=== PATIENT | male | born 1940 | race Two or more races ===

== ENCOUNTER 2021-05-10 03:53 | Inpatient (IN) | payer MEDICARE, MEDICAID ==
[~2021-05-10] VITALS: Ht 165.1 cm; Wt 62.2 kg
[2021-05-10 05:05] LABS: Basophils # (auto) 0 10 ^3/uL (0-0.2); Basophils % (auto) 0.3 % (0.0-2.0); Eosinophils # (auto) 0.1 10 ^3/uL (0-0.8); Eosinophils % (auto) 1.1 % (0.0-7.0); Hemoglobin 12.8 g/dL (13.5-17.5); Lymphocytes # (auto) 0.2 10 ^3/uL (0.4-5.4); Lymphocytes % (auto) 1.7 % (10.0-50.0); Mean Corpuscular Hemoglobin 30.6 pg (28.0-32.0); Mean Corpuscular Hgb Conc. 33.6 g/dL (32.0-36.0); Mean Corpuscular Volume 90.8 fL (80.0-100.0); Monocytes # (auto) 0.7 10 ^3/uL (0-1.3); Monocytes % (auto) 5.2 % (0.0-12.0); Neutrophils # (auto) 12.6 10 ^3/uL (1.6-8.6); Neutrophils % (auto) 91.7 % (37.0-80.0); Red Blood Cells 4.18 10^6/uL (4.5-5.90); Red Cell Distribution Width 12.8 % (11.8-14.3); White Blood Cell 13.7 10^3/uL (4.4-10.8)
[2021-05-10 05:38] LABS: Potassium 3.8 mmol/L (3.5-5.1)
[2021-05-10 05:52] LABS: BUN/Creatinine Ratio 24.2; Bilirubin, Total 0.7 mg/dL (0.2-1.0); Calcium 8.3 mg/dL (8.5-10.1); Total Protein 6.7 g/dL (6.4-8.2)
[2021-05-10 07:15] LABS: Urine Bacteria NONE SEEN /hpf (None Seen); Urine Blood Negative /uL (Negative); Urine Specific Gravity 1.013 (1.001-1.035); Urine WBC <1 /hpf (0 - 3)
[2021-05-10] MEDS ORDERED: cefTRIAXone 1GM/50ML D5W 50 ML IV ONE (08:15)
[2021-05-10] MEDS ORDERED: SODIUM CHLORIDE 0.9% 1,000 ML IV ONE (08:15)
[2021-05-10] MEDS ORDERED: AZITHROMYCIN 500MG/ 250ML 250 ML IV ONE (08:15)
[2021-05-10] MEDS ORDERED: ACETAMINOPHEN 325 MG TAB PO PRN (08:30)
[2021-05-10] MEDS ORDERED: MORPHINE SULFATE INJECTION 2 MG/ML SYRG IV PRN (08:30)
[2021-05-10] MEDS ORDERED: DEXTROSE (50%) 50ML SYRG IV PRN (08:30)
[2021-05-10] MEDS ORDERED: ONDANSETRON HCL 4 MG/2 ML VIAL IV PRN (08:30)
[2021-05-10] MEDS ORDERED: NITROGLYCERIN 0.4 MG SL TAB SL PRN (08:30)
[2021-05-10] MEDS: ATENOLOL 50 MG TAB PO SCH (09:32)
[2021-05-10] MEDS: PANTOPRAZOLE 40 MG TAB PO SCH (09:32)
[2021-05-10] MEDS: ENOXAPARIN SOD 40 MG/0.4 ML SYRINGE SC SCH (09:32)
[2021-05-10] MEDS: LOSARTAN POTASSIUM 50 MG TAB PO SCH (09:32)
[2021-05-10 09:59] LABS: Calcium 8.7 mg/dL (8.5-10.1); Potassium 4.1 mmol/L (3.5-5.1)
[2021-05-10 10:02] LABS: BUN/Creatinine Ratio 24.4
[2021-05-10] MEDS ORDERED: ACCU-CHEK COMFORT CURVE STRIP VI SCH (11:30)
[2021-05-10] MEDS ORDERED: InsuLIN REG 1unit/0.01ml Soln (100units/ml) SC SCH (11:30)
[2021-05-10] MEDS ORDERED: ALBUTEROL SULF 2.5 MG/0.5ML(0.5%) NEB SOLN NEB PRN (13:00)
[2021-05-10 14:40] VITALS: BP 133/63
[2021-05-10 17:00] VITALS: BP 119/69
[2021-05-10] MEDS: ATORVASTATIN 20 MG TAB PO SCH (21:58)
[2021-05-10 22:00] VITALS: BP 127/61
[2021-05-11 05:31] LABS: Basophils # (auto) 0 10 ^3/uL (0-0.2); Basophils % (auto) 0.5 % (0.0-2.0); Eosinophils # (auto) 0.3 10 ^3/uL (0-0.8); Eosinophils % (auto) 3.1 % (0.0-7.0); Hematocrit 38.6 % (41.0-53.0); Hemoglobin 13.1 g/dL (13.5-17.5); Lymphocytes # (auto) 0.8 10 ^3/uL (0.4-5.4); Lymphocytes % (auto) 8.2 % (10.0-50.0); Mean Corpuscular Hemoglobin 31.1 pg (28.0-32.0); Mean Corpuscular Volume 91.3 fL (80.0-100.0); Monocytes # (auto) 0.9 10 ^3/uL (0-1.3); Monocytes % (auto) 9.1 % (0.0-12.0); Neutrophils # (auto) 7.9 10 ^3/uL (1.6-8.6); Neutrophils % (auto) 79.1 % (37.0-80.0); Red Blood Cells 4.23 10^6/uL (4.5-5.90)
[2021-05-11 06:12] VITALS: BP 124/63
[2021-05-11 08:40] VITALS: BP 116/58
[2021-05-11] MEDS: cefTRIAXone 1GM/50ML D5W 50 ML IV SCH (09:39)
[2021-05-11] MEDS: ENOXAPARIN SOD 40 MG/0.4 ML SYRINGE SC SCH (09:40)
[2021-05-11] MEDS: ATENOLOL 50 MG TAB PO SCH (09:40)
[2021-05-11] MEDS: PANTOPRAZOLE 40 MG TAB PO SCH (09:40)
[2021-05-11] MEDS: LOSARTAN POTASSIUM 50 MG TAB PO SCH (10:00)
[2021-05-11] MEDS ORDERED: levoFLOXacin 500MG 100 ML IV SCH (10:00)
[2021-05-11] MEDS: AZITHROMYCIN 500MG/ 250ML 250 ML IV SCH (10:46)
[2021-05-11 13:00] VITALS: BP 137/77
[2021-05-11 16:58] VITALS: BP 146/71
[2021-05-11 21:51] VITALS: BP 140/94
[2021-05-11] MEDS: ATORVASTATIN 20 MG TAB PO SCH (21:57)
[2021-05-12 05:07] VITALS: BP 122/89
[2021-05-12 06:58] LABS: Basophils # (auto) 0.1 10 ^3/uL (0-0.2); Basophils % (auto) 0.5 % (0.0-2.0); Eosinophils # (auto) 0.2 10 ^3/uL (0-0.8); Eosinophils % (auto) 2.2 % (0.0-7.0); Hemoglobin 13.2 g/dL (13.5-17.5); Lymphocytes # (auto) 0.8 10 ^3/uL (0.4-5.4); Lymphocytes % (auto) 8.1 % (10.0-50.0); Mean Corpuscular Hemoglobin 31.4 pg (28.0-32.0); Mean Corpuscular Hgb Conc. 34.7 g/dL (32.0-36.0); Mean Corpuscular Volume 90.5 fL (80.0-100.0); Monocytes # (auto) 0.9 10 ^3/uL (0-1.3); Monocytes % (auto) 8.7 % (0.0-12.0); Neutrophils # (auto) 8.3 10 ^3/uL (1.6-8.6); Neutrophils % (auto) 80.5 % (37.0-80.0); Nucleated Red Blood Cells % 0.1 %; Red Cell Distribution Width 12.6 % (11.8-14.3); White Blood Cell 10.3 10^3/uL (4.4-10.8)
[2021-05-12 08:00] VITALS: BP 127/55
[2021-05-12] MEDS: ENOXAPARIN SOD 40 MG/0.4 ML SYRINGE SC SCH (10:15)
[2021-05-12] MEDS: LOSARTAN POTASSIUM 50 MG TAB PO SCH (10:15)
[2021-05-12] MEDS: cefTRIAXone 1GM/50ML D5W 50 ML IV SCH (10:15)
[2021-05-12] MEDS: ATENOLOL 50 MG TAB PO SCH (10:15)
[2021-05-12] MEDS: PANTOPRAZOLE 40 MG TAB PO SCH (10:15)
[2021-05-12] MEDS: AZITHROMYCIN 500MG/ 250ML 250 ML IV SCH (11:00)
[2021-05-12 12:00] VITALS: BP 131/60
[2021-05-12 16:00] VITALS: BP 125/53
[2021-05-12] MEDS: ATORVASTATIN 20 MG TAB PO SCH (21:32)
[2021-05-12 22:00] VITALS: BP 115/50
[2021-05-13 05:00] VITALS: BP 131/75
[2021-05-13 09:00] VITALS: BP 138/53
[2021-05-13] MEDS: cefTRIAXone 1GM/50ML D5W 50 ML IV SCH (10:45)
[2021-05-13] MEDS: AZITHROMYCIN 500MG/ 250ML 250 ML IV SCH (10:45)
[2021-05-13] MEDS: ENOXAPARIN SOD 40 MG/0.4 ML SYRINGE SC SCH (10:46)
[2021-05-13] MEDS: LOSARTAN POTASSIUM 50 MG TAB PO SCH (10:46)
[2021-05-13] MEDS: ATENOLOL 50 MG TAB PO SCH (10:47)
[2021-05-13] MEDS: PANTOPRAZOLE 40 MG TAB PO SCH (10:47)
[2021-05-13] MEDS ORDERED: VANCOMYCIN PER PHARMACY 0 MG IV SCH (11:45)
[2021-05-13] MEDS ORDERED: methylPREDNISolone SOD SUCC 125 MG/2 ML VL IV ONE (12:30)
[2021-05-13] MEDS ORDERED: VANCOMYCIN 1GM/250ML 250 ML IV ONE (12:45)
[2021-05-13 13:00] VITALS: BP 125/55
[2021-05-13 15:33] LABS: BUN/Creatinine Ratio 24.8; Basophils # (auto) 0 10 ^3/uL (0-0.2); Basophils % (auto) 0.3 % (0.0-2.0); Calcium 8.4 mg/dL (8.5-10.1); Eosinophils # (auto) 0.2 10 ^3/uL (0-0.8); Eosinophils % (auto) 1.8 % (0.0-7.0); Hematocrit 38.8 % (41.0-53.0); Hemoglobin 13.4 g/dL (13.5-17.5); Lymphocytes # (auto) 0.4 10 ^3/uL (0.4-5.4); Lymphocytes % (auto) 4.2 % (10.0-50.0); Mean Corpuscular Hemoglobin 31.3 pg (28.0-32.0); Mean Corpuscular Hgb Conc. 34.6 g/dL (32.0-36.0); Mean Corpuscular Volume 90.5 fL (80.0-100.0); Monocytes # (auto) 0.4 10 ^3/uL (0-1.3); Monocytes % (auto) 4.2 % (0.0-12.0); Neutrophils # (auto) 9.3 10 ^3/uL (1.6-8.6); Neutrophils % (auto) 89.5 % (37.0-80.0); Potassium 4.3 mmol/L (3.5-5.1); Red Blood Cells 4.29 10^6/uL (4.5-5.90); Red Cell Distribution Width 12.5 % (11.8-14.3); White Blood Cell 10.3 10^3/uL (4.4-10.8)
[2021-05-13 17:00] VITALS: BP 131/61
[2021-05-13 22:00] VITALS: BP 110/56
[2021-05-13] MEDS: VANCOMYCIN 750mg/250ml 250 ML IV SCH (22:29)
[2021-05-13] MEDS: ATORVASTATIN 20 MG TAB PO SCH (22:30)
[2021-05-13] MEDS: methylPREDNISolone SOD SUCC 40 MG/ML VL IV SCH (22:30)
[2021-05-14 05:00] VITALS: BP 122/62
[2021-05-14 06:05] LABS: Basophils # (auto) 0 10 ^3/uL (0-0.2); Basophils % (auto) 0.1 % (0.0-2.0); Eosinophils # (auto) 0 10 ^3/uL (0-0.8); Eosinophils % (auto) 0.1 % (0.0-7.0); Hematocrit 38.3 % (41.0-53.0); Hemoglobin 13.6 g/dL (13.5-17.5); Lymphocytes # (auto) 0.4 10 ^3/uL (0.4-5.4); Lymphocytes % (auto) 3.9 % (10.0-50.0); Mean Corpuscular Hemoglobin 31.7 pg (28.0-32.0); Mean Corpuscular Hgb Conc. 35.4 g/dL (32.0-36.0); Mean Corpuscular Volume 89.3 fL (80.0-100.0); Monocytes # (auto) 0.2 10 ^3/uL (0-1.3); Monocytes % (auto) 2.4 % (0.0-12.0); Neutrophils % (auto) 93.5 % (37.0-80.0); Red Blood Cells 4.29 10^6/uL (4.5-5.90); Red Cell Distribution Width 12.6 % (11.8-14.3); White Blood Cell 9.6 10^3/uL (4.4-10.8)
[2021-05-14 06:40] LABS: Albumin 2.4 g/dL (3.4-5.0); BUN/Creatinine Ratio 30.2; Calcium 8.9 mg/dL (8.5-10.1)
[2021-05-14 06:42] LABS: Bilirubin, Total 0.5 mg/dL (0.2-1.0); Total Protein 6.5 g/dL (6.4-8.2)
[2021-05-14] MEDS: cefTRIAXone 1GM/50ML D5W 50 ML IV SCH (08:46)
[2021-05-14 09:00] VITALS: BP 116/89
[2021-05-14] MEDS: methylPREDNISolone SOD SUCC 40 MG/ML VL IV SCH ×2 (10:19→21:19)
[2021-05-14] MEDS: VANCOMYCIN 750mg/250ml 250 ML IV SCH ×2 (10:19→21:19)
[2021-05-14] MEDS: LOSARTAN POTASSIUM 50 MG TAB PO SCH (10:20)
[2021-05-14] MEDS: ENOXAPARIN SOD 40 MG/0.4 ML SYRINGE SC SCH (10:20)
[2021-05-14] MEDS: PANTOPRAZOLE 40 MG TAB PO SCH (10:20)
[2021-05-14] MEDS ORDERED: DEXTROSE (50%) 50ML SYRG IV PRN (11:00)
[2021-05-14] MEDS: ACCU-CHEK COMFORT CURVE STRIP VI SCH ×3 (11:30→21:40)
[2021-05-14] MEDS: AZITHROMYCIN 500MG/ 250ML 250 ML IV SCH (12:00)
[2021-05-14] MEDS: InsuLIN REG 1unit/0.01ml Soln (100units/ml) SC SCH ×3 (12:00→21:40)
[2021-05-14 13:00] VITALS: BP 130/55
[2021-05-14 17:00] VITALS: BP 120/51
[2021-05-14] MEDS: INSULIN LANTUS (GLARGINE) 1 /0.01ml (100units/ml) SC SCH (21:40)
[2021-05-14] MEDS: ATORVASTATIN 20 MG TAB PO SCH (21:41)
[2021-05-14 22:00] VITALS: BP 124/56
[2021-05-15 05:00] VITALS: BP 132/50
[2021-05-15] MEDS: InsuLIN REG 1unit/0.01ml Soln (100units/ml) SC SCH ×4 (06:32→21:52)
[2021-05-15] MEDS: INSULIN LANTUS (GLARGINE) 1 /0.01ml (100units/ml) SC SCH ×2 (06:33→21:53)
[2021-05-15] MEDS: ACCU-CHEK COMFORT CURVE STRIP VI SCH ×4 (06:33→21:51)
[2021-05-15] MEDS: cefTRIAXone 1GM/50ML D5W 50 ML IV SCH (08:45)
[2021-05-15 09:00] VITALS: BP 130/60
[2021-05-15] MEDS: methylPREDNISolone SOD SUCC 40 MG/ML VL IV SCH ×2 (10:19→21:51)
[2021-05-15] MEDS: VANCOMYCIN 750mg/250ml 250 ML IV SCH ×2 (10:19→20:55)
[2021-05-15] MEDS: LOSARTAN POTASSIUM 50 MG TAB PO SCH (10:20)
[2021-05-15] MEDS: ENOXAPARIN SOD 40 MG/0.4 ML SYRINGE SC SCH (10:20)
[2021-05-15] MEDS: PANTOPRAZOLE 40 MG TAB PO SCH (10:21)
[2021-05-15] MEDS ORDERED: OMEP20TA PO (11:38)
[2021-05-15] MEDS ORDERED: METF-372 PO (11:38)
[2021-05-15] MEDS ORDERED: GLIM-5 PO (11:43)
[2021-05-15] MEDS ORDERED: AMLO-496 PO (11:43)
[2021-05-15] MEDS ORDERED: MULT-1018 PO (11:43)
[2021-05-15] MEDS ORDERED: ATOR40TA52 PO (11:43)
[2021-05-15] MEDS ORDERED: MIRT1TAB38 PO (11:43)
[2021-05-15] MEDS ORDERED: ALBU108A5 INH (11:43)
[2021-05-15 13:00] VITALS: BP 138/65
[2021-05-15 17:00] VITALS: BP 133/68
[2021-05-15] MEDS: ATORVASTATIN 20 MG TAB PO SCH (21:51)
[2021-05-15 22:00] VITALS: BP 133/71
[2021-05-16 05:00] VITALS: BP 148/55
[2021-05-16] MEDS: ACCU-CHEK COMFORT CURVE STRIP VI SCH ×4 (06:38→21:33)
[2021-05-16] MEDS: INSULIN LANTUS (GLARGINE) 1 /0.01ml (100units/ml) SC SCH ×2 (06:40→21:27)
[2021-05-16] MEDS: InsuLIN REG 1unit/0.01ml Soln (100units/ml) SC SCH ×4 (06:40→21:26)
[2021-05-16 09:00] VITALS: BP 140/71
[2021-05-16] MEDS: cefTRIAXone 1GM/50ML D5W 50 ML IV SCH (09:00)
[2021-05-16 09:28] LABS: Basophils # (auto) 0 10 ^3/uL (0-0.2); Basophils % (auto) 0.1 % (0.0-2.0); Eosinophils # (auto) 0 10 ^3/uL (0-0.8); Hematocrit 43.6 % (41.0-53.0); Hemoglobin 15.2 g/dL (13.5-17.5); Lymphocytes # (auto) 0.4 10 ^3/uL (0.4-5.4); Lymphocytes % (auto) 1.9 % (10.0-50.0); Mean Corpuscular Hemoglobin 31.2 pg (28.0-32.0); Mean Corpuscular Hgb Conc. 34.8 g/dL (32.0-36.0); Mean Corpuscular Volume 89.5 fL (80.0-100.0); Monocytes # (auto) 0.9 10 ^3/uL (0-1.3); Monocytes % (auto) 4.3 % (0.0-12.0); Neutrophils # (auto) 20.8 10 ^3/uL (1.6-8.6); Neutrophils % (auto) 93.7 % (37.0-80.0); Red Blood Cells 4.88 10^6/uL (4.5-5.90); Red Cell Distribution Width 12.7 % (11.8-14.3); White Blood Cell 22.2 10^3/uL (4.4-10.8)
[2021-05-16 09:36] LABS: INR 1.12 (0.9-1.15); Partial Thromboplastin Time 26.2 sec (23.6-33.0)
[2021-05-16 09:39] LABS: BUN/Creatinine Ratio 30.9; Calcium 9.6 mg/dL (8.5-10.1); Potassium 3.8 mmol/L (3.5-5.1)
[2021-05-16] MEDS: methylPREDNISolone SOD SUCC 40 MG/ML VL IV SCH ×2 (09:47→21:33)
[2021-05-16] MEDS: AZITHROMYCIN 250 MG TAB PO SCH (09:48)
[2021-05-16] MEDS: ENOXAPARIN SOD 40 MG/0.4 ML SYRINGE SC SCH (09:48)
[2021-05-16] MEDS: LOSARTAN POTASSIUM 50 MG TAB PO SCH (09:48)
[2021-05-16] MEDS: PANTOPRAZOLE 40 MG TAB PO SCH (09:48)
[2021-05-16] MEDS: VANCOMYCIN 750mg/250ml 250 ML IV SCH ×2 (10:00→21:25)
[2021-05-16 13:00] VITALS: BP 153/61
[2021-05-16 17:00] VITALS: BP 145/78
[2021-05-16] MEDS: ATORVASTATIN 20 MG TAB PO SCH (21:33)
[2021-05-16 22:00] VITALS: BP 106/64
[2021-05-17 05:00] VITALS: BP 140/77
[2021-05-17 06:59] LABS: Basophils # (auto) 0 10 ^3/uL (0-0.2); Basophils % (auto) 0.1 % (0.0-2.0); Eosinophils # (auto) 0 10 ^3/uL (0-0.8); Hematocrit 40.3 % (41.0-53.0); Lymphocytes # (auto) 0.4 10 ^3/uL (0.4-5.4); Lymphocytes % (auto) 2.5 % (10.0-50.0); Mean Corpuscular Hemoglobin 30.9 pg (28.0-32.0); Mean Corpuscular Hgb Conc. 34.7 g/dL (32.0-36.0); Mean Corpuscular Volume 89.1 fL (80.0-100.0); Monocytes # (auto) 0.6 10 ^3/uL (0-1.3); Neutrophils % (auto) 93.4 % (37.0-80.0); Red Blood Cells 4.53 10^6/uL (4.5-5.90); Red Cell Distribution Width 12.5 % (11.8-14.3)
[2021-05-17] MEDS: INSULIN LANTUS (GLARGINE) 1 /0.01ml (100units/ml) SC SCH ×2 (07:00→22:27)
[2021-05-17] MEDS: ACCU-CHEK COMFORT CURVE STRIP VI SCH ×4 (07:00→22:20)
[2021-05-17] MEDS: InsuLIN REG 1unit/0.01ml Soln (100units/ml) SC SCH ×4 (07:30→22:29)
[2021-05-17 09:00] VITALS: BP 149/90
[2021-05-17] MEDS: cefTRIAXone 1GM/50ML D5W 50 ML IV SCH (09:00)
[2021-05-17] MEDS: methylPREDNISolone SOD SUCC 40 MG/ML VL IV SCH ×2 (09:57→22:20)
[2021-05-17] MEDS: ENOXAPARIN SOD 40 MG/0.4 ML SYRINGE SC SCH (09:58)
[2021-05-17] MEDS: AZITHROMYCIN 250 MG TAB PO SCH (09:58)
[2021-05-17] MEDS: LOSARTAN POTASSIUM 50 MG TAB PO SCH (09:58)
[2021-05-17] MEDS: PANTOPRAZOLE 40 MG TAB PO SCH (09:58)
[2021-05-17] MEDS: VANCOMYCIN 750mg/250ml 250 ML IV SCH ×2 (10:00→21:13)
[2021-05-17 13:00] VITALS: BP 139/65
[2021-05-17 17:00] VITALS: BP 137/67
[2021-05-17] MEDS: ATORVASTATIN 20 MG TAB PO SCH (22:20)
[2021-05-18 06:07] VITALS: BP 149/81
[2021-05-18] MEDS: InsuLIN REG 1unit/0.01ml Soln (100units/ml) SC SCH ×4 (06:49→21:24)
[2021-05-18] MEDS: ACCU-CHEK COMFORT CURVE STRIP VI SCH ×4 (06:49→21:23)
[2021-05-18] MEDS: INSULIN LANTUS (GLARGINE) 1 /0.01ml (100units/ml) SC SCH ×2 (06:56→21:24)
[2021-05-18 09:00] VITALS: BP 146/96
[2021-05-18 09:18] LABS: Albumin 3.4 g/dL (3.4-5.0); BUN/Creatinine Ratio 30.8; Calcium 9.6 mg/dL (8.5-10.1); Potassium 4.6 mmol/L (3.5-5.1)
[2021-05-18 09:21] LABS: Bilirubin, Total 0.6 mg/dL (0.2-1.0); Total Protein 7.2 g/dL (6.4-8.2)
[2021-05-18 09:37] LABS: Basophils # (auto) 0 10 ^3/uL (0-0.2); Eosinophils # (auto) 0 10 ^3/uL (0-0.8); Mean Corpuscular Hgb Conc. 33.9 g/dL (32.0-36.0)
[2021-05-18 09:39] LABS: Basophils % (auto) 0.1 % (0.0-2.0); Hematocrit 46.9 % (41.0-53.0); Hemoglobin 15.9 g/dL (13.5-17.5); Lymphocytes # (auto) 0.5 10 ^3/uL (0.4-5.4); Lymphocytes % (auto) 2.6 % (10.0-50.0); Mean Corpuscular Hemoglobin 30.3 pg (28.0-32.0); Mean Corpuscular Volume 89.4 fL (80.0-100.0); Monocytes % (auto) 4.9 % (0.0-12.0); Neutrophils # (auto) 17.8 10 ^3/uL (1.6-8.6); Neutrophils % (auto) 92.4 % (37.0-80.0); Red Blood Cells 5.25 10^6/uL (4.5-5.90); Red Cell Distribution Width 12.6 % (11.8-14.3); White Blood Cell 19.3 10^3/uL (4.4-10.8)
[2021-05-18] MEDS: VANCOMYCIN 750mg/250ml 250 ML IV SCH ×2 (10:00→10:54)
[2021-05-18] MEDS: methylPREDNISolone SOD SUCC 40 MG/ML VL IV SCH (10:43)
[2021-05-18] MEDS: PANTOPRAZOLE 40 MG TAB PO SCH (10:45)
[2021-05-18] MEDS: LOSARTAN POTASSIUM 50 MG TAB PO SCH (10:45)
[2021-05-18] MEDS: ENOXAPARIN SOD 40 MG/0.4 ML SYRINGE SC SCH (10:46)
[2021-05-18] MEDS: AZITHROMYCIN 250 MG TAB PO SCH (10:46)
[2021-05-18] MEDS: cefTRIAXone 1GM/50ML D5W 50 ML IV SCH (11:10)
[2021-05-18 12:53] VITALS: BP 139/66
[2021-05-18 17:00] VITALS: BP 151/71
[2021-05-18] MEDS: ATORVASTATIN 20 MG TAB PO SCH (21:22)
[2021-05-18 22:00] VITALS: BP 141/78
[2021-05-19] MEDS: VANCOMYCIN 750mg/250ml 250 ML IV SCH (00:47)
[2021-05-19 05:00] VITALS: BP 117/73
[2021-05-19] MEDS: INSULIN LANTUS (GLARGINE) 1 /0.01ml (100units/ml) SC SCH (06:29)
[2021-05-19] MEDS: ACCU-CHEK COMFORT CURVE STRIP VI SCH ×2 (06:29→11:30)
[2021-05-19] MEDS: InsuLIN REG 1unit/0.01ml Soln (100units/ml) SC SCH ×2 (06:29→11:30)
[2021-05-19 06:32] LABS: Potassium 4.2 mmol/L (3.5-5.1)
[2021-05-19 06:38] LABS: BUN/Creatinine Ratio 33.9; Calcium 8.9 mg/dL (8.5-10.1)
[2021-05-19 09:00] VITALS: BP 150/61
[2021-05-19] MEDS: cefTRIAXone 1GM/50ML D5W 50 ML IV SCH (10:00)
[2021-05-19] MEDS ORDERED: predniSONE 20 MG TAB PO SCH (10:00)
[2021-05-19] MEDS ORDERED: PRED10TA PO (10:26)
[2021-05-19] MEDS ORDERED: DOXY-332 PO (10:26)
[2021-05-19] MEDS: PANTOPRAZOLE 40 MG TAB PO SCH (10:30)
[2021-05-19] MEDS: LOSARTAN POTASSIUM 50 MG TAB PO SCH (10:30)
[2021-05-19] MEDS: AZITHROMYCIN 250 MG TAB PO SCH (10:30)
== END 2021-05-19 15:48 | disposition home or self-care (01) | DRG 871 ==
LOC: EDBD 03:53 → ER 04:10 → TELE 08:23 → TELE-WESTW 13:44
PROVIDERS: ADMIT Nurse Practitioner; ATTEND Internal Medicine
DX: A41.9 Sepsis, unspecified organism (principal); J96.01 Acute respiratory failure with hypoxia; I50.41 Acute combined systolic (congestive) and diastolic (congestive) heart failure; J18.9 Pneumonia, unspecified organism; E44.0 Moderate protein-calorie malnutrition; J44.0 Chronic obstructive pulmonary disease with (acute) lower respiratory infection; E11.9 Type 2 diabetes mellitus without complications; I27.20 Pulmonary hypertension, unspecified; E78.5 Hyperlipidemia, unspecified; I11.0 Hypertensive heart disease with heart failure; Z20.822 Contact with and (suspected) exposure to COVID-19; Z79.84 Long term (current) use of oral hypoglycemic drugs; Z68.23 Body mass index [BMI] 23.0-23.9, adult; Z87.891 Personal history of nicotine dependence; Z88.0 Allergy status to penicillin
CPT/HCPCS: 36415; 36600; 71045; 71250; 80048; 80053; 80202; 81001; 82728; 82805; 82962; 83036; 83605; 83735; 83880; 84443; 84484; 85025; 85379; 85610; 85730; 87040; 87426; 93005; 93306; 96365; 96368; 97163; G0378; J0696; J1815

== ENCOUNTER 2022-06-26 11:38 | Inpatient (IN) | payer MEDICARE, MEDICAID ==
[~2022-06-26] VITALS: Ht 165.1 cm; Wt 98.5 kg
[~2022-06-26 11:38] MED LIST: ALBU108A5 INH; AMLO-496 PO; ATOR40TA52 PO; DOXY-332 PO; GLIM-5 PO; METF-372 PO; MIRT1TAB38 PO; MULT-1018 PO; OMEP20TA PO; PRED10TA PO
[2022-06-26 12:52] LABS: Urine Bacteria NONE SEEN /hpf (None Seen); Urine Blood Negative /uL (Negative); Urine Hyaline Cast FEW /lpf (0 - 2); Urine Mucus FEW (None Seen); Urine Specific Gravity 1.022 (1.001-1.035); Urine WBC 1 /hpf (0 - 3)
[2022-06-26 12:54] LABS: Basophils # (auto) 0.1 10 ^3/uL (0-0.2); Basophils % (auto) 0.8 % (0.0-2.0); Eosinophils # (auto) 0.4 10 ^3/uL (0-0.8); Eosinophils % (auto) 3.1 % (0.0-7.0); Hematocrit 43.8 % (41.0-53.0); Hemoglobin 14.8 g/dL (13.5-17.5); Lymphocytes # (auto) 0.8 10 ^3/uL (0.4-5.4); Lymphocytes % (auto) 7.4 % (10.0-50.0); Mean Corpuscular Hemoglobin 29.4 pg (28.0-32.0); Mean Corpuscular Hgb Conc. 33.7 g/dL (32.0-36.0); Mean Corpuscular Volume 87.2 fL (80.0-100.0); Monocytes # (auto) 0.6 10 ^3/uL (0-1.3); Monocytes % (auto) 5.3 % (0.0-12.0); Neutrophils # (auto) 9.6 10 ^3/uL (1.6-8.6); Neutrophils % (auto) 83.4 % (37.0-80.0); Red Blood Cells 5.02 10^6/uL (4.5-5.90); Red Cell Distribution Width 14.5 % (11.8-14.3); White Blood Cell 11.5 10^3/uL (4.4-10.8)
[2022-06-26 13:03] LABS: Albumin 3.6 g/dL (3.4-5.0); Calcium 9.3 mg/dL (8.5-10.1); Magnesium 2.4 mg/dL (1.6-2.6); Potassium 3.9 mmol/L (3.5-5.1)
[2022-06-26 13:07] LABS: BUN/Creatinine Ratio 18.3 (10.0-20.0); Bilirubin, Total 0.8 mg/dL (0.2-1.0); Total Protein 8.2 g/dL (6.4-8.2)
[2022-06-26 13:12] LABS: INR 1.02 (0.9-1.15); Partial Thromboplastin Time 28.4 sec (24.6-33.4)
[2022-06-26] MEDS ORDERED: IPRATROPIUM BROM 0.5 MG/2.5ML INH SOL NEB ONE (13:30)
[2022-06-26] MEDS ORDERED: DexAMETHasone SOD PHOS 10MG/1ML VIAL INJ IV ONE (13:30)
[2022-06-26] MEDS ORDERED: ALBUTEROL SULF 2.5 MG/0.5ML(0.5%) NEB SOLN NEB ONE (13:30)
[2022-06-26] MEDS ORDERED: levoFLOXacin 500MG 100 ML IV ONE (16:00)
[2022-06-26] MEDS ORDERED: ALBUTEROL SULF 2.5 MG/0.5ML(0.5%) NEB SOLN NEB PRN (18:45)
[2022-06-26] MEDS ORDERED: DEXTROSE (50%) 50ML SYRG IV PRN (18:45)
[2022-06-26] MEDS ORDERED: ONDANSETRON HCL 4 MG/2 ML VIAL IV PRN (18:45)
[2022-06-26] MEDS ORDERED: DOCUSATE SOD 100 MG CAP PO PRN (18:45)
[2022-06-26] MEDS ORDERED: IPRATROPIUM BROM 0.5 MG/2.5ML INH SOL NEB PRN (18:45)
[2022-06-26] MEDS ORDERED: MORPHINE SULFATE INJ 2 MG/ml SYRG IV PRN (18:45)
[2022-06-26] MEDS: ACCU-CHEK COMFORT CURVE STRIP VI SCH (22:00)
[2022-06-26] MEDS: methylPREDNISolone SOD SUCC 125 MG/2 ML VL IV SCH (23:38)
[2022-06-26] MEDS: ATORVASTATIN 20 MG TAB PO SCH (23:39)
[2022-06-26] MEDS: InsuLIN REG 1unit/0.01ml Soln (100units/ml) SC SCH (23:39)
[2022-06-27] VITALS (7 sets, daily range): BP systolic 111–147; BP diastolic 51–69
[2022-06-27 05:56] LABS: Basophils # (auto) 0 10 ^3/uL (0-0.2); Basophils % (auto) 0.1 % (0.0-2.0); Eosinophils # (auto) 0 10 ^3/uL (0-0.8); Hematocrit 39.7 % (41.0-53.0); Hemoglobin 13.6 g/dL (13.5-17.5); Lymphocytes # (auto) 0.4 10 ^3/uL (0.4-5.4); Lymphocytes % (auto) 4.1 % (10.0-50.0); Mean Corpuscular Hemoglobin 30.1 pg (28.0-32.0); Mean Corpuscular Hgb Conc. 34.3 g/dL (32.0-36.0); Mean Corpuscular Volume 87.7 fL (80.0-100.0); Monocytes # (auto) 0.1 10 ^3/uL (0-1.3); Monocytes % (auto) 1.4 % (0.0-12.0); Neutrophils # (auto) 8.3 10 ^3/uL (1.6-8.6); Neutrophils % (auto) 94.4 % (37.0-80.0); Red Blood Cells 4.52 10^6/uL (4.5-5.90); Red Cell Distribution Width 13.8 % (11.8-14.3); White Blood Cell 8.8 10^3/uL (4.4-10.8)
[2022-06-27 06:11] LABS: Albumin 3.1 g/dL (3.4-5.0); Calcium 9.2 mg/dL (8.5-10.1)
[2022-06-27 06:16] LABS: Bilirubin, Total 0.7 mg/dL (0.2-1.0); Total Protein 7.1 g/dL (6.4-8.2)
[2022-06-27] MEDS: methylPREDNISolone SOD SUCC 125 MG/2 ML VL IV SCH ×3 (06:17→21:34)
[2022-06-27] MEDS: InsuLIN REG 1unit/0.01ml Soln (100units/ml) SC SCH ×4 (06:19→21:41)
[2022-06-27] MEDS: ACCU-CHEK COMFORT CURVE STRIP VI SCH ×4 (06:19→21:34)
[2022-06-27] MEDS: MULTIPLE VITAMIN TAB PO SCH (09:36)
[2022-06-27] MEDS: amLODIPine BESYLATE 5 MG TAB PO SCH (09:36)
[2022-06-27] MEDS: PANTOPRAZOLE 40 MG TAB PO SCH (09:37)
[2022-06-27] MEDS: ENOXAPARIN SOD 40 MG/0.4 ML SYRINGE SC SCH (09:37)
[2022-06-27] MEDS ORDERED: levoFLOXacin 500MG 100 ML IV ONE (18:15)
[2022-06-27] MEDS: MIRTAZAPINE 30 MG TAB PO SCH (21:34)
[2022-06-27] MEDS: ATORVASTATIN 20 MG TAB PO SCH (21:34)
[2022-06-28 05:00] VITALS: BP 131/63
[2022-06-28 06:13] LABS: Hematocrit 40.4 % (41.0-53.0); Hemoglobin 13.9 g/dL (13.5-17.5); Mean Corpuscular Hemoglobin 29.7 pg (28.0-32.0); Mean Corpuscular Hgb Conc. 34.5 g/dL (32.0-36.0); Mean Corpuscular Volume 86.1 fL (80.0-100.0); White Blood Cell 21.5 10^3/uL (4.4-10.8)
[2022-06-28] MEDS: methylPREDNISolone SOD SUCC 125 MG/2 ML VL IV SCH ×2 (06:17→21:17)
[2022-06-28 06:23] LABS: Basophils % (manual) 0 (0.0-2.0); Blast Cells 0; Eosinophils % (manual) 0 (0-7); Metamyelocytes % 0; Myelocytes % 0; Promyelocytes % 0; Reactive Lymphocytes 0
[2022-06-28 06:33] LABS: Calcium 9.3 mg/dL (8.5-10.1)
[2022-06-28 06:36] LABS: BUN/Creatinine Ratio 34.3 (10.0-20.0)
[2022-06-28] MEDS: ACCU-CHEK COMFORT CURVE STRIP VI SCH ×6 (06:53→21:56)
[2022-06-28] MEDS: InsuLIN REG 1unit/0.01ml Soln (100units/ml) SC SCH ×5 (06:54→22:00)
[2022-06-28 09:00] VITALS: BP 120/65
[2022-06-28 09:07] LABS: Band Neutrophils % (manual) 12; Lymphocytes % (manual) 1 (10.0-50.0); Monocytes % (manual) 3 (0-12)
[2022-06-28] MEDS: PANTOPRAZOLE 40 MG TAB PO SCH (09:08)
[2022-06-28] MEDS: amLODIPine BESYLATE 5 MG TAB PO SCH (09:09)
[2022-06-28] MEDS: MULTIPLE VITAMIN TAB PO SCH (09:09)
[2022-06-28] MEDS: ENOXAPARIN SOD 40 MG/0.4 ML SYRINGE SC SCH (09:10)
[2022-06-28] MEDS ORDERED: levoFLOXacin 500MG 100 ML IV SCH (10:00)
[2022-06-28] MEDS ORDERED: levoFLOXacin 250MG 50 ML IV SCH (10:00)
[2022-06-28] MEDS ORDERED: DEXTROSE (50%) 50ML SYRG IV PRN (12:45)
[2022-06-28 13:00] VITALS: BP 123/52
[2022-06-28] MEDS: DOXYCYCLINE 100MG/250ML 250 ML IV SCH (14:00)
[2022-06-28 16:54] VITALS: BP 124/57
[2022-06-28] MEDS: ALBUTEROL SULF 2.5 MG/0.5ML(0.5%) NEB SOLN NEB SCH (18:30)
[2022-06-28] MEDS: IPRATROPIUM BROM 0.5 MG/2.5ML INH SOL NEB SCH (18:30)
[2022-06-28] MEDS: ATORVASTATIN 20 MG TAB PO SCH (21:18)
[2022-06-28] MEDS: MIRTAZAPINE 30 MG TAB PO SCH (21:25)
[2022-06-28 22:00] VITALS: BP 137/61
[2022-06-29] MEDS: DOXYCYCLINE 100MG/250ML 250 ML IV SCH ×2 (00:29→11:19)
[2022-06-29 05:00] VITALS: BP 125/61
[2022-06-29] MEDS: ACCU-CHEK COMFORT CURVE STRIP VI SCH ×8 (06:12→21:43)
[2022-06-29] MEDS: InsuLIN REG 1unit/0.01ml Soln (100units/ml) SC SCH ×5 (06:14→21:43)
[2022-06-29] MEDS: ALBUTEROL SULF 2.5 MG/0.5ML(0.5%) NEB SOLN NEB SCH ×3 (06:38→19:13)
[2022-06-29] MEDS: IPRATROPIUM BROM 0.5 MG/2.5ML INH SOL NEB SCH ×3 (06:38→19:13)
[2022-06-29 06:49] LABS: BUN/Creatinine Ratio 35.6 (10.0-20.0); Potassium 4.3 mmol/L (3.5-5.1)
[2022-06-29 09:00] VITALS: BP 126/57
[2022-06-29] MEDS: amLODIPine BESYLATE 5 MG TAB PO SCH (09:01)
[2022-06-29] MEDS: MULTIPLE VITAMIN TAB PO SCH (09:01)
[2022-06-29] MEDS: PANTOPRAZOLE 40 MG TAB PO SCH (09:01)
[2022-06-29] MEDS: ENOXAPARIN SOD 40 MG/0.4 ML SYRINGE SC SCH (09:02)
[2022-06-29] MEDS: methylPREDNISolone SOD SUCC 125 MG/2 ML VL IV SCH (09:02)
[2022-06-29 12:40] VITALS: BP 125/56
[2022-06-29 17:00] VITALS: BP 120/55
[2022-06-29] MEDS: ATORVASTATIN 20 MG TAB PO SCH (21:33)
[2022-06-29] MEDS: MIRTAZAPINE 30 MG TAB PO SCH (21:33)
[2022-06-29 22:00] VITALS: BP 133/58
[2022-06-30] MEDS: DOXYCYCLINE 100MG/250ML 250 ML IV SCH ×2 (00:45→11:10)
[2022-06-30] MEDS: IPRATROPIUM BROM 0.5 MG/2.5ML INH SOL NEB SCH ×3 (00:51→19:25)
[2022-06-30] MEDS: ALBUTEROL SULF 2.5 MG/0.5ML(0.5%) NEB SOLN NEB SCH ×3 (00:51→19:25)
[2022-06-30 00:56] VITALS: BP 133/58
[2022-06-30 05:04] VITALS: BP 108/73
[2022-06-30] MEDS: ACCU-CHEK COMFORT CURVE STRIP VI SCH ×8 (05:42→22:41)
[2022-06-30] MEDS: InsuLIN REG 1unit/0.01ml Soln (100units/ml) SC SCH ×5 (05:57→22:43)
[2022-06-30] MEDS: MULTIPLE VITAMIN TAB PO SCH (08:39)
[2022-06-30] MEDS: amLODIPine BESYLATE 5 MG TAB PO SCH (08:40)
[2022-06-30] MEDS: PANTOPRAZOLE 40 MG TAB PO SCH (08:40)
[2022-06-30] MEDS: ENOXAPARIN SOD 40 MG/0.4 ML SYRINGE SC SCH (08:40)
[2022-06-30 09:00] VITALS: BP 134/57
[2022-06-30] MEDS ORDERED: predniSONE 20 MG TAB PO SCH (10:00)
[2022-06-30 12:39] VITALS: BP 137/62
[2022-06-30 16:22] VITALS: BP 134/42
[2022-06-30] MEDS: metFORMIN HYDROCHLORIDE 500 MG TAB PO SCH (17:33)
[2022-06-30 22:00] VITALS: BP 130/65
[2022-06-30] MEDS ORDERED: INSULIN LANTUS (GLARGINE) 1 /0.01ml (100units/ml) SC SCH (22:00)
[2022-06-30] MEDS: MIRTAZAPINE 30 MG TAB PO SCH (22:40)
[2022-06-30] MEDS: ATORVASTATIN 20 MG TAB PO SCH (22:40)
[2022-06-30] MEDS: DOXYCYCLINE 100 MG TAB/CAP PO SCH (22:41)
[2022-07-01 05:00] VITALS: BP 119/68
[2022-07-01] MEDS: ACCU-CHEK COMFORT CURVE STRIP VI SCH ×4 (05:59→12:52)
[2022-07-01] MEDS: InsuLIN REG 1unit/0.01ml Soln (100units/ml) SC SCH ×2 (06:06→12:54)
[2022-07-01] MEDS: IPRATROPIUM BROM 0.5 MG/2.5ML INH SOL NEB SCH ×2 (06:40→11:25)
[2022-07-01] MEDS: ALBUTEROL SULF 2.5 MG/0.5ML(0.5%) NEB SOLN NEB SCH ×2 (06:40→11:25)
[2022-07-01 09:00] VITALS: BP 125/57
[2022-07-01] MEDS: metFORMIN HYDROCHLORIDE 500 MG TAB PO SCH (09:22)
[2022-07-01] MEDS: MULTIPLE VITAMIN TAB PO SCH (09:26)
[2022-07-01] MEDS: amLODIPine BESYLATE 5 MG TAB PO SCH (09:26)
[2022-07-01] MEDS: DOXYCYCLINE 100 MG TAB/CAP PO SCH (09:26)
[2022-07-01] MEDS: PANTOPRAZOLE 40 MG TAB PO SCH (09:26)
[2022-07-01] MEDS: ENOXAPARIN SOD 40 MG/0.4 ML SYRINGE SC SCH (09:27)
[2022-07-01] MEDS ORDERED: predniSONE 20 MG TAB PO SCH (10:00)
[2022-07-01] MEDS ORDERED: PRED20TA2 PO (11:20)
[2022-07-01] MEDS ORDERED: DOXY-346 PO (11:20)
[2022-07-01 12:14] VITALS: BP 125/57
== END 2022-07-01 14:30 | disposition home or self-care (01) | DRG 177 ==
LOC: ER 11:38 → TELE 18:40 → TELE-WESTW 22:42
PROVIDERS: ADMIT Nurse Practitioner Family; ATTEND Internal Medicine
DX: J15.6 Pneumonia due to other Gram-negative bacteria (principal); J96.21 Acute and chronic respiratory failure with hypoxia; E87.1 Hypo-osmolality and hyponatremia; J98.11 Atelectasis; J44.1 Chronic obstructive pulmonary disease with (acute) exacerbation; R17 Unspecified jaundice; J44.0 Chronic obstructive pulmonary disease with (acute) lower respiratory infection; D72.829 Elevated white blood cell count, unspecified; E78.5 Hyperlipidemia, unspecified; I10 Essential (primary) hypertension; Z20.822 Contact with and (suspected) exposure to COVID-19; Z79.899 Other long term (current) drug therapy; Z83.3 Family history of diabetes mellitus; Z87.891 Personal history of nicotine dependence; Z88.0 Allergy status to penicillin
CPT/HCPCS: 36415; 36600; 71046; 71250; 80048; 80053; 81001; 82805; 82962; 83036; 83735; 84484; 85007; 85025; 85027; 85379; 85610; 85730; 87426; 93005; 93970; 94640; 96365; 96375; G0378; J1100; J1815; J1956; J3490

== ENCOUNTER 2022-08-13 08:30 | Inpatient (IN) | payer MEDICARE, MEDICAID ==
[~2022-08-13] VITALS: Ht 172.7 cm; Wt 60.5 kg
[~2022-08-13 08:30] MED LIST changes: +DOXY-346 PO; +PRED20TA2 PO
[2022-08-13 09:33] LABS: Basophils # (auto) 0.1 10 ^3/uL (0-0.2); Basophils % (auto) 0.7 % (0.0-2.0); Eosinophils # (auto) 0.2 10 ^3/uL (0-0.8); Eosinophils % (auto) 2.3 % (0.0-7.0); Hematocrit 41.5 % (41.0-53.0); Hemoglobin 13.8 g/dL (13.5-17.5); Lymphocytes # (auto) 0.6 10 ^3/uL (0.4-5.4); Lymphocytes % (auto) 5.3 % (10.0-50.0); Mean Corpuscular Hemoglobin 28.8 pg (28.0-32.0); Mean Corpuscular Hgb Conc. 33.4 g/dL (32.0-36.0); Mean Corpuscular Volume 86.4 fL (80.0-100.0); Monocytes # (auto) 0.7 10 ^3/uL (0-1.3); Monocytes % (auto) 6.1 % (0.0-12.0); Neutrophils # (auto) 9.2 10 ^3/uL (1.6-8.6); Neutrophils % (auto) 85.6 % (37.0-80.0); Red Cell Distribution Width 14.9 % (11.8-14.3); White Blood Cell 10.7 10^3/uL (4.4-10.8)
[2022-08-13 09:50] LABS: Albumin 3.5 g/dL (3.4-5.0); Calcium 8.5 mg/dL (8.5-10.1); Magnesium 1.9 mg/dL (1.6-2.6); Potassium 3.9 mmol/L (3.5-5.1)
[2022-08-13 09:52] LABS: INR 1.03 (0.9-1.15); Partial Thromboplastin Time 25.7 sec (24.6-33.4)
[2022-08-13 09:54] LABS: BUN/Creatinine Ratio 22.4 (10.0-20.0); Bilirubin, Total 0.9 mg/dL (0.2-1.0); Total Protein 6.4 g/dL (6.4-8.2)
[2022-08-13] MEDS ORDERED: IOHEXOL 350 MG/ML 100ML IJ ONE (12:40)
[2022-08-13] MEDS ORDERED: MORPHINE SULFATE INJ 2 MG/ml SYRG IV PRN ×2 (13:45→14:30)
[2022-08-13] MEDS ORDERED: ACETAMINOPHEN 325 MG TAB PO PRN (13:45)
[2022-08-13] MEDS ORDERED: NITROGLYCERIN 0.4 MG SL TAB SL PRN ×2 (13:45→14:30)
[2022-08-13] MEDS ORDERED: ALBUTEROL SULF 2.5 MG/0.5ML(0.5%) NEB SOLN NEB PRN (13:45)
[2022-08-13] MEDS ORDERED: DEXTROSE (50%) 50ML SYRG IV PRN (14:00)
[2022-08-13] MEDS ORDERED: FUROSEMIDE 20 MG/2 ML VIAL IV ONE (14:30)
[2022-08-13 14:48] VITALS: BP 110/68
[2022-08-13] MEDS: IPRATROPIUM BROM 0.5 MG/2.5ML INH SOL NEB SCH ×3 (14:54→21:52)
[2022-08-13] MEDS: ALBUTEROL SULF 2.5 MG/0.5ML(0.5%) NEB SOLN NEB SCH ×3 (14:54→21:52)
[2022-08-13] MEDS: ACCU-CHEK COMFORT CURVE STRIP VI SCH ×2 (18:56→21:58)
[2022-08-13] MEDS: InsuLIN REG 1unit/0.01ml Soln (100units/ml) SC SCH ×2 (18:57→22:22)
[2022-08-13] MEDS: ATORVASTATIN 20 MG TAB PO SCH (22:21)
[2022-08-13] MEDS: MIRTAZAPINE 30 MG TAB PO SCH (22:21)
[2022-08-14] MEDS: ALBUTEROL SULF 2.5 MG/0.5ML(0.5%) NEB SOLN NEB SCH ×6 (02:11→22:32)
[2022-08-14] MEDS: IPRATROPIUM BROM 0.5 MG/2.5ML INH SOL NEB SCH ×6 (02:11→22:31)
[2022-08-14 03:05] LABS: Basophils # (auto) 0.1 10 ^3/uL (0-0.2); Basophils % (auto) 1.2 % (0.0-2.0); Eosinophils # (auto) 0.3 10 ^3/uL (0-0.8); Eosinophils % (auto) 3.6 % (0.0-7.0); Hematocrit 35.8 % (41.0-53.0); Hemoglobin 12.3 g/dL (13.5-17.5); Lymphocytes # (auto) 0.8 10 ^3/uL (0.4-5.4); Lymphocytes % (auto) 10.6 % (10.0-50.0); Mean Corpuscular Hemoglobin 29.3 pg (28.0-32.0); Mean Corpuscular Hgb Conc. 34.5 g/dL (32.0-36.0); Mean Corpuscular Volume 84.9 fL (80.0-100.0); Monocytes # (auto) 0.6 10 ^3/uL (0-1.3); Monocytes % (auto) 8.4 % (0.0-12.0); Neutrophils # (auto) 5.8 10 ^3/uL (1.6-8.6); Neutrophils % (auto) 76.2 % (37.0-80.0); Nucleated Red Blood Cells % 0.1 %; Red Blood Cells 4.21 10^6/uL (4.5-5.90); Red Cell Distribution Width 14.6 % (11.8-14.3); White Blood Cell 7.6 10^3/uL (4.4-10.8)
[2022-08-14 03:19] LABS: Albumin 2.9 g/dL (3.4-5.0); Calcium 8.7 mg/dL (8.5-10.1); Potassium 3.4 mmol/L (3.5-5.1)
[2022-08-14 03:22] LABS: Bilirubin, Total 0.7 mg/dL (0.2-1.0); Total Protein 6.2 g/dL (6.4-8.2)
[2022-08-14] MEDS: InsuLIN REG 1unit/0.01ml Soln (100units/ml) SC SCH ×4 (06:31→22:00)
[2022-08-14] MEDS: ACCU-CHEK COMFORT CURVE STRIP VI SCH ×4 (06:31→22:00)
[2022-08-14 09:25] LABS: Urine Bacteria NONE SEEN /hpf (None Seen); Urine Blood Negative /uL (Negative); Urine Specific Gravity 1.014 (1.001-1.035); Urine WBC <1 /hpf (0 - 3)
[2022-08-14] MEDS: MULTIPLE VITAMIN TAB PO SCH (09:37)
[2022-08-14] MEDS: PANTOPRAZOLE 40 MG TAB PO SCH (09:38)
[2022-08-14] MEDS: amLODIPine BESYLATE 5 MG TAB PO SCH (09:38)
[2022-08-14] MEDS: MIRTAZAPINE 30 MG TAB PO SCH ×2 (09:46→23:35)
[2022-08-14] MEDS ORDERED: ENOXAPARIN SOD 40 MG/0.4 ML SYRINGE SC SCH (10:00)
[2022-08-14] MEDS ORDERED: methylPREDNISolone SOD SUCC 125 MG/2 ML VL IV SCH (14:00)
[2022-08-14] MEDS ORDERED: OMEP-434 PO (23:06)
[2022-08-14] MEDS: DexAMETHasone SOD PHOS 4 MG/1ML SDV INJ IV SCH (23:35)
[2022-08-14] MEDS: ATORVASTATIN 20 MG TAB PO SCH (23:35)
[2022-08-14 23:44] VITALS: BP 125/64
[2022-08-15] MEDS: IPRATROPIUM BROM 0.5 MG/2.5ML INH SOL NEB SCH ×6 (01:45→23:36)
[2022-08-15] MEDS: ALBUTEROL SULF 2.5 MG/0.5ML(0.5%) NEB SOLN NEB SCH ×6 (01:45→23:36)
[2022-08-15] MEDS: InsuLIN REG 1unit/0.01ml Soln (100units/ml) SC SCH ×3 (06:03→21:04)
[2022-08-15] MEDS: DexAMETHasone SOD PHOS 4 MG/1ML SDV INJ IV SCH ×3 (06:11→21:17)
[2022-08-15] MEDS: ACCU-CHEK COMFORT CURVE STRIP VI SCH ×3 (06:27→22:00)
[2022-08-15 09:00] VITALS: BP 118/90
[2022-08-15] MEDS: PANTOPRAZOLE 40 MG TAB PO SCH (09:39)
[2022-08-15] MEDS: MULTIPLE VITAMIN TAB PO SCH (09:40)
[2022-08-15] MEDS: amLODIPine BESYLATE 5 MG TAB PO SCH (09:41)
[2022-08-15] MEDS: MIRTAZAPINE 30 MG TAB PO SCH ×2 (09:42→21:17)
[2022-08-15] MEDS ORDERED: ACCU-CHEK COMFORT CURVE STRIP VI ONE (11:45)
[2022-08-15] MEDS ORDERED: DEXTROSE (50%) 50ML SYRG IV PRN (11:45)
[2022-08-15] MEDS ORDERED: InsuLIN REG 1unit/0.01ml Soln (100units/ml) SC ONE (11:45)
[2022-08-15 13:00] VITALS: BP 136/79
[2022-08-15 17:00] VITALS: BP 126/57
[2022-08-15] MEDS: ATORVASTATIN 20 MG TAB PO SCH (21:17)
[2022-08-15 22:00] VITALS: BP 123/53
[2022-08-16] VITALS (7 sets, daily range): BP systolic 110–130; BP diastolic 48–71
[2022-08-16] MEDS: ALBUTEROL SULF 2.5 MG/0.5ML(0.5%) NEB SOLN NEB SCH ×6 (02:10→22:13)
[2022-08-16] MEDS: IPRATROPIUM BROM 0.5 MG/2.5ML INH SOL NEB SCH ×6 (02:10→22:13)
[2022-08-16] MEDS: InsuLIN REG 1unit/0.01ml Soln (100units/ml) SC SCH ×4 (06:21→21:55)
[2022-08-16] MEDS: DexAMETHasone SOD PHOS 4 MG/1ML SDV INJ IV SCH ×3 (06:39→21:35)
[2022-08-16] MEDS: ACCU-CHEK COMFORT CURVE STRIP VI SCH ×4 (06:42→21:54)
[2022-08-16] MEDS: levoFLOXacin 500MG 100 ML IV SCH (10:47)
[2022-08-16] MEDS: MULTIPLE VITAMIN TAB PO SCH (10:51)
[2022-08-16] MEDS: amLODIPine BESYLATE 5 MG TAB PO SCH (10:51)
[2022-08-16] MEDS: PANTOPRAZOLE 40 MG TAB PO SCH (10:51)
[2022-08-16] MEDS: MIRTAZAPINE 30 MG TAB PO SCH ×2 (10:51→21:35)
[2022-08-16] MEDS: FUROSEMIDE 20 MG/2 ML VIAL IV SCH (10:51)
[2022-08-16 11:48] LABS: INR 1.03 (0.9-1.15)
[2022-08-16] MEDS ORDERED: IPRA0.00 IN (14:20)
[2022-08-16] MEDS: ATORVASTATIN 20 MG TAB PO SCH (21:33)
[2022-08-17] MEDS: ALBUTEROL SULF 2.5 MG/0.5ML(0.5%) NEB SOLN NEB SCH ×3 (02:24→09:57)
[2022-08-17] MEDS: IPRATROPIUM BROM 0.5 MG/2.5ML INH SOL NEB SCH ×3 (02:24→09:57)
[2022-08-17 05:07] VITALS: BP 115/62
[2022-08-17] MEDS: DexAMETHasone SOD PHOS 4 MG/1ML SDV INJ IV SCH (05:54)
[2022-08-17 06:17] LABS: BUN/Creatinine Ratio 27.8 (10.0-20.0); Calcium 8.7 mg/dL (8.5-10.1); Potassium 4.4 mmol/L (3.5-5.1)
[2022-08-17] MEDS: ACCU-CHEK COMFORT CURVE STRIP VI SCH ×2 (06:19→11:16)
[2022-08-17] MEDS: InsuLIN REG 1unit/0.01ml Soln (100units/ml) SC SCH ×2 (06:20→11:20)
[2022-08-17 08:00] VITALS: BP 127/61
[2022-08-17] MEDS ORDERED: PRED20TA2 PO (08:58)
[2022-08-17] MEDS ORDERED: LEVO500T31 PO (08:58)
[2022-08-17 09:00] VITALS: BP 127/61
[2022-08-17] MEDS: PANTOPRAZOLE 40 MG TAB PO SCH (10:19)
[2022-08-17] MEDS: MULTIPLE VITAMIN TAB PO SCH (10:19)
[2022-08-17] MEDS: amLODIPine BESYLATE 5 MG TAB PO SCH (10:19)
[2022-08-17] MEDS: levoFLOXacin 500MG 100 ML IV SCH (10:19)
[2022-08-17] MEDS: FUROSEMIDE 20 MG/2 ML VIAL IV SCH (10:20)
[2022-08-17] MEDS: MIRTAZAPINE 30 MG TAB PO SCH (10:20)
[2022-08-17 10:41] VITALS: BP 127/61
== END 2022-08-17 12:00 | disposition home or self-care (01) | DRG 291 ==
LOC: ER 08:30 → EDBD 08:30 → TELE 13:39 → TELE-EAST 08-14 22:05
PROVIDERS: ADMIT Nurse Practitioner Family; ATTEND Family Medicine
DX: I11.0 Hypertensive heart disease with heart failure (principal); I50.31 Acute diastolic (congestive) heart failure; J96.21 Acute and chronic respiratory failure with hypoxia; J44.1 Chronic obstructive pulmonary disease with (acute) exacerbation; Z20.822 Contact with and (suspected) exposure to COVID-19; J84.10 Pulmonary fibrosis, unspecified; R91.1 Solitary pulmonary nodule; E11.9 Type 2 diabetes mellitus without complications; E78.00 Pure hypercholesterolemia, unspecified; Z79.84 Long term (current) use of oral hypoglycemic drugs; Z88.0 Allergy status to penicillin; Z99.81 Dependence on supplemental oxygen; Z82.49 Family history of ischemic heart disease and other diseases of the circulatory system; Z83.3 Family history of diabetes mellitus; Z87.891 Personal history of nicotine dependence; Z95.1 Presence of aortocoronary bypass graft; Z83.438 Family history of other disorder of lipoprotein metabolism and other lipidemia
CPT/HCPCS: 36415; 36600; 71045; 71275; 76604; 80048; 80053; 81001; 82805; 82962; 83605; 83735; 83880; 84484; 85025; 85379; 85610; 85730; 87040; 87426; 87804; 93005; 93306; 93970; 94640; 96372; 96374; 97110; 97116; 97163; 97530; G0378; J1100; J1815; J1956

== ENCOUNTER 2024-01-12 10:26 | Inpatient (IN) | payer MEDICARE, MEDICAID ==
[~2024-01-12] VITALS: Ht 167.6 cm; Wt 78.3 kg
[~2024-01-12 10:26] MED LIST changes: -ALBU108A5 INH; -AMLO-496 PO; +AMLO1TAB23 PO; -DOXY-332 PO; -DOXY-346 PO; +GLIM-38 PO; -GLIM-5 PO; +IPRA0.00 IN; +LEVO500T31 PO; +OMEP-434 PO; -OMEP20TA PO; -PRED10TA PO
--- NOTE | 2024-01-12 10:35 | ED.PDOC ---
SOB-HPI HPI Comments 83-year-old male presents with a chief complaint of SOB x 10 minutes. Patient was sating at 74% on 2L at home and family called 911. EMS reports that patient had an increased work of breathing and was placed on 10L via Non-Rebreather and is now sating at 98%. Patient did not receive any steroids or breathing treatment en route. No other symptoms or modifying factors present at this time. Time Seen by MD: 10:28 Primary Care Provider: UNKNOWN Reviewed notes: Medications, Allergies Information Source: Emergency Med Personnel Mode of Arrival: EMS Severity: Moderate Timing: Minutes Duration: Since onset PE Risk Factors: None History of: None Prehospital treatment: Oxygen If cough with SOB: Non-Productive Past Medical History PAST MEDICAL HISTORY: COPD, DM, HTN Surgical History: Denies all surgeries Family History Family History: Reviewed,noncontributory to illness Social History Smoker: Non-Smoker Alcohol: Denies ETOH Use Drugs: Denies Drug Use Lives In: Home Constitutional: denies: chills, diaphoresis, fatigue, fever, malaise, sweats, weakness, others EENTM: denies: blurred vision, double vision, ear bleeding, ear discharge, ear drainage, ear pain, ear ringing, eye pain, eye redness, hearing loss, mouth pain, mouth swelling, nasal discharge, nose bleeding, nose congestion, nose pain, photophobia, tearing, throat pain, throat swelling, voice changes, others Respiratory: reports: shortness of breath; denies: cough, hemoptysis, ortho pnea, SOB at rest, SOB with excertion, stridor, wheezing, others Cardiovascular: denies: chest pain, dizzy spells, diaphoresis, Dyspnea on exertion, edema, irregular heart beat, left arm pain, lightheadedness, palpitations, PND, syncope, others Gastrointestinal: denies: abdomen distended, abdominal pain, blood streaked bowels, constipated, diarrhea, dysphagia, difficulty swallowing, hematemesis, melena, nausea, poor appetite, poor fluid intake, rectal bleeding, rectal pain, vomiting, others Genitourinary: denies: burning, dysuria, flank pain, frequency, hematuria, inc ontinence, penile discharge, penile sore, pain, testicle pain, testicle swelling, urgency, others Neurological: denies: dizziness, fainting, headache, left sided numbness, left sided weakness, numbness, paresthesia, pre-existing deficit, right sided numbness, right sided weakness, seizure, speech problems, tingling, tremors, weakness, others Musculoskeletal: denies: back pain, gout, joint pain, joint swelling, muscle pain, muscle stiffness, neck pain, others Integumetry: denies: bruises, change in color, change in hair/nails, dryness, laceration, lesions, lumps, rash, wounds, others Allergic/Immunocompromised: denies: Difficulty Healing, Frequent Infections, Hives, Itching, others Hematologic/Lymphatic: denies: anemia, blood clots, easy bleeding, easy bruising, swollen glands, others Endocrine: denies: excessive hunger, excessive sweating, excessive thirst, excessive urination, flushing, intolerance to cold, intolerance to heat, unexplained weight gain, unexplained weight loss, others Psychiatric: denies: anxiety, bipolar disorder, depression, hopeless, panic disorder, schizophrenia, sleepless, suicidal, others All Other Systems: Reviewed and Negative Physical Exam General Appearance: Moderate Distress, Normal HEENT: Normal ENT Inspection, Pharynx Normal, TMs Normal Neck: Full Range of Motion, Non-Tender, Normal, Normal Inspection Respiratory: Chest Non-Tender, No Accessory Muscle Use, Respiratory Distress, Other (Coarse breath sounds) Cardiovascular: No Edema, No JVD, No Murmur, No Gallop, Normal Peripheral Pulses, Regular Rate/Rhythm Breast Exam: Deferred Gastrointestinal: No Organomegaly, Non Tender, No Pulsatile Mass, Normal Bowel Sounds, Soft Genitalia: Deferred Pelvic: Deferred Rectal: Deferred Extremities: No calf tenderness, Normal capillary refill, Normal inspection, Normal range of motion, Non-tender, No pedal edema Musculoskeletal : Apperance: Normal Neurologic: Alert, oven attendant II-XII nml as Tested, No Motor Deficits, Normal Affect, Normal Mood, No Sensory Deficits Cerebellar Function: NOT DONE Reflexes: NOT DONE Skin: Dry, Normal Color, Warm Peripheral Pulses: 3+ Radial (R), 3+ Radial (L) Lymphatic: No Adenopathy Was a procedure done? Was a procedure done?: No Differential Dx Differential Diagnosis: Asthma, Bronchitis, CHF X-Ray, Labs, Meds, VS Vital Signs Date Time Temp Pulse Resp B/P (MAP) Pulse Ox O2 Delivery O2 Flow Rate FiO2 10/17/24 16:00 86 01/12/24 13:55 90 18 111/55 (73) 95 01/12/24 13:21 80 18 111/55 01/12/24 12:59 92 20 110/76 01/12/24 12:00 84 01/12/24 11:39 80 22 118/51 (73) 98 01/12/24 11:39 88 20 95 Nasal Cannula* 6 44 01/12/24 11:09 30 100 Non-Rebreather 15 N/A 01/12/24 10:39 98.8 82 40 127/63 (84) Lab Test 01/12/24 13:57 01/12/24 11:45 01/12/24 10:57 Range/Units Troponin I High Sensitivity 7 6 6 </=54 ng/L White Blood Count 12.1 H 4.4-10.8 10^3/uL Red Blood Count 5.55 4.5-5.90 10^6/uL Hemoglobin 14.8 13.5-17.5 g/dL Hematocrit 45.2 41.0-53.0 % Mean Corpuscular Volume 81.4 80.0-100.0 fL Mean Corpuscular Hemoglobin 26.7 L 28.0-32.0 pg Mean Corpuscular Hemoglobin Concent 32.8 32.0-36.0 g/dL Red Cell Distribution Width 16.8 H 11.8-14.3 % Platelet Count 285 140-450 10^3/uL Mean Platelet Volume 8.5 6.9-10.8 fL Neutrophils (%) (Auto) 91.7 H 37.0-80.0 % Lymphocytes (%) (Auto) 2.5 L 10.0-50.0 % Monocytes (%) (Auto) 4.9 0.0-12.0 % Eosinophils (%) (Auto) 0.3 0.0-7.0 % Basophils (%) (Auto) 0.6 0.0-2.0 % Neutrophils # (Auto) 11.1 H 1.6-8.6 10 ^3/uL Lymphocytes # (Auto) 0.3 L 0.4-5.4 10 ^3/uL Monocytes # (Auto) 0.6 0-1.3 10 ^3/uL Eosinophils # (Auto) 0 0-0.8 10 ^3/uL Basophils # (Auto) 0.1 0-0.2 10 ^3/uL Nucleated Red Blood Cells 0.0 % Sodium Level 141 136-145 mmol/L Potassium Level 4.4 3.5-5.1 mmol/L Chloride Level 110 H 98-107 mmol/L Carbon Dioxide Level 20 20-31 mmol/L Anion Gap 11 5-15 Blood Urea Nitrogen 22 9-23 mg/dL Creatinine 1.09 0.700-1.30 mg/dL Glomerular Filtration Rate Calc 68 >90 mL/min BUN/Creatinine Ratio 20.2 H 10.0-20.0 Serum Glucose 116 H 74-106 mg/dL Calcium Level 9.6 8.7-10.4 mg/dL B-Type Natriuretic Peptide 399.62 0-100 pg/mL Current Medications Medications (Trade) Dose Ordered Sig/Nasim Route Start Time Stop Time Status Last Admin Methylprednisolone Sodium Succinate (Solu Medrol) 125 mg ONCE ONCE IV 01/12/24 10:45 01/12/24 10:46 DC 01/12/24 11:30 Albuterol (Ventolin Medneb) 5 mg ONCE ONCE NEB 01/12/24 10:45 01/12/24 10:46 DC 01/12/24 11:09 Ipratropium [place] (Atrovent Medneb) 0.5 mg ONCE ONCE NEB 01/12/24 10:45 01/12/24 10:46 DC 01/12/24 11:09 Morphine Sulfate 2 mg ONCE ONCE IV 01/12/24 12:45 01/12/24 12:46 DC 01/12/24 12:59 Ondansetron HCl (Zofran) 4 mg ONCE ONCE IV 01/12/24 12:45 01/12/24 12:46 DC 01/12/24 12:59 Patient alert. Complaining of shortness a breath. His oxygen saturation was in the 60s. He is on home oxygen. Had to increase the oxygen content prior to coming to the ER. Was given steroid. Was given breathing treatment. Reviewed his history. EKG reviewed does not show any acute changes. Explained to the patient. Time of 1ST Reevaluation: 10:58 Reevaluation 1ST: Unchanged Patient Education/Counseling: Diagnosis, Treatment, Prognosis Family Education/Counseling: No Family Present Departure 1 Departure Time of Disposition: 10:50 Impression: Primary Impression: Acute respiratory failure Qualified Codes: J96.01 - Acute respiratory failure with hypoxia Additional Impressions: COPD exacerbation Pneumonia Qualified Codes: J18.9 - Pneumonia, unspecified organism Disposition: ADMITTED INPATIENT Admit to: Med Surg Condition: Guarded Critical Care Note Critical Care Time?: Yes (45 min-critical care time only) Stability Stability form required: No Heart Score Heart Score: Heart Score Response (Comments) Value History Slightly Suspicious 0 EKG Normal 0 Age >65 2 Risk Factors >3 or Hx ASHD 2 Troponin Normal limit 0 Total 4 I personally scribed for OSCAR RUIZ MD ([email or web address]) on 01/12/24 at 10:35. Electronically submitted by Maximus Burris ([email or web address]). OSCAR RUIZ MD Jan 12, 2024 10:35
[2024-01-12] MEDS: IPRATROPIUM BROM 0.5 MG/2.5ML INH SOL NEB ONE ×2 (11:09→18:08)
[2024-01-12] MEDS: ALBUTEROL SULF 2.5 MG/0.5ML(0.5%) NEB SOLN NEB ONE ×2 (11:09→18:08)
--- NOTE | 2024-01-12 11:18 | DVH ---
Procedure: XY CHEST PORTABLE 01/12/2024 10:48 AM Indication: sob. Comparison: XY CHEST PORTABLE on DOS: 08/13/22, XY CHEST PORTABLE on DOS: 06/26/22, CHEST PORTABLE on DO S: 05/19/21 TECHNIQUE: XY CHEST PORTABLE FINDINGS: Medical devices: None. Cardiomediastinal: The heart is normal in size. Pulmonary vasculature is within normal limits. Athero sclerotic calcification of the aortic arch noted. Lungs: Chronic interstitial lung disease with stable superimposed ground-glass opacities which are li tono related to the underlying interstitial lung disease. Blunting of the bilateral costophrenic ang les, stable. No pneumothorax. Bones/soft tissues: No acute abnormality is noted. IMPRESSION: 1. Chronic interstitial lung disease likely pulmonary interstitial fibrosis / usual interstitial pneu monia. Superimposed bacterial / viral pneumonia is unlikely but not entirely excluded. Recommend cli nical and biochemical correlation. 2. Chronic blunting of the bilateral costophrenic angles that may represent chronic pleural thickenin g or small pleural effusions.
[2024-01-12] MEDS: methylPREDNISolone SOD SUCC 125 MG/2 ML VL IV ONE (11:30)
[2024-01-12 11:39] VITALS: PULSE 88; RESP 20; O2SAT 95
[2024-01-12 11:40] LABS: Anion Gap 11 (5-15); Carbon Dioxide 20 mmol/L (20-31); Chloride 110 mmol/L (98-107); Potassium 4.4 mmol/L (3.5-5.1); Sodium 141 mmol/L (136-145)
[2024-01-12 11:41] LABS: Calcium 9.6 mg/dL (8.7-10.4)
[2024-01-12 11:42] LABS: Basophils # (auto) 0.1 10 ^3/uL (0-0.2); Basophils % (auto) 0.6 % (0.0-2.0); Eosinophils # (auto) 0 10 ^3/uL (0-0.8); Eosinophils % (auto) 0.3 % (0.0-7.0); Hematocrit 45.2 % (41.0-53.0); Hemoglobin 14.8 g/dL (13.5-17.5); Lymphocytes # (auto) 0.3 10 ^3/uL (0.4-5.4); Lymphocytes % (auto) 2.5 % (10.0-50.0); Mean Corpuscular Hemoglobin 26.7 pg (28.0-32.0); Mean Corpuscular Hgb Conc. 32.8 g/dL (32.0-36.0); Mean Corpuscular Volume 81.4 fL (80.0-100.0); Monocytes # (auto) 0.6 10 ^3/uL (0-1.3); Monocytes % (auto) 4.9 % (0.0-12.0); Neutrophils # (auto) 11.1 10 ^3/uL (1.6-8.6); Neutrophils % (auto) 91.7 % (37.0-80.0); Platelet Count (auto) 285 10^3/uL (140-450); Red Blood Cells 5.55 10^6/uL (4.5-5.90); Red Cell Distribution Width 16.8 % (11.8-14.3); White Blood Cell 12.1 10^3/uL (4.4-10.8)
[2024-01-12 11:46] LABS: BUN/Creatinine Ratio 20.2 (10.0-20.0); Blood Urea Nitrogen 22 mg/dL (9-23); Glucose 116 mg/dL (74-106)
[2024-01-12] MEDS: ONDANSETRON HCL 4 MG/2 ML VIAL IV ONE ×2 (12:59→22:02)
[2024-01-12] MEDS: MORPHINE SULFATE INJ 2 MG/ml SYRG IV ONE (12:59)
[2024-01-12] MEDS: levoFLOXacin 500MG 100 ML IV ONE (18:26)
[2024-01-12 19:24] VITALS: PULSE 90; RESP 22; O2SAT 97
[2024-01-12 21:44] LABS: Urine Bacteria None Seen /hpf (None Seen)
[2024-01-12 21:58] LABS: Urine Blood Negative /uL (Negative); Urine Clarity Clear (Clear); Urine Color Yellow (Yellow); Urine Protein, UAD 1+ (Negative); Urine Specific Gravity 1.027 (1.001-1.035); Urine Urobilinogen Normal (Negative); Urine WBC 1 /hpf (0 - 3); Urine pH 5.5 (5.0-9.0)
[2024-01-12] MEDS: MORPHINE SULFATE 4 MG/ML SYR/VIAL IV ONE (22:02)
[2024-01-12] MEDS ORDERED: IPRATROPIUM BROM 0.5 MG/2.5ML INH SOL NEB PRN (22:15)
[2024-01-12] MEDS ORDERED: ALBUTEROL SULF 2.5 MG/0.5ML(0.5%) NEB SOLN NEB PRN (22:15)
[2024-01-12] MEDS ORDERED: ONDANSETRON HCL 4 MG/2 ML VIAL IV PRN (22:15)
[2024-01-12] MEDS ORDERED: DEXTROSE (50%) 50ML SYRG IV PRN (22:15)
[2024-01-12] MEDS ORDERED: ACETAMINOPHEN 325 MG TAB PO PRN (22:15)
[2024-01-12] MEDS ORDERED: DOCUSATE SOD 100 MG CAP PO PRN (22:15)
[2024-01-12] MEDS: FUROSEMIDE 20 MG/2 ML VIAL IV ONE (22:57)
--- NOTE | 2024-01-12 23:21 | DVHHP2 ---
History of Present Illness Reason for Visit: COPD with acute exacerbation History of Present Illness Patient is a 83-year-old male with past medical history of DM, COPD, hypertension, and hyperlipidemia who presented to [facility] ED with complaint of shortness of breaths. Patient reports symptoms progressively get worse with difficulty breathing, hypoxic getting worse that EMS were called. When EMS arrived on the scene, patient had increased work breathing and was placed on 10 L via non-rebreather en route to our facility ED. patient was seen and evaluated in the ED, laboratory data shows WBC 12.1, platelets 285, sodium 141, potassium 4.4, BUN 22, creatinine 1.09, GFR 68, glucose 116, troponin 6, BNP 399.62. Chest x-ray revealing chronic interstitial lung disease likely pulmonary interstitial fibrosis/usual interstitial pneumonia; superimposed bacterial/viral pneumonia is unlikely but not entirely excluded; chronic blunting of the bilateral costophrenic angle that may represent chronic pleural thickening small pleural effusions. Patient was started on IV antibiotic regimen levofloxacin, given breathing treatment, please see medication orders section in the computer. On my assessment, patient denied chest pain, no headache, no dizziness, no diaphoresis, currently on oxygen, no nausea, no vomiting, no fever, no chills. Patient was admitted for further evaluation medical management. Past Medical History COPD, DM, HTN, HLD. Past Surgical History Denies all surgeries Family History Reviewed, noncontributory to the management of this case. Past Social History The patient lives at home, denies smoking, alcohol or illicit drugs abuse. Review of Systems Constitutional: No: Fever, Chills, Sweats, Weakness, Malaise, Other Eyes: No: Pain, Vision change, Conjunctivae inflammation, Eyelid inflammation, Other, Redness ENT: No: Ear pain, Ear discharge, Nose pain, Nose discharge, Nose congestion, Mouth pain, Mouth swelling, Throat pain, Throat swelling, Other Respiratory: Shortness of breath, SOB with excertion; No: Cough, Dry, Wheezing, Hemoptysis, Pleuritic Pain, Sputum, Wheezing, Other Cardiovascular: No: Chest Pain, Palpitations, Orthopnea, Paroxysmal Noc. Dyspnea, Edema, Lt Headedness, Other Gastrointestinal: No: Nausea, Vomiting, Abdominal Pain, Diarrhea, Constipation, Melena, Hematochezia, Other Genitourinary: No Dysuria, No Frequency, No Incontinence, No Hematuria, No Retention, No Other Musculoskeletal: No: other, neck pain, shoulder pain, arm pain, back pain, hand pain, leg pain, foot pain Skin: No: Rash, Lesions, Jaundice, Bruising, Other Neurological: No: Weakness, Numbness, Incoordination, Change in speech, Confusion, Seizures, Other Allergies: Coded Allergies: Penicillins (Verified Allergy, Unknown, 05/10/21) Medications Current Medications Medications Dose Ordered Sig/Nasim Route Start Time Stop Time Status Last Admin Dose Admin Atorvastatin Calcium 20 mg HS PO 01/13/24 22:00 Levofloxacin/ Dextrose 100 ml @ 100 mls/hr DAILY IV 01/13/24 10:00 UNV Methylprednisolone Sodium Succinate 40 mg Q8HR IV 01/13/24 06:00 Furosemide 20 mg DAILY IV 01/13/24 10:00 Albuterol 2.5 mg Q4HPRN PRN NEB 01/12/24 22:15 Ipratropium [place] 0.5 mg Q4HPRN PRN NEB 01/12/24 22:15 Famotidine 20 mg Q12HR IV 01/13/24 10:00 Diagnostic Test (Pha) 1 strip ACHS 01/13/24 07:00 Insulin Human Regular ACHS SC 01/13/24 07:00 Dextrose 50 ml UD PRN IV 01/12/24 22:15 Sodium Chloride 10 ml Q8HR IV 01/13/24 06:00 Acetaminophen/ Hydrocodone Bitart 1 tab Q4HP PRN PO 01/12/24 22:15 Ondansetron HCl 4 mg Q4HP PRN IV 01/12/24 22:15 UNV Docusate Sodium 100 mg BIDPRN PRN PO 01/12/24 22:15 Acetaminophen 500 mg Q6HP PRN PO 01/12/24 22:15 Multivitamins 1 tab DAILY PO 01/13/24 10:00 Exam Vital Signs Vital Signs Date Time Temp Pulse Resp B/P (MAP) Pulse Ox O2 Delivery O2 Flow Rate FiO2 01/12/24 23:00 80 21 123/49 (73) 98 01/12/24 19:24 97.9 97.9 01/12/24 19:24 Simple Mask* 10 99 General Appearance: Alert, Oriented X3, Cooperative, No acute distress HEENT: Atraumatic, PERRLA, EOMI, Mucous membr. moist/pink Respiratory: Normal air movement, Other (Diminished breath sounds) Cardiovascular: Regular rate, Normal S1, Normal S2, No murmurs Abdominal: Normal bowel sounds, Soft, No tenderness, No hepatospenomegaly, No masses Extremities: No clubbing, No cyanosis, No edema, Normal pulses, No tenderness/swelling Skin: No rashes, No breakdown, No significant lesion Neuro: Normal speech, Normal tone, Sensation intact, Cranial nerves 3-12 NL, Reflexes 2+, Other (Generalized weakness) Psych/Mental Status: Mental status NL, Mood NL Labs/Xrays Labs Test 01/12/24 20:00 01/12/24 13:57 01/12/24 10:57 Range/Units Urine Color Yellow Yellow Urine Clarity Clear Clear Urine pH 5.5 5.0-9.0 Urine Specific [place] 1.027 1.001-1.035 Urine Protein 1+ H Negative Urine Ketones Trace Negative Urine Blood Negative Negative /uL Urine Nitrite Negative Negative Urine Bilirubin Negative Negative Urine Urobilinogen Normal Negative mg/dL Urine Leukocyte Esterase Negative Negative /uL Urine RBC 1 0 - 3 /hpf Urine WBC 1 0 - 3 /hpf Urine Squamous Epithelial Cells Few <5 /hpf Urine Bacteria None seen None Seen /hpf Urine Glucose 4+ H Normal mg/dL Troponin I High Sensitivity 7 </=54 ng/L White Blood Count 12.1 H 4.4-10.8 10^3/uL Red Blood Count 5.55 4.5-5.90 10^6/uL Hemoglobin 14.8 13.5-17.5 g/dL Hematocrit 45.2 41.0-53.0 % Mean Corpuscular Volume 81.4 80.0-100.0 fL Mean Corpuscular Hemoglobin 26.7 L 28.0-32.0 pg Mean Corpuscular Hemoglobin Concent 32.8 32.0-36.0 g/dL Red Cell Distribution Width 16.8 H 11.8-14.3 % Platelet Count 285 140-450 10^3/uL Mean Platelet Volume 8.5 6.9-10.8 fL Neutrophils (%) (Auto) 91.7 H 37.0-80.0 % Lymphocytes (%) (Auto) 2.5 L 10.0-50.0 % Monocytes (%) (Auto) 4.9 0.0-12.0 % Eosinophils (%) (Auto) 0.3 0.0-7.0 % Basophils (%) (Auto) 0.6 0.0-2.0 % Neutrophils # (Auto) 11.1 H 1.6-8.6 10 ^3/uL Lymphocytes # (Auto) 0.3 L 0.4-5.4 10 ^3/uL Monocytes # (Auto) 0.6 0-1.3 10 ^3/uL Eosinophils # (Auto) 0 0-0.8 10 ^3/uL Basophils # (Auto) 0.1 0-0.2 10 ^3/uL Nucleated Red Blood Cells 0.0 % Sodium Level 141 136-145 mmol/L Potassium Level 4.4 3.5-5.1 mmol/L Chloride Level 110 H 98-107 mmol/L Carbon Dioxide Level 20 20-31 mmol/L Anion Gap 11 5-15 Blood Urea Nitrogen 22 9-23 mg/dL Creatinine 1.09 0.700-1.30 mg/dL Glomerular Filtration Rate Calc 68 >90 mL/min BUN/Creatinine Ratio 20.2 H 10.0-20.0 Serum Glucose 116 H 74-106 mg/dL Calcium Level 9.6 8.7-10.4 mg/dL B-Type Natriuretic Peptide 399.62 0-100 pg/mL PATIENT: CHENCHO ALEXANDEROCACCT: [id number] UNIT: [id number] : 1940 LOC: ER ROOM / BED: / AGE / SEX: 83 / M ADM STATUS: REG ER SERVICE [id number] ORDERING PHYSICIAN: OSCAR RUIZ MD PROCEDURE(s): CXRP - CHEST PORTABLE REASON: sob ORDER NUMBER(s): [id number], ACCESSION NUMBER(s): [id number] Procedure: XY CHEST PORTABLE 01/12/2024 10:48 AM Indication: sob. Comparison: XY CHEST PORTABLE on DOS: 08/13/22, XY CHEST PORTABLE on DOS: 06/26/22, CHEST PORTABLE on DOS: 05/19/21 TECHNIQUE: XY CHEST PORTABLE FINDINGS: Medical devices: None. Cardiomediastinal: The heart is normal in size. Pulmonary vasculature is within normal limits. Atherosclerotic calcification of the aortic arch noted. Lungs: Chronic interstitial lung disease with stable superimposed ground-glass opacities which are likely related to the underlying interstitial lung disease. Blunting of the bilateral costophrenic angles, stable. No pneumothorax. Bones/soft tissues: No acute abnormality is noted. IMPRESSION: 1. Chronic interstitial lung disease likely pulmonary interstitial fibrosis/usual interstitial pneumonia. Superimposed bacterial/viral pneumonia is unlikely but not entirely excluded. Recommend clinical and biochemical correlat ion. 2. Chronic blunting of the bilateral costophrenic angles that may represent chronic pleural thickening or small pleural effusions. Assessment/Plan Assessment/Plan COPD with acute exacerbation Leukocytosis, unspecified Elevated BNP Pneumonia, unspecified organism Generalized weakness Acute respiratory failure with hypoxia Plan 1. Admit to telemetry unit 2. Breathing treatment 3. Pain control management 4. IV antibiotic management 5. Management of fluids and electrolytes 6. Consultation for pulmonology 7. Diagnostic test chest x-ray 8. DVT prophylaxis--on SCDs 9. Repeat labs CBC, CMP in a.m. 10. Home medication reviewed and reconciled 11. Continue with current medical management 12. Treatment plan discussed with patient and RN. Patient verbalized understanding. Plan discussed with: Patient, Other (RN) My Orders Orders - SIMBA RAI DNP Procedure Category Date Status Time Consistent DIET 01/13/24 Transmitted Carb(Ccho)Diabetes Breakfast Atorvastatin (Lipitor) PHA 01/13/24 In Process 22:00 Levofloxacin 500mg PHA 01/13/24 Pending (Levaquin 500mg/ 100m 10:00 Methylprednisolone PHA 01/13/24 In Process Sod Succ (Solu Medrol 06:00 Furosemide Injection PHA 01/13/24 In Process (Lasix Injection) 10:00 Albuterol Medneb PHA 01/12/24 In Process (Ventolin Medneb) 22:15 Ipratropium Medneb PHA 01/12/24 In Process (Atrovent Medneb) 22:15 Famotidine Injection PHA 01/13/24 In Process (Pepcid Injection) 10:00 Glucose Blood PHA 01/13/24 In Process (Accu-Chek Comfort 07:00 Insulin R (Human) PHA 01/13/24 In Process (Insulin R) 07:00 Dextrose 50% Syringe PHA 01/12/24 In Process 22:15 Allergies BRUCE 01/12/24 In Process 22:10 Code Status CODE 01/12/24 Transmitted 22:10 Sodium Chloride Lock PHA 01/13/24 In Process (Saline Lock Ns) 06:00 Oxygen Per Hour RT 01/12/24 Transmitted 22:10 Hydrocodone-Acet PHA 01/12/24 In Process 5/325mg Tab ([place] 22:15 Ondansetron Hcl PHA 01/12/24 Pending (Zofran) 22:15 Docusate Sodium PHA 01/12/24 In Process Capsule ([place] 22:15 Fall Risk Precautions BRUCE 01/12/[address] 22:10 Complete Blood Count LAB 01/13/24 Verified 04:00 Comprehensive LAB 01/13/24 Verified Metabolic Panel 04:00 Echo 2d Mode Cardiac US 01/12/24 Logged DOP 22:10 Condition: Serious BRUCE 01/12/24 In Process 22:10 Acetaminophen Tablet PHA 01/12/24 In Process (Tylenol Tablet) 22:15 Sequential BRUCE 01/12/24 In Process Compression Device Multiple Vitamin PHA 01/13/24 In Process Tablet (Mvi Tab) 10:00 Problem List: (1) COPD with acute exacerbation (2) Generalized weakness (3) Pneumonia, unspecified organism (4) Leukocytosis, unspecified (5) Elevated brain natriuretic peptide (BNP) level (6) Acute respiratory failure with hypoxia Date of Service: Jan 12, 2024 Billing Provider: SIMBA RAI DNP Common Visit Codes: [id number]-[id number] INP/OBS CARE (HIGH) SIMBA RAI DNP Jan 12, 2024 23:21
[2024-01-12] MEDS ORDERED: MORPHINE SULFATE INJ 2 MG/ml SYRG IV PRN (23:30)
[2024-01-12] MEDS ORDERED: NITROGLYCERIN 0.4 MG SL TAB SL PRN (23:30)
[2024-01-12 23:51] VITALS: O2SAT 97
[2024-01-12 23:54] VITALS: BP 123/49; PULSE 79; RESP 25; O2SAT 97
[2024-01-13] VITALS (18 sets, daily range): BP systolic 100–121; BP diastolic 52–81; PULSE 63–93; RESP 16–22; TEMP 96.5–98.1; O2SAT 91–99
[2024-01-13] MEDS ORDERED: DAPA1TAB4 PO (02:46)
[2024-01-13 06:24] LABS: Basophils # (auto) 0 10 ^3/uL (0-0.2); Basophils % (auto) 0.1 % (0.0-2.0); Eosinophils # (auto) 0 10 ^3/uL (0-0.8); Eosinophils % (auto) 0.1 % (0.0-7.0); Hematocrit 40.1 % (41.0-53.0); Hemoglobin 13.2 g/dL (13.5-17.5); Lymphocytes # (auto) 0.2 10 ^3/uL (0.4-5.4); Lymphocytes % (auto) 1.9 % (10.0-50.0); Mean Corpuscular Hemoglobin 27.4 pg (28.0-32.0); Mean Corpuscular Volume 82.8 fL (80.0-100.0); Monocytes # (auto) 0.4 10 ^3/uL (0-1.3); Monocytes % (auto) 3.8 % (0.0-12.0); Neutrophils % (auto) 94.1 % (37.0-80.0); Nucleated Red Blood Cells % 0.1 %; Platelet Count (auto) 219 10^3/uL (140-450); Red Blood Cells 4.84 10^6/uL (4.5-5.90); Red Cell Distribution Width 16.7 % (11.8-14.3); White Blood Cell 9.6 10^3/uL (4.4-10.8)
[2024-01-13] MEDS: methylPREDNISolone SOD SUCC 40 MG/ML VL IV SCH ×2 (06:34→22:11)
[2024-01-13] MEDS: InsuLIN REG 1unit/0.01ml Soln (100units/ml) SC SCH ×2 (06:34→11:44)
[2024-01-13] MEDS: SODIUM CHLOR 0.9% PF (SALINE LOCK) 10ML VIAL/SYR IV SCH (06:35)
[2024-01-13] MEDS: ACCU-CHEK COMFORT CURVE STRIP VI SCH ×2 (06:35→11:40)
[2024-01-13 06:38] LABS: Alanine Aminotransferase 14 U/L (7-40); Alkaline Phosphatase 187 U/L (46-116); Anion Gap 10 (5-15); Aspartate Aminotransferase 17 U/L (13-40); BUN/Creatinine Ratio 20.9 (10.0-20.0); Blood Urea Nitrogen 28 mg/dL (9-23); Calcium 9.1 mg/dL (8.7-10.4); Carbon Dioxide 20 mmol/L (20-31); Chloride 106 mmol/L (98-107); Potassium 4.5 mmol/L (3.5-5.1)
[2024-01-13 06:39] LABS: Bilirubin, Total 0.6 mg/dL (0.2-1.0); Total Protein 6.4 g/dL (5.7-8.2)
[2024-01-13 06:43] LABS: Glucose 313 mg/dL (74-106); Sodium 136 mmol/L (136-145)
[2024-01-13] MEDS: ALBUTEROL SULF 2.5 MG/0.5ML(0.5%) NEB SOLN NEB SCH (08:30)
[2024-01-13] MEDS: IPRATROPIUM BROM 0.5 MG/2.5ML INH SOL NEB SCH (08:30)
[2024-01-13] MEDS: MULTIPLE VITAMIN TAB PO SCH (09:17)
[2024-01-13] MEDS: levoFLOXacin 500MG 100 ML IV SCH (09:17)
[2024-01-13] MEDS: FUROSEMIDE 20 MG/2 ML VIAL IV SCH (09:18)
[2024-01-13] MEDS: FAMOTIDINE (10MG/ML) 2ML VL IV SCH (09:18)
[2024-01-13] MEDS: HYDROcodone-ACET 5/325MG TAB PO PRN (09:41)
[2024-01-13] MEDS ORDERED: DEXTROSE (50%) 50ML SYRG IV PRN (10:00)
[2024-01-13] MEDS ORDERED: methylPREDNISolone SOD SUCC 40 MG/ML VL IV SCH (10:15)
--- NOTE | 2024-01-13 10:55 | DVHPNRES ---
Progress Note Date Seen: Jan 13, 2024 Resident Creating Document: BRITTANY ROBBINS RESIDENT Medical Necessity Reason Pt with a Central, PICC or Fol: No Subjective Review of Systems This is a 83-year-old male with past medical history of DM, COPD, hypertension, and hyperlipidemia who presented to [facility] ED with complaint of shortness of breaths. Patient reports symptoms progressively get worse with difficulty breathing, hypoxic getting worse that EMS were called. When EMS arrived on the scene, patient had increased work breathing and was placed on 10 L via non-rebreather en route to the ED. patient denied chest pain, headache, dizziness, diaphoresis, nausea, vomiting ,fever, chills. Patient was admitted for further evaluation medical management. Patient was seen and examined on the bedside. He is alert, oriented x3 and on 6 L oxygen through Ox[employer]. No active complaints. Constitutional: No: Fever, Chills, Sweats, Weakness, Malaise, Other Eyes: No: Pain, Vision change, Conjunctivae inflammation, Eyelid inflammation, Other, Redness ENT: No: Ear pain, Ear discharge, Nose pain, Nose discharge, Nose congestion, Mouth pain, Mouth swelling, Throat pain, Throat swelling, Other Respiratory: Shortness of breath, No: Cough, Dry,Wheezing, Hemoptysis, Pleuritic Pain, Sputum, Wheezing, Other Cardiovascular: No: Chest Pain, Palpitations, Orthopnea, Paroxysmal Noc. Dyspnea, Edema, Lt Headedness, Other Gastrointestinal: No: Nausea, Vomiting, Abdominal Pain, Diarrhea, Constipation, Melena, Hematochezia, Other Musculoskeletal: No: other, neck pain, shoulder pain, arm pain, back pain, hand pain, leg pain, foot pain Neurological:; No: Weakness, Numbness, Incoordination, Change in speech, Confusion, Seizures Objective vital signs Vital Sign Date Time Temp Pulse Resp B/P (MAP) Pulse Ox O2 Delivery O2 Flow Rate FiO2 01/13/24 10:10 70 18 98 01/13/24 10:04 Oxymizer 8.0 01/13/24 10:04 N/A 01/13/24 09:18 102/57 01/13/24 09:00 97.2 97.2 Total Intake and Output 01/12/24 01/12/24 01/13/24 15:00 23:00 07:00 Intake Total 100 ml 240 ml Output Total 300 ml Balance 100 ml -60 ml medications Current Medications Medications Dose Ordered Sig/Nasim Route Start Time Stop Time Status Last Admin Dose Admin Atorvastatin Calcium 20 mg HS PO 01/13/24 22:00 Levofloxacin/ Dextrose 100 ml @ 100 mls/hr DAILY IV 01/13/24 10:00 01/13/24 10:59 01/13/24 09:17 100 MLS/HR Furosemide 20 mg DAILY IV 01/13/24 10:00 01/13/24 09:18 20 MG Famotidine 20 mg Q12HR IV 01/13/24 10:00 01/13/24 09:18 20 MG Sodium Chloride 10 ml Q8HR IV 01/13/24 06:00 01/13/24 06:35 10 ML Acetaminophen/ Hydrocodone Bitart 1 tab Q4HP PRN PO 01/12/24 22:15 01/13/24 09:41 1 TAB Ondansetron HCl 4 mg Q4HP PRN IV 01/12/24 22:15 Docusate Sodium 100 mg BIDPRN PRN PO 01/12/24 22:15 Acetaminophen 500 mg Q6HP PRN PO 01/12/24 22:15 Multivitamins 1 tab DAILY PO 01/13/24 10:00 01/13/24 09:17 1 TAB Nitroglycerin 0.4 mg Q5MINP PRN SL 01/12/24 23:30 Morphine Sulfate 2 mg Q30M PRN IV 01/12/24 23:30 Levofloxacin 50 ml @ 50 mls/hr DAILY IV 01/14/24 10:00 Albuterol 2.5 mg Q4HR NEB 01/13/24 08:30 01/13/24 10:04 2.5 MG Ipratropium [place] 0.5 mg Q4HR NEB 01/13/24 08:30 01/13/24 10:04 0.5 MG Diagnostic Test (Pha) 1 strip Q6HR 01/13/24 12:00 Insulin Human Regular Q6HR SC 01/13/24 12:00 Dextrose 50 ml UD PRN IV 01/13/24 10:00 Enoxaparin Sodium 40 mg DAILY SC 01/14/24 10:00 Methylprednisolone Sodium Succinate 40 mg Q12HR IV 01/13/24 22:00 Examination Physical examination: General Appearance: Alert, Oriented X3, Cooperative, No acute distress HEENT: Atraumatic, PERRLA, EOMI, Mucous membrane moist/pink Respiratory: Crackles in bilateral lower lung quiñonez. Cardiovascular: Regular rate, Normal S1, Normal S2, No murmurs, no chest wall tenderness Abdominal: Normal bowel sounds, Soft, No tenderness, No hepatospenomegaly, No masses Extremities: No clubbing, No cyanosis, No edema, Normal pulses, No tenderness/swelling Skin: No rashes, No breakdown, No significant lesion Neuro: Normal gait, Normal speech, Strength at 5/5 X4 ext, Normal tone, Sensation intact. Psych/Mental Status: Mental status NL, Mood NL laboratory and microbiology Laboratory Tests 01/13/24 04:48 Test 01/13/24 04:48 Range/Units Serum Glucose 313 #H 74-106 mg/dL Labs and/or images reviewed: Labs reviewed by me, Image(s) reviewed by me Problem List/Assessment/Plan Problem List/Assessment/Plan Assessment and plan: # Acute on chronic respiratory failure likely due to acute exacerbation of chronic COPD - Patient is on 6 L oxygen through [employer]izer with saturation 96% # Acute exacerbation of chronic COPD - Chest xray revealed chronic interstitial lung disease likely pulmonary interstitial fibrosis - CT chest on 03/02/23 demonstrated pulmonary fibrosis. - Med neb treatment with albuterol and ipratropium q.4 hours - IV methylprednisolone 40 mg b.i.d. - IV levofloxacin daily # BEATRICE due to VMN - Monitor BMP # Questionable exacerbation of chronic diastolic heart failure - BNP is 399.62 - Echo in 2022 revealed ejection fraction 60% and cannot rule out significant aortic stenosis. - Frusemide 20 mg IV daily. - New echo pending. # Hyperlipidemia - Atorvastatin 20 mg at HS. # PUD prophylaxis - Protonix 40 mg daily. # DVT prophylaxis - Lovenox 40 mg sc daily. Plan of care discussed with the patient for 20 minutes full code. Plan of treatment discussed with Plan discussed with: Patient, Other My Orders My Orders Orders - BRITTANY ROBBINS RESIDENT Procedure Category Date Status Time Vitamin B12 LAB 01/13/24 Logged 08:21 Vitamin D, 25-Hydroxy LAB 01/13/24 Logged 08:21 Albuterol Medneb PHA 01/13/24 In Process (Ventolin Medneb) 08:30 Ipratropium Medneb PHA 01/13/24 In Process (Atrovent Medneb) 08:30 Glucose Blood PHA 01/13/24 In Process (Accu-Chek Comfort 12:00 Insulin R (Human) PHA 01/13/24 In Process (Insulin R) 12:00 Dextrose 50% Syringe PHA 01/13/24 In Process 10:00 Enoxaparin Sodium PHA 01/14/24 In Process (Lovenox) 10:00 Methylprednisolone PHA 01/13/24 In Process Sod Succ (Solu Medrol 22:00 Date of Service: Jan 13, 2024 Billing Provider: MADI CLARKE MD Common Visit Codes: [id number] INP/OBS CARE(HIGH) BRITTANY ROBBINS RESIDENT Jan 13, 2024 10:55 MADI CLARKE MD Jan 14, 2024 01:57
[2024-01-13] MEDS: ENOXAPARIN SOD 40 MG/0.4 ML SYRINGE SC ONE (11:40)
[2024-01-13] MEDS: PANTOPRAZOLE 40 MG TAB PO ONE (13:45)
--- NOTE | 2024-01-13 17:25 | DVHINCON2 ---
Date of service: Jan 12, 2024 Referring Physician TERESA Null Reason for Consultation ILD exacerbation History of Present Illness 83-year-old man history of diabetes mellitus type 2, COPD, hypertension, hyperlipidemia who presented with a chief complaint of shortness of breath. Shortness of breath progressively got worse. He was not getting any relief at home from home inhalers. He was also very hypoxic. EMS was called by family. When EMS arrived on the scene patient was using accessory muscles and having difficulty breathing he was initiated on 10 L via non-rebreather on route to the emergency department. In the emergency department he was found to be in leukocytosis, elevated BNP and a chest x-ray that demonstrated bilateral interstitial opacities. He had a prior CT chest performed on March 16, 2023 that demonstrated interstitial pulmonary fibrosis and usual interstitial pneumonia. Could not rule out superimposed pneumonia. There is also diaphragmatic scarring. Patient was initiated on IV antibiotics, bronchodilators and IV steroids. Patient currently denies any nausea, vomiting, diarrhea constipation. No fever or chills. No recent sick contacts. No recent travel history. Pulmonary consultation is called due to acute hypoxic respiratory failure, acute exacerbation of COPD and acute exacerbation of interstitial lung disease. Review of systems: 14 point review of systems is negative unless otherwise noted above. Past medical history: COPD, diabetes mellitus type 2, hypertension, hyperlipidemia Past surgical history: None mentioned in prior surgeries. Medications: Reviewed Allergies: Penicillins Family history: No family history of premature CAD. No family history of lung disease Social history: Nonsmoker. No alcohol or illicit drug use. Lives at home with family. Family History: Diabetes mellitus G8 MOTHER G8 FATHER 19 CHILD Allergies: Coded Allergies: Penicillins (Verified Allergy, Unknown, 05/10/21) Home Meds Active Scripts Prednisone (Prednisone) 20 Mg Tab, 20 MG PO DAILY, #7 MG Prov:AGNES OMALLEY MD 08/17/22 Levofloxacin (Levaquin) 500 Mg Tab, 500 MG PO DAILY, #7 TAB Prov:AGNES OMALLEY MD 08/17/22 Ipratropium-Albuterol (Ipratropium [place]/Albut) 1 Con Con, 1 CON IN Q4HPRN PRN for 90 Days, #180 ML Prov:DIAMOND DAIS MD 08/16/22 Reported Medications Dapagliflozin Propanediol (Farxiga) 10 Mg Tab, 10 MG PO, TAB 01/13/24 Omeprazole Magnesium (Omeprazole) 20 Mg Tab, 40 MG PO DAILY, TAB 08/14/22 Multiple Vitamin (Multivitamins) Tab, 1 TAB PO DAILY, #90 TAB 3 Refills 05/15/21 Glimepiride (Glimepiride) 1 Mg Tab, 1 MG PO BID for 30 Days, MG 05/15/21 Atorvastatin Calcium (ATORVASTATIN CALCIUM) 40 Mg Tab, 1 TAB PO HS, #30 TAB 5 Refills 05/15/21 Amlodipine Besylate (Amlodipine Besylate) 10 Mg Tab, 1 TAB PO DAILY 05/15/21 Mirtazapine (Mirtazapine Oral Disintegrating Tablet) 15 Mg Tab, 1 TAB PO BID 05/15/21 Metformin Hydrochloride (Metformin Hcl) 1,000 Mg Tab, 1 TAB PO BID 05/15/21 Current Medications Current Medications Medications (Trade) Dose Ordered Sig/Nasim Route PRN Reason Start Time Stop Time Status Last Admin Atorvastatin Calcium (Lipitor) 20 mg HS PO 01/13/24 22:00 Levofloxacin/ Dextrose 100 ml @ 100 mls/hr DAILY IV 01/13/24 10:00 01/13/24 10:59 DC 01/13/24 09:17 Methylprednisolone Sodium Succinate (Solu Medrol) 40 mg Q8HR IV 01/13/24 06:00 01/13/24 10:02 DC 01/13/24 06:34 Furosemide (Lasix Injection) 20 mg DAILY IV 01/13/24 10:00 01/13/24 09:18 Albuterol (Ventolin Medneb) 2.5 mg Q4HPRN PRN NEB SHORTNESS OF BREATH 01/12/24 22:15 01/13/24 08:24 DC Ipratropium [place] (Atrovent Medneb) 0.5 mg Q4HPRN PRN NEB SHORTNESS OF BREATH 01/12/24 22:15 01/13/24 08:24 DC Famotidine (Pepcid Injection) 20 mg Q12HR IV 01/13/24 10:00 01/13/24 13:43 DC 01/13/24 09:18 Diagnostic Test (Pha) (Accu-Chek Comfort Curve T) 1 strip ACHS 01/13/24 07:00 01/13/24 10:09 DC 01/13/24 06:35 Insulin Human Regular (InsuLIN R) ACHS SC 01/13/24 07:00 01/13/24 09:58 DC 01/13/24 06:34 Dextrose 50 ml UD PRN IV Blood Sugar LESS THAN 60 01/12/24 22:15 01/13/24 10:09 DC Sodium Chloride (Saline Lock Ns) 10 ml Q8HR IV 01/13/24 06:00 01/13/24 14:00 Acetaminophen/ Hydrocodone Bitart ([employer] 5/325MG Tab) 1 tab Q4HP PRN PO MODERATE PAIN (4-6 PAIN SCALE) 01/12/24 22:15 01/13/24 09:41 Ondansetron HCl (Zofran) 4 mg Q4HP PRN IV NAUSEA / VOMITING 01/12/24 22:15 Docusate Sodium (Colace Capsule) 100 mg BIDPRN PRN PO FOR CONSTIPATION 01/12/24 22:15 Acetaminophen (Tylenol Tablet) 500 mg Q6HP PRN PO PAIN SCALE 1-3 OR TEMP>100.4 01/12/24 22:15 Multivitamins (Mvi Tab) 1 tab DAILY PO 01/13/24 10:00 01/13/24 09:17 Nitroglycerin (Ntrostat Sublingual) 0.4 mg Q5MINP PRN SL FOR CHEST PAIN 01/12/24 23:30 Morphine Sulfate 2 mg Q30M PRN IV FOR CHEST PAIN 01/12/24 23:30 Levofloxacin 50 ml @ 50 mls/hr DAILY IV 01/14/24 10:00 Albuterol (Ventolin Medneb) 2.5 mg Q4HR NEB 01/13/24 08:30 01/13/24 14:52 Ipratropium [place] (Atrovent Medneb) 0.5 mg Q4HR NEB 01/13/24 08:30 01/13/24 14:52 Diagnostic Test (Pha) (Accu-Chek Comfort Curve T) 1 strip Q6HR 01/13/24 12:00 01/13/24 11:40 Insulin Human Regular (InsuLIN R) Q6HR SC 01/13/24 12:00 01/13/24 11:44 Dextrose 50 ml UD PRN IV Blood Sugar LESS THAN 60 01/13/24 10:00 Methylprednisolone Sodium Succinate (Solu Medrol) 40 mg Q12HR IV 01/13/24 10:15 01/13/24 10:08 DC Enoxaparin Sodium (Lovenox) 40 mg DAILY SC 01/14/24 10:00 Methylprednisolone Sodium Succinate (Solu Medrol) 40 mg Q12HR IV 01/13/24 22:00 Pantoprazole Sodium (Protonix Tablet) 40 mg DAILY@0600 PO 01/14/24 06:00 Vital Signs Vital Signs Date Time Temp Pulse Resp B/P (MAP) Pulse Ox O2 Delivery O2 Flow Rate FiO2 01/13/24 17:00 98.1 71 18 109/52 (71) 93 98.1 01/13/24 14:52 Oxymizer 3.0 01/13/24 14:52 N/A Physical Exam Gen.: Patient lying in bed in moderate apparent distress. On supplemental oxygen. Head: Normocephalic, atraumatic Eyes: EOMI/PERRLA. Ears: Normal hearing. Normal anatomy. Neck/trachea: Trachea midline, supple. Nose: Normal external anatomy. Mouth: Moist mucous membranes. Chest: Decreased air entry bilaterally. No wheezing or rhonchi. Bibasilar crackles Cardio vascular: Positive S1, positive S2. Regular rate and rhythm. Abdomen: Positive bowel sounds in all 4 quadrants. Soft, non-tender, non- distended. : Deferred. Rectal: Deferred Skin: Warm, dry. Extremities: 2+ radial pulses bilaterally. No lower extremity edema. Neuro: Awake, alert, oriented x3. No gross motor or sensory deficits. Cranial nerves II through XII intact. Gait not assessed. Labs/Diagnostic Data Labs Test 01/13/24 15:06 01/13/24 11:25 01/13/24 04:48 01/12/24 20:00 Range/Units Vitamin B12 Level 576 211-911 pg/mL Vitamin D 25-Hydroxy 41.8 30.0-100 ng/mL POC Glucose 295 H 70-106 mg/dl White Blood Count 9.6 4.4-10.8 10^3/uL Red Blood Count 4.84 4.5-5.90 10^6/uL Hemoglobin 13.2 L 13.5-17.5 g/dL Hematocrit 40.1 #L 41.0-53.0 % Mean Corpuscular Volume 82.8 80.0-100.0 fL Mean Corpuscular Hemoglobin 27.4 L 28.0-32.0 pg Mean Corpuscular Hemoglobin Concent 33.0 32.0-36.0 g/dL Red Cell Distribution Width 16.7 H 11.8-14.3 % Platelet Count 219 140-450 10^3/uL Mean Platelet Volume 8.5 6.9-10.8 fL Neutrophils (%) (Auto) 94.1 H 37.0-80.0 % Lymphocytes (%) (Auto) 1.9 L 10.0-50.0 % Monocytes (%) (Auto) 3.8 0.0-12.0 % Eosinophils (%) (Auto) 0.1 0.0-7.0 % Basophils (%) (Auto) 0.1 0.0-2.0 % Neutrophils # (Auto) 9.0 H 1.6-8.6 10 ^3/uL Lymphocytes # (Auto) 0.2 L 0.4-5.4 10 ^3/uL Monocytes # (Auto) 0.4 0-1.3 10 ^3/uL Eosinophils # (Auto) 0 0-0.8 10 ^3/uL Basophils # (Auto) 0 0-0.2 10 ^3/uL Nucleated Red Blood Cells 0.1 % Sodium Level 136 # 136-145 mmol/L Potassium Level 4.5 3.5-5.1 mmol/L Chloride Level 106 98-107 mmol/L Carbon Dioxide Level 20 20-31 mmol/L Anion Gap 10 5-15 Blood Urea Nitrogen 28 H 9-23 mg/dL Creatinine 1.34 H 0.700-1.30 mg/dL Glomerular Filtration Rate Calc 53 >90 mL/min BUN/Creatinine Ratio 20.9 H 10.0-20.0 Serum Glucose 313 #H 74-106 mg/dL Hemoglobin A1c 8.6 H <5.7 % A1C Calcium Level 9.1 8.7-10.4 mg/dL Total Bilirubin 0.6 0.2-1.0 mg/dL Aspartate Amino Transferase (AST) 17 13-40 U/L Alanine Aminotransferase (ALT) 14 7-40 U/L Alkaline Phosphatase 187 H 46-116 U/L Total Protein 6.4 5.7-8.2 g/dL Albumin 4.0 3.2-4.8 g/dL Thyroid Stimulating Hormone (TSH) 0.88 0.55-4.78 uIU/mL Urine Color Yellow Yellow Urine Clarity Clear Clear Urine pH 5.5 5.0-9.0 Urine Specific [place] 1.027 1.001-1.035 Urine Protein 1+ H Negative Urine Ketones Trace Negative Urine Blood Negative Negative /uL Urine Nitrite Negative Negative Urine Bilirubin Negative Negative Urine Urobilinogen Normal Negative mg/dL Urine Leukocyte Esterase Negative Negative /uL Urine RBC 1 0 - 3 /hpf Urine WBC 1 0 - 3 /hpf Urine Squamous Epithelial Cells Few <5 /hpf Urine Bacteria None seen None Seen /hpf Urine Glucose 4+ H Normal mg/dL Test 01/12/24 13:57 01/12/24 10:57 Range/Units Troponin I High Sensitivity 7 </=54 ng/L B-Type Natriuretic Peptide 399.62 0-100 pg/mL Assessment Impression: Acute hypoxic respiratory failure secondary to interstitial lung disease exacerbation Acute exacerbation of COPD Acute exacerbation of interstitial lung disease Leukocytosis Elevated BNP Can not rule out underlying pneumonia Generalized weakness 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 Traction bronchiectasis. Diffuse peripheral cystic changes most prominent at the lung bases. Coronary artery calcifications. No adenopathy. No pleural effusion or pneumothorax. Pulmonary fibrosis. Chest x-ray from this admission: Report and images reviewed. Chronic interstitial lung disease likely pulmonary interstitial fibrosis/usual interstitial pneumonia. Superimposed bacterial/viral pneumonia unlikely but can not be excluded. Chronic blunting of the bilateral costophrenic angles that may represent chronic pleural thickening versus small pleural effusions. On 10 liters/minute via Oxymizer Titrate to keep O2 saturation above 92%. IV steroids IV antibiotics Bronchodilators Nutritional support due to cachexia. Diurese Monitor ins and outs Monitor renal function Monitor electrolytes. Supplement as necessary. Accu-Cheks, insulin sliding scale DVT prophylaxis GI prophylaxis Condition: Critical, monitor respiratory status closely due to high O2 requirements Prognosis: Poor given multiple comorbidities. Rest of plan per hospitalist and other consultants. A total of 35 minutes of critical care time was spent reviewing the patient record, examining the patient, making a diagnostic and therapeutic plan, discussing this plan with the medical personnel, following up on diagnostic studies and following the patient for clinical stability excluding any and all procedures. At least 50% of this time was spent in direct, [id number] contact. Thank you TERESA Null for allowing me to participate in this patient's care. Further recommendations will depend on patient's clinical course. Please do not hesitate to contact me if you have any questions or concerns. This medical document was created using an electronic medical record system with [employer] dictation system. Although this document has been carefully reviewed, there may still be some phonetic and typographical errors. These areas are purely typographical due to imperfections of the software programs, and do not reflect any compromise in the patient's medical care. Plan discussed with: Patient, Other (PROFESSOR OF RELIGIOUS STUDIES) ALBETRO BENTON MD Jan 13, 2024 17:24
--- NOTE | 2024-01-13 17:29 | DVHPN2 ---
Progress Note - Dictate Date Seen: Jan 13, 2024 Medical Necessity Reason Pt with a Central, PICC or Fol: No Subjective Seen and examined at bedside. On supplemental oxygen line in mild respiratory distress Overnight events reviewed vital signs Vital Sign Date Time Temp Pulse Resp B/P (MAP) Pulse Ox O2 Delivery O2 Flow Rate FiO2 01/13/24 17:00 98.1 71 18 109/52 (71) 93 98.1 01/13/24 14:52 Oxymizer 3.0 01/13/24 14:52 N/A Total Intake and Output 01/12/24 01/12/24 01/13/24 15:00 23:00 07:00 Intake Total 100 ml 240 ml Output Total 300 ml Balance 100 ml -60 ml medications Current Medications Medications Dose Ordered Sig/Nasim Route Start Time Stop Time Status Last Admin Dose Admin Atorvastatin Calcium 20 mg HS PO 01/13/24 22:00 Furosemide 20 mg DAILY IV 01/13/24 10:00 01/13/24 09:18 Sodium Chloride 10 ml Q8HR IV 01/13/24 06:00 01/13/24 14:00 Acetaminophen/ Hydrocodone Bitart 1 tab Q4HP PRN PO 01/12/24 22:15 01/13/24 09:41 Ondansetron HCl 4 mg Q4HP PRN IV 01/12/24 22:15 Docusate Sodium 100 mg BIDPRN PRN PO 01/12/24 22:15 Acetaminophen 500 mg Q6HP PRN PO 01/12/24 22:15 Multivitamins 1 tab DAILY PO 01/13/24 10:00 01/13/24 09:17 Nitroglycerin 0.4 mg Q5MINP PRN SL 01/12/24 23:30 Morphine Sulfate 2 mg Q30M PRN IV 01/12/24 23:30 Levofloxacin 50 ml @ 50 mls/hr DAILY IV 01/14/24 10:00 Albuterol 2.5 mg Q4HR NEB 01/13/24 08:30 01/13/24 14:52 Ipratropium [place] 0.5 mg Q4HR NEB 01/13/24 08:30 01/13/24 14:52 Diagnostic Test (Pha) 1 strip Q6HR 01/13/24 12:00 01/13/24 11:40 Insulin Human Regular Q6HR SC 01/13/24 12:00 01/13/24 11:44 Dextrose 50 ml UD PRN IV 01/13/24 10:00 Enoxaparin Sodium 40 mg DAILY SC 01/14/24 10:00 Methylprednisolone Sodium Succinate 40 mg Q12HR IV 01/13/24 22:00 Pantoprazole Sodium 40 mg DAILY@0600 PO 01/14/24 06:00 objective Gen.: Patient lying in bed in moderate apparent distress. On supplemental oxygen. Head: Normocephalic, atraumatic Eyes: EOMI/PERRLA. Ears: Normal hearing. Normal anatomy. Neck/trachea: Trachea midline, supple. Nose: Normal external anatomy. Mouth: Moist mucous membranes. Chest: Decreased air entry bilaterally. No wheezing or rhonchi. Bibasilar crackles Cardio vascular: Positive S1, positive S2. Regular rate and rhythm. Abdomen: Positive bowel sounds in all 4 quadrants. Soft, non-tender, non- distended. : Deferred. Rectal: Deferred Skin: Warm, dry. Extremities: 2+ radial pulses bilaterally. No lower extremity edema. Neuro: Awake, alert, oriented x3. No gross motor or sensory deficits. Cranial nerves II through XII intact. Gait not assessed. 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 Taper down O2 as tolerated Continue IV steroids Continue IV antibiotics Continue bronchodilators Maintain euvolemia Monitor renal function Head of bed elevation Aspiration precautions We will require outpatient testing to evaluate source of interstitial lung disease We will obtain rheumatoid factor, SONIDO, anti CCP as outpatient We will need outpatient pulmonary function test to assess for obstructive or restrictive ventilatory defect, lung volumes and diffusion capacity We will need yearly high-resolution CT chest for ongoing management of interstitial lung disease/pulmonary fibrosis Recommend repeat echocardiogram to assess for any pulmonary hypertension in the setting of pulmonary fibrosis. Echocardiogram from August 17, 2022 demonstrated left ventricular ejection fraction of 60%. Moderate left ventricular hypertrophy. At that time the right ventricular systolic pressure was not assessed. Recommend to assess right ventricular systolic pressure to evaluate for pulmonary hypertension. Rest of plan as outlined below Plan: CT of the chest from March 02, 2023 reviewed. Traction bronchiectasis. Diffuse peripheral cystic changes most prominent at the lung bases. Coronary artery calcifications. No adenopathy. No pleural effusion or pneumothorax. Pulmonary fibrosis. Chest x-ray from this admission: Report and images reviewed. Chronic interstitial lung disease likely pulmonary interstitial fibrosis/usual interstitial pneumonia. Superimposed bacterial/viral pneumonia unlikely but can not be excluded. Chronic blunting of the bilateral costophrenic angles that may represent chronic pleural thickening versus small pleural effusions. On 10 liters/minute via Oxymizer Titrate to keep O2 saturation above 92%. IV steroids IV antibiotics Bronchodilators Nutritional support due to cachexia. Diurese Monitor ins and outs Monitor renal function Monitor electrolytes. Supplement as necessary. Accu-Cheks, insulin sliding scale DVT prophylaxis GI prophylaxis Condition: Critical, monitor respiratory status closely due to high O2 requirements Prognosis: Poor given multiple comorbidities. Rest of plan per hospitalist and other consultants. A total of 35 minutes of critical care time was spent reviewing the patient record, examining the patient, making a diagnostic and therapeutic plan, discussing this plan with the medical personnel, following up on diagnostic studies and following the patient for clinical stability excluding any and all procedures. At least 50% of this time was spent in direct, [id number] contact. Thank you TERESA Null for allowing me to participate in this patient's care. Further recommendations will depend on patient's clinical course. Please do not hesitate to contact me if you have any questions or concerns. This medical document was created using an electronic medical record system with [employer] system. Although this document has been carefully reviewed, there may still be some phonetic and typographical errors. These areas are purely typographical due to imperfections of the software programs, and do not reflect any compromise in the patient's medical care. Plan discussed with: Patient, Daughter, Other (EVITA Yang, RT, MD) Critical Care Time(min): 35 ALBERTO BENTON MD Jan 13, 2024 17:29
[2024-01-13] MEDS: ATORVASTATIN 20 MG TAB PO SCH (22:11)
[2024-01-14] VITALS (21 sets, daily range): BP systolic 99–126; BP diastolic 55–72; PULSE 70–86; RESP 14–20; TEMP 97.3–98.1; O2SAT 91–99
[2024-01-14] MEDS: PANTOPRAZOLE 40 MG TAB PO SCH (05:19)
[2024-01-14 07:17] LABS: Hematocrit 39.6 % (41.0-53.0); Mean Corpuscular Hemoglobin 26.5 pg (28.0-32.0); Mean Corpuscular Hgb Conc. 32.7 g/dL (32.0-36.0); Mean Corpuscular Volume 81.2 fL (80.0-100.0); Platelet Count (auto) 221 10^3/uL (140-450); Red Blood Cells 4.88 10^6/uL (4.5-5.90); Red Cell Distribution Width 16.4 % (11.8-14.3); White Blood Cell 20.7 10^3/uL (4.4-10.8)
[2024-01-14 07:23] LABS: Band Neutrophils % (manual) 0; Basophils % (manual) 0 (0.0-2.0); Blast Cells 0; Eosinophils % (manual) 0 (0-7); Metamyelocytes % 0; Myelocytes % 0; Promyelocytes % 0; Reactive Lymphocytes 0
[2024-01-14 07:24] LABS: Anion Gap 7 (5-15); Carbon Dioxide 25 mmol/L (20-31); Chloride 105 mmol/L (98-107); Potassium 4.4 mmol/L (3.5-5.1); Sodium 137 mmol/L (136-145)
[2024-01-14 07:25] LABS: Calcium 9.3 mg/dL (8.7-10.4)
[2024-01-14 07:30] LABS: BUN/Creatinine Ratio 33.9 (10.0-20.0)
[2024-01-14 07:33] LABS: Blood Urea Nitrogen 39 mg/dL (9-23); Glucose 185 mg/dL (74-106)
[2024-01-14 08:36] LABS: Lymphocytes % (manual) 1 (10.0-50.0); Monocytes % (manual) 3 (0-12)
[2024-01-14 08:37] LABS: Platelet Estimate Adequate
[2024-01-14] MEDS: ENOXAPARIN SOD 40 MG/0.4 ML SYRINGE SC SCH (10:21)
[2024-01-14] MEDS: levoFLOXacin 250MG 50 ML IV SCH (10:45)
--- NOTE | 2024-01-14 13:09 | DVHSR ---
APPROVED REPORT EXAM: Two-dimensional and M-mode echocardiogram with Doppler and color Doppler. Blood Pressure: 106/79 mmHg INDICATION Elevated BNP RISK FACTORS Height: 5'6", Weight: 121 DIMENSIONS LVDd4.4 (3.8-5.7cm)LA (2D)2.9 (1.9-4.0cm)Aortic Root2.6 (2.0-3.7cm) LVDs2.9 (2.5-4.0cm)LA (MM) (1.9-4.0cm)Aortic Cusp Exc0.6 (1.5-2.0cm) EF (%) 63.0 (55-70%)Rt. Atrium5.3 (1.9-4.0cm)Asc. Aorta cm IVSd0.8 (0.7-1.1cm)RV (D) (1.8-2.4cm) PWd0.7 (0.7-1.1cm) Mitral Valve MitralMitral Stenosis E/A ratio0.02D MVAcm2 Aortic Valve Aortic ValveAortic Stenosis V10.88m/Hector Mean GR.17mmHg V22.61m/Hector Peak GR.27mmHg LVOT Diameter2.0 (1.8-2.4cm)Doppler AVA1.06cm2 Tricuspid Valve TR Velocity3.26m/s [id number] Other Information Quality : Technically LimitedRhythm : Technically limited study due to body habitus. Conclusion lvef 55% biatrial enalrgement RV enlarged severe aortic sclerosis, moderate mean gradient of 16 mmgh ,cannot exlcude low flow low gradient A S IVC dilated c /w elevated RA filling pressures
--- NOTE | 2024-01-14 19:34 | DVHPNRES ---
Progress Note Date Seen: Jan 14, 2024 Resident Creating Document: BRITTANY ROBBINS RESIDENT Medical Necessity Reason Pt with a Central, PICC or Fol: No Subjective Review of Systems This is a 83-year-old male with past medical history of DM, COPD, hypertension, and hyperlipidemia who presented to [facility] ED with complaint of shortness of breaths. Patient reports symptoms progressively get worse with difficulty breathing, hypoxic getting worse that EMS were called. When EMS arrived on the scene, patient had increased work breathing and was placed on 10 L via non-rebreather en route to the ED. patient denied chest pain, headache, dizziness, diaphoresis, nausea, vomiting ,fever, chills. Patient was admitted for further evaluation medical management. Patient was seen and examined on the bedside. He is alert, oriented x3 and on 3L oxygen through Oxymizer. No active complaints. Objective vital signs Vital Sign Date Time Temp Pulse Resp B/P (MAP) Pulse Ox O2 Delivery O2 Flow Rate FiO2 01/14/24 19:31 96 Oxymizer 4 N/A 01/14/24 19:25 79 18 01/14/24 17:00 97.8 107/61 (76) 97.8 Total Intake and Output 01/13/24 01/13/24 01/14/24 15:00 23:00 07:00 Intake Total 1025 ml 350 ml Balance 1025 ml 350 ml medications Current Medications Medications Dose Ordered Sig/Nasim Route Start Time Stop Time Status Last Admin Dose Admin Atorvastatin Calcium 20 mg HS PO 01/13/24 22:00 01/13/24 22:11 20 MG Furosemide 20 mg DAILY IV 01/13/24 10:00 01/14/24 10:20 20 MG Sodium Chloride 10 ml Q8HR IV 01/13/24 06:00 01/14/24 17:39 10 ML Acetaminophen/ Hydrocodone Bitart 1 tab Q4HP PRN PO 01/12/24 22:15 01/14/24 10:21 1 TAB Ondansetron HCl 4 mg Q4HP PRN IV 01/12/24 22:15 Docusate Sodium 100 mg BIDPRN PRN PO 01/12/24 22:15 Acetaminophen 500 mg Q6HP PRN PO 01/12/24 22:15 Multivitamins 1 tab DAILY PO 01/13/24 10:00 01/14/24 10:20 1 TAB Nitroglycerin 0.4 mg Q5MINP PRN SL 01/12/24 23:30 Morphine Sulfate 2 mg Q30M PRN IV 01/12/24 23:30 Levofloxacin 50 ml @ 50 mls/hr DAILY IV 01/14/24 10:00 01/14/24 10:45 50 MLS/HR Albuterol 2.5 mg Q4HR NEB 01/13/24 08:30 01/14/24 19:15 2.5 MG Ipratropium [place] 0.5 mg Q4HR NEB 01/13/24 08:30 01/14/24 19:15 0.5 MG Diagnostic Test (Pha) 1 strip Q6HR 01/13/24 12:00 01/14/24 17:00 1 STRIP Insulin Human Regular Q6HR SC 01/13/24 12:00 01/14/24 17:12 9 UNITS Dextrose 50 ml UD PRN IV 01/13/24 10:00 Enoxaparin Sodium 40 mg DAILY SC 01/14/24 10:00 01/14/24 10:21 40 MG Methylprednisolone Sodium Succinate 40 mg Q12HR IV 01/13/24 22:00 01/14/24 10:20 40 MG Pantoprazole Sodium 40 mg DAILY@0600 PO 01/14/24 06:00 01/14/24 05:19 40 MG Examination Physical examination: General Appearance: Alert, Oriented X3, Cooperative, No acute distress HEENT: Atraumatic, PERRLA, EOMI, Mucous membrane moist/pink Respiratory: Crackles in bilateral lower lung quiñonez. Cardiovascular: Regular rate, Normal S1, Normal S2, No murmurs, no chest wall tenderness Abdominal: Normal bowel sounds, Soft, No tenderness, No hepatospenomegaly, No masses Extremities: No clubbing, No cyanosis, No edema, Normal pulses, No tenderness/swelling Skin: No rashes, No breakdown, No significant lesion Neuro: Normal gait, Normal speech, Strength at 5/5 X4 ext, Normal tone, Sensation intact. Psych/Mental Status: Mental status NL, Mood NL laboratory and microbiology Laboratory Tests 01/14/24 06:50 Test 01/14/24 06:50 Range/Units Serum Glucose 185 #H 74-106 mg/dL Labs and/or images reviewed: Labs reviewed by me, Image(s) reviewed by me Problem List/Assessment/Plan Problem List/Assessment/Plan Assessment and plan: # Acute on chronic respiratory failure likely due to acute exacerbation of chronic COPD - Patient is on 3 L oxygen through Oxymizer with saturation 96% # Acute exacerbation of chronic COPD - Chest xray revealed chronic interstitial lung disease likely pulmonary interstitial fibrosis - CT chest on 03/02/23 demonstrated pulmonary fibrosis. - Med neb treatment with albuterol and ipratropium q.4 hours - IV methylprednisolone 40 mg b.i.d. - IV levofloxacin daily # BEATRICE due to VMN resolved. # Questionable exacerbation of chronic diastolic heart failure - BNP is 399.62 - Echo in 2022 revealed ejection fraction 60% and cannot rule out significant aortic stenosis. - Frusemide 20 mg IV daily. - New echo revealed ejection fraction 55% with biatrial enlargement # Hyperlipidemia - Atorvastatin 20 mg at HS. # PUD prophylaxis - Protonix 40 mg daily. # DVT prophylaxis - Lovenox 40 mg sc daily. Plan of care discussed with the patient for 20 minutes full code. Plan of treatment discussed with Plan discussed with: Patient, Other Date of Service: Jan 14, 2024 Billing Provider: MADI CLARKE MD Common Visit Codes: [id number] INP/OBS CARE(HIGH) BRITTANY ROBBINS RESIDENT Jan 14, 2024 19:34 MADI CLARKE MD Jan 15, 2024 12:26
--- NOTE | 2024-01-14 21:56 | DVHPN2 ---
Progress Note - Dictate Date Seen: Jan 14, 2024 Medical Necessity Reason Pt with a Central, PICC or Fol: No Subjective Seen and examined at bedside. On supplemental oxygen Overnight events reviewed vital signs Vital Sign Date Time Temp Pulse Resp B/P (MAP) Pulse Ox O2 Delivery O2 Flow Rate FiO2 01/14/24 21:47 73 18 96 01/14/24 20:00 Oxymizer 4 N/A 01/14/24 17:00 97.8 107/61 (76) 97.8 Total Intake and Output 01/13/24 01/13/24 01/14/24 15:00 23:00 07:00 Intake Total 1025 ml 350 ml Balance 1025 ml 350 ml medications Current Medications Medications Dose Ordered Sig/Nasim Route Start Time Stop Time Status Last Admin Dose Admin Atorvastatin Calcium 20 mg HS PO 01/13/24 22:00 01/14/24 21:52 20 MG Furosemide 20 mg DAILY IV 01/13/24 10:00 01/14/24 10:20 20 MG Sodium Chloride 10 ml Q8HR IV 01/13/24 06:00 01/14/24 21:52 10 ML Acetaminophen/ Hydrocodone Bitart 1 tab Q4HP PRN PO 01/12/24 22:15 01/14/24 10:21 1 TAB Ondansetron HCl 4 mg Q4HP PRN IV 01/12/24 22:15 Docusate Sodium 100 mg BIDPRN PRN PO 01/12/24 22:15 Acetaminophen 500 mg Q6HP PRN PO 01/12/24 22:15 Multivitamins 1 tab DAILY PO 01/13/24 10:00 01/14/24 10:20 1 TAB Nitroglycerin 0.4 mg Q5MINP PRN SL 01/12/24 23:30 Morphine Sulfate 2 mg Q30M PRN IV 01/12/24 23:30 Levofloxacin 50 ml @ 50 mls/hr DAILY IV 01/14/24 10:00 01/14/24 10:45 50 MLS/HR Albuterol 2.5 mg Q4HR NEB 01/13/24 08:30 01/14/24 21:47 2.5 MG Ipratropium [place] 0.5 mg Q4HR NEB 01/13/24 08:30 01/14/24 21:47 0.5 MG Diagnostic Test (Pha) 1 strip Q6HR 01/13/24 12:00 01/14/24 17:00 1 STRIP Insulin Human Regular Q6HR SC 01/13/24 12:00 01/14/24 17:12 9 UNITS Dextrose 50 ml UD PRN IV 01/13/24 10:00 Enoxaparin Sodium 40 mg DAILY SC 01/14/24 10:00 01/14/24 10:21 40 MG Methylprednisolone Sodium Succinate 40 mg Q12HR IV 01/13/24 22:00 01/14/24 21:52 40 MG Pantoprazole Sodium 40 mg DAILY@0600 PO 01/14/24 06:00 01/14/24 05:19 40 MG objective Gen.: Patient lying in bed in no apparent distress. On supplemental oxygen. Head: Normocephalic, atraumatic Eyes: EOMI/PERRLA. Ears: Normal hearing. Normal anatomy. Neck/trachea: Trachea midline, supple. Nose: Normal external anatomy. Mouth: Moist mucous membranes. Chest: Decreased air entry bilaterally. No wheezing or rhonchi. Bibasilar crackles Cardio vascular: Positive S1, positive S2. Regular rate and rhythm. Abdomen: Positive bowel sounds in all 4 quadrants. Soft, non-tender, non- distended. : Deferred. Rectal: Deferred Skin: Warm, dry. Extremities: 2+ radial pulses bilaterally. No lower extremity edema. Neuro: Awake, alert, oriented x3. No gross motor or sensory deficits. Cranial nerves II through XII intact. Gait not assessed. 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 Taper down O2 as tolerated Goal is nasal cannula O2. Continue IV steroids - taper as tolerated Continue IV antibiotics Continue bronchodilators Diurese to euvolemia - on Lasix IV Monitor renal function Accu-Checks Head of bed elevation Aspiration precautions We will require outpatient testing to evaluate source of interstitial lung disease We will obtain rheumatoid factor, SONIDO, anti CCP as outpatient We will need outpatient pulmonary function test to assess for obstructive or restrictive ventilatory defect, lung volumes and diffusion capacity We will need yearly high-resolution CT chest for ongoing management of interstitial lung disease/pulmonary fibrosis Recommend repeat echocardiogram to assess for any pulmonary hypertension in the setting of pulmonary fibrosis. Echocardiogram from August 17, 2022 demonstrated left ventricular ejection fraction of 60%. Moderate left ventricular hypertrophy. At that time the right ventricular systolic pressure was not assessed. Recommend to assess right ventricular systolic pressure to evaluate for pulmonary hypertension. Rest of plan as outlined below Plan: CT of the chest from March 02, 2023 reviewed. Traction bronchiectasis. Diffuse peripheral cystic changes most prominent at the lung bases. Coronary artery calcifications. No adenopathy. No pleural effusion or pneumothorax. Pulmonary fibrosis. Chest x-ray from this admission: Report and images reviewed. Chronic interstitial lung disease likely pulmonary interstitial fibrosis/usual interstitial pneumonia. Superimposed bacterial/viral pneumonia unlikely but can not be excluded. Chronic blunting of the bilateral costophrenic angles that may represent chronic pleural thickening versus small pleural effusions. On 4 liters/minute via Oxymizer Titrate to keep O2 saturation above 92%. IV steroids IV antibiotics Bronchodilators Nutritional support due to cachexia. Diurese Monitor ins and outs Monitor renal function Monitor electrolytes. Supplement as necessary. Accu-Cheks, insulin sliding scale Monitor respiratory status closely due to high O2 requirements DVT prophylaxis GI prophylaxis Prognosis: Poor given multiple comorbidities. Rest of plan per hospitalist and other consultants. Thank you TERESA Null for allowing me to participate in this patient's care. Further recommendations will depend on patient's clinical course. Please do not hesitate to contact me if you have any questions or concerns. This medical document was created using an electronic medical record system with [employer] system. Although this document has been carefully reviewed, there may still be some phonetic and typographical errors. These areas are purely typographical due to imperfections of the software programs, and do not reflect any compromise in the patient's medical care. Plan discussed with: Patient, Other (RN) ALBERTO BENTON MD Jan 14, 2024 21:56
[2024-01-15] VITALS (15 sets, daily range): BP systolic 109–131; BP diastolic 63–70; PULSE 69–83; RESP 16–18; TEMP 97.5–98.1; O2SAT 92–100
[2024-01-15 06:08] LABS: Basophils # (auto) 0 10 ^3/uL (0-0.2); Eosinophils # (auto) 0 10 ^3/uL (0-0.8); Lymphocytes # (auto) 0.1 10 ^3/uL (0.4-5.4)
[2024-01-15 06:12] LABS: Basophils % (auto) 0.1 % (0.0-2.0); Hematocrit 39.4 % (41.0-53.0); Lymphocytes % (auto) 0.9 % (10.0-50.0); Mean Corpuscular Hemoglobin 26.4 pg (28.0-32.0); Mean Corpuscular Hgb Conc. 32.9 g/dL (32.0-36.0); Mean Corpuscular Volume 80.2 fL (80.0-100.0); Monocytes # (auto) 0.7 10 ^3/uL (0-1.3); Monocytes % (auto) 4.3 % (0.0-12.0); Neutrophils # (auto) 15.1 10 ^3/uL (1.6-8.6); Neutrophils % (auto) 94.7 % (37.0-80.0); Platelet Count (auto) 201 10^3/uL (140-450); Red Blood Cells 4.91 10^6/uL (4.5-5.90); Red Cell Distribution Width 16.7 % (11.8-14.3)
[2024-01-15 06:25] LABS: Chloride 104 mmol/L (98-107); Potassium 4.1 mmol/L (3.5-5.1); Sodium 138 mmol/L (136-145)
[2024-01-15 06:26] LABS: Anion Gap 7 (5-15); Calcium 9.4 mg/dL (8.7-10.4); Carbon Dioxide 27 mmol/L (20-31)
[2024-01-15 06:31] LABS: BUN/Creatinine Ratio 31.9 (10.0-20.0); Blood Urea Nitrogen 36 mg/dL (9-23); Glucose 199 mg/dL (74-106)
[2024-01-15] MEDS ORDERED: FURO1TAB33 PO (13:32)
[2024-01-15] MEDS ORDERED: LEVO750T40 PO (15:23)
--- NOTE | 2024-01-15 15:23 | DVHDSRES ---
Discharge Summary Date of Admission Resident Creating Document: MANI CHISHOLM RESIDENT Jan 12, 2024 at 23:20 Date of Discharge: Jan 15, 2024 Admitting Diagnosis Shortness of breath Labs/Diagnostic Data: Laboratory Results Test 01/15/24 11:36 01/15/24 04:59 01/14/24 06:50 01/13/24 15:06 POC Glucose 264 mg/dl (70-106) White Blood Count 16.0 10^3/uL (4.4-10.8) Red Blood Count 4.91 10^6/uL (4.5-5.90) Hemoglobin 13.0 g/dL (13.5-17.5) Hematocrit 39.4 % (41.0-53.0) Mean Corpuscular Volume 80.2 fL (80.0-100.0) Mean Corpuscular Hemoglobin 26.4 pg (28.0-32.0) Mean Corpuscular Hemoglobin Concent 32.9 g/dL (32.0-36.0) Red Cell Distribution Width 16.7 % (11.8-14.3) Platelet Count 201 10^3/uL (140-450) Mean Platelet Volume 8.0 fL (6.9-10.8) Neutrophils (%) (Auto) 94.7 % (37.0-80.0) Lymphocytes (%) (Auto) 0.9 % (10.0-50.0) Monocytes (%) (Auto) 4.3 % (0.0-12.0) Eosinophils (%) (Auto) 0.0 % (0.0-7.0) Basophils (%) (Auto) 0.1 % (0.0-2.0) Neutrophils # (Auto) 15.1 10 ^3/uL (1.6-8.6) Lymphocytes # (Auto) 0.1 10 ^3/uL (0.4-5.4) Monocytes # (Auto) 0.7 10 ^3/uL (0-1.3) Eosinophils # (Auto) 0 10 ^3/uL (0-0.8) Basophils # (Auto) 0 10 ^3/uL (0-0.2) Nucleated Red Blood Cells 0.0 % Sodium Level 138 mmol/L (136-145) Potassium Level 4.1 mmol/L (3.5-5.1) Chloride Level 104 mmol/L (98-107) Carbon Dioxide Level 27 mmol/L (20-31) Anion Gap 7 (5-15) Blood Urea Nitrogen 36 mg/dL (9-23) Creatinine 1.13 mg/dL (0.700-1.30) Glomerular Filtration Rate Calc 65 mL/min (>90) BUN/Creatinine Ratio 31.9 (10.0-20.0) Serum Glucose 199 mg/dL (74-106) Calcium Level 9.4 mg/dL (8.7-10.4) Differential Total Cells Counted 100.0 (100) Neutrophils % (Manual) 96 (37.0-80.0) Band Neutrophils % (Manual) 0 Lymphocytes % (Manual) 1 (10.0-50.0) Monocytes % (Manual) 3 (0-12) Eosinophils % (Manual) 0 (0-7) Basophils % (Manual) 0 (0.0-2.0) Metamyelocytes % (manual) 0 Myelocytes % (Manual) 0 Promyelocytes % (Manual) 0 Blast Cells % (Manual) 0 Reactive Lymphocytes 0 Platelet Estimate Adequate Vitamin B12 Level 576 pg/mL (211-911) Vitamin D 25-Hydroxy 41.8 ng/mL (30.0-100) Test 01/13/24 04:48 01/12/24 20:00 01/12/24 13:57 01/12/24 10:57 Hemoglobin A1c 8.6 % A1C (<5.7) Total Bilirubin 0.6 mg/dL (0.2-1.0) Aspartate Amino Transferase (AST) 17 U/L (13-40) Alanine Aminotransferase (ALT) 14 U/L (7-40) Alkaline Phosphatase 187 U/L (46-116) Total Protein 6.4 g/dL (5.7-8.2) Albumin 4.0 g/dL (3.2-4.8) Thyroid Stimulating Hormone (TSH) 0.88 uIU/mL (0.55-4.78) Urine Color Yellow (Yellow) Urine Clarity Clear (Clear) Urine pH 5.5 (5.0-9.0) Urine Specific Collins 1.027 (1.001-1.035) Urine Protein 1+ (Negative) Urine Ketones Trace (Negative) Urine Blood Negative /uL (Negative) Urine Nitrite Negative (Negative) Urine Bilirubin Negative (Negative) Urine Urobilinogen Normal mg/dL (Negative) Urine Leukocyte Esterase Negative /uL (Negative) Urine RBC 1 /hpf (0 - 3) Urine WBC 1 /hpf (0 - 3) Urine Squamous Epithelial Cells Few /hpf (<5) Urine Bacteria None seen /hpf (None Seen) Urine Glucose 4+ mg/dL (Normal) Troponin I High Sensitivity 7 ng/L (</=54) B-Type Natriuretic Peptide 399.62 pg/mL (0-100) Other Laboratory Tests 01/15/24 04:59 Brief Hx & Hospital Course: Patient is 83-year-old male with past medical history of diabetes mellitus, Chronic obstructive pulmonary disease, hypertension, hyperlipidemia who presented to hospital with a chief complaint of shortness of breath. As per patient shortness of breath progressively worsening difficulty breathing, during EMS evaluation patient found to be hypoxic started on oxygen 10 L via non- rebreather. During hospitalization course patient oxygen requirement gradually improved from 10 L to 2-3 L, treated with IV methylprednisolone 40 mg b.i.d., nebulization with albuterol and ipratropium bromide and IV antibiotic levofloxacin daily. chest x-ray revealed chronic interstitial lung disease likely pulmonary interstitial fibrosis. Pulmonology consultation was done. Patient will need outpatient follow-up to evaluate source of interstitial lung disease including rheumatoid factor, SONIDO, anti CCP, pulmonary function tests, high-resolution CT, repeat echocardiogram. Patient is hemodynamically stable, patient will be discharged with Medrol pack and Patient agreed with discharge plan. Patient advised to follow with primary care physician within one or two days and advised to come to emergency department if symptom recurs or worsens. 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 Patient was counseled about treatment plan, medications, possible side effects, patientverbalized understanding. All questions were answered to the best of my ability. This discharge took greater then 30 minutes in planning, reviewing documentation, counseling the patient, and discussing with other team members." ASSESSMENT ASSESSMENT Assessment COPD exacerbation interstitial lung disease Date of Service: Jan 15, 2024 Billing Provider: MADI CLARKE MD Common Visit Codes: 69833-CNK/OBS DISCH DAY >30min MANI CHISHOLM RESIDENT Jan 15, 2024 15:23 MADI CLARKE MD Jan 17, 2024 07:18
--- NOTE | 2024-01-15 23:19 | DVHPN2 ---
Progress Note - Dictate Date Seen: Jan 15, 2024 Medical Necessity Reason Pt with a Central, PICC or Fol: No Subjective Seen and examined at bedside. On supplemental oxygen Overnight events reviewed vital signs Vital Sign Date Time Temp Pulse Resp B/P (MAP) Pulse Ox O2 Delivery O2 Flow Rate FiO2 01/15/24 17:07 97.8 83 18 98 01/15/24 13:55 Nasal Cannula* 3 32 01/15/24 13:00 109/63 (78) Total Intake and Output 01/14/24 01/14/24 01/15/24 15:00 23:00 07:00 Intake Total 50 ml 1200 ml 500 ml Output Total 800 ml 700 ml Balance 50 ml 400 ml -200 ml objective Gen.: Patient lying in bed in no apparent distress. On supplemental oxygen. Head: Normocephalic, atraumatic Eyes: EOMI/PERRLA. Ears: Normal hearing. Normal anatomy. Neck/trachea: Trachea midline, supple. Nose: Normal external anatomy. Mouth: Moist mucous membranes. Chest: Decreased air entry bilaterally. No wheezing or rhonchi. Bibasilar crackles Cardio vascular: Positive S1, positive S2. Regular rate and rhythm. Abdomen: Positive bowel sounds in all 4 quadrants. Soft, non-tender, non- distended. : Deferred. Rectal: Deferred Skin: Warm, dry. Extremities: 2+ radial pulses bilaterally. No lower extremity edema. Neuro: Awake, alert, oriented x3. No gross motor or sensory deficits. Cranial nerves II through XII intact. Gait not assessed. laboratory and microbiology Laboratory Tests 01/15/24 04:59 Test 01/15/24 04:59 Range/Units Serum Glucose 199 H 74-106 mg/dL Assessment/Plan Impression: Acute hypoxic respiratory failure secondary to interstitial lung disease exacerbation Acute exacerbation of COPD Acute exacerbation of interstitial lung disease Leukocytosis Elevated BNP Can not rule out underlying pneumonia Generalized weakness Pulmonary cachexia with a BMI 19.6 Bronchiectasis Atelectasis Pleural thickening Events: Patient remains on 3 liters/minute via nasal cannula Improved O2 requirements Taper down O2 as tolerated Patient is stable for discharge from the pulmonary standpoint. Follow up in 2 weeks in Pulmonary Clinic. Continue PO steroids Continue antibiotics Continue bronchodilators Incentive spirometry Diurese to euvolemia - on Lasix IV Monitor renal function Accu-Cheks Head of bed elevation Aspiration precautions We will require outpatient testing to evaluate source of interstitial lung disease We will obtain rheumatoid factor, SONIDO, anti CCP as outpatient We will need outpatient pulmonary function test to assess for obstructive or restrictive ventilatory defect, lung volumes and diffusion capacity We will need yearly high-resolution CT chest for ongoing management of interstitial lung disease/pulmonary fibrosis Recommend repeat echocardiogram to assess for any pulmonary hypertension in the setting of pulmonary fibrosis. Echocardiogram from August 17, 2022 demonstrated left ventricular ejection fraction of 60%. Moderate left ventricular hypertrophy. At that time the right ventricular systolic pressure was not assessed. Recommend to assess right ventricular systolic pressure to evaluate for pulmonary hypertension. Rest of plan as outlined below Plan: CT of the chest from March 02, 2023 reviewed. Traction bronchiectasis. Diffuse peripheral cystic changes most prominent at the lung bases. Coronary artery calcifications. No adenopathy. No pleural effusion or pneumothorax. Pulmonary fibrosis. Chest x-ray from this admission: Report and images reviewed. Chronic interstitial lung disease likely pulmonary interstitial fibrosis/usual interstitial pneumonia. Superimposed bacterial/viral pneumonia unlikely but can not be excluded. Chronic blunting of the bilateral costophrenic angles that may represent chronic pleural thickening versus small pleural effusions. On 3 liters/minute via NC Titrate to keep O2 saturation above 92%. IV steroids IV antibiotics Bronchodilators Nutritional support due to cachexia. Diurese Monitor ins and outs Monitor renal function Monitor electrolytes. Supplement as necessary. Accu-Cheks, insulin sliding scale Monitor respiratory status closely due to high O2 requirements DVT prophylaxis GI prophylaxis Prognosis: Poor given multiple comorbidities. Rest of plan per hospitalist and other consultants. Thank you TERESA Null for allowing me to participate in this patient's care. Further recommendations will depend on patient's clinical course. Please do not hesitate to contact me if you have any questions or concerns. This medical document was created using an electronic medical record system with [employer] dictation system. Although this document has been carefully reviewed, there may still be some phonetic and typographical errors. These areas are purely typographical due to imperfections of the software programs, and do not reflect any compromise in the patient's medical care. Plan discussed with: Other (RN) ALBERTO BENTON MD Jan 15, 2024 23:19
[2024-01-16 08:51] LABS: Hepatitis B Surface Antigen Negative (Negative)
[2024-01-16 09:13] LABS: Hepatitis C Antibody Negative (Negative)
== END 2024-01-15 17:56 | disposition home or self-care (01) | DRG 196 ==
LOC: ER 10:26 → EDBD 10:26 → TELE 23:20 → TELE-WESTW 01-13 01:47
PROVIDERS: ADMIT Internal Medicine; ATTEND Internal Medicine
DX: J84.9 Interstitial pulmonary disease, unspecified (principal); I50.33 Acute on chronic diastolic (congestive) heart failure; J96.01 Acute respiratory failure with hypoxia; N17.0 Acute kidney failure with tubular necrosis; J47.0 Bronchiectasis with acute lower respiratory infection; J44.0 Chronic obstructive pulmonary disease with (acute) lower respiratory infection; J44.1 Chronic obstructive pulmonary disease with (acute) exacerbation; R64 Cachexia; Z68.1 Body mass index [BMI] 19.9 or less, adult; E78.5 Hyperlipidemia, unspecified; I11.0 Hypertensive heart disease with heart failure; R79.89 Other specified abnormal findings of blood chemistry; E11.9 Type 2 diabetes mellitus without complications; Z83.3 Family history of diabetes mellitus; Z88.0 Allergy status to penicillin
CPT/HCPCS: 36415; 71045; 80048; 80053; 81001; 82306; 82607; 82962; 83036; 83880; 84443; 84484; 85007; 85025; 85027; 86803; 87340; 93306; 94640; 97163; 99291; G0378; J1815; J1956; J2405; J3490

== ENCOUNTER 2025-02-05 11:17 | Inpatient (IN) | payer MEDICARE, MEDICAID ==
[~2025-02-05] VITALS: Ht 170.2 cm; Wt 68.5 kg
[~2025-02-05 11:17] MED LIST changes: +DAPA1TAB4 PO; +FURO1TAB33 PO; -LEVO500T31 PO; +LEVO750T40 PO; -PRED20TA2 PO
[2025-02-05 12:12] LABS: Hematocrit 34.3 % (41.0-53.0); Hemoglobin 10.5 g/dL (13.5-17.5); Mean Corpuscular Hemoglobin 23.2 pg (28.0-32.0); Mean Corpuscular Volume 75.9 fL (80.0-100.0); Nucleated Red Blood Cells % 0.1 %
[2025-02-05 12:24] LABS: Chloride 105 mmol/L (98-107); Potassium 4.4 mmol/L (3.5-5.1); Sodium 144 mmol/L (136-145)
[2025-02-05 12:25] LABS: Anion Gap 12 (5-15); Calcium 9.1 mg/dL (8.7-10.4); Carbon Dioxide 27 mmol/L (20-31)
--- NOTE | 2025-02-05 12:26 | ED.PDOC ---
SOB-HPI HPI Comments 84 y/o M, with PMHx of CHF, COPD (home O2 via NC), HTN, and DM presents to the ED for CC of worsening exertional shortness of breath, increased lower extremity edema over the past 8 days. Patient reports, to have had a thoracentesis to his left-lung x8days ago and was instructed by his advanced solutions architect to follow up with the ED if symptoms worsened. Patient endorses, being on continuous oxygen at 4- 5Lpm. However, over the past few days has had increased oxygen requirements now using a mask on top of his nasal cannula. Patient denies cough, fever, or palpitations. No other symptoms or modifying factors are present at this time. Chief Complaint: Shortness of Breath Time Seen by MD: 12:15 Primary Care Provider: UNKNOWN Reviewed notes: Nurses Notes, Log Handler Notes, Medications, Allergies Information Source: Patient, Emergency Med Personnel Mode of Arrival: EMS Severity: Moderate Timing: Days Duration: Since onset Context: At Rest PE Risk Factors: None History of: COPD Prehospital treatment: None Modifying Factors: Nothing Associated Signs and Symptoms: None Past Medical History PAST MEDICAL HISTORY: COPD, DM, HTN Surgical History: Denies all surgeries Family History Family History: Reviewed,noncontributory to illness Social History Smoker: Non-Smoker Alcohol: Denies ETOH Use Drugs: Denies Drug Use Lives In: Home Constitutional: denies: chills, diaphoresis, fatigue, fever, malaise, sweats, weakness, others EENTM: denies: blurred vision, double vision, ear bleeding, ear discharge, ear drainage, ear pain, ear ringing, eye pain, eye redness, hearing loss, mouth pain, mouth swelling, nasal discharge, nose bleeding, nose congestion, nose pain, photophobia, tearing, throat pain, throat swelling, voice changes, others Respiratory: reports: orthopnea, shortness of breath; denies: cough, SOB at rest, SOB with excertion, stridor, wheezing, others Cardiovascular: reports: Dyspnea on exertion, edema; denies: chest pain, dizzy spells, diaphoresis, irregular heart beat, left arm pain, lightheadedness, palpitations, PND, syncope, others Gastrointestinal: denies: abdomen distended, abdominal pain, blood streaked bowels, constipated, diarrhea, dysphagia, difficulty swallowing, hematemesis, melena, nausea, poor appetite, poor fluid intake, rectal bleeding, rectal pain, vomiting, others Genitourinary: denies: burning, dysuria, flank pain, frequency, hematuria, incontinence, penile discharge, penile sore, pain, testicle pain, testicle swelling, urgency, others Neurological: denies: dizziness, fainting, headache, left sided numbness, left sided weakness, numbness, paresthesia, pre-existing deficit, right sided numbness, right sided weakness, seizure, speech problems, tingling, tremors, weakness, others Musculoskeletal: denies: back pain, gout, joint pain, joint swelling, muscle pain, muscle stiffness, neck pain, others Integumetry: denies: bruises, change in color, change in hair/nails, dryness, laceration, lesions, lumps, rash, wounds, others Allergic/Immunocompromised: denies: Difficulty Healing, Frequent Infections, Hives, Itching, others Hematologic/Lymphatic: denies: anemia, blood clots, easy bleeding, easy bruising, swollen glands, others Endocrine: denies: excessive hunger, excessive sweating, excessive thirst, excessive urination, flushing, intolerance to cold, intolerance to heat, unexplained weight gain, unexplained weight loss, others Psychiatric: denies: anxiety, bipolar disorder, depression, hopeless, panic disorder, schizophrenia, sleepless, suicidal, others All Other Systems: Reviewed and Negative Physical Exam General Appearance: None, Normal HEENT: Normal ENT Inspection, Pharynx Normal Neck: Non-Tender, Normal, Normal Inspection Respiratory: Accessory Muscle Use, Crackles, Other (tachypnea) Cardiovascular: None, Normal Peripheral Pulses, Regular Rate/Rhythm Breast Exam: Deferred Gastrointestinal: Non Tender, Soft Genitalia: Deferred Pelvic: Deferred Rectal: Deferred Extremities: Leg edema, Normal capillary refill, Normal inspection, Other (+anasarca up to abdomen) Neurologic: Alert, No Motor Deficits, No Sensory Deficits Cerebellar Function: Normal Reflexes: Normal Skin: Normal Color Lymphatic: No Adenopathy Was a procedure done? Was a procedure done?: No Differential Dx Differential Diagnosis: CHF, COPD, Pneumonia, Sinusitis, Pharyngitis, URI, Other (pulmonary edema, pleural effusion) X-Ray, Labs, Meds, VS Vital Signs Date Time Temp Pulse Resp B/P (MAP) Pulse Ox O2 Delivery O2 Flow Rate FiO2 02/05/25 15:37 98.0 80 16 123/73 (90) 96 98.0 02/05/25 13:44 119/71 02/05/25 13:07 97.6 85 19 110/62 (78) 90 97.6 02/05/25 12:45 22 90 Nasal Cannula* 4 36 02/05/25 11:29 98.2 88 24 123/71 94 98.2 02/05/25 11:28 85 Lab Test 02/05/25 11:55 Range/Units White Blood Count 5.9 4.4-10.8 10^3/uL Red Blood Count 4.52 4.5-5.90 10^6/uL Hemoglobin 10.5 L 13.5-17.5 g/dL Hematocrit 34.3 L 41.0-53.0 % Mean Corpuscular Volume 75.9 L 80.0-100.0 fL Mean Corpuscular Hemoglobin 23.2 L 28.0-32.0 pg Mean Corpuscular Hemoglobin Concent 30.6 L 32.0-36.0 g/dL Red Cell Distribution Width 19.4 H 11.8-14.3 % Platelet Count 130 L 140-450 10^3/uL Mean Platelet Volume 8.7 6.9-10.8 fL Neutrophils (%) (Auto) 87.4 H 37.0-80.0 % Lymphocytes (%) (Auto) 3.8 L 10.0-50.0 % Monocytes (%) (Auto) 7.4 0.0-12.0 % Eosinophils (%) (Auto) 0.6 0.0-7.0 % Basophils (%) (Auto) 0.8 0.0-2.0 % Neutrophils # (Auto) 5.1 1.6-8.6 10 ^3/uL Lymphocytes # (Auto) 0.2 L 0.4-5.4 10 ^3/uL Monocytes # (Auto) 0.4 0-1.3 10 ^3/uL Eosinophils # (Auto) 0 0-0.8 10 ^3/uL Basophils # (Auto) 0 0-0.2 10 ^3/uL Nucleated Red Blood Cells 0.1 % Sodium Level 144 136-145 mmol/L Potassium Level 4.4 3.5-5.1 mmol/L Chloride Level 105 98-107 mmol/L Carbon Dioxide Level 27 20-31 mmol/L Anion Gap 12 5-15 Blood Urea Nitrogen 20 9-23 mg/dL Creatinine 1.09 0.700-1.30 mg/dL Glomerular Filtration Rate Calc 68 >90 mL/min BUN/Creatinine Ratio 18.3 10.0-20.0 Serum Glucose 194 H 74-106 mg/dL Calcium Level 9.1 8.7-10.4 mg/dL Troponin I High Sensitivity 17 </=54 ng/L B-Type Natriuretic Peptide 965.51 0-100 pg/mL Current Medications Medications (Trade) Dose Ordered Sig/Nasim Route Start Time Stop Time Status Last Admin Furosemide (Lasix Injection) 40 mg ONCE ONCE IV 02/05/25 12:15 02/05/25 12:16 DC 02/05/25 13:44 [place] [id number] Ph: [phone] DIAGNOSTIC IMAGING Diagnostic Imaging Report : [id number] Signed PATIENT: CHENCHO ALEXANDEROCACCT: [id number] UNIT: [id number] : 1940 LOC: ER ROOM / BED: / AGE / SEX: 84 / M ADM STATUS: REG ER SERVICE 1136 ORDERING PHYSICIAN: MORIAH WOLFE MD PROCEDURE(s): CXR1 - CHEST XRAY 1 VIEW REASON: Chest Pain ORDER NUMBER(s): [id number], ACCESSION NUMBER(s): [id number] EXAM: XY CHEST XRAY 1 VIEW Indication: Chest Pain Technique: Single frontal view of the chest was obtained Comparison: XY CHEST PORTABLE on DOS: 01/12/24, CT CHEST WITHOUT CONTRAST on DOS: 03/02/23, XY CHEST PORTABLE on DOS: 08/13/22, CT CHEST WITHOUT CONTRAST on DOS: 06/27/22, XY CHEST PORTABLE on DOS: 06/26/22 FINDINGS: Lines and Tubes: None Lungs: Diffuse reticular nodular opacities are visualized bilateral lungs. No pneumothorax. Cardiomediastinal contours: Unremarkable. Atherosclerotic vascular calcifications of the thoracic aorta are noted. Bones: No acute osseous abnormality. IMPRESSION: Findings suggestive of pulmonary fibrosis which appears overall stable compared to prior exam. ATED BY: DANIEL LEYVA MD DICTATED DATE/TIME: 02/05/251228 SIGNED BY: DANIEL LEYVA MD SIGNED DATE/TIME: 02/05/251228 CC: Time of 1ST Reevaluation: 12:45 Reevaluation 1ST: Unchanged Patient Education/Counseling: Diagnosis, Treatment Family Education/Counseling: No Family Present SEPSIS Sepsis Screen Date sepsis recognized/suspect: Feb 05, 2025 Time Sepsis recognized/suspect: 112 Recent Procedure: No On Antibiotic Therapy: No Respiratory Rate >20: No Heart Rate >90: No Temp<36 C (96.8 F) or >38.3 C: No SBP <90 or MAP <65 mmHG: No New Acute Mental Status Change: No Is the patient on CPAP, BIPAP,: No Physician Orders Electrocardigram (02/05/25 11:32) Chest Xray 1 View (02/05/25 11:36) Vital Signs Date Time Temp Pulse Resp B/P (MAP) Pulse Ox O2 Delivery O2 Flow Rate FiO2 02/05/25 15:37 98.0 80 16 123/73 (90) 96 98.0 02/05/25 13:44 119/71 02/05/25 13:07 97.6 85 19 110/62 (78) 90 97.6 02/05/25 12:45 22 90 Nasal Cannula* 4 36 02/05/25 11:29 98.2 88 24 123/71 94 98.2 02/05/25 11:28 85 Laboratory Tests Test 02/05/25 11:55 White Blood Count 5.9 10^3/uL (4.4-10.8) Medications Medications Dose Ordered Sig/Nasim Route Start Time Stop Time Status Last Admin Dose Admin Furosemide 40 mg ONCE ONCE IV 02/05/25 12:15 02/05/25 12:16 DC 02/05/25 13:44 Departure 1 Departure Time of Disposition: 14:18 (84 y/o M with PMHx of CHF, COPD (home O2 via NC), HTN, and DM presents to the ED for CC of worsening exertional shortness of breath, increased lower extremity edema over the past 8 days. Patient with recurrent left-sided pleural effusion and just had a thoracentesis performed 1 week ago. However, reporting increased lower extremity edema, anasarca and increased oxygen requirements at home. Patient's BNP today is almost a 1000, given the clinical history seems consistent with CHF exacerbation. Given 40 mg IV Lasix for diuresis. Patient with no recent fever, cough, afebrile here, no critical leukocytosis, does not seem consistent with pneumonia. Chest x-ray was performed which appears similar, improved from prior x-rays. Given significant anasarca on physical examination patient will be admitted for further IV Lasix diuresis. ) Impression: Primary Impression: Dyspnea on exertion Additional Impression: Acute exacerbation of CHF (congestive heart failure) Disposition: ADMITTED INPATIENT Admit to: Tele Condition: Stable Critical Care Note Critical Care Time?: No Stability Stability form required: No Heart Score Heart Score: Heart Score Response (Comments) Value History N/A 0 EKG N/A 0 Age N/A 0 Risk Factors N/A 0 Troponin N/A 0 Total 0 I personally scribed for MORIAH WOLFE MD ([email or web address]) on 02/05/25 at 12:26. Electronically submitted by Destiny Davila ([email or web address]). I personally scribed for MORIAH WOLFE MD ([email or web address]) on 02/05/25 at 12:58. Electronically submitted by Destiny Davila ([email or web address]). MORIAH WOLFE MD Feb 05, 2025 12:26
[2025-02-05 12:30] LABS: BUN/Creatinine Ratio 18.3 (10.0-20.0); Blood Urea Nitrogen 20 mg/dL (9-23)
[2025-02-05 12:31] LABS: Glucose 194 mg/dL (74-106)
--- NOTE | 2025-02-05 12:32 | DVH ---
EXAM: XY CHEST XRAY 1 VIEW Indication: Chest Pain Technique: Single frontal view of the chest was obtained Comparison: XY CHEST PORTABLE on DOS: 01/12/24, CT CHEST WITHOUT CONTRAST on DOS: 03/02/23, XY CHEST PORTABLE on DOS: 08/13/22, CT CHEST WITHOUT CONTRAST on DOS: 06/27/22, XY CHEST PORTABLE on DOS: 06/26/22 FINDINGS: Lines and Tubes: None Lungs: Diffuse reticular nodular opacities are visualized bilateral lungs. No pneumothorax. Cardiomediastinal contours: Unremarkable. Atherosclerotic vascular calcifications of the thoracic aorta are noted. Bones: No acute osseous abnormality. IMPRESSION: Findings suggestive of pulmonary fibrosis which appears overall stable compared to prior exam.
[2025-02-05] MEDS: FUROSEMIDE 40 MG/4 ML VIAL IV ONE (13:44)
[2025-02-05] MEDS ORDERED: ONDANSETRON HCL 4 MG/2 ML VIAL IV PRN (16:00)
[2025-02-05] MEDS ORDERED: NITROGLYCERIN 0.4 MG SL TAB SL PRN (16:00)
[2025-02-05] MEDS ORDERED: ACETAMINOPHEN 325 MG TAB PO PRN (16:00)
[2025-02-05] MEDS ORDERED: MORPHINE SULFATE INJ 2 MG/ml SYRG IV PRN (16:00)
[2025-02-05] MEDS ORDERED: FLUT1AER17 INH (16:09)
[2025-02-05] MEDS ORDERED: TAMS0.4C39 PO (16:09)
[2025-02-05] MEDS ORDERED: OMEP-411 PO (16:09)
[2025-02-05] MEDS ORDERED: FIN5T PO (16:09)
[2025-02-05 16:28] LABS: Urine Protein, UAD TRACE (Negative)
--- NOTE | 2025-02-05 16:59 | DVHHP2 ---
History of Present Illness Reason for Visit: Shortness of breath History of Present Illness Remington Myers Melvin is an 84-year-old male with past medical history of CHF, COPD, pulmonary fibrosis, home oxygen use at 6-8L, hypertension, diabetes, hyperlipidemia, and BPH, who came to the hospital for shortness of breath. Pablito nt follows with Dr. Williamson for pulmonology. He has had 3 thoracentesis in the last month in his office. He was told to come to the ER if his shortness of breath every worsens. Patient was seen here in December 2024 Cardiovascular: CHF, HTN, hyperipidemia Pulmonary: COPD, Other (pulmonary fibrosis) Renal/: Benign prostatic enlarg. Endocrine: Diabetes Past Surgical History: Hernia Repair, Tonsillectomy Smoke: No ALCOHOL: none Drugs: None Lives: with Family Domestic Violence: Neg Review of Systems Constitutional: No: Fever, Chills, Sweats, Weakness, Malaise, Other Eyes: No: Pain, Vision change, Conjunctivae inflammation, Eyelid inflammation, Other, Redness ENT: No: Ear pain, Ear discharge, Nose pain, Nose discharge, Nose congestion, Mouth pain, Mouth swelling, Throat pain, Throat swelling, Other Respiratory: Shortness of breath, SOB with excertion, Wheezing, Pleuritic Pain; No: Cough, Dry, Hemoptysis, Sputum, Wheezing, Other Cardiovascular: Edema (bilateral lower extremities); No: Chest Pain, Palpitations, Orthopnea, Paroxysmal Noc. Dyspnea, Lt Headedness, Other Gastrointestinal: No: Nausea, Vomiting, Abdominal Pain, Diarrhea, Constipation, Melena, Hematochezia, Other Genitourinary: No Dysuria, No Frequency, No Incontinence, No Hematuria, No Retention, No Other Musculoskeletal: No: other, neck pain, shoulder pain, arm pain, back pain, hand pain, leg pain, foot pain Skin: No: Rash, Lesions, Jaundice, Bruising, Other Neurological: No: Weakness, Numbness, Incoordination, Change in speech, Confusion, Seizures, Other Allergies: Coded Allergies: Penicillins (Verified Allergy, Unknown, 05/10/21) Medications Current Medications Medications Dose Ordered Sig/Nasim Route Start Time Stop Time Status Last Admin Dose Admin Acetaminophen/ Hydrocodone Bitart 1 tab Q4HP PRN PO 02/05/25 16:00 UNV Ondansetron HCl 4 mg Q4HP PRN IV 02/05/25 16:00 UNV Docusate Sodium 100 mg BIDPRN PRN PO 02/05/25 16:00 UNV Acetaminophen 650 mg Q6HP PRN PO 02/05/25 16:00 UNV Nitroglycerin 0.4 mg Q5MINP PRN SL 02/05/25 16:00 UNV Morphine Sulfate 2 mg Q30M PRN IV 02/05/25 16:00 UNV Patient Own Medication 1 tab DAILY PO 02/06/25 10:00 UNV Patient Own Medication 1 tab HS PO 02/05/25 22:00 UNV Patient Own Medication 1 mg BID PO 02/05/25 22:00 UNV Exam Vital Signs Vital Signs Date Time Temp Pulse Resp B/P (MAP) Pulse Ox O2 Delivery O2 Flow Rate FiO2 02/05/25 15:37 98.0 80 16 123/73 (90) 96 98.0 02/05/25 12:45 Nasal Cannula* 4 36 General Appearance: Alert, Oriented X3, Cooperative, moderate distress HEENT: Atraumatic, PERRLA, Mucous membr. moist/pink Respiratory: Other (Diminished breath sounds) Cardiovascular: Regular rate, Normal S1, Normal S2 Abdominal: Normal bowel sounds, Soft, No tenderness Extremities: No clubbing, No cyanosis, Other (bilateral lower extremity edema) Skin: No rashes, No breakdown, No significant lesion Neuro: Normal gait, Normal speech, Strength at 5/5 X4 ext Psych/Mental Status: Mental status NL, Mood NL Labs/Xrays Labs Test 02/05/25 11:55 Range/Units White Blood Count 5.9 4.4-10.8 10^3/uL Red Blood Count 4.52 4.5-5.90 10^6/uL Hemoglobin 10.5 L 13.5-17.5 g/dL Hematocrit 34.3 L 41.0-53.0 % Mean Corpuscular Volume 75.9 L 80.0-100.0 fL Mean Corpuscular Hemoglobin 23.2 L 28.0-32.0 pg Mean Corpuscular Hemoglobin Concent 30.6 L 32.0-36.0 g/dL Red Cell Distribution Width 19.4 H 11.8-14.3 % Platelet Count 130 L 140-450 10^3/uL Mean Platelet Volume 8.7 6.9-10.8 fL Neutrophils (%) (Auto) 87.4 H 37.0-80.0 % Lymphocytes (%) (Auto) 3.8 L 10.0-50.0 % Monocytes (%) (Auto) 7.4 0.0-12.0 % Eosinophils (%) (Auto) 0.6 0.0-7.0 % Basophils (%) (Auto) 0.8 0.0-2.0 % Neutrophils # (Auto) 5.1 1.6-8.6 10 ^3/uL Lymphocytes # (Auto) 0.2 L 0.4-5.4 10 ^3/uL Monocytes # (Auto) 0.4 0-1.3 10 ^3/uL Eosinophils # (Auto) 0 0-0.8 10 ^3/uL Basophils # (Auto) 0 0-0.2 10 ^3/uL Nucleated Red Blood Cells 0.1 % Sodium Level 144 136-145 mmol/L Potassium Level 4.4 3.5-5.1 mmol/L Chloride Level 105 98-107 mmol/L Carbon Dioxide Level 27 20-31 mmol/L Anion Gap 12 5-15 Blood Urea Nitrogen 20 9-23 mg/dL Creatinine 1.09 0.700-1.30 mg/dL Glomerular Filtration Rate Calc 68 >90 mL/min BUN/Creatinine Ratio 18.3 10.0-20.0 Serum Glucose 194 H 74-106 mg/dL Calcium Level 9.1 8.7-10.4 mg/dL Troponin I High Sensitivity 17 </=54 ng/L B-Type Natriuretic Peptide 965.51 0-100 pg/mL Procedure: XY CHEST PORTABLE 01/12/2024 10:48 AM FINDINGS: Medical devices: None. Cardiomediastinal: The heart is normal in size. Pulmonary vasculature is within normal limits. Atherosclerotic calcification of the aortic arch noted. Lungs: Chronic interstitial lung disease with stable superimposed ground-glass opacities which are likely related to the underlying interstitial lung disease. Blunting of the bilateral costophrenic angles, stable. No pneumothorax. Bones/soft tissues: No acute abnormality is noted. IMPRESSION: 1. Chronic interstitial lung disease likely pulmonary interstitial fibrosis / usual interstitial pneumonia. Superimposed bacterial / viral pneumonia is unlikely but not entirely excluded. Recommend clinical and biochemical corre lation. 2. Chronic blunting of the bilateral costophrenic angles that may represent chronic pleural thickening or small pleural effusions. SEPSIS Sepsis Screen Date sepsis recognized/suspect: Feb 05, 2025 Time Sepsis recognized/suspect: 1120 Recent Procedure: No On Antibiotic Therapy: No Respiratory Rate >20: No Heart Rate >90: No Temp<36 C (96.8 F) or >38.3 C: No SBP <90 or MAP <65 mmHG: No New Acute Mental Status Change: No Is the patient on CPAP, BIPAP,: No Physician Orders Electrocardigram (02/05/25 11:32) Chest Xray 1 View (02/05/25 11:36) Urinalysis (02/05/25 16:07) Admit (02/05/25 15:59) Code Status (02/05/25 15:59) Hydrocodone-Acet 5/325mg Tab ([place] (02/05/25 16:00) Ondansetron Hcl (Zofran) (02/05/25 16:00) Docusate Sodium Capsule (Colace Capsule) (02/05/25 16:00) Fall Risk Precautions In Place QSHIFT (02/05/25 15:59) Complete Blood Count (02/06/25 04:00) Comprehensive Metabolic Panel (02/06/25 04:00) Cardiac Diet-2gna,Lofat,Lochol (02/05/25 Dinner) Condition: Serious (02/05/25 15:59) Acetaminophen Tablet (Tylenol Tablet) (02/05/25 16:00) Nitroglycerin Sublingual (Ntrostat Subli (02/05/25 16:00) Morphine Sulfate Injection (02/05/25 16:00) Stat Ekg For Chest Pain (02/05/25 15:59) Notify Md Of Changes From Base (02/05/25 15:59) Pulmonologist For 24 Hours (02/05/25 15:59) Emergency Dysrhythmia Protocol (02/05/25 15:59) Rhythm Strips Once Every Shift (02/05/25 15:59) Oxygen By Nasal Cannula (02/05/25 15:59) (Nf) Amlodipine Besylate (02/06/25 10:00) (Nf) Atorvastatin Calcium (02/05/25 22:00) (Nf) Glimepiride (02/05/25 22:00) Finasteride Tablet (Proscar Tablet) (02/06/25 10:00) Tamsulosin Hydrochloride (Flomax) (02/05/25 22:00) (Nf) Vrpxmaxaeny-Rpuqiskijjre-Mjqhh ([place]ar[place] (02/06/25 10:00) (Nf) Omeprazole ([facility] Omeprazole Odt) (02/06/25 10:00) Vital Signs Date Time Temp Pulse Resp B/P (MAP) Pulse Ox O2 Delivery O2 Flow Rate FiO2 02/05/25 15:37 98.0 80 16 123/73 (90) 96 98.0 02/05/25 13:44 119/71 02/05/25 13:07 97.6 85 19 110/62 (78) 90 97.6 02/05/25 12:45 22 90 Nasal Cannula* 4 36 02/05/25 11:29 98.2 88 24 123/71 94 98.2 02/05/25 11:28 85 Laboratory Tests Test 02/05/25 11:55 White Blood Count 5.9 10^3/uL (4.4-10.8) Medications Medications Dose Ordered Sig/Nasim Route Start Time Stop Time Status Last Admin Dose Admin Furosemide 40 mg ONCE ONCE IV 02/05/25 12:15 02/05/25 12:16 DC 02/05/25 13:44 40 MG Assessment/Plan Assessment/Plan Assessment: Acute exacerbation of CHF (congestive heart failure), Pulmonary fibrosis, COPD, Hypertension, Diabetes, Hyperlipidemia, BPH, Plan: Admit to Tele, Consider pulmonology consult, Breathing treatments, Supplemental oxygen as needed, IV steroids, Supplemental oxygen as needed, Home medications reconciled, Plan discussed with: Patient My Orders Orders - TERRY AHUMADA Procedure Category Date Status Time Admit ADMIT 02/05/25 Transmitted 15:59 Code Status CODE 02/05/25 Transmitted 15:59 Hydrocodone-Acet PHA 02/05/25 Logged 5/325mg Tab ([place] 16:00 Ondansetron Hcl PHA 02/05/25 Logged (Zofran) 16:00 Docusate Sodium PHA 02/05/25 Logged Capsule (Colace 16:00 Fall Risk Precautions [place] 02/05/[address] 15:59 Complete Blood Count LAB 02/06/25 Verified 04:00 Comprehensive LAB 02/06/25 Verified Metabolic Panel 04:00 Cardiac DIET 02/05/25 Transmitted Diet-2gna,Lofat,Lochol Dinner Condition: Serious [facility] 02/05/25 In Process 15:59 Acetaminophen Tablet [facility] 02/05/25 Logged (Tylenol Tablet) 16:00 Nitroglycerin PHA 02/05/25 Logged Sublingual (Ntrostat 16:00 Morphine Sulfate [facility] 02/05/25 Logged Injection 16:00 Stat Ekg For Chest [facility] 02/05/25 In Process Pain 15:59 Notify Of Changes [facility] 02/05/25 In Process From Base 15:59 Pulmonologist For [facility] 02/05/25 In Process 24 Hours 15:59 Emergency Dysrhythmia [facility] 02/05/25 In Process Protocol 15:59 Rhythm Strips Once [facility] 02/05/25 In Process Every Shift 15:59 Oxygen By Nasal RT 02/05/25 Transmitted Cannula 15:59 (Nf) Amlodipine PHA 02/06/25 Logged Besylate 10:00 (Nf) Atorvastatin [facility] 02/05/25 Logged Calcium 22:00 (Nf) Glimepiride [facility] 02/05/25 Logged 22:00 Finasteride Tablet [facility] 02/06/25 Verified (Proscar Tablet) 10:00 Tamsulosin [facility] 02/05/25 Verified Hydrochloride (Flomax) 22:00 (NF) PHA 02/06/25 Verified Jxqlwbvboyg-Gtdafxklwvsv-Tqzea 10:00 (Nf) Omeprazole ([facility] PHA 02/06/25 Verified Omeprazole Odt) 10:00 Date of Service: Feb 05, 2025 Billing Provider: TERRY AHUMADA Common Visit Codes: [id number] INP/OBS CARE (HIGH) TERRY AHUMADA Feb 05, 2025 16:59
[2025-02-05] MEDS: GLIMEPIRIDE 2 MG TAB PO SCH (18:00)
[2025-02-05] MEDS: TAMSULOSIN HYDROCHLORIDE 0.4 MG CAP PO SCH (18:00)
[2025-02-05 20:21] VITALS: PULSE 95; RESP 20; O2SAT 96
[2025-02-05] MEDS: IPRATROPIUM BROM 0.5 MG/2.5ML INH SOL NEB SCH (20:21)
[2025-02-05] MEDS: ALBUTEROL SULF 2.5 MG/0.5ML(0.5%) NEB SOLN NEB SCH (20:21)
[2025-02-05 20:27] VITALS: PULSE 83; RESP 16; O2SAT 97
[2025-02-05 20:53] VITALS: BP 103/58; PULSE 83; RESP 16; TEMP 98.2; O2SAT 97
[2025-02-05 21:00] VITALS: BP 100/50; PULSE 91; RESP 17; TEMP 97.8; O2SAT 94
[2025-02-05] MEDS: ATORVASTATIN 20 MG TAB PO SCH (21:48)
[2025-02-05] MEDS: methylPREDNISolone SOD SUCC 40 MG/ML VL IV SCH (21:48)
[2025-02-05 22:51] VITALS: BP 100/50; PULSE 81; PULSE 91; RESP 17; RESP 20; TEMP 97.8; O2SAT 92
[2025-02-05 23:56] VITALS: BP 108/64; PULSE 89; RESP 16; TEMP 97.7; O2SAT 92
[2025-02-06] VITALS (16 sets, daily range): BP systolic 97–114; BP diastolic 64–75; PULSE 77–94; RESP 16–24; TEMP 97.6–97.8; O2SAT 93–100
[2025-02-06 06:33] LABS: Nucleated Red Blood Cells % 0.0 %
[2025-02-06 06:36] LABS: Hematocrit 35.4 % (41.0-53.0); Hemoglobin 11.1 g/dL (13.5-17.5); Mean Corpuscular Hemoglobin 23.0 pg (28.0-32.0); Mean Corpuscular Volume 73.3 fL (80.0-100.0)
[2025-02-06 06:54] LABS: Alanine Aminotransferase 20 U/L (7-40); Albumin 3.8 g/dL (3.2-4.8); Anion Gap 15 (5-15); BUN/Creatinine Ratio 19.8 (10.0-20.0); Blood Urea Nitrogen 18 mg/dL (9-23); Calcium 9.0 mg/dL (8.7-10.4); Carbon Dioxide 25 mmol/L (20-31); Chloride 105 mmol/L (98-107); Potassium 4.2 mmol/L (3.5-5.1); Sodium 145 mmol/L (136-145); Total Protein 6.0 g/dL (5.7-8.2)
[2025-02-06 06:55] LABS: Bilirubin, Total 0.7 mg/dL (0.2-1.0)
[2025-02-06 06:57] LABS: Alkaline Phosphatase 244 U/L (46-116); Glucose 169 mg/dL (74-106)
[2025-02-06] MEDS: FINASTERIDE 5 MG TAB PO SCH (08:45)
[2025-02-06] MEDS: PANTOPRAZOLE 40 MG TAB PO SCH (08:48)
[2025-02-06] MEDS: FUROSEMIDE 40 MG/4 ML VIAL IV SCH (08:49)
--- NOTE | 2025-02-06 16:41 | DVHPN2 ---
Subjective Patient continues to report having severe dyspnea on exertion Reviewed: Care Plan, H&P, Labs, Medications Changes from previous H/P or p: No Changes General: Per HPI Eyes: No Pain, No Vision change, No Conjunctivae inflammation, No Eyelid inflammation, No Other, No Redness ENT: No Ear pain, No Ear discharge, No Nose pain, No Nose discharge, No Nose congestion, No Mouth pain, No Mouth swelling, No Throat pain, No Throat swelling, No Other Cardiovascular: No Chest Pain, No Palpitations, No Orthopnea, No Paroxysmal Noc. Dyspnea; Edema (bilateral lower extremities); No Lt Headedness, No Other Respiratory: No Cough, No Dry; Shortness of breath, SOB with excertion, W heezing; No Hemoptysis; Pleuritic Pain; No Sputum, No Other Gastrointestinal: No Nausea, No Vomiting, No Abdominal Pain, No Diarrhea, No Constipation, No Melena, No Hematochezia, No Other Genitourinary: No Dysuria, No Frequency, No Incontinence, No Hematuria, No Retention, No Other Musculoskeletal: No other, No neck pain, No shoulder pain, No arm pain, No back pain, No hand pain, No leg pain, No foot pain Skin: No Rash, No Lesions, No Jaundice, No Bruising, No Other Objective Vitals Vital Signs Date Time Temp Pulse Resp B/P (MAP) Pulse Ox O2 Delivery O2 Flow Rate FiO2 02/06/25 13:00 97.7 83 19 106/67 (80) 98 97.7 02/06/25 11:42 Nasal Cannula* 5 40 Intake/Output Intake and Output 02/06/25 07:00 Intake Total 0 ml Output Total 450 ml Balance -450 ml Intake Oral 0 ml Output Urine Total 450 ml General Appearance: Alert, Oriented X3, Cooperative, mild distress HEENT: Atraumatic, PERRLA Lungs: Other (Sounds bilateral) Cardiovascular: Normal S1, Normal S2 Abdomen: Normal bowel sounds, Soft, No tenderness Musculoskeletal: Normal sensory function, Normal motor function Neuro: Normal speech Skin: Dry, Intact Psych/Mental Status: Mental status NL, Mood NL Medications Current Medications Medications Dose Ordered Sig/Nasim Route Start Time Stop Time Status Last Admin Dose Admin Acetaminophen/ Hydrocodone Bitart 1 tab Q4HP PRN PO 02/05/25 16:00 Ondansetron HCl 4 mg Q4HP PRN IV 02/05/25 16:00 Docusate Sodium 100 mg BIDPRN PRN PO 02/05/25 16:00 Acetaminophen 650 mg Q6HP PRN PO 02/05/25 16:00 Nitroglycerin 0.4 mg Q5MINP PRN SL 02/05/25 16:00 Morphine Sulfate 2 mg Q30M PRN IV 02/05/25 16:00 Amlodipine Besylate 10 mg DAILY PO 02/06/25 10:00 02/06/25 08:47 10 MG Atorvastatin Calcium 40 mg HS PO 02/05/25 22:00 02/05/25 21:48 40 MG Glimepiride 1 mg BIDWM PO 02/05/25 18:00 02/06/25 08:50 1 MG Finasteride 5 mg DAILY PO 02/06/25 10:00 02/06/25 08:45 5 MG Tamsulosin HCl 0.4 mg QPM PO 02/05/25 18:00 02/05/25 18:00 0.4 MG Patient Own Medication 1 puff DAILY PO 02/06/25 10:00 Pantoprazole Sodium 40 mg DAILY PO 02/06/25 10:00 02/06/25 08:48 40 MG Methylprednisolone Sodium Succinate 40 mg BID IV 02/05/25 22:00 02/06/25 08:49 40 MG Ipratropium [place] 0.5 mg Q6HWA NEB 02/05/25 18:00 02/06/25 11:39 0.5 MG Albuterol 2.5 mg Q6HWA NEB 02/05/25 18:00 02/06/25 11:39 2.5 MG Furosemide 40 mg DAILY IV 02/06/25 10:00 02/06/25 08:49 40 MG Laboratory Results Laboratory Tests 02/06/25 04:47 Chemistry Test 02/06/25 04:47 Albumin 3.8 g/dL (3.2-4.8) Calcium Level 9.0 mg/dL (8.7-10.4) Total Protein 6.0 g/dL (5.7-8.2) LFT Test 02/06/25 04:47 Alanine Aminotransferase (ALT) 20 U/L (7-40) Alkaline Phosphatase 244 U/L (46-116) H Aspartate Amino Transferase (AST) 23 U/L (13-40) Total Bilirubin 0.7 mg/dL (0.2-1.0) Urinalysis Test 02/05/25 16:10 Urine Color Colorless (Yellow) Urine Clarity Clear (Clear) Urine pH 7.5 (5.0-9.0) Urine Specific [place] 1.007 (1.001-1.035) Urine Protein Trace (Negative) H Urine Ketones Negative (Negative) Urine Blood Negative /uL (Negative) Urine Nitrite Negative (Negative) Urine Bilirubin Negative (Negative) Urine Urobilinogen Normal mg/dL (Negative) Urine Leukocyte Esterase Negative /uL (Negative) Urine RBC 1 /hpf (0 - 3) Urine Microscopic WBC /HPF (0-3) Urine Squamous Epithelial Cells None seen /hpf (<5) Urine Bacteria None seen /hpf (None Seen) Urine Glucose 3+ mg/dL (Normal) H Microbiology Microbiology Date/Time Source Procedure Growth Status 02/05/25 23:30 Nose MRSA Screen - Final Complete Labs and/or images reviewed: Labs reviewed by me, Image(s) reviewed by me Assessment/Plan Assessment/Plan Impression: -acute on chronic hypoxic respiratory failure -probable acute diastolic heart failure -pulmonary fibrosis -recurrent pleural effusions with thoracentesis -aortic stenosis -primary hypertension Plan: -cardiology consultation -pulmonary consultation -O2 supplementation to keep saturation greater than 90% -IV diuresis -continue bronchodilators q.6 hours, add Pulmicort b.i.d. -continue IV Solu-Medrol -echocardiogram -repeat labs in a.m. Total time spent with patient discussing and formulating plan of care: 35 minutes. This medical document was created using an electronic medical record system with [employer] dictation system. Although this document has been carefully reviewed, there may still be some phonetic and typographical errors. These areas are purely typographical due to imperfections of the software programs, and do not reflect any compromise in the patient's medical care. Plan discussed with: Patient, Other (RN) Date of Service: Feb 06, 2025 Billing Provider: ASIF KWON NP Common Visit Codes: [id number] INP/OBS CARE(HIGH) ASIF KWON NP Feb 06, 2025 16:41
[2025-02-06] MEDS: BUDESONIDE (INHALATION) 0.5 MG/2 ML NEB NEB SCH (19:28)
--- NOTE | 2025-02-06 22:51 | DVHINCON2 ---
Date of service: Feb 06, 2025 Referring Physician [facility] Reason for Consultation Acute hypoxic respiratory failure, pulmonary fibrosis and COPD History of Present Illness An 84-year-old man with past medical history of COPD, pulmonary fibrosis, home oxygen use at 6-8 L, CHF, hypertension, diabetes mellitus, hyperlipidemia, and BPH, who presented to ED on 02/05/25 with c/o shortness of breath. Patient follows with Dr. Williamson for pulmonology, has undergone 3 thoracenteses in the past month in the outpatient pulmonary office. Patient was instructed to present to the ER if his shortness of breath worsened. Patient was seen here in December 2024. Patient was admitted for further care. Pulmonary consultation is requested for evaluation and management due to acute hypoxic respiratory failure; patient with recurrent pleural effusions, pulmonary fibrosis and COPD. Review of Systems: 14-point review of systems negative unless otherwise noted above. Past Medical History: COPD, pulmonary fibrosis, home oxygen use at 6-8 L, CHF, hypertension, diabetes mellitus, hyperlipidemia, and BPH. Past Surgical History: Hernia Repair, Tonsillectomy Medications: Reviewed. Allergies: Penicillin. Family History: Diabetes. No family history of premature CAD. No family history of lung disorders. Social History: Nonsmoker. No alcohol or illicit drug use. Family History: Diabetes mellitus G8 MOTHER G8 FATHER 19 CHILD Allergies: Coded Allergies: Penicillins (Verified Allergy, Unknown, 05/10/21) Home Meds Active Scripts Furosemide (Lasix) 20 Mg Tb, 1 TAB PO DAILY for 30 Days, #30 TAB 5 Refills Prov:MANI CHISHOLM RESIDENT 01/15/24 Ipratropium-Albuterol (Ipratropium [place]/Albut) 1 Con Con, 1 CON IN Q4HPRN PRN for 90 Days, #180 ML Prov:DIAMOND DIAS MD 08/16/22 Reported Medications Omeprazole (Cvs Omeprazole Odt) 20 Mg Tab, 20 MG PO DAILY 02/05/25 Tamsulosin Hcl (Tamsulosin Hcl) 0.4 Mg Cap, 0.4 MG PO HS 02/05/25 Mkzakdeoxtg-Umnehjifpfsu-Mwadh (Trelegy Ellipta 200-62.5-25 Mcg/INH) 1 Aer Aer, 1 PUFF INH DAILY 02/05/25 Finasteride (Finasteride) 5 Mg Tab, 1 TAB PO DAILY 02/05/25 Dapagliflozin Propanediol (Farxiga) 10 Mg Tab, 10 MG PO, TAB 01/13/24 Multiple Vitamin (Multivitamins) Tab, 1 TAB PO DAILY, #90 TAB 3 Refills 05/15/21 Glimepiride (Glimepiride) 1 Mg Tab, 1 MG PO BID for 30 Days, MG 05/15/21 Atorvastatin Calcium (ATORVASTATIN CALCIUM) 40 Mg Tab, 1 TAB PO HS, #30 TAB 5 Refills 05/15/21 Amlodipine Besylate (Amlodipine Besylate) 10 Mg Tab, 1 TAB PO DAILY 05/15/21 Mirtazapine (Mirtazapine Oral Disintegrating Tablet) 15 Mg Tab, 1 TAB PO BID 05/15/21 Metformin Hydrochloride (Metformin Hcl) 1,000 Mg Tab, 1 TAB PO BID 05/15/21 Discontinued Reported Medications Omeprazole Magnesium (Omeprazole) 20 Mg Tab, 40 MG PO DAILY, TAB 08/14/22 Discontinued Scripts Levofloxacin Hemihydrate (LEVOFLOXACIN) 750 Mg Tab, 1 TAB PO DAILY for 5 Days, #5 TAB Prov:MANI CHISHOLM RESIDENT 01/15/24 Current Medications Current Medications Medications (Trade) Dose Ordered Sig/Nasim Route PRN Reason Start Time Stop Time Status Last Admin Amlodipine Besylate (Norvasc Tablet) 10 mg DAILY PO 02/06/25 10:00 02/06/25 08:47 Finasteride (Proscar Tablet) 5 mg DAILY PO 02/06/25 10:00 02/06/25 08:45 Patient Own Medication 1 puff DAILY PO 02/06/25 10:00 02/06/25 16:39 DC Pantoprazole Sodium (Protonix Tablet) 40 mg DAILY PO 02/06/25 10:00 02/06/25 08:48 Furosemide (Lasix Injection) 40 mg DAILY IV 02/06/25 10:00 02/06/25 08:49 Budesonide (Pulmicort) 0.5 mg BID NEB 02/06/25 22:00 02/06/25 19:28 Vital Signs Vital Signs Date Time Temp Pulse Resp B/P (MAP) Pulse Ox O2 Delivery O2 Flow Rate FiO2 02/06/25 21:00 97.6 94 18 97/65 (76) 93 97.6 02/06/25 19:28 Nasal Cannula* 4 36 Physical Exam Gen.: Patient lying in bed in no apparent distress. On supplemental oxygen. Head: Normocephalic, atraumatic. Eyes: EOMI/PERRLA. Ears: Normal hearing. Normal anatomy. Neck/trachea: Trachea midline, supple. Nose: Normal external anatomy. Mouth: Moist mucous membranes. Chest: Decreased air entry bilaterally. No wheezing or rhonchi. Cardiovascular: Positive S1, positive S2. Regular rate and rhythm. Abdomen: Positive bowel sounds in all 4 quadrants. Soft, non-tender, non- distended. : Deferred. Rectal: Deferred. Skin: Warm, dry. Intact. Extremities: 2+ radial pulses bilaterally. No lower extremity edema. Neuro: Awake, alert, oriented x3. No gross motor or sensory deficits. Cranial nerves II through XII intact. Gait not assessed. Labs/Diagnostic Data Labs Test 02/06/25 18:15 02/06/25 04:47 02/05/25 16:10 02/05/25 11:55 Range/Units POC Glucose 382 H 70-106 mg/dl White Blood Count 5.1 4.4-10.8 10^3/uL Red Blood Count 4.83 4.5-5.90 10^6/uL Hemoglobin 11.1 L 13.5-17.5 g/dL Hematocrit 35.4 L 41.0-53.0 % Mean Corpuscular Volume 73.3 L 80.0-100.0 fL Mean Corpuscular Hemoglobin 23.0 L 28.0-32.0 pg Mean Corpuscular Hemoglobin Concent 31.4 L 32.0-36.0 g/dL Red Cell Distribution Width 19.2 H 11.8-14.3 % Platelet Count 145 140-450 10^3/uL Mean Platelet Volume 9.1 6.9-10.8 fL Neutrophils (%) (Auto) 95.1 H 37.0-80.0 % Lymphocytes (%) (Auto) 2.9 L 10.0-50.0 % Monocytes (%) (Auto) 1.4 0.0-12.0 % Eosinophils (%) (Auto) 0.1 0.0-7.0 % Basophils (%) (Auto) 0.5 0.0-2.0 % Neutrophils # (Auto) 4.9 1.6-8.6 10 ^3/uL Lymphocytes # (Auto) 0.1 L 0.4-5.4 10 ^3/uL Monocytes # (Auto) 0.1 0-1.3 10 ^3/uL Eosinophils # (Auto) 0 0-0.8 10 ^3/uL Basophils # (Auto) 0 0-0.2 10 ^3/uL Nucleated Red Blood Cells 0.0 % Sodium Level 145 136-145 mmol/L Potassium Level 4.2 3.5-5.1 mmol/L Chloride Level 105 98-107 mmol/L Carbon Dioxide Level 25 20-31 mmol/L Anion Gap 15 5-15 Blood Urea Nitrogen 18 9-23 mg/dL Creatinine 0.91 0.700-1.30 mg/dL Glomerular Filtration Rate Calc 84 >90 mL/min BUN/Creatinine Ratio 19.8 10.0-20.0 Serum Glucose 169 H 74-106 mg/dL Calcium Level 9.0 8.7-10.4 mg/dL Total Bilirubin 0.7 0.2-1.0 mg/dL Aspartate Amino Transferase (AST) 23 13-40 U/L Alanine Aminotransferase (ALT) 20 7-40 U/L Alkaline Phosphatase 244 H 46-116 U/L Total Protein 6.0 5.7-8.2 g/dL Albumin 3.8 3.2-4.8 g/dL Urine Color Colorless Yellow Urine Clarity Clear Clear Urine pH 7.5 5.0-9.0 Urine Specific [place] 1.007 1.001-1.035 Urine Protein Trace H Negative Urine Ketones Negative Negative Urine Blood Negative Negative /uL Urine Nitrite Negative Negative Urine Bilirubin Negative Negative Urine Urobilinogen Normal Negative mg/dL Urine Leukocyte Esterase Negative Negative /uL Urine RBC 1 0 - 3 /hpf Urine Microscopic WBC 0-3 /HPF Urine Squamous Epithelial Cells None seen <5 /hpf Urine Bacteria None seen None Seen /hpf Urine Glucose 3+ H Normal mg/dL Troponin I High Sensitivity 17 </=54 ng/L B-Type Natriuretic Peptide 965.51 0-100 pg/mL Microbiology Date/Time Source Procedure Growth Status 02/05/25 23:30 Nose MRSA Screen - Final Complete Assessment Impression: Acute hypoxic respiratory failure Dependence on supplemental oxygen Recurrent pleural effusions Acute CHF exacerbation Pulmonary fibrosis Chronic obstructive pulmonary disease Diabetes mellitus type II Plan: Supplemental oxygen Titrate to keep O2 sats above 92%. Chest x-ray on 02/05/25 demonstrates findings suggestive of pulmonary fibrosis which appears overall stable compared to prior. Continue bronchodilators. IV steroids Pulmicort BID Incentive spirometry Accu-Cheks On Glimepiride for diabetic control Protonix for GI prophylaxis Follow up Cardiology recommendations Diurese with Lasix Monitor renal function. Monitor electrolytes. Supplement as necessary. Monitor ins and outs. GI/DVT prophylaxis. Prognosis: Poor given patient's multiple co-morbidities. Rest of plan per hospitalist and other consultants. Thank you, Dr. Parra, for allowing me to participate in this patient's care. Further recommendations will depend on the patient's clinical course. Please do not hesitate to contact me if you have any questions or concerns. This medical document was created using an electronic medical record system with [employer] dictation system. Although these documentations are being carefully reviewed, there may still be some phonetic and typographical changes. The errors are purely typographical, due to imperfection on the software program, and do not reflect any compromise in the patient's medical care. Plan discussed with: Patient, Daughter, Other (RN/[employer] SPECIALIST Aida/) Visit Coding Pulmonary Billing Provider: ALBERTO WILLIAMSON MD Date of Service if different f: Feb 06, 2025 Common Visit Codes: [id number] INP/OBS CARE (HIGH) ALBERTO WILLIAMSON MD Feb 06, 2025 22:51
[2025-02-07] VITALS (16 sets, daily range): BP systolic 99–106; BP diastolic 58–72; PULSE 70–92; RESP 16–18; TEMP 97.5–98.7; O2SAT 91–99
[2025-02-07 06:59] LABS: Chloride 101 mmol/L (98-107); Potassium 4.4 mmol/L (3.5-5.1); Sodium 137 mmol/L (136-145)
[2025-02-07 07:00] LABS: Anion Gap 12 (5-15); Carbon Dioxide 24 mmol/L (20-31)
[2025-02-07 07:01] LABS: Calcium 8.4 mg/dL (8.7-10.4)
[2025-02-07 07:05] LABS: BUN/Creatinine Ratio 23.1 (10.0-20.0)
[2025-02-07 07:28] LABS: Blood Urea Nitrogen 28 mg/dL (9-23)
[2025-02-07 07:30] LABS: Glucose 419 mg/dL (74-106)
[2025-02-07] MEDS ORDERED: DEXTROSE (50%) 50ML SYRG IV PRN (11:00)
[2025-02-07] MEDS: DOCUSATE SOD 100 MG CAP PO PRN (11:03)
[2025-02-07] MEDS: ACCU-CHEK COMFORT CURVE STRIP VI SCH (11:21)
[2025-02-07] MEDS: InsuLIN REG 1unit/0.01ml Soln (100units/ml) SC SCH (11:29)
--- NOTE | 2025-02-07 12:07 | DVHINCON2 ---
Date of service: Feb 07, 2025 History of Present Illness 84 yo M with hx of advanced copd, IPF, on home o2, pulm htn admitted for sob. pt nees another thoracentesis with pulm. pt has had a couple already. he sees me in cv clinic and his cv test in past was not critical Past Medical History reviewed Family History: Diabetes mellitus G8 MOTHER G8 FATHER 19 CHILD Allergies: Coded Allergies: Penicillins (Verified Allergy, Unknown, 05/10/21) Home Meds Active Scripts Furosemide (Lasix) 20 Mg Tb, 1 TAB PO DAILY for 30 Days, #30 TAB 5 Refills Prov:MANI CHISHOLM RESIDENT 01/15/24 Ipratropium-Albuterol (Ipratropium [place]/Albut) 1 Con Con, 1 CON IN Q4HPRN PRN for 90 Days, #180 ML Prov:DIAMOND DIAS MD 08/16/22 Reported Medications Omeprazole (Cvs Omeprazole Odt) 20 Mg Tab, 20 MG PO DAILY 02/05/25 Tamsulosin Hcl (Tamsulosin Hcl) 0.4 Mg Cap, 0.4 MG PO HS 02/05/25 Vawpumwkate-Ungrqmwkkgih-Dfdaj (Trelegy Ellipta 200-62.5-25 Mcg/INH) 1 Aer Aer, 1 PUFF INH DAILY 02/05/25 Finasteride (Finasteride) 5 Mg Tab, 1 TAB PO DAILY 02/05/25 Dapagliflozin Propanediol (Farxiga) 10 Mg Tab, 10 MG PO, TAB 01/13/24 Multiple Vitamin (Multivitamins) Tab, 1 TAB PO DAILY, #90 TAB 3 Refills 05/15/21 Glimepiride (Glimepiride) 1 Mg Tab, 1 MG PO BID for 30 Days, MG 05/15/21 Atorvastatin Calcium (ATORVASTATIN CALCIUM) 40 Mg Tab, 1 TAB PO HS, #30 TAB 5 Refills 05/15/21 Amlodipine Besylate (Amlodipine Besylate) 10 Mg Tab, 1 TAB PO DAILY 05/15/21 Mirtazapine (Mirtazapine Oral Disintegrating Tablet) 15 Mg Tab, 1 TAB PO BID 05/15/21 Metformin Hydrochloride (Metformin Hcl) 1,000 Mg Tab, 1 TAB PO BID 05/15/21 Discontinued Reported Medications Omeprazole Magnesium (Omeprazole) 20 Mg Tab, 40 MG PO DAILY, TAB 08/14/22 Discontinued Scripts Levofloxacin Hemihydrate (LEVOFLOXACIN) 750 Mg Tab, 1 TAB PO DAILY for 5 Days, #5 TAB Prov:MANI CHISHOLM RESIDENT 01/15/24 Current Medications Current Medications Medications (Trade) Dose Ordered Sig/Nasim Route PRN Reason Start Time Stop Time Status Last Admin Budesonide (Pulmicort) 0.5 mg BID NEB 02/06/25 22:00 02/07/25 07:11 Diagnostic Test (Pha) (Accu-Chek Comfort Curve T) 1 strip IQ4HR 02/07/25 12:00 02/07/25 11:21 Insulin Human Regular (InsuLIN R) IQ4HR SC 02/07/25 12:00 02/07/25 11:29 Dextrose 50 ml UD PRN IV Blood Sugar LESS THAN 60 02/07/25 11:00 Glimepiride (Amaryl Tablet) 1 mg DAILY@BREAKFAST PO 02/08/25 08:00 Review of Systems 10 pt ros otherwise negatie Vital Signs Vital Signs Date Time Temp Pulse Resp B/P (MAP) Pulse Ox O2 Delivery O2 Flow Rate FiO2 02/07/25 11:36 78 18 97 02/07/25 11:28 Nasal Cannula* 4 36 02/07/25 10:25 103/72 02/07/25 05:00 97.8 97.8 Physical Exam nad s1 s2 rrr diffuse rhonchi abd soft nt/nd no edema Labs/Diagnostic Data Labs Test 02/07/25 11:25 02/07/25 05:40 02/06/25 04:47 02/05/25 16:10 Range/Units POC Glucose 470 *H 70-106 mg/dl Sodium Level 137 # 136-145 mmol/L Potassium Level 4.4 3.5-5.1 mmol/L Chloride Level 101 98-107 mmol/L Carbon Dioxide Level 24 20-31 mmol/L Anion Gap 12 5-15 Blood Urea Nitrogen 28 #H 9-23 mg/dL Creatinine 1.21 0.700-1.30 mg/dL Glomerular Filtration Rate Calc 60 >90 mL/min BUN/Creatinine Ratio 23.1 H 10.0-20.0 Serum Glucose 419 #*H 74-106 mg/dL Calcium Level 8.4 L 8.7-10.4 mg/dL White Blood Count 5.1 4.4-10.8 10^3/uL Red Blood Count 4.83 4.5-5.90 10^6/uL Hemoglobin 11.1 L 13.5-17.5 g/dL Hematocrit 35.4 L 41.0-53.0 % Mean Corpuscular Volume 73.3 L 80.0-100.0 fL Mean Corpuscular Hemoglobin 23.0 L 28.0-32.0 pg Mean Corpuscular Hemoglobin Concent 31.4 L 32.0-36.0 g/dL Red Cell Distribution Width 19.2 H 11.8-14.3 % Platelet Count 145 140-450 10^3/uL Mean Platelet Volume 9.1 6.9-10.8 fL Neutrophils (%) (Auto) 95.1 H 37.0-80.0 % Lymphocytes (%) (Auto) 2.9 L 10.0-50.0 % Monocytes (%) (Auto) 1.4 0.0-12.0 % Eosinophils (%) (Auto) 0.1 0.0-7.0 % Basophils (%) (Auto) 0.5 0.0-2.0 % Neutrophils # (Auto) 4.9 1.6-8.6 10 ^3/uL Lymphocytes # (Auto) 0.1 L 0.4-5.4 10 ^3/uL Monocytes # (Auto) 0.1 0-1.3 10 ^3/uL Eosinophils # (Auto) 0 0-0.8 10 ^3/uL Basophils # (Auto) 0 0-0.2 10 ^3/uL Nucleated Red Blood Cells 0.0 % Total Bilirubin 0.7 0.2-1.0 mg/dL Aspartate Amino Transferase (AST) 23 13-40 U/L Alanine Aminotransferase (ALT) 20 7-40 U/L Alkaline Phosphatase 244 H 46-116 U/L Total Protein 6.0 5.7-8.2 g/dL Albumin 3.8 3.2-4.8 g/dL Urine Color Colorless Yellow Urine Clarity Clear Clear Urine pH 7.5 5.0-9.0 Urine Specific [place] 1.007 1.001-1.035 Urine Protein Trace H Negative Urine Ketones Negative Negative Urine Blood Negative Negative /uL Urine Nitrite Negative Negative Urine Bilirubin Negative Negative Urine Urobilinogen Normal Negative mg/dL Urine Leukocyte Esterase Negative Negative /uL Urine RBC 1 0 - 3 /hpf Urine Microscopic WBC 0-3 /HPF Urine Squamous Epithelial Cells None seen <5 /hpf Urine Bacteria None seen None Seen /hpf Urine Glucose 3+ H Normal mg/dL Test 02/05/25 11:55 Range/Units Troponin I High Sensitivity 17 </=54 ng/L B-Type Natriuretic Peptide 965.51 0-100 pg/mL Microbiology Date/Time Source Procedure Growth Status 02/05/25 23:30 Nose MRSA Screen - Final Complete Assessment severe IPF copd hypoxia pleural effusion Plan/Recommendation check echo check ecg check bnp check lexiscan stress mpi fu pulm recs Plan discussed with: Patient RUI JOHN MD Feb 07, 2025 12:07
--- NOTE | 2025-02-07 12:58 | DVHPN2 ---
Subjective Patient reports having shortness of breath with exertion. Reviewed: Care Plan, H&P, Labs, Medications, Previous Orders Changes from previous H/P or p: No Changes General: Per HPI Eyes: No Pain, No Vision change, No Conjunctivae inflammation, No Eyelid inflammation, No Other, No Redness ENT: No Ear pain, No Ear discharge, No Nose pain, No Nose discharge, No Nose congestion, No Mouth pain, No Mouth swelling, No Throat pain, No Throat swelling, No Other Cardiovascular: No Chest Pain, No Palpitations, No Orthopnea, No Paroxysmal Noc. Dyspnea; Edema (bilateral lower extremities); No Lt Headedness, No Other Respiratory: No Cough, No Dry; Shortness of breath, SOB with excertion, W heezing; No Hemoptysis; Pleuritic Pain; No Sputum, No Other Gastrointestinal: No Nausea, No Vomiting, No Abdominal Pain, No Diarrhea, No Constipation, No Melena, No Hematochezia, No Other Genitourinary: No Dysuria, No Frequency, No Incontinence, No Hematuria, No Retention, No Other Musculoskeletal: No other, No neck pain, No shoulder pain, No arm pain, No back pain, No hand pain, No leg pain, No foot pain Skin: No Rash, No Lesions, No Jaundice, No Bruising, No Other Objective Vitals Vital Signs Date Time Temp Pulse Resp B/P (MAP) Pulse Ox O2 Delivery O2 Flow Rate FiO2 02/07/25 11:36 78 18 97 02/07/25 11:28 Nasal Cannula* 4 36 02/07/25 10:25 103/72 02/07/25 05:00 97.8 97.8 Intake/Output Intake and Output 02/07/25 07:00 Intake Total 1800 ml Output Total 1700 ml Balance 100 ml Intake Oral 1800 ml Output Urine Total 1700 ml General Appearance: Alert, Oriented X3, Cooperative, mild distress HEENT: Atraumatic, PERRLA Lungs: Other (Bilateral crackles) Cardiovascular: Normal S1, Normal S2 Abdomen: Normal bowel sounds, Soft, No tenderness Musculoskeletal: Normal sensory function, Normal motor function Neuro: Normal speech Skin: Dry, Intact Psych/Mental Status: Mental status NL, Mood NL Medications Current Medications Medications Dose Ordered Sig/Nasim Route Start Time Stop Time Status Last Admin Dose Admin Acetaminophen/ Hydrocodone Bitart 1 tab Q4HP PRN PO 02/05/25 16:00 Ondansetron HCl 4 mg Q4HP PRN IV 02/05/25 16:00 Docusate Sodium 100 mg BIDPRN PRN PO 02/05/25 16:00 02/07/25 11:03 100 MG Acetaminophen 650 mg Q6HP PRN PO 02/05/25 16:00 Nitroglycerin 0.4 mg Q5MINP PRN SL 02/05/25 16:00 Morphine Sulfate 2 mg Q30M PRN IV 02/05/25 16:00 Amlodipine Besylate 10 mg DAILY PO 02/06/25 10:00 02/07/25 10:25 10 MG Atorvastatin Calcium 40 mg HS PO 02/05/25 22:00 02/06/25 21:59 40 MG Finasteride 5 mg DAILY PO 02/06/25 10:00 02/07/25 10:24 5 MG Tamsulosin HCl 0.4 mg QPM PO 02/05/25 18:00 02/06/25 18:17 0.4 MG Pantoprazole Sodium 40 mg DAILY PO 02/06/25 10:00 02/07/25 10:28 40 MG Methylprednisolone Sodium Succinate 40 mg BID IV 02/05/25 22:00 02/07/25 10:26 40 MG Ipratropium [place] 0.5 mg Q6HWA NEB 02/05/25 18:00 02/07/25 11:26 0.5 MG Albuterol 2.5 mg Q6HWA NEB 02/05/25 18:00 02/07/25 11:27 2.5 MG Furosemide 40 mg DAILY IV 02/06/25 10:00 02/07/25 10:24 40 MG Budesonide 0.5 mg BID NEB 02/06/25 22:00 02/07/25 07:11 0.5 MG Diagnostic Test (Pha) 1 strip IQ4HR 02/07/25 12:00 02/07/25 11:21 1 STRIP Insulin Human Regular IQ4HR SC 02/07/25 12:00 02/07/25 11:29 15 UNITS Dextrose 50 ml UD PRN IV 02/07/25 11:00 Glimepiride 1 mg DAILY@BREAKFAST PO 02/08/25 08:00 Laboratory Results Laboratory Tests 02/06/25 04:47 02/07/25 05:40 Chemistry Test 02/07/25 05:40 Calcium Level 8.4 mg/dL (8.7-10.4) L Urinalysis Test 02/05/25 16:10 Urine Color Colorless (Yellow) Urine Clarity Clear (Clear) Urine pH 7.5 (5.0-9.0) Urine Specific [place] 1.007 (1.001-1.035) Urine Protein Trace (Negative) H Urine Ketones Negative (Negative) Urine Blood Negative /uL (Negative) Urine Nitrite Negative (Negative) Urine Bilirubin Negative (Negative) Urine Urobilinogen Normal mg/dL (Negative) Urine Leukocyte Esterase Negative /uL (Negative) Urine RBC 1 /hpf (0 - 3) Urine Microscopic WBC /HPF (0-3) Urine Squamous Epithelial Cells None seen /hpf (<5) Urine Bacteria None seen /hpf (None Seen) Urine Glucose 3+ mg/dL (Normal) H Microbiology Microbiology Date/Time Source Procedure Growth Status 02/05/25 23:30 Nose MRSA Screen - Final Complete Labs and/or images reviewed: Labs reviewed by me, Image(s) reviewed by me Assessment/Plan Assessment/Plan Impression: -acute on chronic hypoxic respiratory failure -probable acute diastolic heart failure -pulmonary fibrosis -recurrent pleural effusions with thoracentesis -aortic stenosis -primary hypertension -hyperglycemia Plan: -cardiology consultation -stress test -pulmonary consultation -O2 supplementation to keep saturation greater than 90% -IV diuresis -continue bronchodilators q.6 hours, add Pulmicort b.i.d. -continue IV Solu-Medrol -start glimepiride -q4 accu-check -echocardiogram pending -repeat labs in a.m. Plan discussed with: Patient, Daughter, Other (RN) Date of Service: Feb 07, 2025 Billing Provider: ASIF KWON [employer] ATTENDANT Common Visit Codes: [id number] INP/OBS CARE(HIGH) PRICILA MATHIAS STUDENT NURSERY SCHOOL ATTENDANT Feb 07, 2025 12:58
--- NOTE | 2025-02-07 16:06 | DVHPN2 ---
Subjective Patient continues to report having severe dyspnea on exertion Reviewed: Care Plan, H&P, Labs, Medications, Previous Orders Changes from previous H/P or p: No Changes General: Per HPI Eyes: No Pain, No Vision change, No Conjunctivae inflammation, No Eyelid inflammation, No Other, No Redness ENT: No Ear pain, No Ear discharge, No Nose pain, No Nose discharge, No Nose congestion, No Mouth pain, No Mouth swelling, No Throat pain, No Throat swelling, No Other Cardiovascular: No Chest Pain, No Palpitations, No Orthopnea, No Paroxysmal Noc. Dyspnea; Edema (bilateral lower extremities); No Lt Headedness, No Other Respiratory: No Cough, No Dry; Shortness of breath, SOB with excertion, W heezing; No Hemoptysis; Pleuritic Pain; No Sputum, No Other Gastrointestinal: No Nausea, No Vomiting, No Abdominal Pain, No Diarrhea, No Constipation, No Melena, No Hematochezia, No Other Genitourinary: No Dysuria, No Frequency, No Incontinence, No Hematuria, No Retention, No Other Musculoskeletal: No other, No neck pain, No shoulder pain, No arm pain, No back pain, No hand pain, No leg pain, No foot pain Skin: No Rash, No Lesions, No Jaundice, No Bruising, No Other Objective Vitals Vital Signs Date Time Temp Pulse Resp B/P (MAP) Pulse Ox O2 Delivery O2 Flow Rate FiO2 02/07/25 13:00 98.7 85 17 99/58 (72) 96 98.7 02/07/25 11:28 Nasal Cannula* 4 36 Intake/Output Intake and Output 02/07/25 07:00 Intake Total 1800 ml Output Total 1700 ml Balance 100 ml Intake Oral 1800 ml Output Urine Total 1700 ml General Appearance: Alert, Oriented X3, Cooperative, mild distress HEENT: Atraumatic, PERRLA Lungs: Other (Bilateral crackles) Cardiovascular: Normal S1, Normal S2 Abdomen: Normal bowel sounds, Soft, No tenderness Musculoskeletal: Normal sensory function, Normal motor function Neuro: Normal speech Skin: Dry, Intact Psych/Mental Status: Mental status NL, Mood NL Medications Current Medications Medications Dose Ordered Sig/Nasim Route Start Time Stop Time Status Last Admin Dose Admin Acetaminophen/ Hydrocodone Bitart 1 tab Q4HP PRN PO 02/05/25 16:00 Ondansetron HCl 4 mg Q4HP PRN IV 02/05/25 16:00 Docusate Sodium 100 mg BIDPRN PRN PO 02/05/25 16:00 02/07/25 11:03 100 MG Acetaminophen 650 mg Q6HP PRN PO 02/05/25 16:00 Nitroglycerin 0.4 mg Q5MINP PRN SL 02/05/25 16:00 Morphine Sulfate 2 mg Q30M PRN IV 02/05/25 16:00 Amlodipine Besylate 10 mg DAILY PO 02/06/25 10:00 02/07/25 10:25 10 MG Atorvastatin Calcium 40 mg HS PO 02/05/25 22:00 02/06/25 21:59 40 MG Finasteride 5 mg DAILY PO 02/06/25 10:00 02/07/25 10:24 5 MG Tamsulosin HCl 0.4 mg QPM PO 02/05/25 18:00 02/06/25 18:17 0.4 MG Pantoprazole Sodium 40 mg DAILY PO 02/06/25 10:00 02/07/25 10:28 40 MG Methylprednisolone Sodium Succinate 40 mg BID IV 02/05/25 22:00 02/07/25 10:26 40 MG Ipratropium [place] 0.5 mg Q6HWA NEB 02/05/25 18:00 02/07/25 11:26 0.5 MG Albuterol 2.5 mg Q6HWA NEB 02/05/25 18:00 02/07/25 11:27 2.5 MG Furosemide 40 mg DAILY IV 02/06/25 10:00 02/07/25 10:24 40 MG Budesonide 0.5 mg BID NEB 02/06/25 22:00 02/07/25 07:11 0.5 MG Diagnostic Test (Pha) 1 strip IQ4HR 02/07/25 12:00 02/07/25 11:21 1 STRIP Insulin Human Regular IQ4HR SC 02/07/25 12:00 02/07/25 11:29 15 UNITS Dextrose 50 ml UD PRN IV 02/07/25 11:00 Glimepiride 1 mg DAILY@BREAKFAST PO 02/08/25 08:00 Insulin Glargine 15 units HS SC 02/07/25 22:00 UNV Laboratory Results Laboratory Tests 02/06/25 04:47 02/07/25 05:40 Chemistry Test 02/07/25 05:40 Calcium Level 8.4 mg/dL (8.7-10.4) L Cardiac Markers Test 02/07/25 04:47 B-Type Natriuretic Peptide 1755.88 pg/mL (0-100) Urinalysis Test 02/05/25 16:10 Urine Color Colorless (Yellow) Urine Clarity Clear (Clear) Urine pH 7.5 (5.0-9.0) Urine Specific [place] 1.007 (1.001-1.035) Urine Protein Trace (Negative) H Urine Ketones Negative (Negative) Urine Blood Negative /uL (Negative) Urine Nitrite Negative (Negative) Urine Bilirubin Negative (Negative) Urine Urobilinogen Normal mg/dL (Negative) Urine Leukocyte Esterase Negative /uL (Negative) Urine RBC 1 /hpf (0 - 3) Urine Microscopic WBC /HPF (0-3) Urine Squamous Epithelial Cells None seen /hpf (<5) Urine Bacteria None seen /hpf (None Seen) Urine Glucose 3+ mg/dL (Normal) H Microbiology Microbiology Date/Time Source Procedure Growth Status 02/05/25 23:30 Nose MRSA Screen - Final Complete Labs and/or images reviewed: Labs reviewed by me, Image(s) reviewed by me Assessment/Plan Assessment/Plan Impression: -acute on chronic hypoxic respiratory failure -probable acute diastolic heart failure -pulmonary fibrosis -recurrent pleural effusions with thoracentesis -aortic stenosis -primary hypertension Plan: Events: Blood sugars out of control. Continue Amaryl. Start regular insulin sliding scale q.4 coverage. [id number] units q.h.s. -cardiology consultation : Recommendations reviewed -pulmonary consultation recommendations reviewed -O2 supplementation to keep saturation greater than 90% -IV diuresis -continue bronchodilators q.6 hours, add Pulmicort b.i.d. -decrease Solu-Medrol -echocardiogram : Pending -repeat labs in a.m. Total time spent with patient discussing and formulating plan of care: 35 minutes. This medical document was created using an electronic medical record system with [employer] dictation system. Although this document has been carefully reviewed, there may still be some phonetic and typographical errors. These areas are purely typographical due to imperfections of the software programs, and do not reflect any compromise in the patient's medical care. Plan discussed with: Patient, Other (rn) My Orders Orders - ASIF KWON NP Procedure Category Date Status Time *Consult Dr. Grant CONS 02/06/25 Transmitted 16:35 *Consult CONS 02/06/25 Transmitted 16:35 Budesonide PHA 02/06/25 In Process (Inhalation) 22:00 Echo 2d Mode Cardiac US 02/07/25 Logged DOP 16:35 Glucose Blood PHA 02/07/25 In Process (Accu-Chek Comfort 12:00 Insulin R (Human) PHA 02/07/25 In Process (Insulin R) 12:00 Dextrose 50% Syringe PHA 02/07/25 In Process 11:00 Glimepiride Tablet PHA 02/08/25 In Process (Amaryl Tablet) 08:00 Insulin Lantus PHA 02/07/25 Logged (Glargine) (Lantus) 22:00 Pt Request For Service PT 02/07/25 Logged 13:01 Date of Service: Feb 07, 2025 Billing Provider: ASIF KWON NP Common Visit Codes: [id number] INP/OBS CARE(HIGH) ASIF KWON NP Feb 07, 2025 16:06
[2025-02-07] MEDS: InsuLIN REG 1unit/0.01ml Soln (100units/ml) IV ONE (17:00)
--- NOTE | 2025-02-07 17:56 | DVHPN2 ---
Progress Note - Dictate Date Seen: Feb 07, 2025 Medical Necessity Reason Pt with a Central, PICC or Fol: No vital signs Vital Sign Date Time Temp Pulse Resp B/P (MAP) Pulse Ox O2 Delivery O2 Flow Rate FiO2 02/07/25 17:00 98.1 72 16 100/68 (79) 95 98.1 02/07/25 11:28 Nasal Cannula* 4 36 Total Intake and Output 02/06/25 02/06/25 02/07/25 15:00 23:00 07:00 Intake Total 960 ml 840 ml Output Total 800 ml 400 ml 500 ml Balance -800 ml 560 ml 340 ml medications Current Medications Medications Dose Ordered Sig/Nasim Route Start Time Stop Time Status Last Admin Dose Admin Acetaminophen/ Hydrocodone Bitart 1 tab Q4HP PRN PO 02/05/25 16:00 Ondansetron HCl 4 mg Q4HP PRN IV 02/05/25 16:00 Docusate Sodium 100 mg BIDPRN PRN PO 02/05/25 16:00 02/07/25 11:03 100 MG Acetaminophen 650 mg Q6HP PRN PO 02/05/25 16:00 Nitroglycerin 0.4 mg Q5MINP PRN SL 02/05/25 16:00 Morphine Sulfate 2 mg Q30M PRN IV 02/05/25 16:00 Amlodipine Besylate 10 mg DAILY PO 02/06/25 10:00 02/07/25 10:25 10 MG Atorvastatin Calcium 40 mg HS PO 02/05/25 22:00 02/06/25 21:59 40 MG Finasteride 5 mg DAILY PO 02/06/25 10:00 02/07/25 10:24 5 MG Tamsulosin HCl 0.4 mg QPM PO 02/05/25 18:00 02/06/25 18:17 0.4 MG Pantoprazole Sodium 40 mg DAILY PO 02/06/25 10:00 02/07/25 10:28 40 MG Methylprednisolone Sodium Succinate 40 mg BID IV 02/05/25 22:00 02/07/25 10:26 40 MG Ipratropium [place] 0.5 mg Q6HWA NEB 02/05/25 18:00 02/07/25 11:26 0.5 MG Albuterol 2.5 mg Q6HWA NEB 02/05/25 18:00 02/07/25 11:27 2.5 MG Furosemide 40 mg DAILY IV 02/06/25 10:00 02/07/25 10:24 40 MG Budesonide 0.5 mg BID NEB 02/06/25 22:00 02/07/25 07:11 0.5 MG Diagnostic Test (Pha) 1 strip IQ4HR 02/07/25 12:00 02/07/25 16:27 1 STRIP Insulin Human Regular IQ4HR SC 02/07/25 12:00 02/07/25 16:00 15 UNITS Dextrose 50 ml UD PRN IV 02/07/25 11:00 Glimepiride 1 mg DAILY@BREAKFAST PO 02/08/25 08:00 Insulin Glargine 15 units HS SC 02/07/25 22:00 laboratory and microbiology Laboratory Tests 02/07/25 05:40 02/06/25 04:47 Test 02/07/25 05:40 Range/Units Serum Glucose 419 #*H 74-106 mg/dL Assessment/Plan Impression Acute hypoxemic respiratory failure Recurrent pleural effusions Pulmonary fibrosis COPD CHF Patient seen and examined Events Low oxygen requirements On 2 liters nasal cannula No acute events Labs and imaging reviewed Management Supplemental oxygen Titrate to maintain sats 90% or above Incentive spirometry Bronchodilators Steroids for COPD management Continue diuresis Monitor renal function Monitor electrolytes Supplement as needed DVT prophylaxis Plan discussed with: Patient CHAPARRITA ROPER MD Feb 07, 2025 17:56
[2025-02-07] MEDS: INSULIN LANTUS (GLARGINE) 1 /0.01ml (100units/ml) SC SCH (22:15)
--- NOTE | 2025-02-07 22:21 | DVHNC2 ---
Procedure - Limited Chest US procedure note: A limited thoracic ultrasound was performed to evaluate for potential thoracentesis. Real-time imaging demonstrated trace left pleural effusion; no suitable pocket amenable for thoracentesis identified. Conclusion: The findings demonstrate no fluid amenable for thoracentesis at this time. CPT 23285-48 Visit Coding Pulmonary Billing Provider: ALBERTO BENTON MD Date of Service if different f: Feb 07, 2025 Common Visit Codes: PROCEDURE ONLY Procedure Codes: [id number] W/PUNCT (CPT 87857-13 Chest ultrasound) ALBERTO BENTON MD Feb 07, 2025 22:21
[2025-02-08] VITALS (18 sets, daily range): BP systolic 99–110; BP diastolic 64–72; PULSE 60–88; RESP 16–18; TEMP 97.3–98; O2SAT 76–97
[2025-02-08] MEDS: REGADENOSON 0.4 MG/5 ML SYRG IV ONE ×2 (09:04→09:14)
--- NOTE | 2025-02-08 09:59 | DVHPN2 ---
Progress Note - Dictate Date Seen: Feb 08, 2025 Medical Necessity Reason Pt with a Central, PICC or Fol: No vital signs Vital Sign Date Time Temp Pulse Resp B/P (MAP) Pulse Ox O2 Delivery O2 Flow Rate FiO2 02/08/25 09:00 97.7 73 18 109/72 (84) 93 97.7 02/08/25 05:06 Nasal Cannula 4.0 02/08/25 05:06 36 Total Intake and Output 02/07/25 02/07/25 02/08/25 15:00 23:00 07:00 Intake Total 800 ml 360 ml Output Total 1200 ml 800 ml Balance -400 ml -440 ml medications Current Medications Medications Dose Ordered Sig/Nasim Route Start Time Stop Time Status Last Admin Dose Admin Acetaminophen/ Hydrocodone Bitart 1 tab Q4HP PRN PO 02/05/25 16:00 Ondansetron HCl 4 mg Q4HP PRN IV 02/05/25 16:00 Docusate Sodium 100 mg BIDPRN PRN PO 02/05/25 16:00 02/07/25 11:03 100 MG Acetaminophen 650 mg Q6HP PRN PO 02/05/25 16:00 Nitroglycerin 0.4 mg Q5MINP PRN SL 02/05/25 16:00 Morphine Sulfate 2 mg Q30M PRN IV 02/05/25 16:00 Amlodipine Besylate 10 mg DAILY PO 02/06/25 10:00 02/07/25 10:25 10 MG Atorvastatin Calcium 40 mg HS PO 02/05/25 22:00 02/07/25 22:01 40 MG Finasteride 5 mg DAILY PO 02/06/25 10:00 02/07/25 10:24 5 MG Tamsulosin HCl 0.4 mg QPM PO 02/05/25 18:00 02/07/25 18:00 0.4 MG Pantoprazole Sodium 40 mg DAILY PO 02/06/25 10:00 02/07/25 10:28 40 MG Methylprednisolone Sodium Succinate 40 mg BID IV 02/05/25 22:00 02/07/25 22:01 40 MG Ipratropium [place] 0.5 mg Q6HWA NEB 02/05/25 18:00 02/08/25 07:10 0.5 MG Albuterol 2.5 mg Q6HWA NEB 02/05/25 18:00 02/08/25 07:09 2.5 MG Furosemide 40 mg DAILY IV 02/06/25 10:00 02/07/25 10:24 40 MG Budesonide 0.5 mg BID NEB 02/06/25 22:00 02/08/25 07:10 0.5 MG Diagnostic Test (Pha) 1 strip IQ4HR 02/07/25 12:00 02/08/25 04:28 1 STRIP Insulin Human Regular IQ4HR SC 02/07/25 12:00 02/08/25 00:31 2 UNITS Dextrose 50 ml UD PRN IV 02/07/25 11:00 Glimepiride 1 mg DAILY@BREAKFAST PO 02/08/25 08:00 Insulin Glargine 15 units HS SC 02/07/25 22:00 02/07/25 22:15 15 UNITS Fluticasone Propionate 50 mcg [id number] PRN EACHNOSTRI 02/07/25 23:00 laboratory and microbiology Laboratory Tests 02/07/25 05:40 02/06/25 04:47 Test 02/07/25 05:40 Range/Units Serum Glucose 419 #*H 74-106 mg/dL Assessment/Plan Impression Acute hypoxemic respiratory failure Recurrent pleural effusions Pulmonary fibrosis COPD CHF Patient seen and examined Events Low oxygen requirements On 2 liters nasal cannula No acute events Labs and imaging reviewed Management Supplemental oxygen Titrate to maintain sats 90% or above Incentive spirometry Bronchodilators Steroids for COPD management Continue diuresis Monitor renal function Monitor electrolytes Supplement as needed DVT prophylaxis Plan discussed with: Other (rn) CHAPARRITA ROPER MD Feb 08, 2025 09:59
--- NOTE | 2025-02-08 10:03 | DVHPN2 ---
Subjective Patient reports having shortness of breath with exertion. Reviewed: Care Plan, H&P, Labs, Medications, Previous Orders Changes from previous H/P or p: No Changes General: Per HPI Eyes: No Pain, No Vision change, No Conjunctivae inflammation, No Eyelid inflammation, No Other, No Redness ENT: No Ear pain, No Ear discharge, No Nose pain, No Nose discharge, No Nose congestion, No Mouth pain, No Mouth swelling, No Throat pain, No Throat swelling, No Other Cardiovascular: No Chest Pain, No Palpitations, No Orthopnea, No Paroxysmal Noc. Dyspnea; Edema (bilateral lower extremities); No Lt Headedness, No Other Respiratory: No Cough, No Dry; Shortness of breath, SOB with excertion, W heezing; No Hemoptysis; Pleuritic Pain; No Sputum, No Other Gastrointestinal: No Nausea, No Vomiting, No Abdominal Pain, No Diarrhea, No Constipation, No Melena, No Hematochezia, No Other Genitourinary: No Dysuria, No Frequency, No Incontinence, No Hematuria, No Retention, No Other Musculoskeletal: No other, No neck pain, No shoulder pain, No arm pain, No back pain, No hand pain, No leg pain, No foot pain Skin: No Rash, No Lesions, No Jaundice, No Bruising, No Other Objective Vitals Vital Signs Date Time Temp Pulse Resp B/P (MAP) Pulse Ox O2 Delivery O2 Flow Rate FiO2 02/08/25 09:00 97.7 73 18 109/72 (84) 93 97.7 02/08/25 05:06 Nasal Cannula 4.0 02/08/25 05:06 36 Intake/Output Intake and Output 02/08/25 07:00 Intake Total 1160 ml Output Total 2000 ml Balance -840 ml Intake Oral 1160 ml Output Urine Total 2000 ml # Bowel Movements 2 General Appearance: Alert, Oriented X3, Cooperative, mild distress HEENT: Atraumatic, PERRLA Lungs: Other (Bilateral crackles) Cardiovascular: Normal S1, Normal S2 Abdomen: Normal bowel sounds, Soft, No tenderness Musculoskeletal: Normal sensory function, Normal motor function Neuro: Normal speech Skin: Dry, Intact Psych/Mental Status: Mental status NL, Mood NL Medications Current Medications Medications Dose Ordered Sig/Nasim Route Start Time Stop Time Status Last Admin Dose Admin Acetaminophen/ Hydrocodone Bitart 1 tab Q4HP PRN PO 02/05/25 16:00 Ondansetron HCl 4 mg Q4HP PRN IV 02/05/25 16:00 Docusate Sodium 100 mg BIDPRN PRN PO 02/05/25 16:00 02/07/25 11:03 100 MG Acetaminophen 650 mg Q6HP PRN PO 02/05/25 16:00 Nitroglycerin 0.4 mg Q5MINP PRN SL 02/05/25 16:00 Morphine Sulfate 2 mg Q30M PRN IV 02/05/25 16:00 Amlodipine Besylate 10 mg DAILY PO 02/06/25 10:00 02/07/25 10:25 10 MG Atorvastatin Calcium 40 mg HS PO 02/05/25 22:00 02/07/25 22:01 40 MG Finasteride 5 mg DAILY PO 02/06/25 10:00 02/07/25 10:24 5 MG Tamsulosin HCl 0.4 mg QPM PO 02/05/25 18:00 02/07/25 18:00 0.4 MG Pantoprazole Sodium 40 mg DAILY PO 02/06/25 10:00 02/07/25 10:28 40 MG Methylprednisolone Sodium Succinate 40 mg BID IV 02/05/25 22:00 02/07/25 22:01 40 MG Ipratropium [place] 0.5 mg Q6HWA NEB 02/05/25 18:00 02/08/25 07:10 0.5 MG Albuterol 2.5 mg Q6HWA NEB 02/05/25 18:00 02/08/25 07:09 2.5 MG Furosemide 40 mg DAILY IV 02/06/25 10:00 02/07/25 10:24 40 MG Budesonide 0.5 mg BID NEB 02/06/25 22:00 02/08/25 07:10 0.5 MG Diagnostic Test (Pha) 1 strip IQ4HR 02/07/25 12:00 02/08/25 04:28 1 STRIP Insulin Human Regular IQ4HR SC 02/07/25 12:00 02/08/25 00:31 2 UNITS Dextrose 50 ml UD PRN IV 02/07/25 11:00 Glimepiride 1 mg DAILY@BREAKFAST PO 02/08/25 08:00 Insulin Glargine 15 units HS SC 02/07/25 22:00 02/07/25 22:15 15 UNITS Fluticasone Propionate 50 mcg [id number] PRN EACHNOSTRI 02/07/25 23:00 Laboratory Results Laboratory Tests 02/06/25 04:47 02/07/25 05:40 Urinalysis Test 02/05/25 16:10 Urine Color Colorless (Yellow) Urine Clarity Clear (Clear) Urine pH 7.5 (5.0-9.0) Urine Specific [place] 1.007 (1.001-1.035) Urine Protein Trace (Negative) H Urine Ketones Negative (Negative) Urine Blood Negative /uL (Negative) Urine Nitrite Negative (Negative) Urine Bilirubin Negative (Negative) Urine Urobilinogen Normal mg/dL (Negative) Urine Leukocyte Esterase Negative /uL (Negative) Urine RBC 1 /hpf (0 - 3) Urine Microscopic WBC /HPF (0-3) Urine Squamous Epithelial Cells None seen /hpf (<5) Urine Bacteria None seen /hpf (None Seen) Urine Glucose 3+ mg/dL (Normal) H Microbiology Microbiology Date/Time Source Procedure Growth Status 02/05/25 23:30 Nose MRSA Screen - Final Complete Labs and/or images reviewed: Labs reviewed by me, Image(s) reviewed by me Assessment/Plan Assessment/Plan Impression: -acute on chronic hypoxic respiratory failure -probable acute diastolic heart failure -pulmonary fibrosis -recurrent pleural effusions with thoracentesis -aortic stenosis -primary hypertension -hyperglycemia Plan: Events: blood glucose improvement. Thoracic ultrasound completed. Not enough fluid for a thoracentesis at this time. -cardiology consultation -stress test negative -pulmonary consultation -O2 supplementation to keep saturation greater than 90% -IV diuresis -continue bronchodilators q.6 hours, add Pulmicort b.i.d. -continue IV Solu-Medrol -start glimepiride -q4 accu-check -echocardiogram found severe pulmonary hypertension -started sildenafil -repeat labs in a.m. Total time spent with patient discussing and formulating plan of care: 35 minutes. Plan discussed with: Patient, Other (RN) Date of Service: Feb 08, 2025 Billing Provider: ASIF KWON NP Common Visit Codes: [id number] INP/OBS CARE(HIGH) PRICILA MATHIAS STUDENT COMBAT ENGINEER Feb 08, 2025 10:03
[2025-02-08] MEDS: GLIMEPIRIDE 2 MG TAB PO SCH (10:39)
[2025-02-08 11:09] LABS: Chloride 98 mmol/L (98-107); Potassium 4.5 mmol/L (3.5-5.1); Sodium 137 mmol/L (136-145)
[2025-02-08 11:10] LABS: Anion Gap 14 (5-15); Carbon Dioxide 25 mmol/L (20-31)
[2025-02-08 11:13] LABS: Calcium 9.3 mg/dL (8.7-10.4)
[2025-02-08 11:15] LABS: BUN/Creatinine Ratio 30.2 (10.0-20.0)
[2025-02-08 11:17] LABS: Blood Urea Nitrogen 38 mg/dL (9-23); Glucose 166 mg/dL (74-106)
[2025-02-08] MEDS: HYDROcodone-ACET 5/325MG TAB PO PRN (11:18)
--- NOTE | 2025-02-08 11:51 | DVHSR ---
APPROVED REPORT Exam: Nuclear Stress Test BMI: 0 Stress Test Details HR Max Heart Rate (APMHR): 138.354857 bpm Target HR (85% APMHR): 117.057999 bpm BP ECG Stress ECG Conclusion lvef 79% normal perfusion scan no ischemia NM EXAM: Myocardial Perfusion REST/STRESS Imaging Protocol: Rest Tc-99m/Stress Tc-99m 1 day Resting Data Rest SPECT myocardial perfusion imaging was performed in supine position 60 minutes following the intravenous injection of 8.0 mCi of Tc-99m Sestamibi. Time of rest injection: 07:45 Date: 02/08/2025 Time of rest imagin:45 Date: 02/08/2025 Administration Route: IV Administration Site: Left Arm Pharmacologic Stress Pharmacologic stress test was performed by injecting Regadenoson 0.4 mg IV push followed by the intravenous injection of 31.2 mCi of Tc-99m Sestamibi. Time of stress injection: 09:15 Date: 02/08/2025 Time of stress imagin:15 Date: 02/08/2025 Administration Route: IV Administration Site: Left Arm Gated Stress SPECT was performed 60 minutes after stress injection. The images were gated to evaluate regional wall motion and calculate left ventricular ejection fraction. Stress only was performed in the Supine position. Nuclear Conclusion Nuclear Findings: negative for ischemia lvef 79% normal perfusion scan no ischemia
--- NOTE | 2025-02-08 11:57 | DVHSR ---
APPROVED REPORT EXAM: Two-dimensional and M-mode echocardiogram with Doppler and color Doppler. Blood Pressure: 106/65 mmHg INDICATION Heart Failure RISK FACTORS Height: 5'7", Weight: 149 DIMENSIONS LVDd 3.7 (3.8-5.7cm) LA (2D) 3.0 (1.9-4.0cm) Aortic Root 2.8 (2.0-3.7cm) LVDs 1.8 (2.5-4.0cm) LA (MM) (1.9-4.0cm) Aortic Cusp Exc 0.5 (1.5-2.0cm) EF (%) 80.0 (55-70%) Rt. Atrium 7.0 (1.9-4.0cm) Asc. Aorta 2.9 cm IVSd 1.0 (0.7-1.1cm) RV (D) 5.0 (1.8-2.4cm) PWd 0.7 (0.7-1.1cm) Mitral Valve Mitral Mitral Stenosis E wave 0.64m/s MV Mean GR. mmHg A wave 1.03m/s MV Peak GR. mmHg E/A ratio 0.6 2D MVA cm2 DECEL Time 189ms PRESS 1/2 Time ms Aortic Valve Aortic Valve Aortic Stenosis V1 0.69m/s AO Mean GR. 18mmHg V2 2.84m/s AO Peak GR. 32mmHg LVOT Diameter 2.1 (1.8-2.4cm) Doppler ADRIANA 0.84cm2 Pulmonic Valve V2 1.87m/s Tricuspid Valve TR Velocity 4.21m/s RVSP 86mmHg Other Information Quality : Technically Limited Rhythm : Technically limited study due to body habitus. Conclusion lvef 55% moderate LVH severe RV enlargement and dysfunction severe pulm ht, pasp >85 mmhg moderate to severe tricuspid regurg aortic stenosis, moderate, mean [place] o f 18mmhg, restricted motion noted
--- NOTE | 2025-02-08 12:02 | DVHPN2 ---
Progress Note Date Seen: Feb 08, 2025 Medical Necessity Reason Pt with a Central, PICC or Fol: No Objective vital signs Vital Sign Date Time Temp Pulse Resp B/P (MAP) Pulse Ox O2 Delivery O2 Flow Rate FiO2 02/08/25 10:47 117/75 02/08/25 09:00 97.7 73 18 93 97.7 02/08/25 05:06 Nasal Cannula 4.0 02/08/25 05:06 36 Total Intake and Output 02/07/25 02/07/25 02/08/25 15:00 23:00 07:00 Intake Total 800 ml 360 ml Output Total 1200 ml 800 ml Balance -400 ml -440 ml medications Current Medications Medications Dose Ordered Sig/Nasim Route Start Time Stop Time Status Last Admin Dose Admin Acetaminophen/ Hydrocodone Bitart 1 tab Q4HP PRN PO 02/05/25 16:00 02/08/25 11:18 1 TAB Ondansetron HCl 4 mg Q4HP PRN IV 02/05/25 16:00 Docusate Sodium 100 mg BIDPRN PRN PO 02/05/25 16:00 02/07/25 11:03 100 MG Acetaminophen 650 mg Q6HP PRN PO 02/05/25 16:00 Nitroglycerin 0.4 mg Q5MINP PRN SL 02/05/25 16:00 Morphine Sulfate 2 mg Q30M PRN IV 02/05/25 16:00 Amlodipine Besylate 10 mg DAILY PO 02/06/25 10:00 02/08/25 10:47 10 MG Atorvastatin Calcium 40 mg HS PO 02/05/25 22:00 02/07/25 22:01 40 MG Finasteride 5 mg DAILY PO 02/06/25 10:00 02/08/25 10:38 5 MG Tamsulosin HCl 0.4 mg QPM PO 02/05/25 18:00 02/07/25 18:00 0.4 MG Pantoprazole Sodium 40 mg DAILY PO 02/06/25 10:00 02/08/25 10:39 40 MG Methylprednisolone Sodium Succinate 40 mg BID IV 02/05/25 22:00 02/08/25 10:39 40 MG Ipratropium [place] 0.5 mg Q6HWA NEB 02/05/25 18:00 02/08/25 11:53 0.5 MG Albuterol 2.5 mg Q6HWA NEB 02/05/25 18:00 02/08/25 11:53 2.5 MG Furosemide 40 mg DAILY IV 02/06/25 10:00 02/08/25 10:46 40 MG Budesonide 0.5 mg BID NEB 02/06/25 22:00 02/08/25 07:10 0.5 MG Diagnostic Test (Pha) 1 strip IQ4HR 02/07/25 12:00 02/08/25 04:28 1 STRIP Insulin Human Regular IQ4HR SC 02/07/25 12:00 02/08/25 00:31 2 UNITS Dextrose 50 ml UD PRN IV 02/07/25 11:00 Glimepiride 1 mg DAILY@BREAKFAST PO 02/08/25 08:00 02/08/25 10:39 1 MG Insulin Glargine 15 units HS SC 02/07/25 22:00 02/07/25 22:15 15 UNITS Fluticasone Propionate 50 mcg [id number] PRN EACHNOSTRI 02/07/25 23:00 Examination: GENERAL:Abnormal, HEENT:Abnormal, LUNGS:Abnormal, CVS:Abnormal, ABDOMEN:Abnormal laboratory and microbiology Laboratory Tests 02/08/25 10:43 02/06/25 04:47 Test 02/08/25 10:43 Range/Units Serum Glucose 166 #H 74-106 mg/dL Microbiology Date/Time Source Procedure Growth Status 02/05/25 23:30 Nose MRSA Screen - Final Complete Problem List/Assessment/Plan Problem List/Assessment/Plan 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
--- NOTE | 2025-02-08 15:14 | DVHPN2 ---
Subjective Patient continues to report having severe dyspnea on exertion Reviewed: Care Plan, H&P, Labs, Medications, Previous Orders Changes from previous H/P or p: No Changes General: Per HPI Eyes: No Pain, No Vision change, No Conjunctivae inflammation, No Eyelid inflammation, No Other, No Redness ENT: No Ear pain, No Ear discharge, No Nose pain, No Nose discharge, No Nose congestion, No Mouth pain, No Mouth swelling, No Throat pain, No Throat swelling, No Other Cardiovascular: No Chest Pain, No Palpitations, No Orthopnea, No Paroxysmal Noc. Dyspnea; Edema (bilateral lower extremities); No Lt Headedness, No Other Respiratory: No Cough, No Dry; Shortness of breath, SOB with excertion, W heezing; No Hemoptysis; Pleuritic Pain; No Sputum, No Other Gastrointestinal: No Nausea, No Vomiting, No Abdominal Pain, No Diarrhea, No Constipation, No Melena, No Hematochezia, No Other Genitourinary: No Dysuria, No Frequency, No Incontinence, No Hematuria, No Retention, No Other Musculoskeletal: No other, No neck pain, No shoulder pain, No arm pain, No back pain, No hand pain, No leg pain, No foot pain Skin: No Rash, No Lesions, No Jaundice, No Bruising, No Other Objective Vitals Vital Signs Date Time Temp Pulse Resp B/P (MAP) Pulse Ox O2 Delivery O2 Flow Rate FiO2 02/08/25 13:00 97.6 76 18 102/65 (77) 92 97.6 02/08/25 10:00 Nasal Cannula 4.0 02/08/25 10:00 36 Intake/Output Intake and Output 02/08/25 07:00 Intake Total 1160 ml Output Total 2000 ml Balance -840 ml Intake Oral 1160 ml Output Urine Total 2000 ml # Bowel Movements 2 General Appearance: Alert, Oriented X3, Cooperative, mild distress HEENT: Atraumatic, PERRLA Lungs: Other (Bilateral crackles) Cardiovascular: Normal S1, Normal S2 Abdomen: Normal bowel sounds, Soft, No tenderness Musculoskeletal: Normal sensory function, Normal motor function Neuro: Normal speech Skin: Dry, Intact Psych/Mental Status: Mental status NL, Mood NL Medications Current Medications Medications Dose Ordered Sig/Nasim Route Start Time Stop Time Status Last Admin Dose Admin Acetaminophen/ Hydrocodone Bitart 1 tab Q4HP PRN PO 02/05/25 16:00 02/08/25 11:18 1 TAB Ondansetron HCl 4 mg Q4HP PRN IV 02/05/25 16:00 Docusate Sodium 100 mg BIDPRN PRN PO 02/05/25 16:00 02/07/25 11:03 100 MG Acetaminophen 650 mg Q6HP PRN PO 02/05/25 16:00 Nitroglycerin 0.4 mg Q5MINP PRN SL 02/05/25 16:00 Morphine Sulfate 2 mg Q30M PRN IV 02/05/25 16:00 Amlodipine Besylate 10 mg DAILY PO 02/06/25 10:00 02/08/25 10:47 10 MG Atorvastatin Calcium 40 mg HS PO 02/05/25 22:00 02/07/25 22:01 40 MG Finasteride 5 mg DAILY PO 02/06/25 10:00 02/08/25 10:38 5 MG Tamsulosin HCl 0.4 mg QPM PO 02/05/25 18:00 02/07/25 18:00 0.4 MG Pantoprazole Sodium 40 mg DAILY PO 02/06/25 10:00 02/08/25 10:39 40 MG Methylprednisolone Sodium Succinate 40 mg BID IV 02/05/25 22:00 02/08/25 10:39 40 MG Ipratropium [place] 0.5 mg Q6HWA NEB 02/05/25 18:00 02/08/25 11:53 0.5 MG Albuterol 2.5 mg Q6HWA NEB 02/05/25 18:00 02/08/25 11:53 2.5 MG Furosemide 40 mg DAILY IV 02/06/25 10:00 02/08/25 10:46 40 MG Budesonide 0.5 mg BID NEB 02/06/25 22:00 02/08/25 07:10 0.5 MG Diagnostic Test (Pha) 1 strip IQ4HR 02/07/25 12:00 02/08/25 12:00 1 STRIP Insulin Human Regular IQ4HR SC 02/07/25 12:00 02/08/25 12:51 3 UNITS Dextrose 50 ml UD PRN IV 02/07/25 11:00 Glimepiride 1 mg DAILY@BREAKFAST PO 02/08/25 08:00 02/08/25 10:39 1 MG Insulin Glargine 15 units HS SC 02/07/25 22:00 02/07/25 22:15 15 UNITS Fluticasone Propionate 50 mcg [id number] PRN EACHNOSTRI 02/07/25 23:00 Sildenafil Citrate 20 mg TID@08,14,20 PO 02/08/25 20:00 UNV Laboratory Results Laboratory Tests 02/06/25 04:47 02/08/25 10:43 Chemistry Test 02/08/25 10:43 Calcium Level 9.3 mg/dL (8.7-10.4) Urinalysis Test 02/05/25 16:10 Urine Color Colorless (Yellow) Urine Clarity Clear (Clear) Urine pH 7.5 (5.0-9.0) Urine Specific [place] 1.007 (1.001-1.035) Urine Protein Trace (Negative) H Urine Ketones Negative (Negative) Urine Blood Negative /uL (Negative) Urine Nitrite Negative (Negative) Urine Bilirubin Negative (Negative) Urine Urobilinogen Normal mg/dL (Negative) Urine Leukocyte Esterase Negative /uL (Negative) Urine RBC 1 /hpf (0 - 3) Urine Microscopic WBC /HPF (0-3) Urine Squamous Epithelial Cells None seen /hpf (<5) Urine Bacteria None seen /hpf (None Seen) Urine Glucose 3+ mg/dL (Normal) H Microbiology Microbiology Date/Time Source Procedure Growth Status 02/05/25 23:30 Nose MRSA Screen - Final Complete Labs and/or images reviewed: Labs reviewed by me, Image(s) reviewed by me Assessment/Plan Assessment/Plan Impression: -acute on chronic hypoxic respiratory failure -probable acute diastolic heart failure -pulmonary fibrosis -recurrent pleural effusions with thoracentesis -aortic stenosis -primary hypertension Plan: Events: Blood sugars now controlled. Stress test within normal limits. Echocardiogram reveals severe pulmonary hypertension -start sildenafil -cardiology consultation : Recommendations reviewed -pulmonary consultation recommendations reviewed -O2 supplementation to keep saturation greater than 90% -IV diuresis -continue bronchodilators q.6 hours, add Pulmicort b.i.d. -discussed findings with the patient. All questions answered. -repeat labs in a.m. Total time spent with patient discussing and formulating plan of care: 35 minutes. This medical document was created using an electronic medical record system with [email or web address] dictation system. Although this document has been carefully reviewed, there may still be some phonetic and typographical errors. These areas are purely typographical due to imperfections of the software programs, and do not reflect any compromise in the patient's medical care. Plan discussed with: Patient, Other (RN) My Orders Orders - ASIF KWON NP Procedure Category Date Status Time Basic Metabolic Panel LAB 02/09/25 Verified 04:00 Sildenafil Citrate PHA 02/08/25 Logged (Revatio) 20:00 Date of Service: Feb 08, 2025 Billing Provider: ASIF KWON NP Common Visit Codes: [id number] INP/OBS CARE(HIGH) ASIF KWON NP Feb 08, 2025 15:14
[2025-02-08] MEDS: FLUTICASONE PROP NASAL SPR 0.05 % (50MCG) 16GM EACHNOSTRI PRN (16:45)
[2025-02-08] MEDS: SILDENAFIL CITRATE 20 MG TAB PO SCH (20:52)
[2025-02-09] VITALS (15 sets, daily range): BP systolic 93–108; BP diastolic 64–82; PULSE 76–89; RESP 16–20; TEMP 97.1–97.8; O2SAT 85–97
[2025-02-09 07:36] LABS: Chloride 103 mmol/L (98-107); Potassium 4.2 mmol/L (3.5-5.1); Sodium 140 mmol/L (136-145)
[2025-02-09 07:37] LABS: Anion Gap 10 (5-15); Carbon Dioxide 27 mmol/L (20-31)
[2025-02-09 07:43] LABS: BUN/Creatinine Ratio 28.6 (10.0-20.0)
[2025-02-09 07:44] LABS: Blood Urea Nitrogen 42 mg/dL (9-23); Calcium 8.4 mg/dL (8.7-10.4); Glucose 145 mg/dL (74-106)
--- NOTE | 2025-02-09 12:06 | DVHPN2 ---
Progress Note - Dictate Date Seen: Feb 09, 2025 Medical Necessity Reason Pt with a Central, PICC or Fol: No vital signs Vital Sign Date Time Temp Pulse Resp B/P (MAP) Pulse Ox O2 Delivery O2 Flow Rate FiO2 02/09/25 11:56 80 18 97 02/09/25 11:51 Nasal Cannula* 4 36 02/09/25 10:24 123/86 02/09/25 09:00 97.6 97.6 Total Intake and Output 02/08/25 02/08/25 02/09/25 15:00 23:00 07:00 Intake Total 650 ml 400 ml Output Total 675 ml Balance -25 ml 400 ml medications Current Medications Medications Dose Ordered Sig/Nasim Route Start Time Stop Time Status Last Admin Dose Admin Acetaminophen/ Hydrocodone Bitart 1 tab Q4HP PRN PO 02/05/25 16:00 02/09/25 04:17 1 TAB Ondansetron HCl 4 mg Q4HP PRN IV 02/05/25 16:00 Docusate Sodium 100 mg BIDPRN PRN PO 02/05/25 16:00 02/09/25 05:38 100 MG Acetaminophen 650 mg Q6HP PRN PO 02/05/25 16:00 Morphine Sulfate 2 mg Q30M PRN IV 02/05/25 16:00 Amlodipine Besylate 10 mg DAILY PO 02/06/25 10:00 02/09/25 09:59 10 MG Atorvastatin Calcium 40 mg HS PO 02/05/25 22:00 02/08/25 22:00 40 MG Finasteride 5 mg DAILY PO 02/06/25 10:00 02/09/25 09:58 5 MG Tamsulosin HCl 0.4 mg QPM PO 02/05/25 18:00 02/08/25 17:44 0.4 MG Pantoprazole Sodium 40 mg DAILY PO 02/06/25 10:00 02/09/25 09:58 40 MG Methylprednisolone Sodium Succinate 40 mg BID IV 02/05/25 22:00 02/09/25 09:58 40 MG Ipratropium [place] 0.5 mg Q6HWA NEB 02/05/25 18:00 02/09/25 11:51 0.5 MG Albuterol 2.5 mg Q6HWA NEB 02/05/25 18:00 02/09/25 11:51 2.5 MG Furosemide 40 mg DAILY IV 02/06/25 10:00 02/09/25 10:24 40 MG Budesonide 0.5 mg BID NEB 02/06/25 22:00 02/09/25 07:16 0.5 MG Diagnostic Test (Pha) 1 strip IQ4HR 02/07/25 12:00 02/09/25 11:59 1 STRIP Insulin Human Regular IQ4HR SC 02/07/25 12:00 02/09/25 08:17 3 UNITS Dextrose 50 ml UD PRN IV 02/07/25 11:00 Glimepiride 1 mg DAILY@BREAKFAST PO 02/08/25 08:00 02/09/25 08:03 1 MG Insulin Glargine 15 units HS SC 02/07/25 22:00 02/08/25 22:18 15 UNITS Fluticasone Propionate 50 mcg [id number] PRN EACHNOSTRI 02/07/25 23:00 02/08/25 16:45 50 MCG Sildenafil Citrate 20 mg TID@08,14,20 PO 02/08/25 20:00 02/09/25 08:03 20 MG laboratory and microbiology Laboratory Tests 02/09/25 06:16 02/06/25 04:47 Test 02/09/25 06:16 Range/Units Serum Glucose 145 H 74-106 mg/dL Assessment/Plan Impression Acute hypoxemic respiratory failure Recurrent pleural effusions Pulmonary fibrosis COPD CHF Patient seen and examined Events Low oxygen requirements On 2 liters nasal cannula No distress S/p thoracentesis Labs and imaging reviewed CT of the chest from 2022 shows honeycombing Management Supplemental oxygen Titrate to maintain sats 90% or above Incentive spirometry Bronchodilators Steroids for COPD management Continue diuresis Monitor renal function Monitor electrolytes Supplement as needed Obtain chest x-ray in AM DVT prophylaxis Plan discussed with: Patient CHAPARRITA ROPER MD Feb 09, 2025 12:06
--- NOTE | 2025-02-09 12:15 | DVHPN2 ---
Reviewed: Care Plan, H&P, Labs, Medications, Previous Orders Changes from previous H/P or p: No Changes General: Per HPI Eyes: No Pain, No Vision change, No Conjunctivae inflammation, No Eyelid inflammation, No Other, No Redness ENT: No Ear pain, No Ear discharge, No Nose pain, No Nose discharge, No Nose congestion, No Mouth pain, No Mouth swelling, No Throat pain, No Throat swelling, No Other Cardiovascular: No Chest Pain, No Palpitations, No Orthopnea, No Paroxysmal Noc. Dyspnea; Edema (bilateral lower extremities); No Lt Headedness, No Other Respiratory: No Cough, No Dry; Shortness of breath, SOB with excertion, W heezing; No Hemoptysis; Pleuritic Pain; No Sputum, No Other Gastrointestinal: No Nausea, No Vomiting, No Abdominal Pain, No Diarrhea, No Constipation, No Melena, No Hematochezia, No Other Genitourinary: No Dysuria, No Frequency, No Incontinence, No Hematuria, No Retention, No Other Musculoskeletal: No other, No neck pain, No shoulder pain, No arm pain, No back pain, No hand pain, No leg pain, No foot pain Skin: No Rash, No Lesions, No Jaundice, No Bruising, No Other Objective Vitals Vital Signs Date Time Temp Pulse Resp B/P (MAP) Pulse Ox O2 Delivery O2 Flow Rate FiO2 02/09/25 11:56 80 18 97 02/09/25 11:51 Nasal Cannula* 4 36 02/09/25 10:24 123/86 02/09/25 09:00 97.6 97.6 Intake/Output Intake and Output 02/09/25 07:00 Intake Total 1050 ml Output Total 675 ml Balance 375 ml Intake Oral 1050 ml Output Urine Total 675 ml General Appearance: Alert, Oriented X3, Cooperative, mild distress HEENT: Atraumatic, PERRLA Lungs: Other (Bilateral crackles) Cardiovascular: Normal S1, Normal S2 Abdomen: Normal bowel sounds, Soft, No tenderness Musculoskeletal: Normal sensory function, Normal motor function Neuro: Normal speech Skin: Dry, Intact Psych/Mental Status: Mental status NL, Mood NL Medications Current Medications Medications Dose Ordered Sig/Nasim Route Start Time Stop Time Status Last Admin Dose Admin Acetaminophen/ Hydrocodone Bitart 1 tab Q4HP PRN PO 02/05/25 16:00 02/09/25 04:17 1 TAB Ondansetron HCl 4 mg Q4HP PRN IV 02/05/25 16:00 Docusate Sodium 100 mg BIDPRN PRN PO 02/05/25 16:00 02/09/25 05:38 100 MG Acetaminophen 650 mg Q6HP PRN PO 02/05/25 16:00 Morphine Sulfate 2 mg Q30M PRN IV 02/05/25 16:00 Amlodipine Besylate 10 mg DAILY PO 02/06/25 10:00 02/09/25 09:59 10 MG Atorvastatin Calcium 40 mg HS PO 02/05/25 22:00 02/08/25 22:00 40 MG Finasteride 5 mg DAILY PO 02/06/25 10:00 02/09/25 09:58 5 MG Tamsulosin HCl 0.4 mg QPM PO 02/05/25 18:00 02/08/25 17:44 0.4 MG Pantoprazole Sodium 40 mg DAILY PO 02/06/25 10:00 02/09/25 09:58 40 MG Methylprednisolone Sodium Succinate 40 mg BID IV 02/05/25 22:00 02/09/25 09:58 40 MG Ipratropium [place] 0.5 mg Q6HWA NEB 02/05/25 18:00 02/09/25 11:51 0.5 MG Albuterol 2.5 mg Q6HWA NEB 02/05/25 18:00 02/09/25 11:51 2.5 MG Furosemide 40 mg DAILY IV 02/06/25 10:00 02/09/25 10:24 40 MG Budesonide 0.5 mg BID NEB 02/06/25 22:00 02/09/25 07:16 0.5 MG Diagnostic Test (Pha) 1 strip IQ4HR 02/07/25 12:00 02/09/25 11:59 1 STRIP Insulin Human Regular IQ4HR SC 02/07/25 12:00 02/09/25 08:17 3 UNITS Dextrose 50 ml UD PRN IV 02/07/25 11:00 Glimepiride 1 mg DAILY@BREAKFAST PO 02/08/25 08:00 02/09/25 08:03 1 MG Insulin Glargine 15 units HS SC 02/07/25 22:00 02/08/25 22:18 15 UNITS Fluticasone Propionate 50 mcg [id number] PRN EACHNOSTRI 02/07/25 23:00 02/08/25 16:45 50 MCG Sildenafil Citrate 20 mg TID@08,14,20 PO 02/08/25 20:00 02/09/25 08:03 20 MG Laboratory Results Laboratory Tests 02/06/25 04:47 02/09/25 06:16 Chemistry Test 02/09/25 06:16 Calcium Level 8.4 mg/dL (8.7-10.4) L Urinalysis Test 02/05/25 16:10 Urine Color Colorless (Yellow) Urine Clarity Clear (Clear) Urine pH 7.5 (5.0-9.0) Urine Specific [place] 1.007 (1.001-1.035) Urine Protein Trace (Negative) H Urine Ketones Negative (Negative) Urine Blood Negative /uL (Negative) Urine Nitrite Negative (Negative) Urine Bilirubin Negative (Negative) Urine Urobilinogen Normal mg/dL (Negative) Urine Leukocyte Esterase Negative /uL (Negative) Urine RBC 1 /hpf (0 - 3) Urine Microscopic WBC /HPF (0-3) Urine Squamous Epithelial Cells None seen /hpf (<5) Urine Bacteria None seen /hpf (None Seen) Urine Glucose 3+ mg/dL (Normal) H Microbiology Microbiology Date/Time Source Procedure Growth Status 02/05/25 23:30 Nose MRSA Screen - Final Complete Labs and/or images reviewed: Labs reviewed by me, Image(s) reviewed by me Assessment/Plan Assessment/Plan Covering for nurse practitioner Goyo Parra acute on chronic hypoxic respiratory failure -probable acute diastolic heart failure -pulmonary fibrosis -recurrent pleural effusions with thoracentesis -aortic stenosis -primary hypertension Time spent 55 minutes Plan discussed with: Patient Date of Service: Feb 09, 2025 Billing Provider: AGNES OMALLEY MD Common Visit Codes: [id number] INP/OBS CARE(HIGH) AGNES OMALLEY MD Feb 09, 2025 12:15
[2025-02-10] VITALS (15 sets, daily range): BP systolic 106–117; BP diastolic 67–73; PULSE 76–95; RESP 16–20; TEMP 97.4–98.1; O2SAT 90–98
--- NOTE | 2025-02-10 06:44 | DVH ---
MEDICAL RECORDS NUMBER: [id number] PROCEDURE: XY CHEST PORTABLE DATE: 02/10/2025 05:29 AM HISTORY: pleural effusions Views:1 COMPARISON: XY CHEST XRAY 1 VIEW on DOS: 02/05/25, XY CHEST PORTABLE on DOS: 01/12/24, CT CT ANGIO CHEST CONTRAST on DOS: 08/13/22, XY CHEST PORTABLE on DOS: 08/13/22, CT CHEST WITHOUT CONTRAST on DOS: 06/27/22 FINDINGS/IMPRESSION: Lungs: Extensive bilateral infiltrates are suspected of the lungs. No large consolidation or effusion is seen. Underlying chronic lung changes are suspected. Mediastinum: Mediastinal structures appear unremarkable... Skeletal: The skeletal structures appear unremarkable.
--- NOTE | 2025-02-10 11:24 | DVHPN2 ---
Reviewed: Care Plan, H&P, Labs, Medications, Previous Orders Changes from previous H/P or p: No Changes General: Per HPI Eyes: No Pain, No Vision change, No Conjunctivae inflammation, No Eyelid inflammation, No Other, No Redness ENT: No Ear pain, No Ear discharge, No Nose pain, No Nose discharge, No Nose congestion, No Mouth pain, No Mouth swelling, No Throat pain, No Throat swelling, No Other Cardiovascular: No Chest Pain, No Palpitations, No Orthopnea, No Paroxysmal Noc. Dyspnea; Edema (bilateral lower extremities); No Lt Headedness, No Other Respiratory: No Cough, No Dry; Shortness of breath, SOB with excertion, W heezing; No Hemoptysis; Pleuritic Pain; No Sputum, No Other Gastrointestinal: No Nausea, No Vomiting, No Abdominal Pain, No Diarrhea, No Constipation, No Melena, No Hematochezia, No Other Genitourinary: No Dysuria, No Frequency, No Incontinence, No Hematuria, No Retention, No Other Musculoskeletal: No other, No neck pain, No shoulder pain, No arm pain, No back pain, No hand pain, No leg pain, No foot pain Skin: No Rash, No Lesions, No Jaundice, No Bruising, No Other Objective Vitals Vital Signs Date Time Temp Pulse Resp B/P (MAP) Pulse Ox O2 Delivery O2 Flow Rate FiO2 02/10/25 09:00 97.9 87 16 117/70 (86) 94 97.9 02/10/25 08:00 Nasal Cannula* 4 36 Intake/Output Intake and Output 02/10/25 07:00 Intake Total 1000 ml Output Total 425 ml Balance 575 ml Intake Oral 1000 ml Output Urine Total 425 ml # Voids 2 General Appearance: Alert, Oriented X3, Cooperative, mild distress HEENT: Atraumatic, PERRLA Lungs: Other (Bilateral crackles) Cardiovascular: Normal S1, Normal S2 Abdomen: Normal bowel sounds, Soft, No tenderness Musculoskeletal: Normal sensory function, Normal motor function Neuro: Normal speech Skin: Dry, Intact Psych/Mental Status: Mental status NL, Mood NL Medications Current Medications Medications Dose Ordered Sig/Nasim Route Start Time Stop Time Status Last Admin Dose Admin Acetaminophen/ Hydrocodone Bitart 1 tab Q4HP PRN PO 02/05/25 16:00 02/09/25 22:11 1 TAB Ondansetron HCl 4 mg Q4HP PRN IV 02/05/25 16:00 Docusate Sodium 100 mg BIDPRN PRN PO 02/05/25 16:00 02/09/25 14:58 100 MG Acetaminophen 650 mg Q6HP PRN PO 02/05/25 16:00 Morphine Sulfate 2 mg Q30M PRN IV 02/05/25 16:00 Amlodipine Besylate 10 mg DAILY PO 02/06/25 10:00 02/10/25 08:45 10 MG Atorvastatin Calcium 40 mg HS PO 02/05/25 22:00 02/09/25 21:54 40 MG Finasteride 5 mg DAILY PO 02/06/25 10:00 02/10/25 08:44 5 MG Tamsulosin HCl 0.4 mg QPM PO 02/05/25 18:00 02/09/25 16:47 0.4 MG Pantoprazole Sodium 40 mg DAILY PO 02/06/25 10:00 02/10/25 08:44 40 MG Methylprednisolone Sodium Succinate 40 mg BID IV 02/05/25 22:00 02/10/25 08:48 40 MG Ipratropium [place] 0.5 mg Q6HWA [facility] 02/05/25 18:00 02/10/25 06:21 0.5 MG Albuterol 2.5 mg Q6HWA NEB 02/05/25 18:00 02/10/25 06:21 2.5 MG Furosemide 40 mg DAILY IV 02/06/25 10:00 02/10/25 08:47 40 MG Budesonide 0.5 mg BID NEB 02/06/25 22:00 02/10/25 06:21 0.5 MG Diagnostic Test (Pha) 1 strip IQ4HR 02/07/25 12:00 02/10/25 08:00 1 STRIP Insulin Human Regular IQ4HR SC 02/07/25 12:00 02/10/25 09:21 6 UNITS Dextrose 50 ml UD PRN IV 02/07/25 11:00 Glimepiride 1 mg DAILY@BREAKFAST PO 02/08/25 08:00 02/10/25 08:45 1 MG Insulin Glargine 15 units HS SC 02/07/25 22:00 02/09/25 22:09 15 UNITS Fluticasone Propionate 50 mcg [id number] PRN EACHNOSTRI 02/07/25 23:00 02/10/25 00:53 50 MCG Sildenafil Citrate 20 mg TID@08,14,20 PO 02/08/25 20:00 02/10/25 08:44 20 MG Laboratory Results Laboratory Tests 02/06/25 04:47 02/09/25 06:16 Urinalysis Test 02/05/25 16:10 Urine Color Colorless (Yellow) Urine Clarity Clear (Clear) Urine pH 7.5 (5.0-9.0) Urine Specific [place] 1.007 (1.001-1.035) Urine Protein Trace (Negative) H Urine Ketones Negative (Negative) Urine Blood Negative /uL (Negative) Urine Nitrite Negative (Negative) Urine Bilirubin Negative (Negative) Urine Urobilinogen Normal mg/dL (Negative) Urine Leukocyte Esterase Negative /uL (Negative) Urine RBC 1 /hpf (0 - 3) Urine Microscopic WBC /HPF (0-3) Urine Squamous Epithelial Cells None seen /hpf (<5) Urine Bacteria None seen /hpf (None Seen) Urine Glucose 3+ mg/dL (Normal) H Microbiology Microbiology Date/Time Source Procedure Growth Status 02/05/25 23:30 Nose MRSA Screen - Final Complete Labs and/or images reviewed: Labs reviewed by me, Image(s) reviewed by me Assessment/Plan Assessment/Plan Covering for nurse practitioner Goyo Parra acute on chronic hypoxic respiratory failure oxygen by nasal cannula -probable acute diastolic heart failure on Lasix -pulmonary fibrosis -recurrent pleural effusions with thoracentesis -aortic stenosis -primary hypertension Time spent 56 minutes Plan discussed with: Patient Date of Service: Feb 10, 2025 Billing Provider: AGNES OMALLEY MD Common Visit Codes: [id number] INP/OBS CARE(HIGH) AGNES OMALLEY MD Feb 10, 2025 11:24
--- NOTE | 2025-02-10 17:44 | DVHPN2 ---
Progress Note - Dictate Date Seen: Feb 10, 2025 Medical Necessity Reason Pt with a Central, PICC or Fol: No vital signs Vital Sign Date Time Temp Pulse Resp B/P (MAP) Pulse Ox O2 Delivery O2 Flow Rate FiO2 02/10/25 16:49 97.4 95 20 116/72 (87) 96 97.4 02/10/25 11:27 Nasal Cannula* 4 36 Total Intake and Output 02/09/25 02/09/25 02/10/25 15:00 23:00 07:00 Intake Total 520 ml 480 ml Output Total 425 ml Balance 520 ml 55 ml medications Current Medications Medications Dose Ordered Sig/Nasim Route Start Time Stop Time Status Last Admin Dose Admin Acetaminophen/ Hydrocodone Bitart 1 tab Q4HP PRN PO 02/05/25 16:00 02/10/25 12:32 1 TAB Ondansetron HCl 4 mg Q4HP PRN IV 02/05/25 16:00 Docusate Sodium 100 mg BIDPRN PRN PO 02/05/25 16:00 02/09/25 14:58 100 MG Acetaminophen 650 mg Q6HP PRN PO 02/05/25 16:00 Morphine Sulfate 2 mg Q30M PRN IV 02/05/25 16:00 Amlodipine Besylate 10 mg DAILY PO 02/06/25 10:00 02/10/25 08:45 10 MG Atorvastatin Calcium 40 mg HS PO 02/05/25 22:00 02/09/25 21:54 40 MG Finasteride 5 mg DAILY PO 02/06/25 10:00 02/10/25 08:44 5 MG Tamsulosin HCl 0.4 mg QPM PO 02/05/25 18:00 02/10/25 17:22 0.4 MG Pantoprazole Sodium 40 mg DAILY PO 02/06/25 10:00 02/10/25 08:44 40 MG Methylprednisolone Sodium Succinate 40 mg BID IV 02/05/25 22:00 02/10/25 08:48 40 MG Ipratropium [place] 0.5 mg Q6HWA NEB 02/05/25 18:00 02/10/25 11:27 0.5 MG Albuterol 2.5 mg Q6HWA NEB 02/05/25 18:00 02/10/25 11:27 2.5 MG Furosemide 40 mg DAILY IV 02/06/25 10:00 02/10/25 08:47 40 MG Budesonide 0.5 mg BID NEB 02/06/25 22:00 02/10/25 06:21 0.5 MG Diagnostic Test (Pha) 1 strip IQ4HR 02/07/25 12:00 02/10/25 15:50 1 STRIP Insulin Human Regular IQ4HR SC 02/07/25 12:00 02/10/25 15:50 6 UNITS Dextrose 50 ml UD PRN IV 02/07/25 11:00 Glimepiride 1 mg DAILY@BREAKFAST PO 02/08/25 08:00 02/10/25 08:45 1 MG Insulin Glargine 15 units HS SC 02/07/25 22:00 02/09/25 22:09 15 UNITS Fluticasone Propionate 50 mcg [id number] PRN EACHNOSTRI 02/07/25 23:00 02/10/25 00:53 50 MCG Sildenafil Citrate 20 mg TID@08,14,20 PO 02/08/25 20:00 02/10/25 14:46 20 MG laboratory and microbiology Laboratory Tests 02/09/25 06:16 02/06/25 04:47 Test 02/09/25 06:16 Range/Units Serum Glucose 145 H 74-106 mg/dL Assessment/Plan Impression Acute hypoxemic respiratory failure Recurrent pleural effusions Pulmonary fibrosis COPD CHF Patient seen and examined Events Low oxygen requirements On 2 liters nasal cannula No distress S/p thoracentesis Labs and imaging reviewed CT of the chest from 2022 shows honeycombing Management Supplemental oxygen Titrate to maintain sats 90% or above Incentive spirometry Bronchodilators Steroids for COPD management Continue diuresis Monitor renal function Monitor electrolytes Supplement as needed Obtain chest x-ray in AM DVT prophylaxis Plan discussed with: Patient CHAPARRITA ROPER MD Feb 10, 2025 17:44
[2025-02-11] VITALS (11 sets, daily range): BP systolic 107–127; BP diastolic 64–76; PULSE 82–96; RESP 14–18; TEMP 36.4; O2SAT 92–99
--- NOTE | 2025-02-11 10:36 | ECG ---
[facility] Test Date: 2025-02-05 Test Time: 11:28:17 Pat Name: ZAIDA NIELSEN Department: [facility] ED Room: 0294T B Gender: M [employer] Associate: [employer]OE[employer] : 1940 Requested By: MORIAH WOLFE Order Number: [id number] Reading MD: Adrien Garrido Measurements Intervals [place] Rate: 85 P: 55 OK: 153 QRS: 151 QRSD: 102 T: 31 QT: 407 QTc: 484 Interpretive Statements Sinus rhythm Probable left atrial enlargement Right ventricular hypertrophy Borderline prolonged QT interval Electronically Signed On 02-12-2025 17:36:13 PST by Adrien Garrido Please click the below link to view image of tracing.
--- NOTE | 2025-02-11 13:07 | DVHDS2 ---
Discharge Summary Date of Admission Feb 05, 2025 at 15:59 Date of Discharge: Feb 11, 2025 Admitting Diagnosis Acute on chronic respiratory failure Labs/Diagnostic Data: Laboratory Results Test 02/11/25 11:07 02/09/25 06:16 02/07/25 04:47 02/06/25 04:47 POC Glucose 329 mg/dl (70-106) Sodium Level 140 mmol/L (136-145) Potassium Level 4.2 mmol/L (3.5-5.1) Chloride Level 103 mmol/L (98-107) Carbon Dioxide Level 27 mmol/L (20-31) Anion Gap 10 (5-15) Blood Urea Nitrogen 42 mg/dL (9-23) Creatinine 1.47 mg/dL (0.700-1.30) Glomerular Filtration Rate Calc 47 mL/min (>90) BUN/Creatinine Ratio 28.6 (10.0-20.0) Serum Glucose 145 mg/dL (74-106) Calcium Level 8.4 mg/dL (8.7-10.4) B-Type Natriuretic Peptide 1755.88 pg/mL (0-100) White Blood Count 5.1 10^3/uL (4.4-10.8) Red Blood Count 4.83 10^6/uL (4.5-5.90) Hemoglobin 11.1 g/dL (13.5-17.5) Hematocrit 35.4 % (41.0-53.0) Mean Corpuscular Volume 73.3 fL (80.0-100.0) Mean Corpuscular Hemoglobin 23.0 pg (28.0-32.0) Mean Corpuscular Hemoglobin Concent 31.4 g/dL (32.0-36.0) Red Cell Distribution Width 19.2 % (11.8-14.3) Platelet Count 145 10^3/uL (140-450) Mean Platelet Volume 9.1 fL (6.9-10.8) Neutrophils (%) (Auto) 95.1 % (37.0-80.0) Lymphocytes (%) (Auto) 2.9 % (10.0-50.0) Monocytes (%) (Auto) 1.4 % (0.0-12.0) Eosinophils (%) (Auto) 0.1 % (0.0-7.0) Basophils (%) (Auto) 0.5 % (0.0-2.0) Neutrophils # (Auto) 4.9 10 ^3/uL (1.6-8.6) Lymphocytes # (Auto) 0.1 10 ^3/uL (0.4-5.4) Monocytes # (Auto) 0.1 10 ^3/uL (0-1.3) Eosinophils # (Auto) 0 10 ^3/uL (0-0.8) Basophils # (Auto) 0 10 ^3/uL (0-0.2) Nucleated Red Blood Cells 0.0 % Total Bilirubin 0.7 mg/dL (0.2-1.0) Aspartate Amino Transferase (AST) 23 U/L (13-40) Alanine Aminotransferase (ALT) 20 U/L (7-40) Alkaline Phosphatase 244 U/L (46-116) Total Protein 6.0 g/dL (5.7-8.2) Albumin 3.8 g/dL (3.2-4.8) Test 02/05/25 16:10 02/05/25 11:55 Urine Color Colorless (Yellow) Urine Clarity Clear (Clear) Urine pH 7.5 (5.0-9.0) Urine Specific [place] 1.007 (1.001-1.035) Urine Protein Trace (Negative) Urine Ketones Negative (Negative) Urine Blood Negative /uL (Negative) Urine Nitrite Negative (Negative) Urine Bilirubin Negative (Negative) Urine Urobilinogen Normal mg/dL (Negative) Urine Leukocyte Esterase Negative /uL (Negative) Urine RBC 1 /hpf (0 - 3) Urine Microscopic WBC /HPF (0-3) Urine Squamous Epithelial Cells None seen /hpf (<5) Urine Bacteria None seen /hpf (None Seen) Urine Glucose 3+ mg/dL (Normal) Troponin I High Sensitivity 17 ng/L (</=54) Other Laboratory Tests 02/09/25 06:16 02/06/25 04:47 Brief Hx & Hospital Course: History of Present Illness Remington MyersMelvin is an 84-year-old male with past medical history of CHF, COPD, pulmonary fibrosis, home oxygen use at 6-8L, hypertension, diabetes, hyperlipidemia, and BPH, who came to the hospital for shortness of breath. Patient follows with Dr. Williamson for pulmonology. He has had 3 thoracentesis in the last month in his office. He was told to come to the ER if his shortness of breath every worsens. Patient was seen here in December 2024 Course of hospitalization: Patient had pulmonary consultation with repeat ultrasound of the lungs, negative for thoracentesis at this time given amount of fluid. Patient also had cardiology consultation given his history of aortic stenosis on previous echocardiogram. Patient had repeat echocardiogram which revealed severe right ventricular systolic pressure/pulmonary hypertension. Patient was started on sildenafil with mild improvement with the patient's respiratory status. He was also treated with IV Solu-Medrol, ICS, bronchodilators while in the hospital. Today, his symptoms have improved dramatically. He is ready to be discharged home. He is instructed to follow up with his PCP in 1-2 weeks as [address] as Dr[address] Williamson, pulmonology within 1-2 weeks. He will be continued on sildenafil 20 mg p.o. t.i.d., with further follow up with pulmonology for titration of the medication. He is agreeable with discharge plan. All questions answered. Physical examination General: Alert and Oriented x3. No acute distress. Well-nourished. Eyes: EOMI. Anicteric. HENT: Moist mucous membranes. Lungs: Clear to auscultation bilaterally. No accessory muscle use. Cardiovascular: Regular rate and rhythm. No murmur. No JVD. Abdomen: Soft, non-tender and non-distended. No palpable masses. Extremities: No edema. Non-tender. Skin: No rashes or lesions. Warm. Neurologic: No focal neurological deficits. CN II-XII grossly intact, but not individually tested. Psychiatric: Cooperative. Appropriate mood and affect. Total time spent with patient discussing and formulating plan of care: 35 minutes. This medical document was created using an electronic medical record system with [employer] dictation system. Although this document has been carefully reviewed, there may still be some phonetic and typographical errors. These areas are purely typographical due to imperfections of the software programs, and do not reflect any compromise in the patient's medical care. Consults/Reason for consult Pulmonology: Acute on chronic respiratory failure, pulmonary fibrosis Cardiology: Rule out ACS, aortic stenosis Condition at Discharge: Guarded Final Diagnosis/Problems List Acute On chronic respiratory failure Severe pulmonary hypertension -acute on chronic hypoxic respiratory failure -probable acute diastolic heart failure -pulmonary fibrosis -recurrent pleural effusions with thoracentesis -aortic stenosis -primary hypertension Discharge Disposition: Home Discharge Instruct/Medications Diet: Consistent carbohydrate, Cardiac 2g Na,low cholest Activity: No Restrictions, As Tolerated Follow Up/Referral: With PCP in 1-2 weeks Follow up with Dr. Williamson Medications: Continue all previous home medications Sildenafil 20 mg p.o. t.i.d. for pulmonary hypertension Scheduled Amlodipine Besylate (Amlodipine Besylate), 1 TAB PO DAILY, (Reported) Atorvastatin Calcium (Atorvastatin Calcium), 1 TAB PO HS, (Reported) Finasteride (Finasteride), 1 TAB PO DAILY, (Reported) Pgiiuzgmobs-Fvcuivmcgkdl-Kepik (Trelegy Ellipta 200-62.5-25 Mcg/INH), 1 PUFF INH DAILY, (Reported) Furosemide (Lasix), 1 TAB PO DAILY Glimepiride (Glimepiride), 1 MG PO BID, (Reported) Metformin Hydrochloride (Metformin Hcl), 1 TAB PO BID, (Reported) Mirtazapine (Mirtazapine Oral Disintegrating Tablet), 1 TAB PO BID, (Reported) Multiple Vitamin (Multivitamins), 1 TAB PO DAILY, (Reported) Omeprazole ([facility]vs Omeprazole Odt), 20 MG PO DAILY, (Reported) Tamsulosin Hcl (Tamsulosin Hcl), 0.4 MG PO HS, (Reported) Scheduled PRN Ipratropium-Albuterol (Ipratropium [place]/Albut), 1 CON IN Q4HPRN PRN Miscellaneous Medications Dapagliflozin Propanediol (Farxiga), 10 MG PO, (Reported) Discontinued Medications Levofloxacin Hemihydrate (Levofloxacin), 1 TAB PO DAILY Omeprazole Magnesium (Omeprazole), 40 MG PO DAILY, (Reported) 36 Discharge Statement: "Patient was advised to return to the ER or call 911 if any headaches, dizziness, shortness of breath, chest pain, abdominal pain, bleeding, fevers, or worsening of medical condition. Patient was counseled about treatment plan, medications, possible side effects, patientverbalized understanding. All questions were answered to the best of my ability. This discharge took greater then 30 minutes in planning, reviewing documentation, counseling the patient, and discussing with other team members." ASSESSMENT ASSESSMENT Assessment Acute On chronic respiratory failure Severe pulmonary hypertension Date of Service: Feb 11, 2025 Billing Provider: ASIF KWON NP Common Visit Codes: 02896-SCT/OBS DISCH DAY >30min ASIF KWON NP Feb 11, 2025 13:07
[2025-02-11] MEDS ORDERED: SILD20TA PO (15:19)
--- NOTE | 2025-02-11 17:54 | DVHPN2 ---
Progress Note - Dictate Date Seen: Feb 11, 2025 Medical Necessity Reason Pt with a Central, PICC or Fol: No vital signs Vital Sign Date Time Temp Pulse Resp B/P (MAP) Pulse Ox O2 Delivery O2 Flow Rate FiO2 02/11/25 13:51 36.4 02/11/25 13:17 88 14 93 02/11/25 13:00 113/64 (80) 02/11/25 11:43 4.0 02/11/25 10:00 Nasal Cannula* 36 Total Intake and Output 02/10/25 02/10/25 02/11/25 15:00 23:00 07:00 Intake Total 720 ml 840 ml Output Total 1175 ml 600 ml Balance -455 ml 240 ml medications Current Medications Medications Dose Ordered Sig/Nasim Route Start Time Stop Time Status Last Admin Dose Admin Acetaminophen/ Hydrocodone Bitart 1 tab Q4HP PRN PO 02/05/25 16:00 02/10/25 12:32 1 TAB Ondansetron HCl 4 mg Q4HP PRN IV 02/05/25 16:00 Docusate Sodium 100 mg BIDPRN PRN PO 02/05/25 16:00 02/09/25 14:58 100 MG Acetaminophen 650 mg Q6HP PRN PO 02/05/25 16:00 Morphine Sulfate 2 mg Q30M PRN IV 02/05/25 16:00 Amlodipine Besylate 10 mg DAILY PO 02/06/25 10:00 02/11/25 08:03 10 MG Atorvastatin Calcium 40 mg HS PO 02/05/25 22:00 02/10/25 21:58 40 MG Finasteride 5 mg DAILY PO 02/06/25 10:00 02/11/25 08:06 5 MG Tamsulosin HCl 0.4 mg QPM PO 02/05/25 18:00 02/10/25 17:22 0.4 MG Pantoprazole Sodium 40 mg DAILY PO 02/06/25 10:00 02/11/25 08:02 40 MG Methylprednisolone Sodium Succinate 40 mg BID IV 02/05/25 22:00 02/11/25 07:57 40 MG Ipratropium [place] 0.5 mg Q6HWA NEB 02/05/25 18:00 02/11/25 12:23 0.5 MG Albuterol 2.5 mg Q6HWA NEB 02/05/25 18:00 02/11/25 12:23 2.5 MG Furosemide 40 mg DAILY IV 02/06/25 10:00 02/11/25 07:56 40 MG Budesonide 0.5 mg BID NEB 02/06/25 22:00 02/11/25 13:16 0.5 MG Diagnostic Test (Pha) 1 strip IQ4HR 02/07/25 12:00 02/11/25 11:16 1 STRIP Insulin Human Regular IQ4HR SC 02/07/25 12:00 02/11/25 11:18 12 UNITS Dextrose 50 ml UD PRN IV 02/07/25 11:00 Glimepiride 1 mg DAILY@BREAKFAST PO 02/08/25 08:00 02/11/25 08:05 1 MG Insulin Glargine 15 units HS SC 02/07/25 22:00 02/10/25 22:00 15 UNITS Fluticasone Propionate 50 mcg [id number] PRN EACHNOSTRI 02/07/25 23:00 02/10/25 00:53 50 MCG Sildenafil Citrate 20 mg TID@08,14,20 PO 02/08/25 20:00 02/11/25 08:02 20 MG laboratory and microbiology Laboratory Tests 02/09/25 06:16 02/06/25 04:47 Test 02/09/25 06:16 Range/Units Serum Glucose 145 H 74-106 mg/dL Assessment/Plan Impression Acute hypoxemic respiratory failure Recurrent pleural effusions Pulmonary fibrosis COPD CHF Patient seen and examined Events Low oxygen requirements On 2 liters nasal cannula No acute events S/p thoracentesis Labs and imaging reviewed Management Supplemental oxygen Titrate to maintain sats 90% or above Incentive spirometry Bronchodilators Steroids for COPD management Continue diuresis Monitor renal function Monitor electrolytes Supplement as needed Okay to discharge from pulmonary standpoint DVT prophylaxis Plan discussed with: Patient CHAPARRITA ROPER MD Feb 11, 2025 17:54
== END 2025-02-11 15:00 | disposition home or self-care (01) | DRG 291 ==
LOC: ER 11:17 → EDBD 11:17 → OVERFLOW 15:59 → TELE-WESTW 23:56
PROVIDERS: ADMIT Nurse Practitioner Acute Care; ATTEND Nurse Practitioner Acute Care
DX: I11.0 Hypertensive heart disease with heart failure (principal); I50.31 Acute diastolic (congestive) heart failure; J96.21 Acute and chronic respiratory failure with hypoxia; J91.8 Pleural effusion in other conditions classified elsewhere; I27.20 Pulmonary hypertension, unspecified; J44.9 Chronic obstructive pulmonary disease, unspecified; I35.0 Nonrheumatic aortic (valve) stenosis; E11.65 Type 2 diabetes mellitus with hyperglycemia; J84.10 Pulmonary fibrosis, unspecified; E78.5 Hyperlipidemia, unspecified; N40.0 Benign prostatic hyperplasia without lower urinary tract symptoms; Z83.3 Family history of diabetes mellitus; Z88.0 Allergy status to penicillin; Z99.81 Dependence on supplemental oxygen
CPT/HCPCS: 36415; 71045; 78452; 80048; 80053; 81001; 82962; 83880; 84484; 85025; 87081; 93005; 93017; 93306; 94640; 96374; 97110; 97116; 97163; 97530; G0378; J1815

== ENCOUNTER 2025-02-24 05:41 | Inpatient (IN) | payer MEDICARE, MEDICAID ==
[~2025-02-24] VITALS: Ht 165.1 cm; Wt 68.6 kg
[~2025-02-24 05:41] MED LIST changes: +FIN5T PO; +FLUT1AER17 INH; -LEVO750T40 PO; +OMEP-411 PO; -OMEP-434 PO; +SILD20TA PO; +TAMS0.4C39 PO
--- NOTE | 2025-02-24 06:38 | ED.PDOC ---
SOB-HPI HPI Comments 85-year-old male brought in by ambulance presents to the emergency department with chief complaint of shortness of breath. EMS reports, patient is coming from home where he complains of a worsening shortness of breath onset, x2 days ago. Per EMS upon arrival to the scene patient was starting at 80% on 3 L NC; patient was placed on 6 L NC and given a breathing treatment in route to the emergency department. Upon arrival to the emergency department patient's oxygen saturation has improved to 90%. Chief Complaint: Shortness of Breath Time Seen by MD: 06:00 Primary Care Provider: UNKNOWN Reviewed notes: Nurses Notes, Hand Coke Drawer Notes, Medications, Allergies Information Source: Patient, Emergency Med Personnel Mode of Arrival: EMS Severity: Moderate Timing: Days Duration: Since onset Context: At Rest PE Risk Factors: None History of: COPD Prehospital treatment: Breathing Tx, Oxygen Modifying Factors: Nothing Past Medical History PAST MEDICAL HISTORY: COPD, DM, HTN Surgical History: Denies all surgeries Family History Family History: Reviewed,noncontributory to illness Social History Smoker: Non-Smoker Alcohol: Denies ETOH Use Drugs: Denies Drug Use Lives In: Home Constitutional: denies: chills, diaphoresis, fatigue, fever, malaise, sweats, weakness, others EENTM: denies: blurred vision, double vision, ear bleeding, ear discharge, ear drainage, ear pain, ear ringing, eye pain, eye redness, hearing loss, mouth pain, mouth swelling, nasal discharge, nose bleeding, nose congestion, nose pain, photophobia, tearing, throat pain, throat swelling, voice changes, others Respiratory: reports: shortness of breath; denies: cough, hemoptysis, orthopne a, SOB at rest, SOB with excertion, stridor, wheezing, others Cardiovascular: denies: chest pain, dizzy spells, diaphoresis, Dyspnea on exertion, edema, irregular heart beat, left arm pain, lightheadedness, palpitations, PND, syncope, others Gastrointestinal: denies: abdomen distended, abdominal pain, blood streaked bowels, constipated, diarrhea, dysphagia, difficulty swallowing, hematemesis, melena, nausea, poor appetite, poor fluid intake, rectal bleeding, rectal pain, vomiting, others Genitourinary: denies: burning, dysuria, flank pain, frequency, hematuria, incontinence, penile discharge, penile sore, pain, testicle pain, testicle swelling, urgency, others Neurological: denies: dizziness, fainting, headache, left sided numbness, left sided weakness, numbness, paresthesia, pre-existing deficit, right sided numbness, right sided weakness, seizure, speech problems, tingling, tremors, weakness, others Musculoskeletal: denies: back pain, gout, joint pain, joint swelling, muscle pain, muscle stiffness, neck pain, others Integumetry: denies: bruises, change in color, change in hair/nails, dryness, laceration, lesions, lumps, rash, wounds, others Allergic/Immunocompromised: denies: Difficulty Healing, Frequent Infections, Hives, Itching, others Hematologic/Lymphatic: denies: anemia, blood clots, easy bleeding, easy bruising, swollen glands, others Endocrine: denies: excessive hunger, excessive sweating, excessive thirst, excessive urination, flushing, intolerance to cold, intolerance to heat, unexplained weight gain, unexplained weight loss, others Psychiatric: denies: anxiety, bipolar disorder, depression, hopeless, panic disorder, schizophrenia, sleepless, suicidal, others All Other Systems: Reviewed and Negative Physical Exam General Appearance: Moderate Distress HEENT: Normal ENT Inspection, Pharynx Normal, TMs Normal Neck: Full Range of Motion, Non-Tender, Normal, Normal Inspection Respiratory: Respiratory Distress, Wheezing Cardiovascular: No Edema, No JVD, No Murmur, No Gallop, Normal Peripheral Pulses, Regular Rate/Rhythm Breast Exam: Deferred Gastrointestinal: No Organomegaly, Non Tender, No Pulsatile Mass, Normal Bowel Sounds, Soft Genitalia: Deferred Pelvic: Deferred Rectal: Deferred Extremities: No calf tenderness, Normal capillary refill, Normal inspection, Normal range of motion, Non-tender, No pedal edema Musculoskeletal : Apperance: Normal Neurologic: Alert, manager relocation II-XII nml as Tested, No Motor Deficits, Normal Affect, Normal Mood, No Sensory Deficits Cerebellar Function: Normal, NOT DONE Reflexes: Normal, NOT DONE Skin: Dry, Normal Color, Warm Peripheral Pulses: 3+ Radial (R), 3+ Radial (L) Lymphatic: No Adenopathy Was a procedure done? Was a procedure done?: No Differential Dx Differential Diagnosis: Anxiety, Asthma, Bronchitis, CHF, COPD, Pneumonia, Sinusitis, Pharyngitis, URI X-Ray, Labs, Meds, VS Vital Signs Date Time Temp Pulse Resp B/P (MAP) Pulse Ox O2 Delivery O2 Flow Rate FiO2 02/24/25 07:33 Simple Mask* 8 60 02/24/25 07:31 98.9 101 25 106/66 (79) 95 98.9 02/24/25 07:09 16 91 Nasal Cannula* 6 44 02/24/25 05:53 98.7 94 30 111/68 90 98.7 02/24/25 05:49 91 Lab Test 02/24/25 07:16 Range/Units White Blood Count 15.9 H 4.4-10.8 10^3/uL Red Blood Count 4.81 4.5-5.90 10^6/uL Hemoglobin 11.2 L 13.5-17.5 g/dL Hematocrit 35.6 L 41.0-53.0 % Mean Corpuscular Volume 74.1 L 80.0-100.0 fL Mean Corpuscular Hemoglobin 23.3 L 28.0-32.0 pg Mean Corpuscular Hemoglobin Concent 31.5 L 32.0-36.0 g/dL Red Cell Distribution Width 20.8 H 11.8-14.3 % Platelet Count 118 L 140-450 10^3/uL Mean Platelet Volume 8.9 6.9-10.8 fL Neutrophils (%) (Auto) 37.0-80.0 % Lymphocytes (%) (Auto) 10.0-50.0 % Monocytes (%) (Auto) 0.0-12.0 % Basophils (%) (Auto) 0.0-2.0 % Neutrophils # (Auto) 1.6-8.6 10 ^3/uL Lymphocytes # (Auto) 0.4-5.4 10 ^3/uL Monocytes # (Auto) 0-1.3 10 ^3/uL Differential Total Cells Counted 100.0 100 Neutrophils % (Manual) 95 H 37.0-80.0 Band Neutrophils % (Manual) 2 Lymphocytes % (Manual) 1 L 10.0-50.0 Monocytes % (Manual) 2 0-12 Eosinophils % (Manual) 0 0-7 Basophils % (Manual) 0 0.0-2.0 Metamyelocytes % (manual) 0 Myelocytes % (Manual) 0 Promyelocytes % (Manual) 0 Blast Cells % (Manual) 0 Reactive Lymphocytes 0 Platelet Estimate Decreased Hypochromasia (manual) Slight Poikilocytosis (manual) Slight Anisocytosis (manual) Slight Microcytosis Moderate [place] Cells Few Sodium Level 141 136-145 mmol/L Potassium Level 4.5 3.5-5.1 mmol/L Chloride Level 106 98-107 mmol/L Carbon Dioxide Level 23 20-31 mmol/L Anion Gap 12 5-15 Blood Urea Nitrogen 34 H 9-23 mg/dL Creatinine 1.37 H 0.700-1.30 mg/dL Glomerular Filtration Rate Calc 51 >90 mL/min BUN/Creatinine Ratio 24.8 H 10.0-20.0 Serum Glucose 116 H 74-106 mg/dL Calcium Level 9.0 8.7-10.4 mg/dL Troponin I High Sensitivity 27 </=54 ng/L B-Type Natriuretic Peptide 1511.70 0-100 pg/mL Current Medications Medications (Trade) Dose Ordered Sig/Nasim Route Start Time Stop Time Status Last Admin Albuterol (Ventolin Medneb) 5 mg ONCE ONCE NEB 02/24/25 06:45 02/24/25 06:47 DC 02/24/25 07:09 Ipratropium [place] (Atrovent Medneb) 0.5 mg ONCE ONCE NEB 02/24/25 06:45 02/24/25 06:47 DC 02/24/25 07:08 Methylprednisolone Sodium Succinate (Solu Medrol) 125 mg ONCE ONCE IV 02/24/25 06:45 02/24/25 06:47 DC 02/24/25 07:39 Patient alert. Complaining of shortness a breath. Placed on oxygen. Answering questions. History of asthma. Was given breathing treatment. Was given steroid. Possible fluid overload. Was given Lasix. She is on dialysis. Nephrology consultation. EKG reviewed does not show any acute changes. Explained to the patient. Continue monitoring. [address] [address] Ph: [phone] DIAGNOSTIC IMAGING Diagnostic Imaging Report : [id number] Signed PATIENT: NESTOR MUÑIZAUHTEMOCACCT: [id number] UNIT: [id number] : 1940 LOC: ER ROOM / BED: / AGE / SEX: 85 / M ADM STATUS: REG ER SERVICE ORDERING PHYSICIAN: OSCAR RUIZ MD PROCEDURE(s): CXRP - CHEST PORTABLE REASON: sob ORDER NUMBER(s): [id number], ACCESSION NUMBER(s): [id number] CHEST RADIOGRAPH Indication: sob Technique: Single frontal view of the chest was obtained COMPARISON: XY CHEST PORTABLE on DOS: 02/10/25, XY CHEST XRAY 1 VIEW on DOS: 02/05/25, XY CHEST PORTABLE on DOS: 01/12/24, CT CHEST WITHOUT CONTRAST on DOS: 03/02/23, XY CHEST PORTABLE on DOS: 08/13/22 FINDINGS: Lines and Tubes: None Lungs: Increased vascular congestion. Bilateral fibrotic changes with inter stitial thickening, bronchiectasis, and reticulation. Bilateral calcified granulomas. Pleura: Trace right pleural effusion.. No pneumothorax. Cardiomediastinal contours: Cardiomegaly. Bones: Unremarkable IMPRESSION: Cardiomegaly with increased vascular congestion. Bilateral fibrotic changes. Trace right pleural effusion ATED BY: ELIEL JC MD DICTATED DATE/TIME: 02/24/25727 SIGNED BY: ELIEL JC MD SIGNED DATE/TIME: 02/24/25727 CC: Time of 1ST Reevaluation: 06:30 Reevaluation 1ST: Unchanged Patient Education/Counseling: Diagnosis, Treatment Family Education/Counseling: No Family Present SEPSIS Sepsis Screen Date sepsis recognized/suspect: Feb 24, 2025 Time Sepsis recognized/suspect: 0557 Recent Procedure: No On Antibiotic Therapy: No Respiratory Rate >20: Yes Heart Rate >90: Yes Temp<36 C (96.8 F) or >38.3 C: No SBP <90 or MAP <65 mmHG: No New Acute Mental Status Change: No Is the patient on CPAP, BIPAP,: No Physician Orders Electrocardigram (02/24/25 05:52) Chest Portable (02/24/25 06:45) Urinalysis (02/24/25 06:45) Vital Signs Date Time Temp Pulse Resp B/P (MAP) Pulse Ox O2 Delivery O2 Flow Rate FiO2 02/24/25 07:33 Simple Mask* 8 60 02/24/25 07:31 98.9 101 25 106/66 (79) 95 98.9 02/24/25 07:09 16 91 Nasal Cannula* 6 44 02/24/25 05:53 98.7 94 30 111/68 90 98.7 02/24/25 05:49 91 Laboratory Tests Test 02/24/25 07:16 White Blood Count 15.9 10^3/uL (4.4-10.8) H Medications Medications Dose Ordered Sig/Nasim Route Start Time Stop Time Status Last Admin Dose Admin Albuterol 5 mg ONCE ONCE NEB 02/24/25 06:45 02/24/25 06:47 DC 02/24/25 07:09 Ipratropium [place] 0.5 mg ONCE ONCE NEB 02/24/25 06:45 02/24/25 06:47 DC 02/24/25 07:08 Methylprednisolone Sodium Succinate 125 mg ONCE ONCE IV 02/24/25 06:45 02/24/25 06:47 DC 02/24/25 07:39 Departure 1 Departure Time of Disposition: 07:22 Impression: Primary Impression: Acute respiratory failure Qualified Codes: J96.01 - Acute respiratory failure with hypoxia Additional Impressions: COPD with acute exacerbation Acute exacerbation of CHF (congestive heart failure) Qualified Codes: I50.43 - Acute on chronic combined systolic (congestive) and diastolic (congestive) heart failure Disposition: ADMITTED INPATIENT Admit to: Med Surg Condition: Guarded Critical Care Note Critical Care Time?: Yes (90 min-critical care time only) Stability Stability form required: No Heart Score Heart Score: Heart Score Response (Comments) Value History N/A 0 EKG N/A 0 Age N/A 0 Risk Factors N/A 0 Troponin N/A 0 Total 0 I personally scribed for OSCAR RUIZ MD ([email or web address]) on 02/24/25 at 06:38. Electronically submitted by Destiny Davila ([email or web address]). I personally scribed for OSCAR RUIZ MD ([email or web address]) on 02/24/25 at 08:02. Electronically submitted by Destiny Davila ([email or web address]). OSCAR RUIZ MD Feb 24, 2025 06:38
[2025-02-24] MEDS: IPRATROPIUM BROM 0.5 MG/2.5ML INH SOL NEB ONE (07:08)
[2025-02-24] MEDS: ALBUTEROL SULF 2.5 MG/0.5ML(0.5%) NEB SOLN NEB ONE (07:09)
--- NOTE | 2025-02-24 07:31 | DVH ---
CHEST RADIOGRAPH Indication: sob Technique: Single frontal view of the chest was obtained COMPARISON: XY CHEST PORTABLE on DOS: 02/10/25, XY CHEST XRAY 1 VIEW on DOS: 02/05/25, XY CHEST PORTABLE on DOS: 01/12/24, CT CHEST WITHOUT CONTRAST on DOS: 03/02/23, XY CHEST PORTABLE on DOS: 08/13/22 FINDINGS: Lines and Tubes: None Lungs: Increased vascular congestion. Bilateral fibrotic changes with interstitial thickening, bronchiectasis, and reticulation. Bilateral calcified granulomas. Pleura: Trace right pleural effusion.. No pneumothorax. Cardiomediastinal contours: Cardiomegaly. Bones: Unremarkable IMPRESSION: Cardiomegaly with increased vascular congestion. Bilateral fibrotic changes. Trace right pleural effusion
[2025-02-24 07:35] LABS: Hematocrit 35.6 % (41.0-53.0); Hemoglobin 11.2 g/dL (13.5-17.5); Mean Corpuscular Hemoglobin 23.3 pg (28.0-32.0); Mean Corpuscular Volume 74.1 fL (80.0-100.0)
[2025-02-24] MEDS: methylPREDNISolone SOD SUCC 125 MG/2 ML VL IV ONE (07:39)
[2025-02-24 07:53] LABS: Anion Gap 12 (5-15); Carbon Dioxide 23 mmol/L (20-31); Chloride 106 mmol/L (98-107); Potassium 4.5 mmol/L (3.5-5.1); Sodium 141 mmol/L (136-145); Total Cells Counted 100.0 (100)
[2025-02-24 07:54] LABS: Calcium 9.0 mg/dL (8.7-10.4)
[2025-02-24 07:55] LABS: Anisocytosis Slight
[2025-02-24 07:59] LABS: BUN/Creatinine Ratio 24.8 (10.0-20.0); Blood Urea Nitrogen 34 mg/dL (9-23); Glucose 116 mg/dL (74-106)
[2025-02-24] MEDS ORDERED: DEXTROSE (50%) 50ML SYRG IV PRN (08:45)
--- NOTE | 2025-02-24 09:12 | DVHHP2 ---
History of Present Illness History of Present Illness A 85-year-old male with PMHx of severe COPD, pulmonary fibrosis, diabetes mellitus, hypertension, chronic heart failure, severe pulmonary hypertension (PASP >85), RV enlargement, moderatesevere tricuspid regurgitation, and moderate aortic stenosis, presented with shortness of breath for 2 days. At baseline he uses 3 L NC, but over the past 48 hours he developed worsening dyspnea at minimal exertion and even at rest. EMS found him saturating 80% on 3 L and he required escalation to 6 L NC on arrival. He reports associated chest tightness, chronic cough, and progressive fatigue. He states he follows with Dr. Williamson and has required multiple thoracenteses for recurrent effusions. No fevers, chills, nausea, or new lower-extremity swelling. PAST MEDICAL HISTORY COPD, Pulmonary fibrosis, Diabetes mellitus, Hypertension, Chronic heart failure, Severe pulmonary hypertension (PASP >85), Moderatesevere tricuspid regurgitation, Moderate aortic stenosis SOCIAL HISTORY Lives with family, ex heavy smoker HOME MEDICATIONS Furosemide, Trelegy, Fluticasone, Omeprazole, Metformin, glimepiride, Amlodipine, Losartan, Fluticasone, Farxiga CBC WBC 15.9 Hgb 11.2 Plts 118 BMP Creatinine 1.37 Glucose normal BNP 1511 Echo: EF 55% RV enlarged Moderatesevere tricuspid regurgitation Moderate aortic stenosis Severe pulmonary hypertension, PASP >85 Chest X-ray Cardiomegaly Increased vascular congestion Bilateral fibrotic changes Trace pleural effusion ABG Pending Review of Systems Review of Systems Per HPI Allergies: Coded Allergies: Penicillins (Verified Allergy, Unknown, 05/10/21) Medications Current Medications Medications Dose Ordered Sig/Nasim Route Start Time Stop Time Status Last Admin Dose Admin Acetaminophen 650 mg Q6HP PRN PO 02/24/25 08:45 Enoxaparin Sodium 40 mg DAILY SC 02/24/25 10:00 Ceftriaxone Sodium 50 ml @ 100 mls/hr DAILY@09 IV 02/24/25 09:00 Azithromycin 250 ml @ 125 mls/hr DAILY IV 02/24/25 10:00 Albuterol 2.5 mg Q6HPRN PRN NEB 02/24/25 08:45 Ipratropium Prue 0.5 mg Q6HWA NEB 02/24/25 12:00 Methylprednisolone Sodium Succinate 40 mg BID IV 02/24/25 22:00 Furosemide 40 mg DAILY IV 02/24/25 10:00 Diagnostic Test (Pha) 1 strip Q6HR 02/24/25 12:00 Insulin Human Regular Q6HR SC 02/24/25 12:00 Dextrose 50 ml UD PRN IV 02/24/25 08:45 Exam Vital Signs Vital Signs Date Time Temp Pulse Resp B/P (MAP) Pulse Ox O2 Delivery O2 Flow Rate FiO2 02/24/25 08:00 90 02/24/25 07:33 Simple Mask* 8 60 02/24/25 07:31 98.9 25 106/66 (79) 95 98.9 Exam HEENT: No JVD distention noted vs present MMM. Lungs: Diffuse crackles bilaterally, decreased air movement, faint wheezing, no obvious respiratory distress accessory muscle use. Heart: Regular rate, systolic murmur consistent with , loud P2, no rubs. Abdomen: Soft, NT/ND, +BS. Extremities: No edema Pulses symmetric. Neuro: Alert, oriented 3, no focal deficits. Skin: Warm, dry. Labs/Xrays Labs Test 02/24/25 07:16 Range/Units White Blood Count 15.9 H 4.4-10.8 10^3/uL Red Blood Count 4.81 4.5-5.90 10^6/uL Hemoglobin 11.2 L 13.5-17.5 g/dL Hematocrit 35.6 L 41.0-53.0 % Mean Corpuscular Volume 74.1 L 80.0-100.0 fL Mean Corpuscular Hemoglobin 23.3 L 28.0-32.0 pg Mean Corpuscular Hemoglobin Concent 31.5 L 32.0-36.0 g/dL Red Cell Distribution Width 20.8 H 11.8-14.3 % Platelet Count 118 L 140-450 10^3/uL Mean Platelet Volume 8.9 6.9-10.8 fL Neutrophils (%) (Auto) 37.0-80.0 % Lymphocytes (%) (Auto) 10.0-50.0 % Monocytes (%) (Auto) 0.0-12.0 % Basophils (%) (Auto) 0.0-2.0 % Neutrophils # (Auto) 1.6-8.6 10 ^3/uL Lymphocytes # (Auto) 0.4-5.4 10 ^3/uL Monocytes # (Auto) 0-1.3 10 ^3/uL Differential Total Cells Counted 100.0 100 Neutrophils % (Manual) 95 H 37.0-80.0 Band Neutrophils % (Manual) 2 Lymphocytes % (Manual) 1 L 10.0-50.0 Monocytes % (Manual) 2 0-12 Eosinophils % (Manual) 0 0-7 Basophils % (Manual) 0 0.0-2.0 Metamyelocytes % (manual) 0 Myelocytes % (Manual) 0 Promyelocytes % (Manual) 0 Blast Cells % (Manual) 0 Reactive Lymphocytes 0 Platelet Estimate Decreased Hypochromasia (manual) Slight Poikilocytosis (manual) Slight Anisocytosis (manual) Slight Microcytosis Moderate [place] Cells Few Sodium Level 141 136-145 mmol/L Potassium Level 4.5 3.5-5.1 mmol/L Chloride Level 106 98-107 mmol/L Carbon Dioxide Level 23 20-31 mmol/L Anion Gap 12 5-15 Blood Urea Nitrogen 34 H 9-23 mg/dL Creatinine 1.37 H 0.700-1.30 mg/dL Glomerular Filtration Rate Calc 51 >90 mL/min BUN/Creatinine Ratio 24.8 H 10.0-20.0 Serum Glucose 116 H 74-106 mg/dL Calcium Level 9.0 8.7-10.4 mg/dL Troponin I High Sensitivity 27 </=54 ng/L B-Type Natriuretic Peptide 1511.70 0-100 pg/mL SEPSIS Sepsis Screen Date sepsis recognized/suspect: Feb 24, 2025 Time Sepsis recognized/suspect: 0557 Recent Procedure: No On Antibiotic Therapy: No Respiratory Rate >20: Yes Heart Rate >90: Yes Temp<36 C (96.8 F) or >38.3 C: No SBP <90 or MAP <65 mmHG: No New Acute Mental Status Change: No Is the patient on CPAP, BIPAP,: No Physician Orders Electrocardigram (02/24/25 05:52) Chest Portable (02/24/25 06:45) Urinalysis (02/24/25 06:45) Admit (02/24/25 08:41) Code Status (02/24/25 08:41) Vital Signs .PER UNIT PROTOCOL (02/24/25 08:41) Review Orders With Adm.Md (02/24/25 08:41) Maintain Bed Rest (02/24/25 08:41) Npo (Nothing By Mouth) Diet (02/24/25 Breakfast) Oxygen By Face Mask (02/24/25 08:41) Acetaminophen Tablet (Tylenol Tablet) (02/24/25 08:45) Notify Md Of Changes From Base (02/24/25 08:41) Advance Directive (02/24/25 08:41) Blood Culture (02/24/25:) Urine Bacterial Culture (02/24/25:) Patient Condition (02/24/25:) Allergies (02/24/25 08:) Hemoglobin A1c (02/24/25:) Enoxaparin Sodium (Lovenox) (02/24/25 10:00) Oxygen By Nasal Cannula (02/24/25:) Stat Ekg For Chest Pain (02/24/25 08:41) Notify Md Of Changes From Base (02/24/25 08:41) Glazier Supervisor For 24 Hours (02/24/25 08:41) Emergency Dysrhythmia Protocol (02/24/25 08:41) Rhythm Strips Once Every Shift (02/24/25 08:41) Abg W/ Co-Ox (02/24/25 08:44) Ceftriaxone 1gm/50ml (Rocephin) (02/24/25 09:00) Azithromycin 500mg/250ml (Zithromax 500m (02/24/25 10:00) Albuterol Medneb (Ventolin Medneb) (02/24/25 08:45) Ipratropium Medneb (Atrovent Medneb) (02/24/25 12:00) Methylprednisolone Sod Succ (Solu Medrol (02/24/25 22:00) Furosemide Injection (Lasix Injection) (02/24/25 10:00) Glucose Blood (Accu-Chek Comfort Curve T (02/24/25 12:00) Insulin R (Human) (Insulin R) (02/24/25 12:00) Dextrose 50% Syringe (02/24/25 08:45) *Consult (02/24/25 08:44) Vital Signs Date Time Temp Pulse Resp B/P (MAP) Pulse Ox O2 Delivery O2 Flow Rate FiO2 02/24/25 08:00 90 02/24/25 07:33 Simple Mask* 8 60 02/24/25 07:31 98.9 101 25 106/66 (79) 95 98.9 02/24/25 07:09 16 91 Nasal Cannula* 6 44 02/24/25 05:53 98.7 94 30 111/68 90 98.7 02/24/25 05:49 91 Laboratory Tests Test 02/24/25 07:16 White Blood Count 15.9 10^3/uL (4.4-10.8) H Medications Medications Dose Ordered Sig/Nasim Route Start Time Stop Time Status Last Admin Dose Admin Albuterol 5 mg ONCE ONCE NEB 02/24/25 06:45 02/24/25 06:47 DC 02/24/25 07:09 5 MG Ipratropium Prue 0.5 mg ONCE ONCE NEB 02/24/25 06:45 02/24/25 06:47 DC 02/24/25 07:08 0.5 MG Methylprednisolone Sodium Succinate 125 mg ONCE ONCE IV 02/24/25 06:45 02/24/25 06:47 DC 02/24/25 07:39 125 MG Assessment/Plan Assessment/Plan 1. Acute on chronic hypoxic respiratory failure Multifactorial: COPD exacerbation + pulmonary fibrosis + volume overload + severe PH. Maintain 6 L NC, titrate for SpO2 8892%. Follow ABG Pulmonology consult placed. Avoid unnecessary fluid administration. 2. COPD exacerbation Worsening dyspnea, wheezing, hypoxia, leukocytosis. Duonebs q6h Methylprednisolone BID Ceftriaxone + Azithromycin 3. Pulmonary fibrosis Contributing to baseline hypoxia, imaging consistent with fibrotic disease. Pulmonology to evaluate for ILD flare Supportive care 4. Heart failure with volume overload BNP 1511, vascular congestion on CXR. Furosemide IV, reassess response Strict I/O, daily weights Continue guideline-directed therapy if BP allows 5. Severe pulmonary hypertension (PASP >85) High RV strain risk. Maintain oxygenation Avoid acidosis and hypotension Gentle diuresis Monitor for signs of RV failure 6. Recurrent pleural effusion Trace on CXR today; history of multiple thoracenteses. Monitor clinically Repeat imaging if worsening Consider thoracentesis if symptomatic 7. Leukocytosis WBC 15.9 Trend CBC Continue antibiotics 8. BEATRICE on CKD Creatinine 1.37 Monitor BMP daily Avoid nephrotoxins 9. Diabetes mellitus Risk for hyperglycemia with steroids. SSI Check glucose ACHS 10. Hypertension On amlodipine and losartan at home. Continue if hemodynamics stable Disposition Admit to [facility] for high O2 requirement Pulmonology following Case discussed with Aba Full code Plan discussed with: Patient, Other (rn) My Orders Orders - RATNA HAMILTON RESIDENT Procedure Category Date Status Time Admit ADMIT 02/24/25 Transmitted 08:41 Code Status CODE 02/24/25 Transmitted 08:41 Vital Signs [facility] 02/24/25 In Process 08:41 Review Orders With [facility] 02/24/25 In Process Adm. 08:41 Maintain Bed Rest [facility] 02/24/25 In Process 08:41 Npo (Nothing By DIET 02/24/25 Transmitted Mouth) Diet Breakfast Oxygen By Face Mask RT 02/24/25 Transmitted 08:41 Acetaminophen Tablet PHA 02/24/25 In Process (Tylenol Tablet) 08:45 Notify Of Changes [facility] 02/24/25 In Process From Base 08:41 Advance Directive [facility] 02/24/25 In Process 08:41 Blood Culture YING 02/24/25 Logged 08:41 Urine Bacterial YING 02/24/25 Logged Culture 08:41 Patient Condition ORDERS 02/24/25 Transmitted 08:41 Allergies [facility] 02/24/25 In Process 08:41 Hemoglobin A1c LAB 02/24/25 In Process 08:41 Enoxaparin Sodium PHA 02/24/25 In Process (Lovenox) 10:00 Oxygen By Nasal RT 02/24/25 Transmitted Cannula 08:41 Stat Ekg For Chest [facility] 02/24/25 In Process Pain 08:41 Notify Md Of Changes [facility] 02/24/25 In Process From Base 08:41 Glazier Supervisor For [facility] 02/24/25 In Process 24 Hours 08:41 Emergency Dysrhythmia [facility] 02/24/25 In Process Protocol 08:41 Rhythm Strips Once [facility] 02/24/25 In Process Every Shift 08:41 Abg W/ Co-Ox RT 02/24/25 Logged 08:44 Ceftriaxone 1gm/50ml PHA 02/24/25 In Process (Rocephin) 09:00 Azithromycin PHA 02/24/25 In Process 500mg/250ml 10:00 Albuterol Medneb PHA 02/24/25 In Process (Ventolin Medneb) 08:45 Ipratropium Medneb PHA 02/24/25 In Process (Atrovent Medneb) 12:00 Methylprednisolone PHA 02/24/25 In Process Sod Succ (Solu Medrol 22:00 Furosemide Injection PHA 02/24/25 In Process (Lasix Injection) 10:00 Glucose Blood PHA 02/24/25 In Process (Accu-Chek Comfort 12:00 Insulin R (Human) PHA 02/24/25 In Process (Insulin R) 12:00 Dextrose 50% Syringe PHA 02/24/25 In Process 08:45 *Consult CONS 02/24/25 Transmitted 08:44 Date of Service: Feb 24, 2025 Billing Provider: MANNY WEINER MD Common Visit Codes: [id number] INP/OBS CARE (HIGH) RATNA HAMILTON RESIDENT Feb 24, 2025 09:12
[2025-02-24 09:23] LABS: Base Excess -1.0 mmol/L (-2.0-3.0)
[2025-02-24 09:33] VITALS: BP 106/66; PULSE 101; RESP 25; TEMP 98; O2SAT 95
[2025-02-24] MEDS: ENOXAPARIN SOD 40 MG/0.4 ML SYRINGE SC SCH (09:33)
[2025-02-24] MEDS: AZITHROMYCIN 500MG/250ML 250 ML IV SCH (09:33)
[2025-02-24] MEDS: FUROSEMIDE 40 MG/4 ML VIAL IV SCH (09:34)
[2025-02-24 11:15] VITALS: PULSE 90; RESP 20; O2SAT 90; O2SAT 96
[2025-02-24] MEDS: IPRATROPIUM BROM 0.5 MG/2.5ML INH SOL NEB SCH (11:15)
[2025-02-24] MEDS: ALBUTEROL SULF 2.5 MG/0.5ML(0.5%) NEB SOLN NEB PRN (11:15)
[2025-02-24 11:21] VITALS: PULSE 90; RESP 20; O2SAT 96
[2025-02-24 11:30] VITALS: RESP 18; O2SAT 94
[2025-02-24] MEDS: ACCU-CHEK COMFORT CURVE STRIP VI SCH (13:12)
[2025-02-24] MEDS: InsuLIN REG 1unit/0.01ml Soln (100units/ml) SC SCH (13:14)
[2025-02-24 13:32] LABS: Urine Protein, UAD 3+ (Negative)
--- NOTE | 2025-02-24 14:33 | DVHINCON2 ---
Date of service: Feb 24, 2025 Referring Physician RATNA HAMILTON RESIDENT Reason for Consultation Acute respiratory failure History of Present Illness History Source: Patient Exam Limitations: No limitations HPI Patient is an 85-year old gentleman with a history of end-stage pulmonary fibrosis, pulmonary hypertension and recurrent pleural effusions followed by Dr. Williamson in the clinic who presented with worsening shortness of breath. Was seen in the emergency room where he was found to be hypoxemic and was placed on supplemental oxygen. Chest x-ray shows progressing pulmonary fibrosis and small right pleural effusions, pulmonology was consulted to assist in management. Home Meds Active Scripts Sildenafil Citrate (Revatio) 20 Mg Tab, 20 MG PO TID for 30 Days, #90 TAB 2 Refills Prov:ASIF KWON TRUCK LOADER 02/11/25 Furosemide (Lasix) 20 Mg Tb, 1 TAB PO DAILY for 30 Days, #30 TAB 5 Refills Prov:MANI CHISHOLM RESIDENT 01/15/24 Ipratropium-Albuterol (Ipratropium [place]/Albut) 1 Con Con, 1 CON IN Q4HPRN PRN for 90 Days, #180 ML Prov:DIAMOND DIAS MD 08/16/22 Reported Medications Omeprazole ([facility]vs Omeprazole Odt) 20 Mg Tab, 20 MG PO DAILY 02/05/25 Tamsulosin Hcl (Tamsulosin Hcl) 0.4 Mg Cap, 0.4 MG PO HS 02/05/25 Axymcrrhauc-Ppwsrsyzwbpl-Ovqts (Trelegy Ellipta 200-62.5-25 Mcg/INH) 1 Aer Aer, 1 PUFF INH DAILY 02/05/25 Finasteride (Finasteride) 5 Mg Tab, 1 TAB PO DAILY 02/05/25 Dapagliflozin Propanediol (Farxiga) 10 Mg Tab, 10 MG PO, TAB 01/13/24 Multiple Vitamin (Multivitamins) Tab, 1 TAB PO DAILY, #90 TAB 3 Refills 05/15/21 Glimepiride (Glimepiride) 1 Mg Tab, 1 MG PO BID for 30 Days, MG 05/15/21 Atorvastatin Calcium (ATORVASTATIN CALCIUM) 40 Mg Tab, 1 TAB PO HS, #30 TAB 5 Refills 05/15/21 Amlodipine Besylate (Amlodipine Besylate) 10 Mg Tab, 1 TAB PO DAILY 05/15/21 Mirtazapine (Mirtazapine Oral Disintegrating Tablet) 15 Mg Tab, 1 TAB PO BID 05/15/21 Metformin Hydrochloride (Metformin Hcl) 1,000 Mg Tab, 1 TAB PO BID 05/15/21 Past Medical History Cardiac: No pertinent Hx Pulmonary: Pulmonary fibrosis, Other (pleural effusions ) Central Nervous System: No pertinent Hx GI: No pertinent Hx Hemotology/Oncology: No pertinent Hx Hepatobiliary: No pertinent Hx Psychiatric: No pertinent Hx Musculoskeletal: No pertinent Hx Rheumotologic: No pertinent Hx Infectious Disease: No peritnent Hx ENT: No pertinent Hx Renal/: No pertinent Hx Endocrine: No pertinent Hx Dermatology: No pertinent Hx Family History: DM Patient Family History: Diabetes mellitus G8 MOTHER G8 FATHER 19 CHILD Smoker: No Hx (Negative) Alocohol: None Drugs: None Lives with: With family Domestic Violence: Neg Review of Systems Constitutional: No symptom reported Ears, Nose, & Throat: No symptom reported Eyes: No symptom reported Pulmonary/Respiratory: Dyspnea Cardiovascular: No symptom reported Gastrointestinal: No symptom reported Genitourinary: No symptom reported Musculoskeletal: No symptom reported Skin: No symptom reported Psychiatric: No symptom reported Endocrine: No symptom reported Hemotologic/Lymphatic: No symptom reported H&P Exam Vital Signs Vital Signs Date Time Temp Pulse Resp B/P (MAP) Pulse Ox O2 Delivery O2 Flow Rate FiO2 02/24/25 14:00 98.7 91 16 102/66 (78) 95 98.7 02/24/25 11:30 Nasal Cannula* 3 32 General Appeara: Well developed, Well nourished, Normal Appearance Head Exam: Normal inspection Neck Exam: Normal inspection, Non-tender, Normal alignment Eye Exam: bilateral eye Normal inspection, bilateral eye PERRL, bilateral eye EOMI Ear Exam: bilateral ear Auricle normal, bilateral ear Canal normal, bilateral ear TM normal Nasal Exam: Normal inspection Mouth: Normal Inspection Pulmonary/Respiratory: Decreased breath sounds Cardiovascular/Chest: Normal inspection Peripheral Pulses: 4+ Radial (R), 4+ Radial (L), 4+ Brachial (R), 4+ Brachial (L) Abdominal Exam: Normal bowel sounds Labs/Xrays Labs Test 02/24/25 13:08 02/24/25 12:15 02/24/25 09:15 02/24/25 07:16 Range/Units POC Glucose 158 H 70-106 mg/dl Urine Color Yellow Yellow Urine Clarity Clear Clear Urine pH 6.0 5.0-9.0 Urine Specific [place] 1.023 1.001-1.035 Urine Protein 3+ H Negative Urine Ketones Negative Negative Urine Blood 1+ H Negative /uL Urine Nitrite Negative Negative Urine Bilirubin Negative Negative Urine Urobilinogen Normal Negative mg/dL Urine Leukocyte Esterase Negative Negative /uL Urine RBC 4 0 - 3 /hpf Urine Microscopic WBC 2 0-3 /HPF Urine Squamous Epithelial Cells Few <5 /hpf Urine Bacteria Few H None Seen /hpf Urine Hyaline Casts Few 0 - 2 /lpf Urine Glucose Normal Normal mg/dL Blood Gas Specimen Type Arterial Blood Gas Sample Site Right radial Blood Gas Patient Temperature 37.0 Arterial Blood Date Drawn [id number] Arterial Blood pH 7.522 H 7.350-7.450 Arterial Blood Partial Pressure CO2 25.8 L 35.0-48.0 mmHg Arterial Blood Partial Pressure O2 51.9 *L 83.0-108.0 mmHg Arterial Blood HCO3 20.7 L 21.0-28.0 mmol/L Arterial Blood Oxygen Saturation 86.7 L 94.0-98.0 % Arterial Blood Base Excess -1.0 -2.0-3.0 mmol/L Arterial Blood Oxyhemoglobin 84.9 L 94.0-98.0 % Arterial Blood Carboxyhemoglobin 1.5 0.5-1.5 % Arterial Blood Methemoglobin 0.6 0.0-1.5 % Arterial Blood Deoxyhemoglobin 13.0 H 0.0-5.0 % Morris Test Yes Blood Gas Total Hemoglobin 11.40 L 13.5-17.5 g/dL Blood Gas Liter Flow 4.00 Blood Gas Modality Oxymizer FiO2 % 41.0 Blood Gas Critical Value Read Back Yes Blood Gas Notified Whom Good rader md Blood Gas Notified Time [id number] Blood Gas Notified By Ashely liang White Blood Count 15.9 H 4.4-10.8 10^3/uL Red Blood Count 4.81 4.5-5.90 10^6/uL Hemoglobin 11.2 L 13.5-17.5 g/dL Hematocrit 35.6 L 41.0-53.0 % Mean Corpuscular Volume 74.1 L 80.0-100.0 fL Mean Corpuscular Hemoglobin 23.3 L 28.0-32.0 pg Mean Corpuscular Hemoglobin Concent 31.5 L 32.0-36.0 g/dL Red Cell Distribution Width 20.8 H 11.8-14.3 % Platelet Count 118 L 140-450 10^3/uL Mean Platelet Volume 8.9 6.9-10.8 fL Neutrophils (%) (Auto) 37.0-80.0 % Lymphocytes (%) (Auto) 10.0-50.0 % Monocytes (%) (Auto) 0.0-12.0 % Basophils (%) (Auto) 0.0-2.0 % Neutrophils # (Auto) 1.6-8.6 10 ^3/uL Lymphocytes # (Auto) 0.4-5.4 10 ^3/uL Monocytes # (Auto) 0-1.3 10 ^3/uL Differential Total Cells Counted 100.0 100 Neutrophils % (Manual) 95 H 37.0-80.0 Band Neutrophils % (Manual) 2 Lymphocytes % (Manual) 1 L 10.0-50.0 Monocytes % (Manual) 2 0-12 Eosinophils % (Manual) 0 0-7 Basophils % (Manual) 0 0.0-2.0 Metamyelocytes % (manual) 0 Myelocytes % (Manual) 0 Promyelocytes % (Manual) 0 Blast Cells % (Manual) 0 Reactive Lymphocytes 0 Platelet Estimate Decreased Hypochromasia (manual) Slight Poikilocytosis (manual) Slight Anisocytosis (manual) Slight Microcytosis Moderate [place] Cells Few Sodium Level 141 136-145 mmol/L Potassium Level 4.5 3.5-5.1 mmol/L Chloride Level 106 98-107 mmol/L Carbon Dioxide Level 23 20-31 mmol/L Anion Gap 12 5-15 Blood Urea Nitrogen 34 H 9-23 mg/dL Creatinine 1.37 H 0.700-1.30 mg/dL Glomerular Filtration Rate Calc 51 >90 mL/min BUN/Creatinine Ratio 24.8 H 10.0-20.0 Serum Glucose 116 H 74-106 mg/dL Hemoglobin A1c 8.8 H <5.7 % A1C Calcium Level 9.0 8.7-10.4 mg/dL Troponin I High Sensitivity 27 </=54 ng/L B-Type Natriuretic Peptide 1511.70 0-100 pg/mL Assessment/Plan Plan Impression Acute hypoxemic respiratory failure Recurrent pleural effusions End-stage pulmonary fibrosis CHF Patient seen and examined Events Low oxygen requirements On 2 liters nasal cannula Vital signs stable Labs and imaging reviewed Management Supplemental oxygen Titrate to maintain sats 90% or above Incentive spirometry Antibiotics Bronchodilators Steroids Diuretics unlikely to benefit patient Monitor renal function Monitor electrolytes Supplement as needed DVT prophylaxis Plan discussed with: Patient CHAPARRITA ROPER MD Feb 24, 2025 14:32
[2025-02-24 19:25] VITALS: O2SAT 98
[2025-02-24] MEDS ORDERED: methylPREDNISolone SOD SUCC 40 MG/ML VL IV SCH (22:00)
[2025-02-24] MEDS: methylPREDNISolone SOD SUCC 40 MG/ML VL IV SCH (22:13)
[2025-02-25] VITALS (12 sets, daily range): BP systolic 103–123; BP diastolic 66–71; PULSE 72–91; RESP 12–24; TEMP 98.1; O2SAT 91–100
[2025-02-25 04:31] LABS: Nucleated Red Blood Cells % 0.0 %
[2025-02-25 04:33] LABS: Hematocrit 32.4 % (41.0-53.0); Hemoglobin 10.0 g/dL (13.5-17.5); Mean Corpuscular Hemoglobin 23.1 pg (28.0-32.0); Mean Corpuscular Volume 74.4 fL (80.0-100.0)
[2025-02-25 04:48] LABS: Alanine Aminotransferase 33 U/L (7-40); Albumin 3.5 g/dL (3.2-4.8); Anion Gap 11 (5-15); BUN/Creatinine Ratio 29.8 (10.0-20.0); Bilirubin, Total 0.7 mg/dL (0.2-1.0); Carbon Dioxide 22 mmol/L (20-31); Chloride 104 mmol/L (98-107); Potassium 4.1 mmol/L (3.5-5.1); Sodium 137 mmol/L (136-145); Total Protein 5.7 g/dL (5.7-8.2)
[2025-02-25 04:50] LABS: Alkaline Phosphatase 229 U/L (46-116); Blood Urea Nitrogen 37 mg/dL (9-23); Calcium 8.5 mg/dL (8.7-10.4); Glucose 189 mg/dL (74-106)
--- NOTE | 2025-02-25 07:14 | DVH ---
EXAM: XY CHEST XRAY 1 VIEW HISTORY: DYSPNEA COMPARISON: XY CHEST PORTABLE on DOS: 02/24/25, XY CHEST PORTABLE on DOS: 02/10/25, XY CHEST XRAY 1 VIEW on DOS: 02/05/25, XY CHEST PORTABLE on DOS: 01/12/24, XY CHEST PORTABLE on DOS: 08/13/22, chest CT dated 08/13/2022 TECHNIQUE: Portable AP view of the chest was performed. FINDINGS: Diffuse bilateral interstitial opacities are stable. There is a calcified granuloma in the left mid lung. No pneumothorax or new consolidative infiltrates. The heart is borderline enlarged. IMPRESSION: 1. No acute intrathoracic process. 2. Interstitial pulmonary fibrosis and old granulomatous disease of the chest.
--- NOTE | 2025-02-25 07:22 | ECG ---
[facility] Test Date: 2025-02-24 Test Time: 05:49:11 Pat Name: ZAIDA NIELSEN Department: ED Room: [address] [place] [address] Gender: M Lap Checker: SALVADOR : 1940 Requested By: EMERGENCY EMERGENCY Order Number: [id number] Reading MD: Adrien Garrido Measurements Intervals [place] Rate: 91 P: 66 MN: 159 QRS: 159 QRSD: 102 T: -54 QT: 380 QTc: 468 Interpretive Statements Sinus rhythm Probable left atrial enlargement Right ventricular hypertrophy Borderline T abnormalities, inferior leads Electronically Signed On 02-26-2025 15:01:46 PST by Adrien Garrido Please click the below link to view image of tracing.
[2025-02-25 07:31] LABS: Base Excess -2.8 mmol/L (-2.0-3.0)
[2025-02-25 08:43] LABS: COVID19 ANTIGEN SOFIA FIA NEGATIVE (NEGATIVE)
--- NOTE | 2025-02-25 16:54 | DVHPN2 ---
Subjective still on oxygen at high demand Reviewed: H&P Changes from previous H/P or p: No Changes Objective Vitals Vital Signs Date Time Temp Pulse Resp B/P (MAP) Pulse Ox O2 Delivery O2 Flow Rate FiO2 02/25/25 15:45 88 19 97/67 (77) 94 02/25/25 12:33 Oxymizer 10 41 41 02/25/25 12:00 97.3 97.3 Intake/Output Intake and Output 02/25/25 05:00 Intake Total 250 ml Balance 250 ml Intake IV Total 250 ml General Appearance: Alert, Oriented X3 HEENT: Atraumatic Lungs: Clear to auscultation Cardiovascular: Regular rate, Normal S1, Normal S2 Abdomen: Normal bowel sounds Medications Current Medications Medications Dose Ordered Sig/Nasim Route Start Time Stop Time Status Last Admin Dose Admin Acetaminophen 650 mg Q6HP PRN PO 02/24/25 08:45 Enoxaparin Sodium 40 mg DAILY SC 02/24/25 10:00 02/24/25 09:33 40 MG Ceftriaxone Sodium 50 ml @ 100 mls/hr DAILY@09 IV 02/24/25 09:00 02/25/25 09:16 100 MLS/HR Azithromycin 250 ml @ 125 mls/hr DAILY IV 02/24/25 10:00 02/25/25 10:16 125 MLS/HR Albuterol 2.5 mg Q6HPRN PRN NEB 02/24/25 08:45 02/25/25 12:33 2.5 MG Ipratropium [place] 0.5 mg Q6HWA NEB 02/24/25 12:00 02/25/25 12:33 0.5 MG Diagnostic Test (Pha) 1 strip Q6HR 02/24/25 12:00 02/25/25 12:24 1 STRIP Insulin Human Regular Q6HR SC 02/24/25 12:00 02/25/25 12:24 8 UNITS Dextrose 50 ml UD PRN IV 02/24/25 08:45 Methylprednisolone Sodium Succinate 80 mg BID IV 02/24/25 22:00 02/25/25 10:16 80 MG Laboratory Results Laboratory Tests 02/25/25 03:32 Chemistry Test 02/25/25 03:32 Albumin 3.5 g/dL (3.2-4.8) Calcium Level 8.5 mg/dL (8.7-10.4) L Total Protein 5.7 g/dL (5.7-8.2) LFT Test 02/25/25 03:32 Alanine Aminotransferase (ALT) 33 U/L (7-40) Alkaline Phosphatase 229 U/L (46-116) H Aspartate Amino Transferase (AST) 20 U/L (13-40) Total Bilirubin 0.7 mg/dL (0.2-1.0) Urinalysis Test 02/24/25 12:15 Urine Color Yellow (Yellow) Urine Clarity Clear (Clear) Urine pH 6.0 (5.0-9.0) Urine Specific [place] 1.023 (1.001-1.035) Urine Protein 3+ (Negative) H Urine Ketones Negative (Negative) Urine Blood 1+ /uL (Negative) H Urine Nitrite Negative (Negative) Urine Bilirubin Negative (Negative) Urine Urobilinogen Normal mg/dL (Negative) Urine Leukocyte Esterase Negative /uL (Negative) Urine RBC 4 /hpf (0 - 3) Urine Microscopic WBC 2 /HPF (0-3) Urine Squamous Epithelial Cells Few /hpf (<5) Urine Bacteria Few /hpf (None Seen) H Urine Hyaline Casts Few /lpf (0 - 2) Urine Glucose Normal mg/dL (Normal) Blood Gas Results Test 02/25/25 07:05 Arterial Blood pH 7.469 (7.350-7.450) FiO2 % 58.0 Microbiology Microbiology Date/Time Source Procedure Growth Status 02/24/25 12:15 Voided Urine Urine Culture - Preliminary No growth Resulted 02/24/25 09:40 Blood Blood Culture - Preliminary NO GROWTH AFTER 24 HOURS OF INCUBATION. Resulted Assessment/Plan Assessment/Plan 1. Acute on chronic hypoxic respiratory failure Multifactorial: COPD exacerbation + pulmonary fibrosis + volume overload + severe PH. Maintain 6 L NC, titrate for SpO2 8892%. pulmonary consulted 2. COPD exacerbation Worsening dyspnea, wheezing, hypoxia, leukocytosis. Duonebs q6h Methylprednisolone BID Ceftriaxone + Azithromycin 3. Pulmonary fibrosis Contributing to baseline hypoxia, imaging consistent with fibrotic disease. Pulmonology to evaluate for ILD flare Supportive care 4. Heart failure with volume overload BNP 1511, vascular congestion on CXR. Furosemide IV, reassess response Strict I/O, daily weights Continue guideline-directed therapy if BP allows 5. Severe pulmonary hypertension (PASP >85) High RV strain risk. Maintain oxygenation Avoid acidosis and hypotension Gentle diuresis Monitor for signs of RV failure 6. Recurrent pleural effusion Trace on CXR today; history of multiple thoracenteses. Monitor clinically Repeat imaging if worsening Consider thoracentesis if symptomatic 7. Leukocytosis WBC 15.9 Trend CBC Continue antibiotics 8. BEATRICE on CKD Creatinine 1.37 Monitor BMP daily Avoid nephrotoxins 9. Diabetes mellitus Risk for hyperglycemia with steroids. SSI Check glucose ACHS 10. Hypertension On amlodipine and losartan at home. Continue if hemodynamics stable Disposition Plan discussed with: Patient Date of Service: Feb 25, 2025 Billing Provider: MICHEL MOSS MD Common Visit Codes: [id number] INP/OBS CARE(HIGH) MICHEL MOSS MD Feb 25, 2025 16:54
[2025-02-26] VITALS (14 sets, daily range): BP systolic 98–115; BP diastolic 65–76; PULSE 77–94; RESP 12–22; TEMP 97.7; O2SAT 92–100
[2025-02-26 03:07] LABS: Hemoglobin 9.9 g/dL (13.5-17.5)
[2025-02-26 03:09] LABS: Hematocrit 32.1 % (41.0-53.0); Mean Corpuscular Hemoglobin 22.9 pg (28.0-32.0); Mean Corpuscular Volume 74.0 fL (80.0-100.0); Nucleated Red Blood Cells % 0.0 %
[2025-02-26 03:16] LABS: Chloride 103 mmol/L (98-107); Potassium 4.6 mmol/L (3.5-5.1); Sodium 136 mmol/L (136-145)
[2025-02-26 03:17] LABS: Anion Gap 13 (5-15); Carbon Dioxide 20 mmol/L (20-31)
[2025-02-26 03:22] LABS: BUN/Creatinine Ratio 35.5 (10.0-20.0)
[2025-02-26 03:38] LABS: Blood Urea Nitrogen 49 mg/dL (9-23); Calcium 8.5 mg/dL (8.7-10.4); Glucose 174 mg/dL (74-106)
[2025-02-26] MEDS: methylPREDNISolone SOD SUCC 40 MG/ML VL ONE (10:38)
--- NOTE | 2025-02-26 11:36 | DVHPN2 ---
Progress Note - Dictate Date Seen: Feb 25, 2025 Medical Necessity Reason Pt with a Central, PICC or Fol: No vital signs Vital Sign Date Time Temp Pulse Resp B/P (MAP) Pulse Ox O2 Delivery O2 Flow Rate FiO2 02/26/25 11:00 98.0 85 21 105/67 (80) 99 98.0 02/26/25 07:30 Simple Mask* 8 60 Total Intake and Output 02/25/25 02/25/25 02/26/25 15:00 23:00 07:00 Intake Total 300 ml 240 ml Balance 300 ml 240 ml medications Current Medications Medications Dose Ordered Sig/Nasim Route Start Time Stop Time Status Last Admin Dose Admin Acetaminophen 650 mg Q6HP PRN PO 02/24/25 08:45 Enoxaparin Sodium 40 mg DAILY SC 02/24/25 10:00 02/26/25 10:16 40 MG Ceftriaxone Sodium 50 ml @ 100 mls/hr DAILY@09 IV 02/24/25 09:00 02/26/25 09:09 100 MLS/HR Azithromycin 250 ml @ 125 mls/hr DAILY IV 02/24/25 10:00 02/26/25 10:15 125 MLS/HR Albuterol 2.5 mg Q6HPRN PRN NEB 02/24/25 08:45 02/26/25 06:43 2.5 MG Ipratropium [place] 0.5 mg Q6HWA NEB 02/24/25 12:00 02/26/25 06:43 0.5 MG Diagnostic Test (Pha) 1 strip Q6HR 02/24/25 12:00 02/26/25 06:00 1 STRIP Insulin Human Regular Q6HR SC 02/24/25 12:00 02/26/25 06:31 3 UNITS Dextrose 50 ml UD PRN IV 02/24/25 08:45 Methylprednisolone Sodium Succinate 80 mg BID IV 02/24/25 22:00 02/26/25 10:16 80 MG laboratory and microbiology Laboratory Tests 02/26/25 02:39 Test 02/26/25 02:39 Range/Units Serum Glucose 174 H 74-106 mg/dL Assessment/Plan Impression Acute hypoxemic respiratory failure Recurrent pleural effusions End-stage pulmonary fibrosis CHF Patient seen and examined Events Low oxygen requirements On 2 liters nasal cannula No acute events Labs and imaging reviewed Management Supplemental oxygen Titrate to maintain sats 90% or above Incentive spirometry Continue antibiotics F/u cultures Bronchodilators Continue steroids Monitor renal function Monitor electrolytes Supplement as needed DVT prophylaxis Plan discussed with: Patient CHAPARRITA ROPER MD Feb 26, 2025 11:36
--- NOTE | 2025-02-26 11:37 | DVHPN2 ---
Progress Note - Dictate Date Seen: Feb 26, 2025 Medical Necessity Reason Pt with a Central, PICC or Fol: No vital signs Vital Sign Date Time Temp Pulse Resp B/P (MAP) Pulse Ox O2 Delivery O2 Flow Rate FiO2 02/26/25 11:00 98.0 85 21 105/67 (80) 99 98.0 02/26/25 07:30 Simple Mask* 8 60 Total Intake and Output 02/25/25 02/25/25 02/26/25 15:00 23:00 07:00 Intake Total 300 ml 240 ml Balance 300 ml 240 ml medications Current Medications Medications Dose Ordered Sig/Nasim Route Start Time Stop Time Status Last Admin Dose Admin Acetaminophen 650 mg Q6HP PRN PO 02/24/25 08:45 Enoxaparin Sodium 40 mg DAILY SC 02/24/25 10:00 02/26/25 10:16 40 MG Ceftriaxone Sodium 50 ml @ 100 mls/hr DAILY@09 IV 02/24/25 09:00 02/26/25 09:09 100 MLS/HR Azithromycin 250 ml @ 125 mls/hr DAILY IV 02/24/25 10:00 02/26/25 10:15 125 MLS/HR Albuterol 2.5 mg Q6HPRN PRN NEB 02/24/25 08:45 02/26/25 06:43 2.5 MG Ipratropium [place] 0.5 mg Q6HWA NEB 02/24/25 12:00 02/26/25 06:43 0.5 MG Diagnostic Test (Pha) 1 strip Q6HR 02/24/25 12:00 02/26/25 06:00 1 STRIP Insulin Human Regular Q6HR SC 02/24/25 12:00 02/26/25 06:31 3 UNITS Dextrose 50 ml UD PRN IV 02/24/25 08:45 Methylprednisolone Sodium Succinate 80 mg BID IV 02/24/25 22:00 02/26/25 10:16 80 MG laboratory and microbiology Laboratory Tests 02/26/25 02:39 Test 02/26/25 02:39 Range/Units Serum Glucose 174 H 74-106 mg/dL Assessment/Plan Impression Acute hypoxemic respiratory failure Recurrent pleural effusions End-stage pulmonary fibrosis CHF Patient seen and examined Events On 8 liters facemask No distress Labs and imaging reviewed Management Supplemental oxygen Titrate to maintain sats 90% or above Incentive spirometry Continue antibiotics F/u cultures Bronchodilators Continue steroids Monitor renal function Monitor electrolytes Supplement as needed Prognosis very poor DVT prophylaxis Plan discussed with: Patient CHAPARRITA ROPER MD Feb 26, 2025 11:37
--- NOTE | 2025-02-26 13:43 | DVHPN2 ---
Subjective still on oxygen at high demand Reviewed: H&P Changes from previous H/P or p: No Changes Objective Vitals Vital Signs Date Time Temp Pulse Resp B/P (MAP) Pulse Ox O2 Delivery O2 Flow Rate FiO2 02/26/25 12:23 84 15 100 02/26/25 12:19 Nasal Cannula* 2 28 02/26/25 11:00 98.0 105/67 (80) 98.0 Intake/Output Intake and Output 02/26/25 07:00 Intake Total 540 ml Balance 540 ml Intake Oral 240 ml IV Total 300 ml # Voids 1 # Bowel Movements 1 General Appearance: Alert, Oriented X3 HEENT: Atraumatic Lungs: Clear to auscultation Cardiovascular: Regular rate, Normal S1, Normal S2 Abdomen: Normal bowel sounds Medications Current Medications Medications Dose Ordered Sig/Nasim Route Start Time Stop Time Status Last Admin Dose Admin Acetaminophen 650 mg Q6HP PRN PO 02/24/25 08:45 Enoxaparin Sodium 40 mg DAILY SC 02/24/25 10:00 02/26/25 10:16 40 MG Ceftriaxone Sodium 50 ml @ 100 mls/hr DAILY@09 IV 02/24/25 09:00 02/26/25 09:09 100 MLS/HR Azithromycin 250 ml @ 125 mls/hr DAILY IV 02/24/25 10:00 02/26/25 10:15 125 MLS/HR Albuterol 2.5 mg Q6HPRN PRN NEB 02/24/25 08:45 02/26/25 12:18 2.5 MG Ipratropium [place] 0.5 mg Q6HWA NEB 02/24/25 12:00 02/26/25 12:18 0.5 MG Diagnostic Test (Pha) 1 strip Q6HR 02/24/25 12:00 02/26/25 12:45 1 STRIP Insulin Human Regular Q6HR SC 02/24/25 12:00 02/26/25 13:03 6 UNITS Dextrose 50 ml UD PRN IV 02/24/25 08:45 Methylprednisolone Sodium Succinate 80 mg BID IV 02/24/25 22:00 02/26/25 10:16 80 MG Laboratory Results Laboratory Tests 02/26/25 02:39 Chemistry Test 02/26/25 02:39 Calcium Level 8.5 mg/dL (8.7-10.4) L Urinalysis Test 02/24/25 12:15 Urine Color Yellow (Yellow) Urine Clarity Clear (Clear) Urine pH 6.0 (5.0-9.0) Urine Specific [place] 1.023 (1.001-1.035) Urine Protein 3+ (Negative) H Urine Ketones Negative (Negative) Urine Blood 1+ /uL (Negative) H Urine Nitrite Negative (Negative) Urine Bilirubin Negative (Negative) Urine Urobilinogen Normal mg/dL (Negative) Urine Leukocyte Esterase Negative /uL (Negative) Urine RBC 4 /hpf (0 - 3) Urine Microscopic WBC 2 /HPF (0-3) Urine Squamous Epithelial Cells Few /hpf (<5) Urine Bacteria Few /hpf (None Seen) H Urine Hyaline Casts Few /lpf (0 - 2) Urine Glucose Normal mg/dL (Normal) Microbiology Microbiology Date/Time Source Procedure Growth Status 02/25/25 09:23 Nose MRSA Screen - Final Complete 02/24/25 12:15 Voided Urine Urine Culture - Final Complete 02/24/25 09:40 Blood Blood Culture - Preliminary NO GROWTH AFTER 48 HOURS OF INCUBATION. Resulted Assessment/Plan Assessment/Plan 1. Acute on chronic hypoxic respiratory failure Multifactorial: COPD exacerbation + pulmonary fibrosis + volume overload + severe PH. Maintain 6 L NC, titrate for SpO2 8892%. pulmonary consulted 2. COPD exacerbation Worsening dyspnea, wheezing, hypoxia, leukocytosis. Duonebs q6h Methylprednisolone BID Ceftriaxone + Azithromycin 3. Pulmonary fibrosis Contributing to baseline hypoxia, imaging consistent with fibrotic disease. Pulmonology to evaluate for ILD flare Supportive care 4. Heart failure with volume overload BNP 1511, vascular congestion on CXR. Furosemide IV, reassess response Strict I/O, daily weights Continue guideline-directed therapy if BP allows 5. Severe pulmonary hypertension (PASP >85) High RV strain risk. Maintain oxygenation Avoid acidosis and hypotension Gentle diuresis Monitor for signs of RV failure 6. Recurrent pleural effusion Trace on CXR today; history of multiple thoracenteses. Monitor clinically Repeat imaging if worsening Consider thoracentesis if symptomatic 7. Leukocytosis WBC 15.9 Trend CBC Continue antibiotics 8. BEATRICE on CKD Creatinine 1.37 Monitor BMP daily Avoid nephrotoxins 9. Diabetes mellitus Risk for hyperglycemia with steroids. SSI Check glucose ACHS 10. Hypertension On amlodipine and losartan at home. Continue if hemodynamics stable Disposition Plan discussed with: Patient Date of Service: Feb 26, 2025 Billing Provider: MICHEL MOSS MD Common Visit Codes: [id number] INP/OBS CARE(HIGH) MICHEL MOSS MD Feb 26, 2025 13:43
[2025-02-27] VITALS (14 sets, daily range): BP systolic 112–130; BP diastolic 71–78; PULSE 71–97; RESP 14–20; TEMP 97.6–97.9; O2SAT 86–100
--- NOTE | 2025-02-27 12:29 | DVHPN2 ---
Subjective oxygen is being weaned off Reviewed: H&P Changes from previous H/P or p: No Changes Objective Vitals Vital Signs Date Time Temp Pulse Resp B/P (MAP) Pulse Ox O2 Delivery O2 Flow Rate FiO2 02/27/25 12:23 98.2 88 16 115/75 (88) 100 98.2 02/27/25 09:33 10.0 02/27/25 07:25 Simple Mask* 50 Intake/Output Intake and Output 02/27/25 05:00 Intake Total 300 ml Output Total 400 ml Balance -100 ml IV Total 300 ml Output Urine Total 400 ml General Appearance: Alert, Oriented X3 HEENT: Atraumatic Lungs: Clear to auscultation Cardiovascular: Regular rate, Normal S1, Normal S2 Abdomen: Normal bowel sounds Medications Current Medications Medications Dose Ordered Sig/Nasim Route Start Time Stop Time Status Last Admin Dose Admin Acetaminophen 650 mg Q6HP PRN PO 02/24/25 08:45 Enoxaparin Sodium 40 mg DAILY SC 02/24/25 10:00 02/27/25 09:57 40 MG Ceftriaxone Sodium 50 ml @ 100 mls/hr DAILY@09 IV 02/24/25 09:00 02/27/25 09:22 100 MLS/HR Azithromycin 250 ml @ 125 mls/hr DAILY IV 02/24/25 10:00 02/27/25 09:57 125 MLS/HR Albuterol 2.5 mg Q6HPRN PRN NEB 02/24/25 08:45 02/27/25 11:22 2.5 MG Ipratropium [place] 0.5 mg Q6HWA NEB 02/24/25 12:00 02/27/25 11:22 0.5 MG Diagnostic Test (Pha) 1 strip Q6HR 02/24/25 12:00 02/27/25 11:47 1 STRIP Insulin Human Regular Q6HR SC 02/24/25 12:00 02/27/25 11:55 10 UNITS Dextrose 50 ml UD PRN IV 02/24/25 08:45 Methylprednisolone Sodium Succinate 80 mg BID IV 02/24/25 22:00 02/27/25 09:56 80 MG Laboratory Results Laboratory Tests 02/26/25 02:39 Urinalysis Test 02/24/25 12:15 Urine Color Yellow (Yellow) Urine Clarity Clear (Clear) Urine pH 6.0 (5.0-9.0) Urine Specific [place] 1.023 (1.001-1.035) Urine Protein 3+ (Negative) H Urine Ketones Negative (Negative) Urine Blood 1+ /uL (Negative) H Urine Nitrite Negative (Negative) Urine Bilirubin Negative (Negative) Urine Urobilinogen Normal mg/dL (Negative) Urine Leukocyte Esterase Negative /uL (Negative) Urine RBC 4 /hpf (0 - 3) Urine Microscopic WBC 2 /HPF (0-3) Urine Squamous Epithelial Cells Few /hpf (<5) Urine Bacteria Few /hpf (None Seen) H Urine Hyaline Casts Few /lpf (0 - 2) Urine Glucose Normal mg/dL (Normal) Microbiology Microbiology Date/Time Source Procedure Growth Status 02/25/25 09:23 Nose MRSA Screen - Final Complete 02/24/25 12:15 Voided Urine Urine Culture - Final Complete 02/24/25 09:40 Blood Blood Culture - Preliminary NO GROWTH AFTER 72 HOURS OF INCUBATION. Resulted Assessment/Plan Assessment/Plan 1. Acute on chronic hypoxic respiratory failure Multifactorial: COPD exacerbation + pulmonary fibrosis + volume overload + severe PH. Maintain 6 L NC, titrate for SpO2 8892%. pulmonary consulted 2. COPD exacerbation Worsening dyspnea, wheezing, hypoxia, leukocytosis. Duonebs q6h Methylprednisolone BID Ceftriaxone + Azithromycin 3. Pulmonary fibrosis Contributing to baseline hypoxia, imaging consistent with fibrotic disease. Pulmonology to evaluate for ILD flare Supportive care 4. Heart failure with volume overload BNP 1511, vascular congestion on CXR. Furosemide IV, reassess response Strict I/O, daily weights Continue guideline-directed therapy if BP allows 5. Severe pulmonary hypertension (PASP >85) High RV strain risk. Maintain oxygenation Avoid acidosis and hypotension Gentle diuresis Monitor for signs of RV failure 6. Recurrent pleural effusion Trace on CXR today; history of multiple thoracenteses. Monitor clinically Repeat imaging if worsening Consider thoracentesis if symptomatic 7. Leukocytosis WBC 15.9 Trend CBC Continue antibiotics 8. BEATRICE on CKD Creatinine 1.37 Monitor BMP daily Avoid nephrotoxins 9. Diabetes mellitus Risk for hyperglycemia with steroids. SSI Check glucose ACHS 10. Hypertension On amlodipine and losartan at home. Continue if hemodynamics stable 02/27 Continue IV abx, weaning off oxygen IV lasix Disposition Plan discussed with: Patient Date of Service: Feb 27, 2025 Billing Provider: MICHEL MOSS MD Common Visit Codes: [id number] INP/OBS CARE(HIGH) MICHEL MOSS MD Feb 27, 2025 12:29
--- NOTE | 2025-02-27 12:49 | DVHPN2 ---
Progress Note - Dictate Date Seen: Feb 27, 2025 Medical Necessity Reason Pt with a Central, PICC or Fol: No vital signs Vital Sign Date Time Temp Pulse Resp B/P (MAP) Pulse Ox O2 Delivery O2 Flow Rate FiO2 02/27/25 12:23 98.2 88 16 115/75 (88) 100 98.2 02/27/25 09:33 10.0 02/27/25 07:25 Simple Mask* 50 Total Intake and Output 02/26/25 02/26/25 02/27/25 14:59 22:59 06:59 Intake Total 300 ml Output Total 950 ml Balance 300 ml -950 ml medications Current Medications Medications Dose Ordered Sig/Nasim Route Start Time Stop Time Status Last Admin Dose Admin Acetaminophen 650 mg Q6HP PRN PO 02/24/25 08:45 Enoxaparin Sodium 40 mg DAILY SC 02/24/25 10:00 02/27/25 09:57 40 MG Ceftriaxone Sodium 50 ml @ 100 mls/hr DAILY@09 IV 02/24/25 09:00 02/27/25 09:22 100 MLS/HR Azithromycin 250 ml @ 125 mls/hr DAILY IV 02/24/25 10:00 02/27/25 09:57 125 MLS/HR Albuterol 2.5 mg Q6HPRN PRN NEB 02/24/25 08:45 02/27/25 11:22 2.5 MG Ipratropium [place] 0.5 mg Q6HWA NEB 02/24/25 12:00 02/27/25 11:22 0.5 MG Diagnostic Test (Pha) 1 strip Q6HR 02/24/25 12:00 02/27/25 11:47 1 STRIP Insulin Human Regular Q6HR SC 02/24/25 12:00 02/27/25 11:55 10 UNITS Dextrose 50 ml UD PRN IV 02/24/25 08:45 Methylprednisolone Sodium Succinate 80 mg BID IV 02/24/25 22:00 02/27/25 09:56 80 MG laboratory and microbiology Laboratory Tests 02/26/25 02:39 Test 02/26/25 02:39 Range/Units Serum Glucose 174 H 74-106 mg/dL Assessment/Plan Impression Acute hypoxemic respiratory failure Recurrent pleural effusions End-stage pulmonary fibrosis CHF Patient seen and examined still in the ER! Events On 8 liters facemask No distress at baseline Labs and imaging reviewed CXR min right pl effusions most likely progression of IPF Management Supplemental oxygen Titrate to maintain sats 90% or above Incentive spirometry Continue antibiotics F/u cultures Bronchodilators Continue steroids Monitor renal function Monitor electrolytes Supplement as needed Prognosis very poor consider hospice Plan discussed with: Patient CHAPARRITA ROPER MD Feb 27, 2025 12:49
[2025-02-27] MEDS: ACETAMINOPHEN 325 MG TAB PO PRN (23:07)
[2025-02-28] VITALS (18 sets, daily range): BP systolic 113–142; BP diastolic 74–84; PULSE 64–91; RESP 14–20; TEMP 97–98.7; O2SAT 90–100
[2025-02-28] MEDS: InsuLIN REG 1unit/0.01ml Soln (100units/ml) SC ONE (14:38)
--- NOTE | 2025-02-28 15:06 | DVHPN2 ---
Subjective oxygen is being weaned off Reviewed: H&P Changes from previous H/P or p: No Changes Objective Vitals Vital Signs Date Time Temp Pulse Resp B/P (MAP) Pulse Ox O2 Delivery O2 Flow Rate FiO2 02/28/25 13:00 98.0 89 14 113/78 (90) 98 98.0 02/28/25 11:22 Nasal Cannula 6.0 02/28/25 11:22 N/A Intake/Output Intake and Output 02/28/25 07:00 Intake Total 550 ml Output Total 500 ml Balance 50 ml Intake Oral 250 ml IV Total 300 ml Output Urine Total 500 ml General Appearance: Alert, Oriented X3 HEENT: Atraumatic Lungs: Clear to auscultation Cardiovascular: Regular rate, Normal S1, Normal S2 Abdomen: Normal bowel sounds Medications Current Medications Medications Dose Ordered Sig/Nasim Route Start Time Stop Time Status Last Admin Dose Admin Acetaminophen 650 mg Q6HP PRN PO 02/24/25 08:45 02/27/25 23:07 650 MG Enoxaparin Sodium 40 mg DAILY SC 02/24/25 10:00 02/28/25 09:13 40 MG Ceftriaxone Sodium 50 ml @ 100 mls/hr DAILY@09 IV 02/24/25 09:00 02/28/25 09:13 100 MLS/HR Azithromycin 250 ml @ 125 mls/hr DAILY IV 02/24/25 10:00 02/28/25 11:48 125 MLS/HR Albuterol 2.5 mg Q6HPRN PRN NEB 02/24/25 08:45 02/28/25 00:43 2.5 MG Ipratropium [place] 0.5 mg Q6HWA NEB 02/24/25 12:00 02/28/25 11:16 0.5 MG Diagnostic Test (Pha) 1 strip Q6HR 02/24/25 12:00 02/28/25 14:10 1 STRIP Insulin Human Regular Q6HR SC 02/24/25 12:00 02/28/25 14:12 10 UNITS Dextrose 50 ml UD PRN IV 02/24/25 08:45 Methylprednisolone Sodium Succinate 80 mg BID IV 02/24/25 22:00 02/28/25 09:13 80 MG Laboratory Results Laboratory Tests 02/26/25 02:39 Urinalysis Test 02/24/25 12:15 Urine Color Yellow (Yellow) Urine Clarity Clear (Clear) Urine pH 6.0 (5.0-9.0) Urine Specific [place] 1.023 (1.001-1.035) Urine Protein 3+ (Negative) H Urine Ketones Negative (Negative) Urine Blood 1+ /uL (Negative) H Urine Nitrite Negative (Negative) Urine Bilirubin Negative (Negative) Urine Urobilinogen Normal mg/dL (Negative) Urine Leukocyte Esterase Negative /uL (Negative) Urine RBC 4 /hpf (0 - 3) Urine Microscopic WBC 2 /HPF (0-3) Urine Squamous Epithelial Cells Few /hpf (<5) Urine Bacteria Few /hpf (None Seen) H Urine Hyaline Casts Few /lpf (0 - 2) Urine Glucose Normal mg/dL (Normal) Microbiology Microbiology Date/Time Source Procedure Growth Status 02/25/25 09:23 Nose MRSA Screen - Final Complete 02/24/25 12:15 Voided Urine Urine Culture - Final Complete 02/24/25 09:40 Blood Blood Culture - Preliminary NO GROWTH AFTER 72 HOURS OF INCUBATION. Resulted Assessment/Plan Assessment/Plan 1. Acute on chronic hypoxic respiratory failure Multifactorial: COPD exacerbation + pulmonary fibrosis + volume overload + severe PH. Maintain 6 L NC, titrate for SpO2 8892%. pulmonary consulted 2. COPD exacerbation Worsening dyspnea, wheezing, hypoxia, leukocytosis. Duonebs q6h Methylprednisolone BID Ceftriaxone + Azithromycin 3. Pulmonary fibrosis Contributing to baseline hypoxia, imaging consistent with fibrotic disease. Pulmonology to evaluate for ILD flare Supportive care 4. Heart failure with volume overload BNP 1511, vascular congestion on CXR. Furosemide IV, reassess response Strict I/O, daily weights Continue guideline-directed therapy if BP allows 5. Severe pulmonary hypertension (PASP >85) High RV strain risk. Maintain oxygenation Avoid acidosis and hypotension Gentle diuresis Monitor for signs of RV failure 6. Recurrent pleural effusion Trace on CXR today; history of multiple thoracenteses. Monitor clinically Repeat imaging if worsening Consider thoracentesis if symptomatic 7. Leukocytosis WBC 15.9 Trend CBC Continue antibiotics 8. BEATRICE on CKD Creatinine 1.37 Monitor BMP daily Avoid nephrotoxins 9. Diabetes mellitus Risk for hyperglycemia with steroids. SSI Check glucose ACHS 10. Hypertension On amlodipine and losartan at home. Continue if hemodynamics stable 02/27 Continue IV abx, weaning off oxygen IV lasix 02/28 Continue IV abx, IV steroids Weaning off oxygen Disposition Plan discussed with: Patient My Orders Orders - AJAY,MICHEL J MD Procedure Category Date Status Time Cardiac DIET 02/28/25 Transmitted Diet-2gna,Lofat,Lochol Dinner Date of Service: Feb 28, 2025 Billing Provider: MICHEL MOSS MD Common Visit Codes: [id number] INP/OBS CARE(HIGH) MICHEL MOSS MD Feb 28, 2025 15:06
[2025-02-28] MEDS: SILDENAFIL CITRATE 20 MG TAB PO SCH (18:11)
--- NOTE | 2025-02-28 23:56 | DVHINCON2 ---
Date of service: Feb 28, [address] Diaz [facility] Reason for Consultation Acute on chronic hypoxic respiratory failure, pleural effusion and pneumonia. History of Present Illness An 85-year-old male with past medical history that includes severe COPD, pulmonary fibrosis, diabetes mellitus, hypertension, chronic heart failure, and severe pulmonary hypertension (PASP >85), who presented to ED on 02/24/25 with complaint of shortness of breath for 2 days. At baseline he uses 3 L NC, but reported over the past 48 hours he developed worsening dyspnea at minimal exertion and even at rest. EMS found him saturating 80% on 3 L and he required escalation to 6 L NC on arrival. He reported associated chest tightness, chronic cough, and progressive fatigue. Patient follows with Dr. Williamson and has required multiple thoracenteses for recurrent effusions. No fevers, chills, nausea, or new lower-extremity swelling. Patient was admitted for further care. Pulmonary consultation is requested for evaluation and management of acute on chronic hypoxic respiratory failure, pleural effusion and pneumonia. Review of Systems: 14-point review of systems negative unless otherwise noted above. Past Medical History: Severe COPD, pulmonary fibrosis, diabetes mellitus, hypertension, chronic heart failure, severe pulmonary hypertension (PASP >85), RV enlargement, moderatesevere tricuspid regurgitation, and moderate aortic stenosis, Past Surgical History: None Medications: Reviewed. Allergies: Penicillin. Family History: Diabetes mellitus No family history of premature CAD. No family history of lung disorders. Social History: Former heavy smoker. No alcohol or illicit drug use. Family History: Diabetes mellitus G8 MOTHER G8 FATHER 19 CHILD Allergies: Coded Allergies: Penicillins (Verified Allergy, Unknown, 05/10/21) Home Meds Active Scripts Sildenafil Citrate (Revatio) 20 Mg Tab, 20 MG PO TID for 30 Days, #90 TAB 2 Refills Prov:ASIF KWON CHIEF SUBSTATION OPERATOR 02/11/25 Furosemide (Lasix) 20 Mg Tb, 1 TAB PO DAILY for 30 Days, #30 TAB 5 Refills Prov:MANI CHISHOLM RESIDENT 01/15/24 Ipratropium-Albuterol (Ipratropium [place]/Albut) 1 Con Con, 1 CON IN Q4HPRN PRN for 90 Days, #180 ML Prov:DIAMOND DIAS MD 08/16/22 Reported Medications Omeprazole ([facility]vs Omeprazole Odt) 20 Mg Tab, 20 MG PO DAILY 02/05/25 Tamsulosin Hcl (Tamsulosin Hcl) 0.4 Mg Cap, 0.4 MG PO HS 02/05/25 Wglarxooylu-Khtgzpsatsns-Qnlsl (Trelegy Ellipta 200-62.5-25 Mcg/INH) 1 Aer Aer, 1 PUFF INH DAILY 02/05/25 Finasteride (Finasteride) 5 Mg Tab, 1 TAB PO DAILY 02/05/25 Dapagliflozin Propanediol (Farxiga) 10 Mg Tab, 10 MG PO, TAB 01/13/24 Multiple Vitamin (Multivitamins) Tab, 1 TAB PO DAILY, #90 TAB 3 Refills 05/15/21 Glimepiride (Glimepiride) 1 Mg Tab, 1 MG PO BID for 30 Days, MG 05/15/21 Atorvastatin Calcium (ATORVASTATIN CALCIUM) 40 Mg Tab, 1 TAB PO HS, #30 TAB 5 Refills 05/15/21 Amlodipine Besylate (Amlodipine Besylate) 10 Mg Tab, 1 TAB PO DAILY 05/15/21 Mirtazapine (Mirtazapine Oral Disintegrating Tablet) 15 Mg Tab, 1 TAB PO BID 05/15/21 Metformin Hydrochloride (Metformin Hcl) 1,000 Mg Tab, 1 TAB PO BID 05/15/21 Current Medications Current Medications Medications (Trade) Dose Ordered Sig/Nasim Route PRN Reason Start Time Stop Time Status Last Admin Sildenafil Citrate (Revatio) 20 mg TID@08,14,20 PO 02/28/25 17:45 02/28/25 18:11 Vital Signs Vital Signs Date Time Temp Pulse Resp B/P (MAP) Pulse Ox O2 Delivery O2 Flow Rate FiO2 02/28/25 21:00 98.7 84 19 118/74 (89) 100 98.7 02/28/25 18:54 Nasal Cannula 6.0 02/28/25 18:54 N/A Physical Exam Gen.: Patient lying in bed in no apparent distress. On supplemental oxygen. Head: Normocephalic, atraumatic. Eyes: EOMI/PERRLA. Ears: Normal hearing. Normal anatomy. Neck/trachea: Trachea midline, supple. Nose: Normal external anatomy. Mouth: Moist mucous membranes. Chest: Decreased air entry bilaterally. No wheezing or rhonchi. Cardiovascular: Positive S1, positive S2. Regular rate and rhythm. Abdomen: Positive bowel sounds in all 4 quadrants. Soft, non-tender, non- distended. : Deferred. Rectal: Deferred. Skin: Warm, dry. Intact. Extremities: 2+ radial pulses bilaterally. No lower extremity edema. Neuro: Awake, alert, oriented x3. No gross motor or sensory deficits. Cranial nerves II through XII intact. Gait not assessed. Labs/Diagnostic Data Labs Test 02/28/25 18:22 02/26/25 02:39 02/25/25 07:19 02/25/25 07:05 Range/Units POC Glucose 334 H 70-106 mg/dl White Blood Count 15.2 #H 4.4-10.8 10^3/uL Red Blood Count 4.34 L 4.5-5.90 10^6/uL Hemoglobin 9.9 L 13.5-17.5 g/dL Hematocrit 32.1 L 41.0-53.0 % Mean Corpuscular Volume 74.0 L 80.0-100.0 fL Mean Corpuscular Hemoglobin 22.9 L 28.0-32.0 pg Mean Corpuscular Hemoglobin Concent 31.0 L 32.0-36.0 g/dL Red Cell Distribution Width 20.4 H 11.8-14.3 % Platelet Count 123 L 140-450 10^3/uL Mean Platelet Volume 9.1 6.9-10.8 fL Neutrophils (%) (Auto) 96.9 H 37.0-80.0 % Lymphocytes (%) (Auto) 0.4 L 10.0-50.0 % Monocytes (%) (Auto) 2.6 0.0-12.0 % Eosinophils (%) (Auto) 0.0 0.0-7.0 % Basophils (%) (Auto) 0.1 0.0-2.0 % Neutrophils # (Auto) 14.7 H 1.6-8.6 10 ^3/uL Lymphocytes # (Auto) 0.1 L 0.4-5.4 10 ^3/uL Monocytes # (Auto) 0.4 0-1.3 10 ^3/uL Eosinophils # (Auto) 0 0-0.8 10 ^3/uL Basophils # (Auto) 0 0-0.2 10 ^3/uL Nucleated Red Blood Cells 0.0 % Sodium Level 136 136-145 mmol/L Potassium Level 4.6 3.5-5.1 mmol/L Chloride Level 103 98-107 mmol/L Carbon Dioxide Level 20 20-31 mmol/L Anion Gap 13 5-15 Blood Urea Nitrogen 49 #H 9-23 mg/dL Creatinine 1.38 H 0.700-1.30 mg/dL Glomerular Filtration Rate Calc 51 >90 mL/min BUN/Creatinine Ratio 35.5 H 10.0-20.0 Serum Glucose 174 H 74-106 mg/dL Calcium Level 8.5 L 8.7-10.4 mg/dL Influenza Type A Antigen Negative Negative Influenza Type B Antigen Negative Negative SARS-CoV-2 Antigen (Rapid) Negative NEGATIVE Blood Gas Specimen Type Arterial Blood Gas Sample Site Right radial Blood Gas Patient Temperature 37.0 Arterial Blood Date Drawn Arterial Blood pH 7.469 H 7.350-7.450 Arterial Blood Partial Pressure CO2 28.1 L 35.0-48.0 mmHg Arterial Blood Partial Pressure O2 71.5 L 83.0-108.0 mmHg Arterial Blood HCO3 19.9 L 21.0-28.0 mmol/L Arterial Blood Oxygen Saturation 93.5 L 94.0-98.0 % Arterial Blood Base Excess -2.8 L -2.0-3.0 mmol/L Arterial Blood Oxyhemoglobin 92.2 L 94.0-98.0 % Arterial Blood Carboxyhemoglobin 1.0 0.5-1.5 % Arterial Blood Methemoglobin 0.4 0.0-1.5 % Arterial Blood Deoxyhemoglobin 6.4 H 0.0-5.0 % Morris Test Yes Blood Gas Total Hemoglobin 10.80 L 13.5-17.5 g/dL Blood Gas Liter Flow 7.00 Blood Gas Modality Oxymizer FiO2 % 58.0 Test 02/25/25 03:32 02/24/25 12:15 02/24/25 09:15 02/24/25 07:16 Range/Units Total Bilirubin 0.7 0.2-1.0 mg/dL Aspartate Amino Transferase (AST) 20 13-40 U/L Alanine Aminotransferase (ALT) 33 7-40 U/L Alkaline Phosphatase 229 H 46-116 U/L Total Protein 5.7 5.7-8.2 g/dL Albumin 3.5 3.2-4.8 g/dL Urine Color Yellow Yellow Urine Clarity Clear Clear Urine pH 6.0 5.0-9.0 Urine Specific [place] 1.023 1.001-1.035 Urine Protein 3+ H Negative Urine Ketones Negative Negative Urine Blood 1+ H Negative /uL Urine Nitrite Negative Negative Urine Bilirubin Negative Negative Urine Urobilinogen Normal Negative mg/dL Urine Leukocyte Esterase Negative Negative /uL Urine RBC 4 0 - 3 /hpf Urine Microscopic WBC 2 0-3 /HPF Urine Squamous Epithelial Cells Few <5 /hpf Urine Bacteria Few H None Seen /hpf Urine Hyaline Casts Few 0 - 2 /lpf Urine Glucose Normal Normal mg/dL Blood Gas Critical Value Read Back Yes Blood Gas Notified Whom Good rader md Blood Gas Notified Time [id number] Blood Gas Notified By Ashely liang Differential Total Cells Counted 100.0 100 Neutrophils % (Manual) 95 H 37.0-80.0 Band Neutrophils % (Manual) 2 Lymphocytes % (Manual) 1 L 10.0-50.0 Monocytes % (Manual) 2 0-12 Eosinophils % (Manual) 0 0-7 Basophils % (Manual) 0 0.0-2.0 Metamyelocytes % (manual) 0 Myelocytes % (Manual) 0 Promyelocytes % (Manual) 0 Blast Cells % (Manual) 0 Reactive Lymphocytes 0 Platelet Estimate Decreased Hypochromasia (manual) Slight Poikilocytosis (manual) Slight Anisocytosis (manual) Slight Microcytosis Moderate Doyle Cells Few Hemoglobin A1c 8.8 H <5.7 % A1C Troponin I High Sensitivity 27 </=54 ng/L B-Type Natriuretic Peptide 1511.70 0-100 pg/mL Microbiology Date/Time Source Procedure Growth Status 02/25/25 09:23 Nose MRSA Screen - Final Complete 02/24/25 12:15 Voided Urine Urine Culture - Final Complete 02/24/25 09:40 Blood Blood Culture - Preliminary NO GROWTH AFTER 72 HOURS OF INCUBATION. Resulted Assessment Impression: Acute on chronic hypoxic respiratory failure Dependence on supplemental oxygen Severe pulmonary hypertension Left pleural effusion Atelectasis Pneumonia, likely GNR Congestive heart failure Hx of nicotine dependence Plan: Supplemental oxygen Titrate to keep O2 sats above 92%. On 6 LPM Oxymizer Taper O2 as tolerated. Continue bronchodilators. Continue antibiotics IV steroids Incentive spirometry Echo: EF 55% RV enlarged. [id number] tricuspid regurgitation. Moderate aortic stenosis. Severe pulmonary hypertension, PASP >85 Cardiology recs appreciated Accu-Cheks, ISS Monitor renal function. Monitor electrolytes. Supplement as necessary. Monitor ins and outs. DVT prophylaxis. Prognosis: Poor given patient's multiple co-morbidities. Rest of plan per hospitalist and other consultants. Thank you, Dr. Diaz, for allowing me to participate in this patient's care. Further recommendations will depend on the patient's clinical course. Please do not hesitate to contact me if you have any questions or concerns. This medical document was created using an electronic medical record system with [employer] dictation system. Although these documentations are being carefully reviewed, there may still be some phonetic and typographical changes. The errors are purely typographical, due to imperfection on the software prog chyna, and do not reflect any compromise in the patient's medical care. Plan discussed with: Patient, Other (EVITA Giordano/) [facility] Feb 28, 2025 23:56
[2025-03-01] VITALS (16 sets, daily range): BP systolic 112–133; BP diastolic 62–83; PULSE 74–95; RESP 16–22; TEMP 96.8–97.5; O2SAT 78–100
--- NOTE | 2025-03-01 15:45 | DVHPN2 ---
Subjective oxygen is being weaned off Reviewed: H&P Changes from previous H/P or p: No Changes Objective Vitals Vital Signs Date Time Temp Pulse Resp B/P (MAP) Pulse Ox O2 Delivery O2 Flow Rate FiO2 03/01/25 13:40 94 Mask 10.0 03/01/25 13:40 88 20 03/01/25 13:40 99 03/01/25 12:37 96.9 133/79 (97) 96.9 Intake/Output Intake and Output 03/01/25 05:00 Intake Total 1900 ml Output Total 1650 ml Balance 250 ml Intake Oral 1600 ml IV Total 300 ml Output Urine Total 1650 ml # Voids 3 General Appearance: Alert, Oriented X3 HEENT: Atraumatic Lungs: Clear to auscultation Cardiovascular: Regular rate, Normal S1, Normal S2 Abdomen: Normal bowel sounds Medications Current Medications Medications Dose Ordered Sig/Nasim Route Start Time Stop Time Status Last Admin Dose Admin Acetaminophen 650 mg Q6HP PRN PO 02/24/25 08:45 02/27/25 23:07 650 MG Enoxaparin Sodium 40 mg DAILY SC 02/24/25 10:00 03/01/25 10:22 40 MG Ceftriaxone Sodium 50 ml @ 100 mls/hr DAILY@09 IV 02/24/25 09:00 03/01/25 10:22 100 MLS/HR Azithromycin 250 ml @ 125 mls/hr DAILY IV 02/24/25 10:00 03/01/25 12:08 125 MLS/HR Albuterol 2.5 mg Q6HPRN PRN NEB 02/24/25 08:45 03/01/25 07:19 2.5 MG Ipratropium [place] 0.5 mg Q6HWA NEB 02/24/25 12:00 03/01/25 13:30 0.5 MG Diagnostic Test (Pha) 1 strip Q6HR 02/24/25 12:00 03/01/25 12:08 1 STRIP Insulin Human Regular Q6HR SC 02/24/25 12:00 03/01/25 12:15 6 UNITS Dextrose 50 ml UD PRN IV 02/24/25 08:45 Methylprednisolone Sodium Succinate 80 mg BID IV 02/24/25 22:00 03/01/25 10:22 80 MG Sildenafil Citrate 20 mg TID@08,14,20 PO 02/28/25 17:45 03/01/25 14:16 20 MG Laboratory Results Laboratory Tests 02/26/25 02:39 Urinalysis Test 02/24/25 12:15 Urine Color Yellow (Yellow) Urine Clarity Clear (Clear) Urine pH 6.0 (5.0-9.0) Urine Specific [place] 1.023 (1.001-1.035) Urine Protein 3+ (Negative) H Urine Ketones Negative (Negative) Urine Blood 1+ /uL (Negative) H Urine Nitrite Negative (Negative) Urine Bilirubin Negative (Negative) Urine Urobilinogen Normal mg/dL (Negative) Urine Leukocyte Esterase Negative /uL (Negative) Urine RBC 4 /hpf (0 - 3) Urine Microscopic WBC 2 /HPF (0-3) Urine Squamous Epithelial Cells Few /hpf (<5) Urine Bacteria Few /hpf (None Seen) H Urine Hyaline Casts Few /lpf (0 - 2) Urine Glucose Normal mg/dL (Normal) Microbiology Microbiology Date/Time Source Procedure Growth Status 02/25/25 09:23 Nose MRSA Screen - Final Complete 02/24/25 12:15 Voided Urine Urine Culture - Final Complete 02/24/25 09:40 Blood Blood Culture - Final NO GROWTH AFTER 5 DAYS OF INCUBATION. Complete Assessment/Plan Assessment/Plan 1. Acute on chronic hypoxic respiratory failure Multifactorial: COPD exacerbation + pulmonary fibrosis + volume overload + severe PH. Maintain 6 L NC, titrate for SpO2 8892%. pulmonary consulted 2. COPD exacerbation Worsening dyspnea, wheezing, hypoxia, leukocytosis. Duonebs q6h Methylprednisolone BID Ceftriaxone + Azithromycin 3. Pulmonary fibrosis Contributing to baseline hypoxia, imaging consistent with fibrotic disease. Pulmonology to evaluate for ILD flare Supportive care 4. Heart failure with volume overload BNP 1511, vascular congestion on CXR. Furosemide IV, reassess response Strict I/O, daily weights Continue guideline-directed therapy if BP allows 5. Severe pulmonary hypertension (PASP >85) High RV strain risk. Maintain oxygenation Avoid acidosis and hypotension Gentle diuresis Monitor for signs of RV failure 6. Recurrent pleural effusion Trace on CXR today; history of multiple thoracenteses. Monitor clinically Repeat imaging if worsening Consider thoracentesis if symptomatic 7. Leukocytosis WBC 15.9 Trend CBC Continue antibiotics 8. BEATRICE on CKD Creatinine 1.37 Monitor BMP daily Avoid nephrotoxins 9. Diabetes mellitus Risk for hyperglycemia with steroids. SSI Check glucose ACHS 10. Hypertension On amlodipine and losartan at home. Continue if hemodynamics stable 02/27 Continue IV abx, weaning off oxygen IV lasix 02/28 Continue IV abx, IV steroids Weaning off oxygen 03/01 continue IV abx and steroids weaning off Disposition Plan discussed with: Patient My Orders Orders - MICHEL MOSS MD Procedure Category Date Status Time Pt Request For Service PT 03/01/25 Logged 13:00 Date of Service: Mar 01, 2025 Billing Provider: MICHEL MOSS MD Common Visit Codes: [id number] INP/OBS CARE(HIGH) MICHEL MOSS MD Mar 01, 2025 15:45
[2025-03-01] MEDS: FUROSEMIDE 40 MG/4 ML VIAL IV ONE (18:24)
--- NOTE | 2025-03-01 20:02 | DVHPN2 ---
Progress Note - Dictate Date Seen: Mar 01, 2025 Medical Necessity Reason Pt with a Central, PICC or Fol: No Subjective [facility] Patient seen and examined at bedside. Remains on supplemental oxygen Overnight events reviewed. vital signs Vital Sign Date Time Temp Pulse Resp B/P (MAP) Pulse Ox O2 Delivery O2 Flow Rate FiO2 03/01/25 18:25 100 Simple Mask* 10 99 03/01/25 18:25 88 22 03/01/25 18:24 113/62 03/01/25 17:00 97.5 97.5 Total Intake and Output 02/28/25 02/28/25 03/01/25 15:00 23:00 07:00 Intake Total 300 ml 800 ml 550 ml Output Total 600 ml 550 ml Balance 300 ml 200 ml 0 ml medications Current Medications Medications Dose Ordered Sig/Nasim Route Start Time Stop Time Status Last Admin Dose Admin Acetaminophen 650 mg Q6HP PRN PO 02/24/25 08:45 02/27/25 23:07 650 MG Enoxaparin Sodium 40 mg DAILY SC 02/24/25 10:00 03/01/25 10:22 40 MG Ceftriaxone Sodium 50 ml @ 100 mls/hr DAILY@09 IV 02/24/25 09:00 03/01/25 10:22 100 MLS/HR Azithromycin 250 ml @ 125 mls/hr DAILY IV 02/24/25 10:00 03/01/25 12:08 125 MLS/HR Albuterol 2.5 mg Q6HPRN PRN NEB 02/24/25 08:45 03/01/25 07:19 2.5 MG Ipratropium [place] 0.5 mg Q6HWA NEB 02/24/25 12:00 03/01/25 18:25 0.5 MG Diagnostic Test (Pha) 1 strip Q6HR 02/24/25 12:00 03/01/25 17:01 1 STRIP Insulin Human Regular Q6HR SC 02/24/25 12:00 03/01/25 17:05 10 UNITS Dextrose 50 ml UD PRN IV 02/24/25 08:45 Methylprednisolone Sodium Succinate 80 mg BID IV 02/24/25 22:00 03/01/25 10:22 80 MG Sildenafil Citrate 20 mg TID@08,14,20 PO 02/28/25 17:45 03/01/25 14:16 20 MG objective Gen.: Patient lying in bed in no apparent distress. On supplemental oxygen. Head: Normocephalic, atraumatic. Eyes: EOMI/PERRLA. Ears: Normal hearing. Normal anatomy. Neck/trachea: Trachea midline, supple. Nose: Normal external anatomy. Mouth: Moist mucous membranes. Chest: Decreased air entry bilaterally. No wheezing or rhonchi. Cardiovascular: Positive S1, positive S2. Regular rate and rhythm. Abdomen: Positive bowel sounds in all 4 quadrants. Soft, non-tender, non- distended. : Deferred. Rectal: Deferred. Skin: Warm, dry. Intact. Extremities: 2+ radial pulses bilaterally. No lower extremity edema. Neuro: Awake, alert, oriented x3. No gross motor or sensory deficits. Cranial nerves II through XII intact. Gait not assessed. laboratory and microbiology Laboratory Tests 02/26/25 02:39 Test 02/26/25 02:39 Range/Units Serum Glucose 174 H 74-106 mg/dL Assessment/Plan Impression: Acute on chronic hypoxic respiratory failure Dependence on supplemental oxygen Severe pulmonary hypertension Left pleural effusion Atelectasis Pneumonia, likely GNR Congestive heart failure Hx of nicotine dependence Events: Remains on supplemental oxygen On 6 LPM Oxymizer Taper O2 as tolerated. Continue IV steroids Continue antibiotics On sildenafil TID. Incentive spirometry Blood pressure is stable. Check chest x-ray in AM to assess for interval changes. Lasix 40 mg IVP x1 given Monitor renal function Monitor electrolytes. Supplement as necessary. Labs and imaging reviewed. Rest of plan as noted below. Plan: Supplemental oxygen Titrate to keep O2 sats above 92%. Continue bronchodilators. Continue antibiotics IV steroids Incentive spirometry Echo: EF 55% RV enlarged. [id number] tricuspid regurgitation. Moderate aortic stenosis. Severe pulmonary hypertension, PASP >85 Cardiology recs appreciated Accu-Cheks, ISS Monitor renal function. Monitor electrolytes. Supplement as necessary. Monitor ins and outs. DVT prophylaxis. Prognosis: Poor given patient's multiple co-morbidities. Rest of plan per hospitalist and other consultants. Thank you, Dr. Diaz, for allowing me to participate in this patient's care. Further recommendations will depend on the patient's clinical course. Please do not hesitate to contact me if you have any questions or concerns. This medical document was created using an electronic medical record system with [employer] system. Although these documentations are being carefully reviewed, there may still be some phonetic and typographical changes. The errors are purely typographical, due to imperfection on the software program, and do not reflect any compromise in the patient's medical care. Dietary Evaluation Review Comments: Nutrition Recommendation: 1) CCHO 60gm + cardiac diet 2) Ensure High Protein 240ml TID if PO intake < 50% 3) Monitor PO intake, lab values, weight trend, and I/O Expected Outcomes/Goals: Intake to meet >75% estimated needs Lab values to improve FU 3-5 days Plan discussed with: Patient, Other (EVITA Oreilly) [facility] Mar 01, 2025 20:02
[2025-03-02] VITALS (18 sets, daily range): BP systolic 114–130; BP diastolic 72–88; PULSE 70–97; RESP 16–22; TEMP 97.3–98.2; O2SAT 90–98
--- NOTE | 2025-03-02 07:01 | DVH ---
CHEST RADIOGRAPH Indication: SOB Technique: Single frontal view of the chest was obtained COMPARISON: XY CHEST XRAY 1 VIEW on DOS: 02/25/25, XY CHEST PORTABLE on DOS: 02/24/25, XY CHEST PORTABLE on DOS: 02/10/25, XY CHEST XRAY 1 VIEW on DOS: 02/05/25, XY CHEST PORTABLE on DOS: 01/12/24 FINDINGS: Lines and Tubes: None Lungs: Stable appearing bilateral pleural effusions and diffuse multifocal bilateral interstitial pulmonary fibrosis. No pneumothorax. Cardiomediastinal contours: Unremarkable Bones: Unremarkable IMPRESSION: 1. Stable appearing bilateral pleural effusions and diffuse multifocal bilateral interstitial pulmonary fibrosis.
[2025-03-02 07:22] LABS: Anion Gap 9 (5-15); Carbon Dioxide 28 mmol/L (20-31); Chloride 102 mmol/L (98-107); Potassium 4.3 mmol/L (3.5-5.1); Sodium 139 mmol/L (136-145)
[2025-03-02 07:27] LABS: Calcium 8.5 mg/dL (8.7-10.4)
[2025-03-02 07:28] LABS: BUN/Creatinine Ratio 39.4 (10.0-20.0)
[2025-03-02 07:29] LABS: Blood Urea Nitrogen 39 mg/dL (9-23); Glucose 204 mg/dL (74-106)
[2025-03-02] MEDS: FUROSEMIDE 40 MG/4 ML VIAL IV ONE (12:28)
--- NOTE | 2025-03-02 14:31 | DVHPN2 ---
Subjective oxygen is being weaned off Reviewed: H&P Changes from previous H/P or p: No Changes Objective Vitals Vital Signs Date Time Temp Pulse Resp B/P (MAP) Pulse Ox O2 Delivery O2 Flow Rate FiO2 03/02/25 12:36 97.4 84 18 130/88 (102) 92 97.4 03/02/25 11:05 Nasal Cannula* 5 N/A Simple Mask* Intake/Output Intake and Output 03/02/25 07:00 Intake Total 2550 ml Output Total 3150 ml Balance -600 ml Intake Oral 2250 ml IV Total 300 ml Output Urine Total 3150 ml # Voids 3 # Bowel Movements 1 General Appearance: Alert, Oriented X3 HEENT: Atraumatic Lungs: Clear to auscultation Cardiovascular: Regular rate, Normal S1, Normal S2 Abdomen: Normal bowel sounds Medications Current Medications Medications Dose Ordered Sig/Nasim Route Start Time Stop Time Status Last Admin Dose Admin Acetaminophen 650 mg Q6HP PRN PO 02/24/25 08:45 02/27/25 23:07 650 MG Enoxaparin Sodium 40 mg DAILY SC 02/24/25 10:00 03/02/25 09:24 40 MG Ceftriaxone Sodium 50 ml @ 100 mls/hr DAILY@09 IV 02/24/25 09:00 03/02/25 09:23 100 MLS/HR Azithromycin 250 ml @ 125 mls/hr DAILY IV 02/24/25 10:00 03/02/25 11:42 125 MLS/HR Albuterol 2.5 mg Q6HPRN PRN NEB 02/24/25 08:45 03/01/25 07:19 2.5 MG Ipratropium [place] 0.5 mg Q6HWA NEB 02/24/25 12:00 03/02/25 11:05 0.5 MG Diagnostic Test (Pha) 1 strip Q6HR 02/24/25 12:00 03/02/25 11:46 1 STRIP Insulin Human Regular Q6HR SC 02/24/25 12:00 03/02/25 11:46 6 UNITS Dextrose 50 ml UD PRN IV 02/24/25 08:45 Methylprednisolone Sodium Succinate 80 mg BID IV 02/24/25 22:00 03/02/25 09:23 80 MG Sildenafil Citrate 20 mg TID@08,14,20 PO 02/28/25 17:45 03/02/25 09:23 20 MG Laboratory Results Laboratory Tests 02/26/25 02:39 03/02/25 05:50 Chemistry Test 03/02/25 05:50 Calcium Level 8.5 mg/dL (8.7-10.4) L Urinalysis Test 02/24/25 12:15 Urine Color Yellow (Yellow) Urine Clarity Clear (Clear) Urine pH 6.0 (5.0-9.0) Urine Specific [place] 1.023 (1.001-1.035) Urine Protein 3+ (Negative) H Urine Ketones Negative (Negative) Urine Blood 1+ /uL (Negative) H Urine Nitrite Negative (Negative) Urine Bilirubin Negative (Negative) Urine Urobilinogen Normal mg/dL (Negative) Urine Leukocyte Esterase Negative /uL (Negative) Urine RBC 4 /hpf (0 - 3) Urine Microscopic WBC 2 /HPF (0-3) Urine Squamous Epithelial Cells Few /hpf (<5) Urine Bacteria Few /hpf (None Seen) H Urine Hyaline Casts Few /lpf (0 - 2) Urine Glucose Normal mg/dL (Normal) Microbiology Microbiology Date/Time Source Procedure Growth Status 02/25/25 09:23 Nose MRSA Screen - Final Complete 02/24/25 12:15 Voided Urine Urine Culture - Final Complete 02/24/25 09:40 Blood Blood Culture - Final NO GROWTH AFTER 5 DAYS OF INCUBATION. Complete Assessment/Plan Assessment/Plan 1. Acute on chronic hypoxic respiratory failure Multifactorial: COPD exacerbation + pulmonary fibrosis + volume overload + severe PH. Maintain 6 L NC, titrate for SpO2 8892%. pulmonary consulted 2. COPD exacerbation Worsening dyspnea, wheezing, hypoxia, leukocytosis. Duonebs q6h Methylprednisolone BID Ceftriaxone + Azithromycin 3. Pulmonary fibrosis Contributing to baseline hypoxia, imaging consistent with fibrotic disease. Pulmonology to evaluate for ILD flare Supportive care 4. Heart failure with volume overload BNP 1511, vascular congestion on CXR. Furosemide IV, reassess response Strict I/O, daily weights Continue guideline-directed therapy if BP allows 5. Severe pulmonary hypertension (PASP >85) High RV strain risk. Maintain oxygenation Avoid acidosis and hypotension Gentle diuresis Monitor for signs of RV failure 6. Recurrent pleural effusion Trace on CXR today; history of multiple thoracenteses. Monitor clinically Repeat imaging if worsening Consider thoracentesis if symptomatic 7. Leukocytosis WBC 15.9 Trend CBC Continue antibiotics 8. BEATRICE on CKD Creatinine 1.37 Monitor BMP daily Avoid nephrotoxins 9. Diabetes mellitus Risk for hyperglycemia with steroids. SSI Check glucose ACHS 10. Hypertension On amlodipine and losartan at home. Continue if hemodynamics stable 02/27 Continue IV abx, weaning off oxygen IV lasix 02/28 Continue IV abx, IV steroids Weaning off oxygen 03/01 continue IV abx and steroids weaning off Disposition Plan discussed with: Patient My Orders Orders - MICHEL MOSS MD Procedure Category Date Status Time Basic Metabolic Panel LAB 03/03/25 Verified 05:00 Basic Metabolic Panel LAB 03/04/25 Verified 05:00 Basic Metabolic Panel LAB 03/05/25 Verified 05:00 Basic Metabolic Panel LAB 03/06/25 Verified 05:00 Basic Metabolic Panel LAB 03/07/25 Verified 05:00 Basic Metabolic Panel LAB 03/08/25 Verified 05:00 Date of Service: Mar 02, 2025 Billing Provider: MICHEL MOSS MD Common Visit Codes: [id number] INP/OBS CARE(HIGH) MICHEL MOSS MD Mar 02, 2025 14:31
--- NOTE | 2025-03-02 22:22 | DVHPN2 ---
Progress Note - Dictate Date Seen: Mar 02, 2025 Medical Necessity Reason Pt with a Central, PICC or Fol: No Subjective [facility] Patient seen and examined at bedside. Remains on supplemental oxygen Overnight events reviewed. vital signs Vital Sign Date Time Temp Pulse Resp B/P (MAP) Pulse Ox O2 Delivery O2 Flow Rate FiO2 03/02/25 21:00 98.2 90 18 114/79 (91) 92 98.2 03/02/25 18:41 Nasal Cannula 5.0 03/02/25 18:41 N/A Total Intake and Output 03/01/25 03/01/25 03/02/25 15:00 23:00 07:00 Intake Total 300 ml 650 ml 1600 ml Output Total 3150 ml Balance 300 ml 650 ml -1550 ml medications Current Medications Medications Dose Ordered Sig/Nasim Route Start Time Stop Time Status Last Admin Dose Admin Acetaminophen 650 mg Q6HP PRN PO 02/24/25 08:45 02/27/25 23:07 650 MG Enoxaparin Sodium 40 mg DAILY SC 02/24/25 10:00 03/02/25 09:24 40 MG Ceftriaxone Sodium 50 ml @ 100 mls/hr DAILY@09 IV 02/24/25 09:00 03/02/25 09:23 100 MLS/HR Azithromycin 250 ml @ 125 mls/hr DAILY IV 02/24/25 10:00 03/02/25 11:42 125 MLS/HR Albuterol 2.5 mg Q6HPRN PRN NEB 02/24/25 08:45 03/01/25 07:19 2.5 MG Ipratropium [place] 0.5 mg Q6HWA NEB 02/24/25 12:00 03/02/25 18:41 0.5 MG Diagnostic Test (Pha) 1 strip Q6HR 02/24/25 12:00 03/02/25 17:22 1 STRIP Insulin Human Regular Q6HR SC 02/24/25 12:00 03/02/25 17:26 10 UNITS Dextrose 50 ml UD PRN IV 02/24/25 08:45 Methylprednisolone Sodium Succinate 80 mg BID IV 02/24/25 22:00 03/02/25 21:22 80 MG Sildenafil Citrate 20 mg TID@08,14,20 PO 02/28/25 17:45 03/02/25 20:39 20 MG objective Gen.: Patient lying in bed in no apparent distress. On supplemental oxygen. Head: Normocephalic, atraumatic. Eyes: EOMI/PERRLA. Ears: Normal hearing. Normal anatomy. Neck/trachea: Trachea midline, supple. Nose: Normal external anatomy. Mouth: Moist mucous membranes. Chest: Decreased air entry bilaterally. No wheezing or rhonchi. Cardiovascular: Positive S1, positive S2. Regular rate and rhythm. Abdomen: Positive bowel sounds in all 4 quadrants. Soft, non-tender, non- distended. : Deferred. Rectal: Deferred. Skin: Warm, dry. Intact. Extremities: 2+ radial pulses bilaterally. No lower extremity edema. Neuro: Awake, alert, oriented x3. No gross motor or sensory deficits. Cranial nerves II through XII intact. Gait not assessed. laboratory and microbiology Laboratory Tests 03/02/25 05:50 02/26/25 02:39 Test 03/02/25 05:50 Range/Units Serum Glucose 204 H 74-106 mg/dL Assessment/Plan Impression: Acute on chronic hypoxic respiratory failure Dependence on supplemental oxygen Severe pulmonary hypertension Left pleural effusion Atelectasis Pneumonia, likely GNR Congestive heart failure Hx of nicotine dependence Events: Remains on supplemental oxygen On 4 LPM NC Taper O2 as tolerated. Improved O2 requirements. Chest x-ray notable for diffuse opacities. Limited chest U/S reveals trace bilateral pleural effusions., not amenable to thoracentesis. Continue IV steroids Continue antibiotics On sildenafil TID. Incentive spirometry Blood pressure is stable. Monitor renal function Monitor electrolytes. Supplement as necessary. Maintain euvolemia Patient is stable for discharge from the pulmonary standpoint. Follow up at [facility] on 03/04/25 -Tuesday Labs and imaging reviewed. Rest of plan as noted below. Plan: Supplemental oxygen Titrate to keep O2 sats above 92%. Continue bronchodilators. Continue antibiotics IV steroids Incentive spirometry Echo: EF 55% RV enlarged. [id number] tricuspid regurgitation. Moderate aortic stenosis. Severe pulmonary hypertension, PASP >85 Cardiology recs appreciated Accu-Cheks, ISS Monitor renal function. Monitor electrolytes. Supplement as necessary. Monitor ins and outs. DVT prophylaxis. Prognosis: Poor given patient's multiple co-morbidities. Rest of plan per hospitalist and other consultants. Thank you, Dr. Diaz, for allowing me to participate in this patient's care. Further recommendations will depend on the patient's clinical course. Please do not hesitate to contact me if you have any questions or concerns. This medical document was created using an electronic medical record system with [employer] dictation system. Although these documentations are being carefully reviewed, there may still be some phonetic and typographical changes. The errors are purely typographical, due to imperfection on the software program, and do not reflect any compromise in the patient's medical care. Dietary Evaluation Review Comments: Nutrition Recommendation: 1) CCHO 60gm + cardiac diet 2) Ensure High Protein 240ml TID if PO intake < 50% 3) Monitor PO intake, lab values, weight trend, and I/O Expected Outcomes/Goals: Intake to meet >75% estimated needs Lab values to improve FU 3-5 days Plan discussed with: Patient, Other (EVITA Agrawal) [facility] Mar 02, 2025 22:22
[2025-03-03] VITALS (17 sets, daily range): BP systolic 115–137; BP diastolic 76–84; PULSE 60–99; RESP 16–20; TEMP 97.8–99; O2SAT 95–100
[2025-03-03 07:16] LABS: Chloride 100 mmol/L (98-107); Potassium 3.7 mmol/L (3.5-5.1); Sodium 138 mmol/L (136-145)
[2025-03-03 07:17] LABS: Anion Gap 8 (5-15); Carbon Dioxide 30 mmol/L (20-31)
[2025-03-03 07:20] LABS: Calcium 8.4 mg/dL (8.7-10.4)
[2025-03-03 07:23] LABS: BUN/Creatinine Ratio 37.8 (10.0-20.0); Blood Urea Nitrogen 34 mg/dL (9-23); Glucose 226 mg/dL (74-106)
--- NOTE | 2025-03-03 14:39 | DVHPN2 ---
Subjective oxygen is being weaned off Reviewed: H&P Changes from previous H/P or p: No Changes Objective Vitals Vital Signs Date Time Temp Pulse Resp B/P (MAP) Pulse Ox O2 Delivery O2 Flow Rate FiO2 03/03/25 11:57 97 16 98 03/03/25 11:51 Nasal Cannula* 5 40 03/03/25 09:00 98.1 136/83 (100) 98.1 Intake/Output Intake and Output 03/03/25 05:00 Intake Total 1750 ml Output Total 2395 ml Balance -645 ml Intake Oral 1450 ml IV Total 300 ml Output Urine Total 2395 ml Stool Total 0 ml # Voids 3 General Appearance: Alert, Oriented X3 HEENT: Atraumatic Lungs: Clear to auscultation Cardiovascular: Regular rate, Normal S1, Normal S2 Abdomen: Normal bowel sounds Medications Current Medications Medications Dose Ordered Sig/Nasim Route Start Time Stop Time Status Last Admin Dose Admin Acetaminophen 650 mg Q6HP PRN PO 02/24/25 08:45 02/27/25 23:07 650 MG Enoxaparin Sodium 40 mg DAILY SC 02/24/25 10:00 03/03/25 08:52 40 MG Ceftriaxone Sodium 50 ml @ 100 mls/hr DAILY@09 IV 02/24/25 09:00 03/03/25 08:51 100 MLS/HR Azithromycin 250 ml @ 125 mls/hr DAILY IV 02/24/25 10:00 03/03/25 10:13 125 MLS/HR Albuterol 2.5 mg Q6HPRN PRN NEB 02/24/25 08:45 03/03/25 11:51 2.5 MG Ipratropium [place] 0.5 mg Q6HWA NEB 02/24/25 12:00 03/03/25 11:22 0.5 MG Diagnostic Test (Pha) 1 strip Q6HR 02/24/25 12:00 03/03/25 12:00 1 STRIP Insulin Human Regular Q6HR SC 02/24/25 12:00 03/03/25 13:11 8 UNITS Dextrose 50 ml UD PRN IV 02/24/25 08:45 Methylprednisolone Sodium Succinate 80 mg BID IV 02/24/25 22:00 03/03/25 08:52 80 MG Sildenafil Citrate 20 mg TID@08,14,20 PO 02/28/25 17:45 03/03/25 13:06 20 MG Laboratory Results Laboratory Tests 02/26/25 02:39 03/03/25 05:43 Chemistry Test 03/03/25 05:43 Calcium Level 8.4 mg/dL (8.7-10.4) L Urinalysis Test 02/24/25 12:15 Urine Color Yellow (Yellow) Urine Clarity Clear (Clear) Urine pH 6.0 (5.0-9.0) Urine Specific [place] 1.023 (1.001-1.035) Urine Protein 3+ (Negative) H Urine Ketones Negative (Negative) Urine Blood 1+ /uL (Negative) H Urine Nitrite Negative (Negative) Urine Bilirubin Negative (Negative) Urine Urobilinogen Normal mg/dL (Negative) Urine Leukocyte Esterase Negative /uL (Negative) Urine RBC 4 /hpf (0 - 3) Urine Microscopic WBC 2 /HPF (0-3) Urine Squamous Epithelial Cells Few /hpf (<5) Urine Bacteria Few /hpf (None Seen) H Urine Hyaline Casts Few /lpf (0 - 2) Urine Glucose Normal mg/dL (Normal) Microbiology Microbiology Date/Time Source Procedure Growth Status 02/25/25 09:23 Nose MRSA Screen - Final Complete 02/24/25 12:15 Voided Urine Urine Culture - Final Complete 02/24/25 09:40 Blood Blood Culture - Final NO GROWTH AFTER 5 DAYS OF INCUBATION. Complete Assessment/Plan Assessment/Plan 1. Acute on chronic hypoxic respiratory failure Multifactorial: COPD exacerbation + pulmonary fibrosis + volume overload + severe PH. Maintain 6 L NC, titrate for SpO2 8892%. Pulmonary on consult 2. COPD exacerbation Worsening dyspnea, wheezing, hypoxia, leukocytosis. Duonebs q6h Methylprednisolone BID Ceftriaxone + Azithromycin 3. Pulmonary fibrosis Contributing to baseline hypoxia, imaging consistent with fibrotic disease. Pulmonology to evaluate for ILD flare Supportive care 4. Heart failure with volume overload BNP 1511, vascular congestion on CXR. Furosemide IV, reassess response Strict I/O, daily weights Continue guideline-directed therapy if BP allows 5. Severe pulmonary hypertension (PASP >85) High RV strain risk. Maintain oxygenation Avoid acidosis and hypotension Gentle diuresis Monitor for signs of RV failure 6. Recurrent pleural effusion Trace on CXR today; history of multiple thoracenteses. Monitor clinically Repeat imaging if worsening Consider thoracentesis if symptomatic 7. Leukocytosis WBC 15.9 Trend CBC Continue antibiotics 8. BEATRICE on CKD Creatinine 1.37 Monitor BMP daily Avoid nephrotoxins 9. Diabetes mellitus Risk for hyperglycemia with steroids. SSI Check glucose ACHS 10. Hypertension On amlodipine and losartan at home. Continue if hemodynamics stable 02/27 Continue IV abx, weaning off oxygen IV lasix 02/28 Continue IV abx, IV steroids Weaning off oxygen 03/01 continue IV abx and steroids weaning off 03/03 continue to wean off oxygen now to 5L Disposition Plan discussed with: Patient Date of Service: Mar 03, 2025 Billing Provider: MICHEL MOSS MD Common Visit Codes: [id number] INP/OBS CARE(HIGH) MICHEL MOSS MD Mar 03, 2025 14:39
[2025-03-03] MEDS: DOCUSATE SOD 100 MG CAP PO PRN (17:18)
--- NOTE | 2025-03-03 22:01 | DVHPN2 ---
Progress Note - Dictate Date Seen: Mar 03, 2025 Medical Necessity Reason Pt with a Central, PICC or Fol: No Subjective [facility] [place] Patient seen and examined at bedside. Remains on supplemental oxygen Overnight events reviewed. vital signs Vital Sign Date Time Temp Pulse Resp B/P (MAP) Pulse Ox O2 Delivery O2 Flow Rate FiO2 03/03/25 19:46 92 18 97 03/03/25 19:40 Nasal Cannula* 5 40 03/03/25 17:00 98.9 115/79 (91) 98.9 Total Intake and Output 03/02/25 03/02/25 03/03/25 15:00 23:00 07:00 Intake Total 300 ml 1200 ml 250 ml Output Total 1000 ml 1395 ml Balance 300 ml 200 ml -1145 ml medications Current Medications Medications Dose Ordered Sig/Nasim Route Start Time Stop Time Status Last Admin Dose Admin Acetaminophen 650 mg Q6HP PRN PO 02/24/25 08:45 02/27/25 23:07 650 MG Enoxaparin Sodium 40 mg DAILY SC 02/24/25 10:00 03/03/25 08:52 40 MG Ceftriaxone Sodium 50 ml @ 100 mls/hr DAILY@09 IV 02/24/25 09:00 03/03/25 08:51 100 MLS/HR Azithromycin 250 ml @ 125 mls/hr DAILY IV 02/24/25 10:00 03/03/25 10:13 125 MLS/HR Albuterol 2.5 mg Q6HPRN PRN NEB 02/24/25 08:45 03/03/25 11:51 2.5 MG Ipratropium [place] 0.5 mg Q6HWA NEB 02/24/25 12:00 03/03/25 19:40 0.5 MG Diagnostic Test (Pha) 1 strip Q6HR 02/24/25 12:00 03/03/25 17:37 1 STRIP Insulin Human Regular Q6HR SC 02/24/25 12:00 03/03/25 17:36 10 UNITS Dextrose 50 ml UD PRN IV 02/24/25 08:45 Methylprednisolone Sodium Succinate 80 mg BID IV 02/24/25 22:00 03/03/25 20:45 80 MG Sildenafil Citrate 20 mg TID@08,14,20 PO 02/28/25 17:45 03/03/25 20:44 20 MG Docusate Sodium 100 mg BIDPRN PRN PO 03/03/25 16:30 03/03/25 17:18 100 MG objective Gen.: Patient lying in bed in no apparent distress. On supplemental oxygen. Head: Normocephalic, atraumatic. Eyes: EOMI/PERRLA. Ears: Normal hearing. Normal anatomy. Neck/trachea: Trachea midline, supple. Nose: Normal external anatomy. Mouth: Moist mucous membranes. Chest: Decreased air entry bilaterally. No wheezing or rhonchi. Cardiovascular: Positive S1, positive S2. Regular rate and rhythm. Abdomen: Positive bowel sounds in all 4 quadrants. Soft, non-tender, non- distended. : Deferred. Rectal: Deferred. Skin: Warm, dry. Intact. Extremities: 2+ radial pulses bilaterally. No lower extremity edema. Neuro: Awake, alert, oriented x3. No gross motor or sensory deficits. Cranial nerves II through XII intact. Gait not assessed. laboratory and microbiology Laboratory Tests 03/03/25 05:43 02/26/25 02:39 Test 03/03/25 05:43 Range/Units Serum Glucose 226 H 74-106 mg/dL Assessment/Plan Impression: Acute on chronic hypoxic respiratory failure Dependence on supplemental oxygen Severe pulmonary hypertension Left pleural effusion Atelectasis Pneumonia, likely GNR Congestive heart failure Hx of nicotine dependence Events: Remains on supplemental oxygen Note, pt desaturated overnight O2 was tapered down to 5 LPM NC Monitor. Continue to taper O2 as tolerated. Epistaxis is resolved. Chest x-ray notable for diffuse opacities. Limited chest U/S revealed trace bilateral pleural effusions, not amenable to thoracentesis. Continue IV steroids - dose decreased to Solu-Medrol 60 mg q.8 hours Continue antibiotics On sildenafil TID. Incentive spirometry Blood pressure is stable. Monitor renal function Monitor electrolytes. Supplement as necessary. Maintain euvolemia Discharge held at this time. Labs and imaging reviewed. Rest of plan as noted below. Plan: Supplemental oxygen Titrate to keep O2 sats above 92%. Continue bronchodilators. Continue antibiotics IV steroids Incentive spirometry Echo: EF 55% RV enlarged. [id number] tricuspid regurgitation. Moderate aortic stenosis. Severe pulmonary hypertension, PASP >85 Cardiology recs appreciated Accu-Cheks, ISS Monitor renal function. Monitor electrolytes. Supplement as necessary. Monitor ins and outs. DVT prophylaxis. Prognosis: Poor given patient's multiple co-morbidities. Rest of plan per hospitalist and other consultants. Thank you, Dr. Diaz, for allowing me to participate in this patient's care. Further recommendations will depend on the patient's clinical course. Please do not hesitate to contact me if you have any questions or concerns. This medical document was created using an electronic medical record system with [employer] dictation system. Although these documentations are being carefully reviewed, there may still be some phonetic and typographical changes. The errors are purely typographical, due to imperfection on the software program, and do not reflect any compromise in the patient's medical care. Dietary Evaluation Review Comments: Nutrition Recommendation: 1) CCHO 60gm + cardiac diet 2) Ensure High Protein 240ml TID if PO intake < 50% 3) Monitor PO intake, lab values, weight trend, and I/O Expected Outcomes/Goals: Intake to meet >75% estimated needs Lab values to improve FU 3-5 days Plan discussed with: Patient, Other (EVITA Agrawal) [facility] Mar 03, 2025 22:01
[2025-03-04] VITALS (11 sets, daily range): BP systolic 121–126; BP diastolic 70–85; PULSE 60–98; RESP 17–22; TEMP 97.5–97.8; O2SAT 95–100
[2025-03-04 05:24] LABS: Chloride 99 mmol/L (98-107); Potassium 3.9 mmol/L (3.5-5.1); Sodium 140 mmol/L (136-145)
[2025-03-04 05:25] LABS: Anion Gap 9 (5-15)
[2025-03-04 05:31] LABS: BUN/Creatinine Ratio 40.8 (10.0-20.0)
[2025-03-04 05:32] LABS: Blood Urea Nitrogen 31 mg/dL (9-23); Carbon Dioxide 32 mmol/L (20-31); Glucose 134 mg/dL (74-106)
[2025-03-04 05:33] LABS: Calcium 8.3 mg/dL (8.7-10.4)
[2025-03-04] MEDS ORDERED: DOXY-267 PO (13:27)
[2025-03-04] MEDS ORDERED: PRED20TA2 PO (13:27)
[2025-03-04] MEDS ORDERED: SILD20TA PO (13:27)
--- NOTE | 2025-03-04 15:39 | DVHDS2 ---
Discharge Summary Date of Admission Feb 24, 2025 at 08:41 Date of Discharge: Mar 04, 2025 Labs/Diagnostic Data: Laboratory Results Test 03/04/25 04:35 03/03/25 12:32 02/26/25 02:39 02/25/25 07:19 Sodium Level 140 mmol/L (136-145) Potassium Level 3.9 mmol/L (3.5-5.1) Chloride Level 99 mmol/L (98-107) Carbon Dioxide Level 32 mmol/L (20-31) Anion Gap 9 (5-15) Blood Urea Nitrogen 31 mg/dL (9-23) Creatinine 0.76 mg/dL (0.700-1.30) Glomerular Filtration Rate Calc 89 mL/min (>90) BUN/Creatinine Ratio 40.8 (10.0-20.0) Serum Glucose 134 mg/dL (74-106) Calcium Level 8.3 mg/dL (8.7-10.4) POC Glucose 314 mg/dl (70-106) White Blood Count 15.2 10^3/uL (4.4-10.8) Red Blood Count 4.34 10^6/uL (4.5-5.90) Hemoglobin 9.9 g/dL (13.5-17.5) Hematocrit 32.1 % (41.0-53.0) Mean Corpuscular Volume 74.0 fL (80.0-100.0) Mean Corpuscular Hemoglobin 22.9 pg (28.0-32.0) Mean Corpuscular Hemoglobin Concent 31.0 g/dL (32.0-36.0) Red Cell Distribution Width 20.4 % (11.8-14.3) Platelet Count 123 10^3/uL (140-450) Mean Platelet Volume 9.1 fL (6.9-10.8) Neutrophils (%) (Auto) 96.9 % (37.0-80.0) Lymphocytes (%) (Auto) 0.4 % (10.0-50.0) Monocytes (%) (Auto) 2.6 % (0.0-12.0) Eosinophils (%) (Auto) 0.0 % (0.0-7.0) Basophils (%) (Auto) 0.1 % (0.0-2.0) Neutrophils # (Auto) 14.7 10 ^3/uL (1.6-8.6) Lymphocytes # (Auto) 0.1 10 ^3/uL (0.4-5.4) Monocytes # (Auto) 0.4 10 ^3/uL (0-1.3) Eosinophils # (Auto) 0 10 ^3/uL (0-0.8) Basophils # (Auto) 0 10 ^3/uL (0-0.2) Nucleated Red Blood Cells 0.0 % Influenza Type A Antigen Negative (Negative) Influenza Type B Antigen Negative (Negative) SARS-CoV-2 Antigen (Rapid) Negative (NEGATIVE) Test 02/25/25 07:05 02/25/25 03:32 02/24/25 12:15 02/24/25 09:15 Blood Gas Specimen Type Arterial Blood Gas Sample Site Right radial Blood Gas Patient Temperature 37.0 Arterial Blood Date Drawn Arterial Blood pH 7.469 (7.350-7.450) Arterial Blood Partial Pressure CO2 28.1 mmHg (35.0-48.0) Arterial Blood Partial Pressure O2 71.5 mmHg (83.0-108.0) Arterial Blood HCO3 19.9 mmol/L (21.0-28.0) Arterial Blood Oxygen Saturation 93.5 % (94.0-98.0) Arterial Blood Base Excess -2.8 mmol/L (-2.0-3.0) Arterial Blood Oxyhemoglobin 92.2 % (94.0-98.0) Arterial Blood Carboxyhemoglobin 1.0 % (0.5-1.5) Arterial Blood Methemoglobin 0.4 % (0.0-1.5) Arterial Blood Deoxyhemoglobin 6.4 % (0.0-5.0) Morris Test Yes Blood Gas Total Hemoglobin 10.80 g/dL (13.5-17.5) Blood Gas Liter Flow 7.00 Blood Gas Modality Oxymizer FiO2 % 58.0 Total Bilirubin 0.7 mg/dL (0.2-1.0) Aspartate Amino Transferase (AST) 20 U/L (13-40) Alanine Aminotransferase (ALT) 33 U/L (7-40) Alkaline Phosphatase 229 U/L (46-116) Total Protein 5.7 g/dL (5.7-8.2) Albumin 3.5 g/dL (3.2-4.8) Urine Color Yellow (Yellow) Urine Clarity Clear (Clear) Urine pH 6.0 (5.0-9.0) Urine Specific Lee 1.023 (1.001-1.035) Urine Protein 3+ (Negative) Urine Ketones Negative (Negative) Urine Blood 1+ /uL (Negative) Urine Nitrite Negative (Negative) Urine Bilirubin Negative (Negative) Urine Urobilinogen Normal mg/dL (Negative) Urine Leukocyte Esterase Negative /uL (Negative) Urine RBC 4 /hpf (0 - 3) Urine Microscopic WBC 2 /HPF (0-3) Urine Squamous Epithelial Cells Few /hpf (<5) Urine Bacteria Few /hpf (None Seen) Urine Hyaline Casts Few /lpf (0 - 2) Urine Glucose Normal mg/dL (Normal) Blood Gas Critical Value Read Back Yes Blood Gas Notified Whom Good rader md Blood Gas Notified Time [id number] Blood Gas Notified By Ashely electrician helper powerhouse Test 02/24/25 07:16 Differential Total Cells Counted 100.0 (100) Neutrophils % (Manual) 95 (37.0-80.0) Band Neutrophils % (Manual) 2 Lymphocytes % (Manual) 1 (10.0-50.0) Monocytes % (Manual) 2 (0-12) Eosinophils % (Manual) 0 (0-7) Basophils % (Manual) 0 (0.0-2.0) Metamyelocytes % (manual) 0 Myelocytes % (Manual) 0 Promyelocytes % (Manual) 0 Blast Cells % (Manual) 0 Reactive Lymphocytes 0 Platelet Estimate Decreased Hypochromasia (manual) Slight Poikilocytosis (manual) Slight Anisocytosis (manual) Slight Microcytosis Moderate Tayla Cells Few Hemoglobin A1c 8.8 % A1C (<5.7) Troponin I High Sensitivity 27 ng/L (</=54) B-Type Natriuretic Peptide 1511.70 pg/mL (0-100) Other Laboratory Tests 03/04/25 04:35 02/26/25 02:39 Brief Hx & Hospital Course: 85-year-old male with PMHx of severe COPD, pulmonary fibrosis, diabetes mellitus, hypertension, chronic heart failure, severe pulmonary hypertension (PASP >85), RV enlargement, moderatesevere tricuspid regurgitation, and moderate aortic stenosis, presented with shortness of breath for 2 days. At baseline he uses 3 L NC, but over the past 48 hours he developed worsening dyspnea at minimal exertion and even at rest. EMS found him saturating 80% on 3 L and he required escalation to 6 L NC on arrival. He reports associated chest tightness, chronic cough, and progressive fatigue. He states he follows with Dr. Williamson and has required multiple thoracenteses for recurrent effusions. No fevers, chills, nausea, or new lower-extremity swelling. During hospital stay he was on high flow oxygen, treated with IV steroids, IV lasix, IV abx, pulmonary HTN and he got better Weaned off oxygen back to baseline Condition at Discharge: Good Final Diagnosis/Problems List acute on chronic COPD exacerbation pleural effusion acute pulmonary fibrosis acute pneumonia due to gram negative Discharge Disposition: Home Discharge Instruct/Medications Diet: Regular Activity: No Restrictions, As Tolerated Follow Up/Referral: PCP and pulmonary in 7 days Medications: doxycycline, prednisone, home medications Scheduled Amlodipine Besylate (Amlodipine Besylate), 1 TAB PO DAILY, (Reported) Atorvastatin Calcium (Atorvastatin Calcium), 1 TAB PO HS, (Reported) Doxycycline Monohydrate (Doxycycline Monohydrate), 1 CAP PO BID Finasteride (Finasteride), 1 TAB PO DAILY, (Reported) Luqyzorbplm-Kgsnthppdxjw-Hzmmd (Trelegy Ellipta 200-62.5-25 Mcg/INH), 1 PUFF INH DAILY, (Reported) Furosemide (Lasix), 1 TAB PO DAILY Glimepiride (Glimepiride), 1 MG PO BID, (Reported) Metformin Hydrochloride (Metformin Hcl), 1 TAB PO BID, (Reported) Mirtazapine (Mirtazapine Oral Disintegrating Tablet), 1 TAB PO BID, (Reported) Multiple Vitamin (Multivitamins), 1 TAB PO DAILY, (Reported) Omeprazole (Cvs Omeprazole Odt), 20 MG PO DAILY, (Reported) Prednisone (Prednisone), 20 MG PO DAILY Sildenafil Citrate (Revatio), 20 MG PO TID Sildenafil Citrate (Revatio), 20 MG PO TID@08,14,20 Tamsulosin Hcl (Tamsulosin Hcl), 0.4 MG PO HS, (Reported) Scheduled PRN Ipratropium-Albuterol (Ipratropium [place]/Albut), 1 CON IN Q4HPRN PRN Miscellaneous Medications Dapagliflozin Propanediol (Farxiga), 10 MG PO, (Reported) Discharge Statement: "Patient was advised to return to the ER or call 911 if any headaches, dizziness, shortness of breath, chest pain, abdominal pain, bleeding, fevers, or worsening of medical condition. Patient was counseled about treatment plan, medications, possible side effects, patientverbalized understanding. All questions were answered to the best of my ability. This discharge took greater then 30 minutes in planning, reviewing documentation, counseling the patient, and discussing with other team members." ASSESSMENT ASSESSMENT Assessment acute on chronic COPD exacerbation pleural effusion acute pulmonary fibrosis acute pneumonia due to gram negative Date of Service: Mar 04, 2025 Billing Provider: MICHEL MOSS MD Common Visit Codes: 16073-EKU/OBS DISCH DAY >30min MICHEL MOSS MD Mar 04, 2025 15:39
--- NOTE | 2025-03-04 23:42 | DVHPN2 ---
Progress Note - Dictate Date Seen: Mar 04, 2025 Medical Necessity Reason Pt with a Central, PICC or Fol: No Subjective [facility] Patient seen and examined at bedside. Remains on supplemental oxygen Overnight events reviewed. vital signs Vital Sign Date Time Temp Pulse Resp B/P (MAP) Pulse Ox O2 Delivery O2 Flow Rate FiO2 03/04/25 14:29 97.5 98 22 95 03/04/25 13:00 126/85 (99) 03/04/25 11:17 Nasal Cannula 5.0 03/04/25 11:17 40 Total Intake and Output 03/03/25 03/03/25 03/04/25 15:00 23:00 07:00 Intake Total 1000 ml 900 ml Output Total 200 ml Balance 800 ml 900 ml objective Gen.: Patient lying in bed in no apparent distress. On supplemental oxygen. Head: Normocephalic, atraumatic. Eyes: EOMI/PERRLA. Ears: Normal hearing. Normal anatomy. Neck/trachea: Trachea midline, supple. Nose: Normal external anatomy. Mouth: Moist mucous membranes. Chest: Decreased air entry bilaterally. No wheezing or rhonchi. Cardiovascular: Positive S1, positive S2. Regular rate and rhythm. Abdomen: Positive bowel sounds in all 4 quadrants. Soft, non-tender, non- distended. : Deferred. Rectal: Deferred. Skin: Warm, dry. Intact. Extremities: 2+ radial pulses bilaterally. No lower extremity edema. Neuro: Awake, alert, oriented x3. No gross motor or sensory deficits. Cranial nerves II through XII intact. Gait not assessed. laboratory and microbiology Laboratory Tests 03/04/25 04:35 02/26/25 02:39 Test 03/04/25 04:35 Range/Units Serum Glucose 134 H 74-106 mg/dL Assessment/Plan Impression: Acute on chronic hypoxic respiratory failure Dependence on supplemental oxygen Severe pulmonary hypertension Left pleural effusion Atelectasis Pneumonia, likely GNR Congestive heart failure Hx of nicotine dependence Events: Remains on supplemental oxygen Improved O2 requirements On 5 LPM NC No shortness of breath Epistaxis is resolved. Chest x-ray notable for diffuse opacities. Limited chest U/S revealed trace bilateral pleural effusions, not amenable to thoracentesis. Continue IV steroids -Solu-Medrol Continue antibiotics - complete course On sildenafil TID. Incentive spirometry Blood pressure is stable. Monitor renal function Monitor electrolytes. Supplement as necessary. Maintain euvolemia Patient is stable for discharge from the pulmonary standpoint. Disposition per hospitalist. Follow up in 1-2 weeks in [facility]. Labs and imaging reviewed. Rest of plan as noted below. Plan: Supplemental oxygen Titrate to keep O2 sats above 92%. Continue bronchodilators. Continue antibiotics IV steroids Incentive spirometry Echo: EF 55% RV enlarged. Ssbwmfko-nh-pwyewj tricuspid regurgitation. Moderate aortic stenosis. Severe pulmonary hypertension, PASP >85 Cardiology recs appreciated Accu-Cheks, ISS Monitor renal function. Monitor electrolytes. Supplement as necessary. Monitor ins and outs. DVT prophylaxis. Prognosis: Poor given patient's multiple co-morbidities. Rest of plan per hospitalist and other consultants. Thank you, Dr. Diaz, for allowing me to participate in this patient's care. Further recommendations will depend on the patient's clinical course. Please do not hesitate to contact me if you have any questions or concerns. This medical document was created using an electronic medical record system with [employer] dictation system. Although these documentations are being carefully reviewed, there may still be some phonetic and typographical changes. The errors are purely typographical, due to imperfection on the software program, and do not reflect any compromise in the patient's medical care. Dietary Evaluation Review Comments: Nutrition Recommendation: 1) CCHO 60gm + cardiac diet 2) Ensure High Protein 240ml TID if PO intake < 50% 3) Monitor PO intake, lab values, weight trend, and I/O Expected Outcomes/Goals: Intake to meet >75% estimated needs Lab values to improve FU 3-5 days Plan discussed with: Patient, Other (RN) WON CHAVES Mar 04, 2025 23:42
== END 2025-03-04 15:55 | disposition home or self-care (01) | DRG 177 ==
LOC: EDBD 05:41 → ER 05:41 → OVERFLOW 08:41 → TELE-WESTW 02-27 15:20
PROVIDERS: ADMIT Hospitalist; ATTEND Hospitalist
PROC: 5A0935A Assistance with Respiratory Ventilation, Less than 24 Consecutive Hours, High Flow/Velocity Cannula (ICD-10-PCS; principal; 2025-02-28)
PROC: 5A0935A Assistance with Respiratory Ventilation, Less than 24 Consecutive Hours, High Flow/Velocity Cannula (ICD-10-PCS; 2025-03-01)
DX: J15.69 Pneumonia due to other Gram-negative bacteria (principal); I50.31 Acute diastolic (congestive) heart failure; J96.21 Acute and chronic respiratory failure with hypoxia; R65.11 Systemic inflammatory response syndrome (SIRS) of non-infectious origin with acute organ dysfunction; I27.20 Pulmonary hypertension, unspecified; N17.9 Acute kidney failure, unspecified; I13.0 Hypertensive heart and chronic kidney disease with heart failure and stage 1 through stage 4 chronic kidney disease, or unspecified chronic kidney disease; J44.0 Chronic obstructive pulmonary disease with (acute) lower respiratory infection; E11.22 Type 2 diabetes mellitus with diabetic chronic kidney disease; N18.9 Chronic kidney disease, unspecified; I08.2 Rheumatic disorders of both aortic and tricuspid valves; J44.1 Chronic obstructive pulmonary disease with (acute) exacerbation; J98.11 Atelectasis; J84.10 Pulmonary fibrosis, unspecified; Z87.891 Personal history of nicotine dependence; Z88.0 Allergy status to penicillin; Z79.899 Other long term (current) drug therapy; Z79.84 Long term (current) use of oral hypoglycemic drugs; Z83.3 Family history of diabetes mellitus; Z99.81 Dependence on supplemental oxygen
CPT/HCPCS: 36415; 36600; 71045; 80048; 80053; 81001; 82805; 82962; 83036; 83880; 84484; 85007; 85025; 85027; 87040; 87081; 87086; 87426; 87804; 93005; 94640; 96374; 96375; 97163; 99291; 99292; G0378; J1815

== ENCOUNTER 2025-03-14 18:16 | Inpatient (IN) | payer MEDICARE, MEDICAID ==
[~2025-03-14] VITALS: Ht 170.2 cm; Wt 67.5 kg
[~2025-03-14 18:16] MED LIST changes: +DOXY-267 PO; +PRED20TA2 PO
--- NOTE | 2025-03-14 18:59 | ED.PDOC ---
History of Present Illness HPI Comments 85-year-old male who came to ER via EMS for generalized weakness. Patient discharged here 10 days ago for COPD exacerbation, pulmonary fibrosis, and pleural effusion. 30 minutes prior to arrival, patient was at home sitting on his wheelchair, when he slid off the wheelchair, and he did not have the strength to get up on the chair. Patient states he just had a full dinner, but his blood sugar was 65 on scene. Patient was given D10 water and it went up to 261. He denies any chest pains, shortness of breath, unilateral weakness or numbness, dizziness. Medical history includes: COPD, pulmonary fibrosis, diabetes mellitus, hypertension, chronic heart failure, severe pulmonary hypertension (PASP >85), RV enlargement, moderatesevere tricuspid regurgitation, and moderate aortic stenosis, REVIEW OF SYSTEMS: General: No fever, no chills, or fatigue HEENT: No sore throat, no earache, no congestion, no neck pain. Cardiac: No chest pain. No palpitations. Lungs: No shortness of breath, no cough. GI: No nausea, no vomiting, no diarrhea, no constipation, no abdominal pain : No dysuria, frequency, or urgency. No hematuria. Musculoskeletal: No joint pain , no joint swelling, no extremity edema. Skin: No rash, no itching. Neuro: No headache, no dizziness, + generalized weakness (And as sated in HPI) PHYSICAL EXAM: General: Awake, alert and oriented. No acute distress. Skin: Skin in warm, dry Appropriate color for ethnicity. HEENT: The head is normocephalic and atraumatic. Conjunctivae are clear without exudates or hemorrhage. Sclera is non-icteric. Eyelids are normal in appearance without swelling or lesions. Oral mucosa is pink and moist Neck: The neck is supple with normal range of motion. No JVD. Cardiac: Heart rate and rhythm are normal. No murmurs, gallops, or rubs are auscultated. Respiratory: No signs of respiratory distress. Lung sounds are clear in all lobes bilaterally without rales, rhonchi, or wheezes. Abdominal: Abdomen is soft, non-tender without distention, guarding or rigidity. Bowel sounds are present and normoactive in all four quadrants. Extremities: Lower extremities without edema. Neurological: The patient is awake, alert and oriented to person, place, and time with normal speech. Speech is clear. There is no facial asymmetry. No upper or lower extremity drift. Psychiatric: Appropriate mood and affect. Good judgement and insight. Chief Complaint: General Weakness Time Seen by MD: 18:58 Primary Care Provider: UNKNOWN Reviewed Notes: Sample Distributor Notes Allergies: Coded Allergies: Penicillins (Verified Allergy, Unknown, 05/10/21) Home Meds Active Scripts Doxycycline Monohydrate (Doxycycline Monohydrate) 100 Mg Cap, 1 CAP PO BID for 7 Days, #14 CAP Prov:MICHEL MOSS MD 03/04/25 Prednisone (Prednisone) 20 Mg Tab, 20 MG PO DAILY for 14 Days, #14 MG Prov:MICHEL MOSS MD 03/04/25 Sildenafil Citrate (Revatio) 20 Mg Tab, 20 MG PO TID@08,14,20 for 90 Days, #360 TAB Prov:MICHEL MOSS MD 03/04/25 Sildenafil Citrate (Revatio) 20 Mg Tab, 20 MG PO TID for 30 Days, #90 TAB 2 Refills Prov:ASIF KWON MECHANIC AND WELDER 02/11/25 Furosemide (Lasix) 20 Mg Tb, 1 TAB PO DAILY for 30 Days, #30 TAB 5 Refills Prov:MANI CHISHOLM RESIDENT 01/15/24 Ipratropium-Albuterol (Ipratropium [place]/Albut) 1 Con Con, 1 CON IN Q4HPRN PRN for 90 Days, #180 ML Prov:DIAMOND DIAS MD 08/16/22 Reported Medications Omeprazole (Cvs Omeprazole Odt) 20 Mg Tab, 20 MG PO DAILY 02/05/25 Tamsulosin Hcl (Tamsulosin Hcl) 0.4 Mg Cap, 0.4 MG PO HS 02/05/25 Rqwbsrfxadg-Nqmtyxgglqmg-Ypbzk (Trelegy Ellipta 200-62.5-25 Mcg/INH) 1 Aer Aer, 1 PUFF INH DAILY 02/05/25 Finasteride (Finasteride) 5 Mg Tab, 1 TAB PO DAILY 02/05/25 Dapagliflozin Propanediol (Farxiga) 10 Mg Tab, 10 MG PO, TAB 01/13/24 Multiple Vitamin (Multivitamins) Tab, 1 TAB PO DAILY, #90 TAB 3 Refills 2/18/22 Glimepiride (Glimepiride) 1 Mg Tab, 1 MG PO BID for 30 Days, MG 05/15/21 Atorvastatin Calcium (ATORVASTATIN CALCIUM) 40 Mg Tab, 1 TAB PO HS, #30 TAB 5 Refills 05/15/21 Amlodipine Besylate (Amlodipine Besylate) 10 Mg Tab, 1 TAB PO DAILY 05/15/21 Mirtazapine (Mirtazapine Oral Disintegrating Tablet) 15 Mg Tab, 1 TAB PO BID 05/15/21 Metformin Hydrochloride (Metformin Hcl) 1,000 Mg Tab, 1 TAB PO BID 05/15/21 Information Source: Patient, Emergency Med Personnel Mode of Arrival: EMS Past Medical History PAST MEDICAL HISTORY: COPD, DM, High Lipids, HTN Past Medical History (Other): Pleural effusion, pulmonary fibrosis Surgical History: Denies all surgeries Family History Family History: Reviewed,noncontributory to illness Social History Smoker: Non-Smoker Alcohol: Denies ETOH Use Drugs: Denies Drug Use Lives In: Home Was a procedure done? Was a procedure done?: No EKG EKG : Pulse Rate (adult): 98 Cardiac Rhythm: NSR Differential Dx Considerations may include: Anemia, electrolyte imbalance, hypoglycemia X-Ray, Labs, Meds, VS Vital Signs Date Time Temp Pulse Resp B/P (MAP) Pulse Ox O2 Delivery O2 Flow Rate FiO2 03/14/25 22:00 86 29 106/69 (81) 100 03/14/25 21:00 86 16 117/66 (83) 100 03/14/25 20:51 97.5 95 18 103/62 (76) 94 97.5 03/14/25 20:51 94 Nasal Cannula* 4 36 03/14/25 19:57 97 18 99/49 (66) 94 03/14/25 18:59 98 03/14/25 18:28 98 03/14/25 18:19 97.1 106 22 142/72 97 97.1 Lab Test 03/14/25 21:56 03/14/25 21:00 03/14/25 20:00 03/14/25 19:54 Range/Units Magnesium Level 1.7 1.6-2.6 mg/dL Troponin I High Sensitivity 65 *H 79 *H </=54 ng/L Triglycerides Level 83 < 150 mg/dL Cholesterol Level 163 < 200 mg/dL LDL Cholesterol 52 < 100 mg/dL HDL Cholesterol 87 H 40-59 mg/dL Lactic Acid Level 1.4 0.4-2.0 mmol/L Urine Color Yellow Yellow Urine Clarity Clear Clear Urine pH 6.5 5.0-9.0 Urine Specific [place] 1.016 1.001-1.035 Urine Protein 2+ H Negative Urine Ketones Negative Negative Urine Blood Negative Negative /uL Urine Nitrite Negative Negative Urine Bilirubin Negative Negative Urine Urobilinogen Normal Negative mg/dL Urine Leukocyte Esterase Negative Negative /uL Urine RBC 3 0 - 3 /hpf Urine Microscopic WBC < 1 0-3 /HPF Urine Squamous Epithelial Cells None seen <5 /hpf Urine Bacteria None seen None Seen /hpf Urine Glucose Normal Normal mg/dL Test 03/14/25 19:29 03/14/25 19:00 Range/Units Influenza Type A Antigen Negative Negative Influenza Type B Antigen Negative Negative SARS-CoV-2 Antigen (Rapid) Negative NEGATIVE White Blood Count 17.6 H 4.4-10.8 10^3/uL Red Blood Count 5.76 4.5-5.90 10^6/uL Hemoglobin 13.6 13.5-17.5 g/dL Hematocrit 43.1 41.0-53.0 % Mean Corpuscular Volume 74.8 L 80.0-100.0 fL Mean Corpuscular Hemoglobin 23.6 L 28.0-32.0 pg Mean Corpuscular Hemoglobin Concent 31.6 L 32.0-36.0 g/dL Red Cell Distribution Width 23.9 H 11.8-14.3 % Platelet Count 151 140-450 10^3/uL Mean Platelet Volume 8.5 6.9-10.8 fL Neutrophils (%) (Auto) 94.7 H 37.0-80.0 % Lymphocytes (%) (Auto) 1.5 L 10.0-50.0 % Monocytes (%) (Auto) 3.3 0.0-12.0 % Eosinophils (%) (Auto) 0.0 0.0-7.0 % Basophils (%) (Auto) 0.5 0.0-2.0 % Neutrophils # (Auto) 16.7 H 1.6-8.6 10 ^3/uL Lymphocytes # (Auto) 0.3 L 0.4-5.4 10 ^3/uL Monocytes # (Auto) 0.6 0-1.3 10 ^3/uL Eosinophils # (Auto) 0 0-0.8 10 ^3/uL Basophils # (Auto) 0.1 0-0.2 10 ^3/uL Nucleated Red Blood Cells 0.0 % Sodium Level 134 L 136-145 mmol/L Potassium Level 4.9 3.5-5.1 mmol/L Chloride Level 95 L 98-107 mmol/L Carbon Dioxide Level 30 20-31 mmol/L Anion Gap 9 5-15 Blood Urea Nitrogen 21 9-23 mg/dL Creatinine 0.95 0.700-1.30 mg/dL Glomerular Filtration Rate Calc 79 >90 mL/min BUN/Creatinine Ratio 22.1 H 10.0-20.0 Serum Glucose 187 H 74-106 mg/dL Lactic Acid Level 2.4 *H 0.4-2.0 mmol/L Calcium Level 8.6 L 8.7-10.4 mg/dL Total Bilirubin 0.8 0.2-1.0 mg/dL Aspartate Amino Transferase (AST) 34 13-40 U/L Alanine Aminotransferase (ALT) 51 H 7-40 U/L Alkaline Phosphatase 240 H 46-116 U/L Troponin I High Sensitivity 87 *H </=54 ng/L B-Type Natriuretic Peptide 806.40 0-100 pg/mL Total Protein 5.7 5.7-8.2 g/dL Albumin 3.4 3.2-4.8 g/dL Microbiology Date/Time Source Procedure Growth Status 03/14/25 19:14 Blood Blood Culture - Preliminary NO GROWTH AFTER 24 HOURS OF INCUBATION. Resulted 03/14/25 19:00 Blood Blood Culture - Preliminary NO GROWTH AFTER 24 HOURS OF INCUBATION. Resulted Current Medications Medications (Trade) Dose Ordered Sig/Nasim Route Start Time Stop Time Status Last Admin Sodium Chloride 500 ml @ 500 mls/hr Q1H ONCE IV 03/14/25 20:00 03/14/25 20:59 DC 03/14/25 20:35 Sodium Chloride 1,000 ml @ 130 mls/hr Q7H42M ONCE IV 03/14/25 20:00 03/15/25 03:41 DC 03/14/25 22:01 Vancomycin HCl 250 ml @ 250 mls/hr ONCE ONCE IV 03/14/25 20:00 03/14/25 20:59 DC 03/14/25 20:35 Ceftriaxone Sodium 50 ml @ 100 mls/hr ONCE ONCE IV 03/14/25 20:00 03/14/25 20:29 DC 03/14/25 23:57 EXAM: XY CHEST XRAY 1 VIEW CLINICAL HISTORY: AMS TECHNIQUE: Single AP view of the chest WID: COMPARISON: XY CHEST XRAY 1 VIEW on DOS: 03/02/25 FINDINGS: Lines and tubes: None Chest: The heart size and pulmonary vasculature is within normal limits. Calcified plaque projects Over the aortic arch. Diffuse coarse interstitial opacities of the lungs. Interval clearing of right lower lung opacity since prior. No new airspace consolidation, pleural effusion, or pneumothorax. Unchanged blunting of the right costophrenic angle likely scarring. The osseous structures are grossly intact. Multilevel thoracic spondylosis. IMPRESSION: 1. No new acute cardiopulmonary abnormality. 2. Diffuse interstitial pulmonary fibrosis. 3. Interval clearing of right lower lung opacity since prior study. Time of 1ST Reevaluation: 18:55 Reevaluation 1ST: Unchanged Patient Education/Counseling: Need For Follow Up Family Education/Counseling: No Family Present SEPSIS Sepsis Screen Date sepsis recognized/suspect: Mar 14, 2025 Time Sepsis recognized/suspect: 1818 Recent Procedure: No On Antibiotic Therapy: No Respiratory Rate >20: No Heart Rate >90: Yes Temp<36 C (96.8 F) or >38.3 C: No SBP <90 or MAP <65 mmHG: No New Acute Mental Status Change: No Is the patient on CPAP, BIPAP,: No Physician Orders Chest Xray 1 View (03/14/25 18:50) Blood Culture (03/14/25 18:50) Saline Lock (03/14/25 18:50) Straight Cath. (03/14/25 ) * Wound Consult (03/14/25 ) Electrocardigram (03/14/25 21:47) Electrocardigram (03/14/25 22:47) Electrocardigram (03/15/25 00:47) * Wound Consult (03/14/25 ) Vital Signs Date Time Temp Pulse Resp B/P (MAP) Pulse Ox O2 Delivery O2 Flow Rate FiO2 03/14/25 22:00 86 29 106/69 (81) 100 03/14/25 21:00 86 16 117/66 (83) 100 03/14/25 20:51 97.5 95 18 103/62 (76) 94 97.5 03/14/25 20:51 94 Nasal Cannula* 4 36 03/14/25 19:57 97 18 99/49 (66) 94 03/14/25 18:59 98 03/14/25 18:28 98 03/14/25 18:19 97.1 106 22 142/72 97 97.1 Laboratory Tests Test 03/14/25 19:00 03/14/25 21:00 Lactic Acid Level 2.4 mmol/L (0.4-2.0) *H 1.4 mmol/L (0.4-2.0) White Blood Count 17.6 10^3/uL (4.4-10.8) H Departure 1 Departure Time of Disposition: 19:56 Impression: Primary Impression: Sepsis Disposition: ADMITTED INPATIENT Condition: Stable Comments 85 male who presents with generalized weakness. Vital signs, diagnostic studies concerning for sepsis. Antibiotics and IV fluids initiated in the ED. The patient did NOT receive a full 30ml/kg bolus initially due to concerns of fl uid overload from heart failure Critical Care Note Critical Care Time?: No Stability Stability form required: No Heart Score Heart Score: Heart Score Response (Comments) Value History N/A 0 EKG N/A 0 Age N/A 0 Risk Factors N/A 0 Troponin N/A 0 Total 0 I personally scribed for CASTILLO GOLDSTEIN MD ([email or web address]) on 03/14/25 at 18:59. Electronically submitted by Stewart Parsons ([place]). I personally scribed for CASTILLO GOLDSTEIN MD ([email or web address]) on 03/14/25 at 19:59. Electronically submitted by Stewart Parsons ([place]). I personally scribed for CASTILLO GOLDSTEIN MD ([email or web address]) on 03/14/25 at 20:31. Electronically submitted by Stewart Parsons ([place]). CASTILLO GOLDSTEIN MD Mar 14, 2025 18:59
[2025-03-14 19:31] LABS: Nucleated Red Blood Cells % 0.0 %
[2025-03-14 19:33] LABS: Hematocrit 43.1 % (41.0-53.0); Hemoglobin 13.6 g/dL (13.5-17.5); Mean Corpuscular Hemoglobin 23.6 pg (28.0-32.0); Mean Corpuscular Volume 74.8 fL (80.0-100.0)
[2025-03-14 19:42] LABS: Albumin 3.4 g/dL (3.2-4.8); Anion Gap 9 (5-15); BUN/Creatinine Ratio 22.1 (10.0-20.0); Bilirubin, Total 0.8 mg/dL (0.2-1.0); Blood Urea Nitrogen 21 mg/dL (9-23); Carbon Dioxide 30 mmol/L (20-31); Potassium 4.9 mmol/L (3.5-5.1); Total Protein 5.7 g/dL (5.7-8.2)
[2025-03-14 19:46] LABS: Alanine Aminotransferase 51 U/L (7-40); Alkaline Phosphatase 240 U/L (46-116); Calcium 8.6 mg/dL (8.7-10.4); Chloride 95 mmol/L (98-107); Glucose 187 mg/dL (74-106); Sodium 134 mmol/L (136-145)
[2025-03-14 19:51] LABS: Lactic Acid w/Reflex 2.4 mmol/L (0.4-2.0)
--- NOTE | 2025-03-14 19:51 | DVH ---
EXAM: XY CHEST XRAY 1 VIEW CLINICAL HISTORY: AMS TECHNIQUE: Single AP view of the chest WID: COMPARISON: XY CHEST XRAY 1 VIEW on DOS: 03/02/25 FINDINGS: Lines and tubes: None Chest: The heart size and pulmonary vasculature is within normal limits. Calcified plaque projects Over the aortic arch. Diffuse coarse interstitial opacities of the lungs. Interval clearing of right lower lung opacity since prior. No new airspace consolidation, pleural effusion, or pneumothorax. Unchanged blunting of the right costophrenic angle likely scarring. The osseous structures are grossly intact. Multilevel thoracic spondylosis. IMPRESSION: 1. No new acute cardiopulmonary abnormality. 2. Diffuse interstitial pulmonary fibrosis. 3. Interval clearing of right lower lung opacity since prior study.
[2025-03-14 20:22] LABS: COVID19 ANTIGEN SOFIA FIA NEGATIVE (NEGATIVE)
[2025-03-14] MEDS: SODIUM CHLORIDE 0.9% 500 ML IV ONE (20:35)
[2025-03-14] MEDS: VANCOMYCIN 1GM/250ML KIT 250 ML IV ONE (20:35)
[2025-03-14 20:51] VITALS: O2SAT 94
[2025-03-14 21:08] LABS: Urine Protein, UAD 2+ (Negative)
[2025-03-14] MEDS: SODIUM CHLORIDE 0.9% 1,000 ML IV ONE (22:01)
[2025-03-14] MEDS ORDERED: DEXTROSE (50%) 50ML SYRG IV PRN (23:15)
[2025-03-14 23:36] LABS: Magnesium 1.7 mg/dL (1.6-2.6); Triglycerides 83.0 mg/dL (< 150)
[2025-03-14 23:37] LABS: Cholesterol 163.0 mg/dL (< 200)
[2025-03-14 23:38] LABS: HDL Cholesterol 87.0 mg/dL (40-59)
[2025-03-14 23:42] VITALS: PULSE 90; RESP 16; O2SAT 100
[2025-03-14] MEDS: IPRATROPIUM BROM 0.5 MG/2.5ML INH SOL NEB SCH (23:42)
[2025-03-14] MEDS: ALBUTEROL SULF 2.5 MG/0.5ML(0.5%) NEB SOLN NEB SCH (23:42)
[2025-03-14] MEDS: methylPREDNISolone SOD SUCC 40 MG/ML VL IV ONE (23:57)
[2025-03-15] VITALS (14 sets, daily range): BP systolic 100–124; BP diastolic 69–80; PULSE 68–100; RESP 16–20; TEMP 97.7–98; O2SAT 90–100
--- NOTE | 2025-03-15 00:22 | DVHHPRES ---
History of Present Illness Resident Creating Document: SHAE URENA RESIDENT History of Present Illness Remington Myers Melvin is a 85-year-old male with past medical history of pulmonary fibrosis, pulmonary hypertension, COPD, diabetes mellitus, CHF, dyslipidemia presented to the hospital with complaints of shortness of Breath and generalized weakness. Patient was eating dinner when the daughter noticed he was weak, and slid off the wheelchair.his blood sugar was 65 on scene. Patient was given D10 water and it went up to 261. He is on 4 L home oxygen. He denies any fever, chest pain or urinary symptoms. He was admitted in the hospital 2 weeks back, continuing physiotherapy at home after discharge due to difficulty ambulating. PMHx:pulmonary fibrosis, pulmonary hypertension, COPD, diabetes mellitus, CHF, dyslipidemia PSHx: Not relevant Family history: nonrelevant Social history: ex-smoker, 36 pack year smoking history, lives with daughter Home medication: Trelegy, finasteride, atorvastatin, metformin, glimepiride, Lasix, omeprazole Allergic history: penicillin Review of Systems Review of Systems General: patient denies fever, fatigue, weaknes, sweating, any recent changes in appetite and weight HEENT: No headaches, visiual changes, hearing loss, tinnitus, nasal congestion and discharge, and sore throat. Cardiovascular: Denies chest pain, palpitations, dyspnea on exertion, orthopnea, or claudication. Respiratory: No cough, and wheezing. Gastrointestinal: Denies nausea, vomiting, dysphagia, odynophagia, heartburn, abdominal pain, flatulence, bloating, diarrhea, constipation, change in stool, or blood in stool. Genitourinary: No dysuria, hematuria, discharge, frequency, urgency, nocturia, incontinence, and urinary retention. Endocrine: No heat or cold intolerance, polydipsia, polyuria, and polyphagia. Neurological: No dizziness, extremity weakness and numbness, tremors, gait disturbance, seizures, and memory impairment. Psychiatric: Denies depression, anxiety,or insomnia. Musculoskeletal: Denies neck pain, stiffness and swelling, back pain, muscle weakness, joint pain, stiffness, swelling, or limited range of motion. Skin: No rashes, itching, skin lesion, changes in hair, nail, skin texture and breast. Hematologic/Lymphatic: Denies easy bruising, bleeding tendencies, or lymph node enlargement. Allergies: Coded Allergies: Penicillins (Verified Allergy, Unknown, 05/10/21) Medications Current Medications Medications Dose Ordered Sig/Nasim Route Start Time Stop Time Status Last Admin Dose Admin Enoxaparin Sodium 40 mg DAILY SC 03/15/25 10:00 Ipratropium [place] 0.5 mg Q6HWA [facility] 03/14/25 23:00 03/14/25 23:42 0.5 MG Albuterol 2.5 mg Q6HWA [facility] 03/14/25 23:00 03/14/25 23:42 2.5 MG Prednisone 40 mg DAILY PO 03/15/25 14:00 Azithromycin 500 mg DAILY PO 03/15/25 10:00 Atorvastatin Calcium 80 mg HS PO 03/15/25 22:00 Insulin Glargine 10 units QAM SC 03/15/25 07:00 Insulin Human Lispro 3 units AC SC 03/15/25 07:00 Diagnostic Test (Pha) 1 strip ACHS 03/15/25 07:00 Insulin Human Regular ACHS SC 03/15/25 07:00 Dextrose 50 ml UD PRN IV 03/14/25 23:15 Amlodipine Besylate 10 mg DAILY PO 03/15/25 10:00 Furosemide 20 mg DAILY PO 03/15/25 10:00 Pantoprazole Sodium 40 mg DAILY IV 03/15/25 10:00 Exam Vital Signs Vital Signs Date Time Temp Pulse Resp B/P (MAP) Pulse Ox O2 Delivery O2 Flow Rate FiO2 03/14/25 23:42 16 100 Nasal Cannula* 5 40 03/14/25 23:00 85 96/62 (73) 03/14/25 20:51 97.5 97.5 Exam General Appearance: Alert, Oriented X3, Cooperative, No acute distress HEENT: Atraumatic, PERRLA, EOMI, Mucous membrane moist/pink Respiratory: mild rhonchi bilateral lung quiñonez Cardiovascular: Regular rate, Normal S1, Normal S2, No murmurs, no chest wall tenderness Abdominal: Normal bowel sounds, Soft, No tenderness, No hepatospenomegaly, No masses Extremities: No clubbing, No cyanosis, No edema, Normal pulses, No tenderness/swelling Skin: 1X1 cm nonpurulent wound n the sacrum Neuro: Normal gait, Normal speech, Strength at 5/5 X4 ext, Normal tone, Sensation intact, Cranial nerves 3-12 NL, Reflexes 2+ Psych/Mental Status: Mental status NL, Mood NL Labs/Xrays Labs Test 03/14/25 21:56 03/14/25 21:00 03/14/25 20:00 03/14/25 19:29 Range/Units Magnesium Level 1.7 1.6-2.6 mg/dL Troponin I High Sensitivity 65 *H </=54 ng/L Triglycerides Level 83 < 150 mg/dL Cholesterol Level 163 < 200 mg/dL LDL Cholesterol 52 < 100 mg/dL HDL Cholesterol 87 H 40-59 mg/dL Lactic Acid Level 1.4 0.4-2.0 mmol/L Urine Color Yellow Yellow Urine Clarity Clear Clear Urine pH 6.5 5.0-9.0 Urine Specific [place] 1.016 1.001-1.035 Urine Protein 2+ H Negative Urine Ketones Negative Negative Urine Blood Negative Negative /uL Urine Nitrite Negative Negative Urine Bilirubin Negative Negative Urine Urobilinogen Normal Negative mg/dL Urine Leukocyte Esterase Negative Negative /uL Urine RBC 3 0 - 3 /hpf Urine Microscopic WBC < 1 0-3 /HPF Urine Squamous Epithelial Cells None seen <5 /hpf Urine Bacteria None seen None Seen /hpf Urine Glucose Normal Normal mg/dL Influenza Type A Antigen Negative Negative Influenza Type B Antigen Negative Negative SARS-CoV-2 Antigen (Rapid) Negative NEGATIVE Test 03/14/25 19:00 Range/Units White Blood Count 17.6 H 4.4-10.8 10^3/uL Red Blood Count 5.76 4.5-5.90 10^6/uL Hemoglobin 13.6 13.5-17.5 g/dL Hematocrit 43.1 41.0-53.0 % Mean Corpuscular Volume 74.8 L 80.0-100.0 fL Mean Corpuscular Hemoglobin 23.6 L 28.0-32.0 pg Mean Corpuscular Hemoglobin Concent 31.6 L 32.0-36.0 g/dL Red Cell Distribution Width 23.9 H 11.8-14.3 % Platelet Count 151 140-450 10^3/uL Mean Platelet Volume 8.5 6.9-10.8 fL Neutrophils (%) (Auto) 94.7 H 37.0-80.0 % Lymphocytes (%) (Auto) 1.5 L 10.0-50.0 % Monocytes (%) (Auto) 3.3 0.0-12.0 % Eosinophils (%) (Auto) 0.0 0.0-7.0 % Basophils (%) (Auto) 0.5 0.0-2.0 % Neutrophils # (Auto) 16.7 H 1.6-8.6 10 ^3/uL Lymphocytes # (Auto) 0.3 L 0.4-5.4 10 ^3/uL Monocytes # (Auto) 0.6 0-1.3 10 ^3/uL Eosinophils # (Auto) 0 0-0.8 10 ^3/uL Basophils # (Auto) 0.1 0-0.2 10 ^3/uL Nucleated Red Blood Cells 0.0 % Sodium Level 134 L 136-145 mmol/L Potassium Level 4.9 3.5-5.1 mmol/L Chloride Level 95 L 98-107 mmol/L Carbon Dioxide Level 30 20-31 mmol/L Anion Gap 9 5-15 Blood Urea Nitrogen 21 9-23 mg/dL Creatinine 0.95 0.700-1.30 mg/dL Glomerular Filtration Rate Calc 79 >90 mL/min BUN/Creatinine Ratio 22.1 H 10.0-20.0 Serum Glucose 187 H 74-106 mg/dL Calcium Level 8.6 L 8.7-10.4 mg/dL Total Bilirubin 0.8 0.2-1.0 mg/dL Aspartate Amino Transferase (AST) 34 13-40 U/L Alanine Aminotransferase (ALT) 51 H 7-40 U/L Alkaline Phosphatase 240 H 46-116 U/L B-Type Natriuretic Peptide 806.40 0-100 pg/mL Total Protein 5.7 5.7-8.2 g/dL Albumin 3.4 3.2-4.8 g/dL SEPSIS Sepsis Screen Date sepsis recognized/suspect: Mar 14, 2025 Time Sepsis recognized/suspect: 2104 Recent Procedure: No On Antibiotic Therapy: No Respiratory Rate >20: No Heart Rate >90: Yes Temp<36 C (96.8 F) or >38.3 C: No SBP <90 or MAP <65 mmHG: No New Acute Mental Status Change: No Is the patient on CPAP, BIPAP,: No Physician Orders Electrocardigram (03/14/25 18:38) Chest Xray 1 View (03/14/25 18:50) Blood Culture (03/14/25 18:50) Saline Lock (03/14/25 18:50) Straight Cath. (03/14/25 ) Sodium Chloride 0.9% (03/14/25 20:00) * Wound Consult (03/14/25 ) Electrocardigram (03/14/25 21:47) Electrocardigram (03/14/25 22:47) Electrocardigram (03/15/25 00:47) * Wound Consult (03/14/25 ) Admit (03/14/25 22:10) Allergies (03/14/25 22:10) Code Status (03/14/25 22:10) Enoxaparin Sodium (Lovenox) (03/15/25 10:00) Fall Risk Precautions In Place QSHIFT (03/14/25 22:10) Complete Blood Count (03/15/25 04:00) Comprehensive Metabolic Panel (03/15/25 04:00) Cardiac Diet-2gna,Lofat,Lochol (03/15/25 Breakfast) Pt Request For Service (03/14/25 22:10) Condition: Fair (03/14/25 22:10) Wound Culture W/ Gs (03/14/25 22:12) Sputum Induction (03/14/25 22:57) Respiratory Culture W/ Gs (03/14/25 22:57) Wound Culture W/ Gs (03/14/25 22:57) * Wound Consult (03/14/25 ) Ipratropium Medneb (Atrovent Medneb) (03/14/25 23:00) Albuterol Medneb (Ventolin Medneb) (03/14/25 23:00) Prednisone Tablet (03/15/25 14:00) Azithromycin Tablet (Zithromax Tablet) (03/15/25 10:00) Atorvastatin (Lipitor) (03/15/25 22:00) Insulin Lantus (Glargine) (Lantus) (03/15/25 07:00) Insulin Lispro (Human) (Humalog) (03/15/25 07:00) Glucose Blood (Accu-Chek Comfort Curve T (03/15/25 07:00) Insulin R (Human) (Insulin R) (03/15/25 07:00) Dextrose 50% Syringe (03/14/25 23:15) Amlodipine Tablet (Norvasc Tablet) (03/15/25 10:00) Furosemide Tablet (Lasix Tablet) (03/15/25 10:00) Pantoprazole (Protonix) (03/15/25 10:00) Obtain Abg (03/14/25 23:54) Ct Angio Chest Contrast (03/14/25 23:54) Communication Order (03/14/25 23:54) Vital Signs Date Time Temp Pulse Resp B/P (MAP) Pulse Ox O2 Delivery O2 Flow Rate FiO2 03/14/25 23:42 16 100 Nasal Cannula* 5 40 03/14/25 23:00 85 17 96/62 (73) 100 03/14/25 22:00 86 29 106/69 (81) 100 03/14/25 21:00 86 16 117/66 (83) 100 03/14/25 20:51 97.5 95 18 103/62 (76) 94 97.5 03/14/25 20:51 94 Nasal Cannula* 4 36 03/14/25 19:57 97 18 99/49 (66) 94 03/14/25 18:59 98 03/14/25 18:28 98 03/14/25 18:19 97.1 106 22 142/72 97 97.1 Laboratory Tests Test 03/14/25 19:00 03/14/25 21:00 Lactic Acid Level 2.4 mmol/L (0.4-2.0) *H 1.4 mmol/L (0.4-2.0) White Blood Count 17.6 10^3/uL (4.4-10.8) H Medications Medications Dose Ordered Sig/Nasim Route Start Time Stop Time Status Last Admin Dose Admin Albuterol 2.5 mg Q6HWA NEB 03/14/25 23:00 03/14/25 23:42 2.5 MG Ipratropium [place] 0.5 mg Q6HWA NEB 03/14/25 23:00 03/14/25 23:42 0.5 MG Sodium Chloride 500 ml @ 500 mls/hr Q1H ONCE IV 03/14/25 20:00 03/14/25 20:59 DC 03/14/25 20:35 500 MLS/HR Sodium Chloride 1,000 ml @ 130 mls/hr Q7H42M ONCE IV 03/14/25 20:00 03/15/25 03:41 03/14/25 22:01 130 MLS/HR Vancomycin HCl 250 ml @ 250 mls/hr ONCE ONCE IV 03/14/25 20:00 03/14/25 20:59 DC 03/14/25 20:35 250 MLS/HR Assessment/Plan Assessment/Plan Assessment and plan Severe sepsis due to below Pneumonia due to Gram-positive/ Gram-negative Acute on chronic hypoxic respiratory failure Possible COPD exacerbation Chronic pulmonary fibrosis Lactic acid Sputum culture, wound culture Wound consult IV fluids held due to history of CHF Ipratropium, albuterol med nebs IV methotrexate once, oral prednisone to continue Azithromycin ABG Type 2 NSTEMI EKG Troponin 87, 79, 65 Rule out pulmonary embolism CT angiography Chronic right heart failure Severe pulmonary hypertension Cor pulmonale Last echo on January:pasp >85 mmhg BNP 800 ABG Maintain saturation between 92-94% Type 2 diabetes mellitus Blood glucose 187 target in-hospital blood glucose between 140-180 Follow hemoglobin A1c Insulin Lantus, lispro Dyslipidemia Continue atorvastatin PUD prophylaxis: protonix 40mg DVT prophylaxis: Levonox 40mg Barriers to discharge: Medical diagnosis and management in progress. Patient lives with family. wheelchair/person support for ADL. PT and SW consult as needed. PCP: Dr. Williamson Specialist Relevent To Admission: None Case discussed with Dr. Freeman. Code Status: Full Code. Complex patient care discussion needed. Spend total 33 minutes for bedside assessment, case discussion and management. Plan discussed with: Patient My Orders Orders - SHAE URENA RESIDENT Procedure Category Date Status Time Electrocardigram EKG 03/14/25 Logged 21:47 Electrocardigram EKG 03/14/25 Logged 22:47 Electrocardigram EKG 03/15/25 Logged 00:47 * Wound Consult CONS 03/14/25 Transmitted Admit ADMIT 03/14/25 Transmitted 22:10 Allergies BRUCE 03/14/25 In Process 22:10 Code Status CODE 03/14/25 Transmitted 22:10 Enoxaparin Sodium PHA 03/15/25 In Process (Lovenox) 10:00 Fall Risk Precautions BRUCE 03/14/[address] 22:10 Complete Blood Count LAB 03/15/25 Logged 04:00 Comprehensive LAB 03/15/25 Logged Metabolic Panel 04:00 Cardiac DIET 12/19/25 Transmitted Diet-2gna,Lofat,Lochol Breakfast Pt Request For Service PT 03/14/25 Logged 22:10 Condition: Fair BRUCE 03/14/25 In Process 22:10 Wound Culture W/ Gs YING 03/14/25 In Process 22:12 Sputum Induction RT 03/14/25 Logged 22:57 Respiratory Culture YING 03/14/25 Uncollected W/ Gs 22:57 Wound Culture W/ Gs YING 03/14/25 Uncollected 22:57 * Wound Consult CONS 03/14/25 Transmitted Ipratropium Medneb PHA 03/14/25 In Process (Atrovent Medneb) 23:00 Albuterol Medneb PHA 03/14/25 In Process (Ventolin Medneb) 23:00 Prednisone Tablet PHA 03/15/25 In Process 14:00 Azithromycin Tablet PHA 03/15/25 In Process (Zithromax Tablet) 10:00 Atorvastatin (Lipitor) PHA 03/15/25 In Process 22:00 Insulin Lantus PHA 03/15/25 In Process (Glargine) (Lantus) 07:00 Insulin Lispro PHA 03/15/25 In Process (Human) (Humalog) 07:00 Glucose Blood PHA 03/15/25 In Process (Accu-Chek Comfort 07:00 Insulin R (Human) PHA 03/15/25 In Process (Insulin R) 07:00 Dextrose 50% Syringe PHA 03/14/25 In Process 23:15 Amlodipine Tablet PHA 03/15/25 In Process (Norvasc Tablet) 10:00 Furosemide Tablet PHA 03/15/25 In Process (Lasix Tablet) 10:00 Pantoprazole PHA 03/15/25 In Process (Protonix) 10:00 Obtain Abg BRUCE 03/14/25 In Process 23:[address] 03/14/25 Logged Contrast 23:54 Communication Order ORDERS 03/14/25 Transmitted 23:54 Visit Coding STANDARD RES Billing Provider: MARIELA FREEMAN MD Date of Service if different f: Mar 14, 2025 Common Visit Codes: [id number] INP/OBS CARE (HIGH) Secondary Visit Codes: [id number] CARE PLAN 30 MINUTES SHAE URENA Mar 15, 2025 00:22
[2025-03-15 02:04] LABS: Base Excess -1.0 mmol/L (-2.0-3.0)
[2025-03-15] MEDS: InsuLIN REG 1unit/0.01ml Soln (100units/ml) SC SCH (06:07)
[2025-03-15] MEDS: INSULIN LISPRO (HUMAN) 100 UNITS/ML ML SC SCH (06:07)
[2025-03-15] MEDS: ACCU-CHEK COMFORT CURVE STRIP VI SCH (06:09)
[2025-03-15 07:39] LABS: Hematocrit 38.5 % (41.0-53.0); Hemoglobin 12.2 g/dL (13.5-17.5); Mean Corpuscular Hemoglobin 23.4 pg (28.0-32.0); Mean Corpuscular Volume 73.8 fL (80.0-100.0)
[2025-03-15 07:55] LABS: Anion Gap 10 (5-15); BUN/Creatinine Ratio 26.4 (10.0-20.0); Carbon Dioxide 30 mmol/L (20-31); Chloride 100 mmol/L (98-107); Potassium 4.3 mmol/L (3.5-5.1); Sodium 140 mmol/L (136-145)
[2025-03-15 07:56] LABS: Bilirubin, Total 0.6 mg/dL (0.2-1.0)
[2025-03-15 07:57] LABS: Alanine Aminotransferase 45 U/L (7-40); Albumin 3.2 g/dL (3.2-4.8); Alkaline Phosphatase 214 U/L (46-116); Blood Urea Nitrogen 24 mg/dL (9-23); Calcium 8.1 mg/dL (8.7-10.4); Glucose 136 mg/dL (74-106); Total Protein 5.2 g/dL (5.7-8.2)
[2025-03-15 08:10] LABS: Total Cells Counted 100.0 (100)
[2025-03-15] MEDS: INSULIN LANTUS (GLARGINE) 1 /0.01ml (100units/ml) SC SCH (08:12)
[2025-03-15] MEDS: ENOXAPARIN SOD 40 MG/0.4 ML SYRINGE SC SCH (09:33)
[2025-03-15] MEDS: PANTOPRAZOLE 40 MG/10 ML VIAL INJ IV SCH (09:33)
[2025-03-15] MEDS: AZITHROMYCIN 250 MG TAB PO SCH (09:34)
[2025-03-15] MEDS: FUROSEMIDE 20 MG TAB PO SCH (09:35)
--- NOTE | 2025-03-15 10:54 | ECG ---
[facility] Test Date: 2025-03-14 Test Time: 18:28:04 Pat Name: ZAIDA NIELSEN Department: [facility] ED Room: [facility]5T A Gender: M [employer] Con[employer]: MEENAKSHI : 1940 Requested By: CASTILLO GOLDSTEIN Order Number: [id number] Reading MD: Adrien Garrido Measurements Intervals Dana Rate: 98 P: 42 [place]: 128 QRS: 192 QRSD: 100 T: 17 QT: 355 QTc: 454 Interpretive Statements Sinus rhythm Right atrial enlargement Right ventricular hypertrophy Electronically Signed On 03-18-2025 15:21:25 PST by Adrien Garrido Please click the below link to view image of tracing.
--- NOTE | 2025-03-15 14:45 | DVHPNRES ---
Progress Note Date Seen: Mar 15, 2025 Resident Creating Document: LARRY MONTIEL RESIDENT Medical Necessity Reason Pt with a Central, PICC or Fol: No Subjective Review of Systems 85-year-old male with a past medical history of pulmonary fibrosis- On 4 L of oxygen at home, pulmonary hypertension, COPD, type 2 diabetes mellitus, CHF, dyslipidemia has presented to the hospital with complaints of shortness of breath and generalized weakness. Patient reports that he was eating dinner yesterday and he tried to get up but was unable to do so because he felt numbness in bilateral lower extremities. He reports that his daughter noticed that he was weak and sliding off the chair so blood glucose level was checked and it was 65 at the time. In the ER, patient was given D10 water and he states blood glucose went up to 261. Patient was admitted to the hospital 2 weeks back for pneumonia, completed antibiotics and has been doing physical therapy at home since he was having difficulty ambulating. He denies any fever, chest pain, urinary symptoms or any other new symptoms. PMHx:pulmonary fibrosis, pulmonary hypertension, COPD, diabetes mellitus, CHF, dyslipidemia PSHx: Not relevant Family history: nonrelevant Social history: ex-smoker, 36 pack year smoking history, lives with daughter Home medication: Trelegy, finasteride, atorvastatin, metformin, glimepiride, Lasix, omeprazole Allergic history: penicillin ROS: 03/15/2025: Patient was seen and examined by me at the bedside. Charts and labs were reviewed. Patient is still having shallow breathing, is on 4 L of oxygen via nasal cannula. He has no new complaints. Objective vital signs Vital Sign Date Time Temp Pulse Resp B/P (MAP) Pulse Ox O2 Delivery O2 Flow Rate FiO2 03/15/25 13:00 97.8 68 18 124/69 (87) 96 97.8 03/15/25 11:52 Nasal Cannula 4.0 03/15/25 11:52 36 Total Intake and Output 03/14/25 03/14/25 03/15/25 15:00 23:00 07:00 Intake Total 750 ml 330 ml Output Total 450 ml Balance 750 ml -120 ml medications Current Medications Medications Dose Ordered Sig/Nasim Route Start Time Stop Time Status Last Admin Dose Admin Enoxaparin Sodium 40 mg DAILY SC 03/15/25 10:00 03/15/25 09:33 40 MG Ipratropium [place] 0.5 mg Q6HWA NEB 03/14/25 23:00 03/15/25 11:52 0.5 MG Albuterol 2.5 mg Q6HWA NEB 03/14/25 23:00 03/15/25 11:52 2.5 MG Prednisone 40 mg DAILY PO 03/15/25 14:00 Azithromycin 500 mg DAILY PO 03/15/25 10:00 03/15/25 09:34 500 MG Atorvastatin Calcium 80 mg HS PO 03/15/25 22:00 Insulin Glargine 10 units QAM ID 03/15/25 07:00 03/15/25 08:12 10 UNITS Insulin Human Lispro 3 units AC SC 03/15/25 07:00 03/15/25 08:12 3 UNITS Diagnostic Test (Pha) 1 strip ACHS 03/15/25 07:00 03/15/25 12:00 1 STRIP Insulin Human Regular ACHS SC 03/15/25 07:00 03/15/25 06:07 2 UNITS Dextrose 50 ml UD PRN IV 03/14/25 23:15 Amlodipine Besylate 10 mg DAILY PO 03/15/25 10:00 03/15/25 09:34 10 MG Furosemide 20 mg DAILY PO 03/15/25 10:00 03/15/25 09:35 20 MG Pantoprazole Sodium 40 mg DAILY IV 03/15/25 10:00 03/15/25 09:33 40 MG Examination General Appearance: Alert, Oriented X3, Cooperative, mildly irritable HEENT: Atraumatic, PERRLA, EOMI, Mucous membrane moist/pink Respiratory: mild rhonchi bilateral lung quiñonez, shallow breathing, on 4 L of oxygen via nasal cannula Cardiovascular: Regular rate, Normal S1, Normal S2, No murmurs, no chest wall tenderness Abdominal: Normal bowel sounds, Soft, No tenderness, No hepatospenomegaly, No masses Extremities: No clubbing, No cyanosis, No edema, Normal pulses, No tenderness/swelling Skin: 1X1 cm nonpurulent wound n the sacrum Neuro: Normal gait, Normal speech, Strength at 5/5 X4 ext, Normal tone, Sensation intact, Cranial nerves 3-12 NL, Reflexes 2+ Psych/Mental Status: Mental status NL, Mood irritable laboratory and microbiology Laboratory Tests 03/15/25 07:15 Test 03/15/25 07:15 Range/Units Serum Glucose 136 H 74-106 mg/dL Labs and/or images reviewed: Labs reviewed by me, Image(s) reviewed by me Problem List/Assessment/Plan Problem List/Assessment/Plan #Severe sepsis due to below #Pneumonia due to Gram-positive/ Gram-negative #Acute on chronic hypoxic respiratory failure #Possible COPD exacerbation #Chronic pulmonary fibrosis -Lactic acid 2.4>1.4 -IV fluids -CXR shows: No new acute cardiopulmonary abnormality; Diffuse interstitial pulmonary fibrosis; Interval clearing of right lower lung opacity since prior study. -Sputum culture, wound culture -Wound consult -IV fluids held due to history of CHF -Med neb Ipratropium we will 0.5 mg q.6 daily -Med neb albuterol 2.5 mg q.6 daily -IV methotrexate once, oral prednisone to continue -Azithromycin -covid, flu negative #Type 2 NSTEMI -EKG -Troponin 87, 79, 65 #Rule out pulmonary embolism -CT angiography #Chronic right heart failure #Severe pulmonary hypertension #Cor pulmonale #Hypertensive heart disease, possibly due to systolic/diastolic dysfunction -continue amlodipine 10 mg p.o. daily -furosemide 20 mg p.o. daily -Last echo on January:pasp >85 mmhg -BNP 800 -ABG -Maintain saturation between 92-94% #Type 2 diabetes mellitus, uncontrolled -HbA1c on 02/24/2025 was 8.8 -target in-hospital blood glucose between 140-180 -Insulin Lantus, lispro -mild sliding scale insulin #Dyslipidemia -Continue atorvastatin ENT mgHS daily GI prophylaxis: Protonix 40 mg IVdaily DVT prophylaxis: Lovenox 40 mg subcutaneous daily Diet: cardiac and diabetic diet Goals of care discussed with the patient for more than 27 minutes: Full code status Case discussed with Dr. Urban, patient and nurse. Plan discussed with: Patient, Other (rn) My Orders My Orders Orders - LARRY MONTIEL RESIDENT Procedure Category Date Status Time * Dietary Consult CONS 03/15/25 Transmitted 14:32 Cleanse Wound With BRUCE 03/15/25 In Process Wound Clean 10:10 Apply Z-Guard BRUCE 03/15/25 In Process 10:10 Visit Coding STANDARD RES Billing Provider: MADI URBAN MD Date of Service if different f: Mar 15, 2025 Common Visit Codes: [id number] INP/OBS CARE(HIGH) LARRY MONTIEL RESIDENT Mar 15, 2025 14:45 MADI URBAN MD Mar 15, 2025 23:42
[2025-03-15] MEDS: predniSONE 20 MG TAB PO SCH (15:15)
[2025-03-15] MEDS: IOHEXOL 350 MG/ML 100ML IJ ONE (15:15)
--- NOTE | 2025-03-15 17:01 | DVH ---
CLINICAL HISTORY: Rule out PE, Pneumonia TECHNIQUE: CT angiogram of the chest was performed with intravenous contrast. 100 ml of omnipaque 350 was administered intravenously. 3D MIP reconstructed images were created and archived on the PACS system. This exam was performed according to our departmental dose optimization program. Up-to-date CT equipment and radiation dose reduction techniques are utilized as appropriate. CTDI: 7.3 DLP: 271.14 WID: COMPARISON: CT CT ANGIO CHEST CONTRAST on DOS: 08/13/22, CT CHEST WITHOUT CONTRAST on DOS: 06/27/22 FINDINGS: Lower Neck: Unremarkable Axilla, Mediastinum and Alanna: No axillary lymphadenopathy. Mildly prominent mediastinal lymph nodes. Normal-sized hilar lymph nodes. Heart and Great Vessels: Upper limits of normal-sized heart. No pericardial effusion. The thoracic aorta is normal in caliber. Moderate mixed atherosclerotic plaque in the thoracic aorta. At least mild 3-vessel calcified coronary artery disease. No central, segmental, or subsegmental pulmonary artery filling defects are seen to suggest pulmonary embolism. Airway, Lungs and Pleura: Trachea and central airways are patent. Subpleural reticular opacities and interstitial opacities of the lungs. There is bilateral honeycombing greatest in the lung bases. Mild bronchiectasis bilaterally. There is mild centrilobular emphysema. Scattered calcified granulomas. No consolidative pneumonia or pneumothorax. Trace bilateral pleural effusions. Chest Wall and Osseous Structures: Flowing anterior osteophytes of the thoracic spine compatible with dish. No destructive osseous lesion. Mild chest wall edema. Upper abdomen: Small left upper pole renal cyst. No acute abnormality. IMPRESSION: 1. No evidence of pulmonary embolism. 2. Upper limits Of Normal-sized heart, mild chest wall edema, and trace bilateral pleural effusions. 3. 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 There is also mild centrilobular emphysema. This could be combined pulmonary fibrosis and emphysema. 4. At least mild 3-vessel calcified coronary artery disease.
[2025-03-15] MEDS: ATORVASTATIN 20 MG TAB PO SCH (21:02)
[2025-03-16] VITALS (13 sets, daily range): BP systolic 106–120; BP diastolic 65–89; PULSE 73–100; RESP 15–19; TEMP 97.3–98.2; O2SAT 90–100
[2025-03-16 06:40] LABS: Hematocrit 39.1 % (41.0-53.0); Nucleated Red Blood Cells % 0.0 %
[2025-03-16 06:43] LABS: Hemoglobin 12.5 g/dL (13.5-17.5); Mean Corpuscular Hemoglobin 23.7 pg (28.0-32.0); Mean Corpuscular Volume 74.1 fL (80.0-100.0)
[2025-03-16 06:53] LABS: Chloride 100 mmol/L (98-107); Potassium 4.6 mmol/L (3.5-5.1); Sodium 139 mmol/L (136-145)
[2025-03-16 06:54] LABS: Anion Gap 10 (5-15); Carbon Dioxide 29 mmol/L (20-31)
[2025-03-16 06:57] LABS: Calcium 8.1 mg/dL (8.7-10.4)
[2025-03-16 07:00] LABS: BUN/Creatinine Ratio 28.3 (10.0-20.0); Blood Urea Nitrogen 28 mg/dL (9-23); Glucose 134 mg/dL (74-106)
[2025-03-16] MEDS ORDERED: FLUT1SPR5 (14:49)
[2025-03-16] MEDS ORDERED: DOCU-94 PO (14:49)
--- NOTE | 2025-03-16 15:10 | DVHPNRES ---
Progress Note Date Seen: Mar 16, 2025 Resident Creating Document: LARRY MONTIEL RESIDENT Medical Necessity Reason Pt with a Central, PICC or Fol: No Subjective Review of Systems 85-year-old male with a past medical history of pulmonary fibrosis- On 4 L of oxygen at home, pulmonary hypertension, COPD, type 2 diabetes mellitus, CHF, dyslipidemia has presented to the hospital with complaints of shortness of breath and generalized weakness. Patient reports that he was eating dinner yesterday and he tried to get up but was unable to do so because he felt numbness in bilateral lower extremities. He reports that his daughter noticed that he was weak and sliding off the chair so blood glucose level was checked and it was 65 at the time. In the ER, patient was given D10 water and he states blood glucose went up to 261. Patient was admitted to the hospital 2 weeks back for pneumonia, completed antibiotics and has been doing physical therapy at home since he was having difficulty ambulating. He denies any fever, chest pain, urinary symptoms or any other new symptoms. PMHx:pulmonary fibrosis, pulmonary hypertension, COPD, diabetes mellitus, CHF, dyslipidemia PSHx: Not relevant Family history: nonrelevant Social history: ex-smoker, 36 pack year smoking history, lives with daughter Home medication: Trelegy, finasteride, atorvastatin, metformin, glimepiride, Lasix, omeprazole Allergic history: penicillin ROS: 03/15/2025: Patient was seen and examined by me at the bedside. Charts and labs were reviewed. Patient is still having shallow breathing, is on 4 L of oxygen via nasal cannula. He has no new complaints. 03/16/2025: Patient was seen and examined by me today. Charts and labs were reviewed. Patient reports feeling much better and reports that his respiration is better as well. He is still on 4 L oxygen via nasal cannula. Patient has no new complaints today. we will continue ongoing management. patient unwilling to show his sacral wound today. Objective vital signs Vital Sign Date Time Temp Pulse Resp B/P (MAP) Pulse Ox O2 Delivery O2 Flow Rate FiO2 03/16/25 13:00 97.3 73 17 112/69 (83) 98 97.3 03/16/25 10:00 Nasal Cannula* 4 36 Total Intake and Output 03/15/25 03/15/25 03/16/25 15:00 23:00 07:00 Intake Total 800 ml 640 ml Output Total 1250 ml 520 ml Balance -450 ml 120 ml medications Current Medications Medications Dose Ordered Sig/Nasim Route Start Time Stop Time Status Last Admin Dose Admin Enoxaparin Sodium 40 mg DAILY SC 03/15/25 10:00 03/16/25 09:14 40 MG Ipratropium [place] 0.5 mg Q6HWA [facility] 03/14/25 23:00 03/16/25 12:42 0.5 MG Albuterol 2.5 mg Q6HWA [facility] 03/14/25 23:00 03/16/25 12:42 2.5 MG Prednisone 40 mg DAILY PO 03/15/25 14:00 03/16/25 09:14 40 MG Azithromycin 500 mg DAILY PO 03/15/25 10:00 03/16/25 09:14 500 MG Atorvastatin Calcium 80 mg HS PO 03/15/25 22:00 03/15/25 21:02 80 MG Insulin Glargine 10 units QAM VT 03/15/25 07:00 03/16/25 06:03 10 UNITS Insulin Human Lispro 3 units AC VT 03/15/25 07:00 03/16/25 11:38 3 UNITS Diagnostic Test (Pha) 1 strip ACHS 03/15/25 07:00 03/16/25 11:39 1 STRIP Insulin Human Regular ACHS VT 03/15/25 07:00 03/16/25 11:39 10 UNITS Dextrose 50 ml UD PRN IV 03/14/25 23:15 Amlodipine Besylate 10 mg DAILY PO 03/15/25 10:00 03/16/25 09:15 10 MG Furosemide 20 mg DAILY PO 03/15/25 10:00 03/16/25 09:15 20 MG Pantoprazole Sodium 40 mg DAILY IV 03/15/25 10:00 03/16/25 09:14 40 MG Examination General Appearance: Alert, Oriented X3, Cooperative, No acute distress HEENT: Atraumatic, PERRLA, EOMI, Mucous membrane moist/pink Respiratory: mild rhonchi bilateral lung quiñonez, shallow breathing, on 4 L of oxygen via nasal cannula Cardiovascular: Regular rate, Normal S1, Normal S2, No murmurs, no chest wall tenderness Abdominal: Normal bowel sounds, Soft, No tenderness, No hepatospenomegaly, No masses Extremities: No clubbing, No cyanosis, No edema, Normal pulses, No tenderness/swelling Skin: unwilling to show sacral wound Neuro: Normal gait, Normal speech, Strength at 5/5 X4 ext, Normal tone, Sensation intact, Cranial nerves 3-12 NL, Reflexes 2+ Psych/Mental Status: Mental status NL, Mood NL laboratory and microbiology Laboratory Tests 03/16/25 05:09 Test 03/16/25 05:09 Range/Units Serum Glucose 134 H 74-106 mg/dL Microbiology Date/Time Source Procedure Growth Status 03/15/25 17:00 Nose MRSA Screen - Final Complete 03/14/25 19:14 Blood Blood Culture - Preliminary NO GROWTH AFTER 24 HOURS OF INCUBATION. Resulted Labs and/or images reviewed: Labs reviewed by me, Image(s) reviewed by me Problem List/Assessment/Plan Problem List/Assessment/Plan #Severe sepsis due to below #Pneumonia due to Gram-positive/ Gram-negative #Acute on chronic hypoxic respiratory failure #Possible COPD exacerbation #Chronic Diffuse interstitial pulmonary fibrosis #trace bilateral pleural effusions -Lactic acid 2.4>1.4 -CXR shows: No new acute cardiopulmonary abnormality; Diffuse interstitial pulmonary fibrosis; Interval clearing of right lower lung opacity since prior study. -CT angio: Upper limits Of Normal-sized heart, mild chest wall edema, and trace bilateral pleural effusions; Pulmonary fibrosis in a UIP pattern. There is also mild centrilobular emphysema. This could be combined pulmonary fibrosis and emphysema. -wound culture -Wound consult -IV fluids held due to history of CHF -furosemide 40mg iv daily -Med neb Ipratropium we will 0.5 mg q.6 daily -Med neb albuterol 2.5 mg q.6 daily -IV methotrexate once, oral prednisone to continue -Azithromycin -covid, flu negative -Maintain saturation between 92-94% #Type 2 NSTEMI -EKG sinus rhythm -Troponin 87, 79, 65 -monitor #Ruled out pulmonary embolism -CT angiography- no evidence of pul emobolism #Chronic right heart failure, systolic/diastolic, hfpef 55%, not under acute exacerbation #Severe pulmonary hypertension #Cor pulmonale #Hypertensive heart disease, possibly due to systolic/diastolic dysfunction #CAD #Dyslipidemia -last echo on 02/08/25 shows: severe pulm ht, pasp >85 mmhg, lvef 55%, severe RV enlargement and dysfunction -Continue atorvastatin 80mg HS daily -continue amlodipine 10 mg p.o. daily -furosemide 20 mg p.o. daily -Last echo on January:pasp >85 mmhg -BNP 800 -ct angio shows: At least mild 3-vessel calcified coronary artery disease. #Type 2 diabetes mellitus, uncontrolled -HbA1c on 02/24/2025 was 8.8 -target in-hospital blood glucose between 140-180 -Insulin Lantus, lispro -mild sliding scale insulin GI prophylaxis: Protonix 40 mg IVdaily DVT prophylaxis: Lovenox 40 mg subcutaneous daily Diet: cardiac and diabetic diet Goals of care discussed with the patient for more than 27 minutes: Full code status Case discussed with Dr. Urban, patient and nurse. Plan discussed with: Patient, Other (rn) My Orders My Orders Orders - LARRY MONTIEL Procedure Category Date Status Time Furosemide Injection PHA 03/17/25 Logged (Lasix Injection) 10:00 Visit Coding STANDARD RES Billing Provider: MADI URBAN MD Date of Service if different f: Mar 16, 2025 Common Visit Codes: [id number] INP/OBS CARE(HIGH) LARRY MONTIEL Mar 16, 2025 15:10 MADI URBAN MD Mar 16, 2025 23:20
[2025-03-16] MEDS ORDERED: HYDROcodone-ACET 5/325MG TAB PO PRN (15:15)
[2025-03-16] MEDS ORDERED: ACETAMINOPHEN 325 MG TAB PO PRN (15:15)
[2025-03-16] MEDS: DOCUSATE SOD 100 MG CAP PO ONE (15:37)
[2025-03-16] MEDS: FLUTICASONE PROP NASAL SPR 0.05 % (50MCG) 16GM EACHNOSTRI SCH (21:14)
[2025-03-17] VITALS (17 sets, daily range): BP systolic 98–121; BP diastolic 45–82; PULSE 67–103; RESP 16–20; TEMP 96.1–97.9; O2SAT 95–100
[2025-03-17 06:23] LABS: Hemoglobin 11.7 g/dL (13.5-17.5); Mean Corpuscular Volume 75.2 fL (80.0-100.0); Nucleated Red Blood Cells % 0.0 %
[2025-03-17 06:27] LABS: Chloride 103 mmol/L (98-107); Potassium 4.8 mmol/L (3.5-5.1); Sodium 139 mmol/L (136-145)
[2025-03-17 06:30] LABS: Calcium 8.0 mg/dL (8.7-10.4)
[2025-03-17 06:34] LABS: BUN/Creatinine Ratio 31.3 (10.0-20.0)
[2025-03-17 06:36] LABS: Hematocrit 37.0 % (41.0-53.0); Mean Corpuscular Hemoglobin 23.9 pg (28.0-32.0)
[2025-03-17 06:38] LABS: Blood Urea Nitrogen 36 mg/dL (9-23); Glucose 331 mg/dL (74-106)
[2025-03-17 06:40] LABS: Anion Gap 7 (5-15); Carbon Dioxide 29 mmol/L (20-31)
[2025-03-17] MEDS: FUROSEMIDE 40 MG/4 ML VIAL IV SCH (09:10)
[2025-03-17] MEDS: DOCUSATE SOD 100 MG CAP PO SCH (09:10)
--- NOTE | 2025-03-17 14:23 | DVHPN2 ---
Subjective The patient seen and examined at bedside. Still complains of shortness of breath. Reviewed: Care Plan, H&P, Labs, Medications, Previous Orders, Radiology Changes from previous H/P or p: No Changes Objective Vitals Vital Signs Date Time Temp Pulse Resp B/P (MAP) Pulse Ox O2 Delivery O2 Flow Rate FiO2 03/17/25 10:00 96 Nasal Cannula* 3 32 03/17/25 09:10 117/68 03/17/25 09:00 97.5 95 19 97.5 Intake/Output Intake and Output 03/17/25 07:00 Intake Total 1210 ml Output Total 1100 ml Balance 110 ml Intake Oral 1210 ml Output Urine Total 1100 ml General Appearance: Alert, Oriented X3, Cooperative, No acute distress HEENT: Atraumatic, PERRLA, EOMI, Mucous membr. moist/pink Neck: Supple Lungs: Clear to auscultation, Normal air movement Cardiovascular: Regular rate, Normal S1, Normal S2, No murmurs, Gallops, Rubs Abdomen: Normal bowel sounds, Soft, No tenderness Neuro: Cranial nerves 3-12 NL Psych/Mental Status: Mental status NL Medications Current Medications Medications Dose Ordered Sig/Nasim Route Start Time Stop Time Status Last Admin Dose Admin Enoxaparin Sodium 40 mg DAILY SC 03/15/25 10:00 03/17/25 09:08 40 MG Ipratropium [place] 0.5 mg Q6HWA [facility] 03/14/25 23:00 03/17/25 11:58 0.5 MG Albuterol 2.5 mg Q6HWA [facility] 03/14/25 23:00 03/17/25 11:58 2.5 MG Prednisone 40 mg DAILY PO 03/15/25 14:00 03/17/25 09:09 40 MG Azithromycin 500 mg DAILY PO 03/15/25 10:00 03/17/25 09:08 500 MG Atorvastatin Calcium 80 mg HS PO 03/15/25 22:00 03/16/25 21:08 80 MG Insulin Glargine 10 units QAM SC 03/15/25 07:00 03/17/25 06:06 10 UNITS Insulin Human Lispro 3 units AC SC 03/15/25 07:00 03/17/25 12:00 3 UNITS Diagnostic Test (Pha) 1 strip ACHS 03/15/25 07:00 03/17/25 12:00 1 STRIP Insulin Human Regular ACHS SC 03/15/25 07:00 03/17/25 06:04 8 UNITS Dextrose 50 ml UD PRN IV 03/14/25 23:15 Amlodipine Besylate 10 mg DAILY PO 03/15/25 10:00 03/17/25 09:09 10 MG Pantoprazole Sodium 40 mg DAILY IV 03/15/25 10:00 03/17/25 09:08 40 MG Furosemide 40 mg DAILY IV 03/17/25 10:00 03/17/25 09:10 40 MG Acetaminophen/ Hydrocodone Bitart 1 tab Q6HPRN PRN PO 03/16/25 15:15 Docusate Sodium 100 mg DAILY PO 03/17/25 10:00 03/17/25 09:10 100 MG Fluticasone Propionate 50 mcg Q12HR EACHNOSTRI 03/16/25 22:00 03/17/25 09:07 50 MCG Acetaminophen 325 mg Q4HP PRN PO 03/16/25 15:15 Levofloxacin 50 ml @ 50 mls/hr DAILY IV 03/18/25 10:00 Laboratory Results Laboratory Tests 03/17/25 05:17 Chemistry Test 03/17/25 05:17 Calcium Level 8.0 mg/dL (8.7-10.4) L Urinalysis Test 03/14/25 20:00 Urine Color Yellow (Yellow) Urine Clarity Clear (Clear) Urine pH 6.5 (5.0-9.0) Urine Specific [place] 1.016 (1.001-1.035) Urine Protein 2+ (Negative) H Urine Ketones Negative (Negative) Urine Blood Negative /uL (Negative) Urine Nitrite Negative (Negative) Urine Bilirubin Negative (Negative) Urine Urobilinogen Normal mg/dL (Negative) Urine Leukocyte Esterase Negative /uL (Negative) Urine RBC 3 /hpf (0 - 3) Urine Microscopic WBC < 1 /HPF (0-3) Urine Squamous Epithelial Cells None seen /hpf (<5) Urine Bacteria None seen /hpf (None Seen) Urine Glucose Normal mg/dL (Normal) Microbiology Microbiology Date/Time Source Procedure Growth Status 03/15/25 17:00 Nose MRSA Screen - Final Complete 03/14/25 19:14 Blood Blood Culture - Preliminary NO GROWTH AFTER 48 HOURS OF INCUBATION. Resulted Labs and/or images reviewed: Labs reviewed by me Assessment/Plan Assessment/Plan #Severe sepsis due to below #Pneumonia due to Gram-positive/ Gram-negative #Acute on chronic hypoxic respiratory failure #Possible COPD exacerbation #Chronic Diffuse interstitial pulmonary fibrosis #trace bilateral pleural effusions -Lactic acid 2.4>1.4 -CXR shows: No new acute cardiopulmonary abnormality; Diffuse interstitial pulmonary fibrosis; Interval clearing of right lower lung opacity since prior study. -CT angio: Upper limits Of Normal-sized heart, mild chest wall edema, and trace bilateral pleural effusions; Pulmonary fibrosis in a UIP pattern. There is also mild centrilobular emphysema. This could be combined pulmonary fibrosis and emphysema. -wound culture -Wound consult -IV fluids held due to history of CHF -furosemide 40mg iv daily -Med neb Ipratropium we will 0.5 mg q.6 daily -Med neb albuterol 2.5 mg q.6 daily -IV methotrexate once, oral prednisone to continue -Azithromycin -covid, flu negative -Maintain saturation between 92-94% #Type 2 NSTEMI -EKG sinus rhythm -Troponin 87, 79, 65 -monitor #Ruled out pulmonary embolism -CT angiography- no evidence of pul emobolism #Chronic right heart failure, systolic/diastolic, hfpef 55%, not under acute exacerbation #Severe pulmonary hypertension #Cor pulmonale #Hypertensive heart disease, possibly due to systolic/diastolic dysfunction #CAD #Dyslipidemia -last echo on 02/08/25 shows: severe pulm ht, pasp >85 mmhg, lvef 55%, severe RV enlargement and dysfunction -Continue atorvastatin 80mg HS daily -continue amlodipine 10 mg p.o. daily -furosemide 20 mg p.o. daily -Last echo on January:pasp >85 mmhg -BNP 800 -ct angio shows: At least mild 3-vessel calcified coronary artery disease. #Type 2 diabetes mellitus, uncontrolled -HbA1c on 02/24/2025 was 8.8 -target in-hospital blood glucose between 140-180 -Insulin Lantus, lispro -mild sliding scale insulin GI prophylaxis: Protonix 40 mg IVdaily DVT prophylaxis: Lovenox 40 mg subcutaneous daily Diet: cardiac and diabetic diet Continue current management. Plan discussed with: Patient My Orders Orders - MADI CLARKE MD Procedure Category Date Status Time Hydrocodone-Acet PHA 03/16/25 In Process 5/325mg Tab ([place] 15:15 Docusate Sodium PHA 03/17/25 In Process Capsule (Colace 10:00 Fluticasone Nasal PHA 03/16/25 In Process [place] (Flonase [place]) 22:00 Acetaminophen Tablet PHA 03/16/25 In Process (Tylenol Tablet) 15:15 Complete Blood Count LAB 03/18/25 Verified 04:00 Basic Metabolic Panel LAB 03/18/25 Verified 04:00 Levofloxacin 500mg PHA 03/17/25 In Process (Levaquin 500mg/ 100m 14:15 Levofloxacin 250mg PHA 03/18/25 In Process (Levaquin 250mg) 10:00 Date of Service: Mar 17, 2025 Billing Provider: MADI CLARKE MD Common Visit Codes: [id number] INP/OBS CARE(HIGH) MADI CLARKE MD Mar 17, 2025 14:23
--- NOTE | 2025-03-17 15:47 | MEDREC ---
REPLACED BY [facility] Intervention Section I REPLACED BY [facility] Intervention: Duplication of therapy (POTENTIAL DUPLICATION AZITHROMYCIN / LEVOFLOXACIN BOTH COVER FOR ATYPICAL MICROORGANISMS - PLEASE CONSIDER D/C ONE OF THEM ) JEANIE WILEY PHARMACIST Mar 17, 2025 15:47
--- NOTE | 2025-03-17 22:58 | DVHINCON2 ---
Date of service: Mar 17, [address] Nohemi Mccain [facility] [place] [place] Reason for Consultation Acute on chronic hypoxic respiratory failure. History of Present Illness An 85-year-old man with past medical history of pulmonary fibrosis, pulmonary hypertension, COPD, diabetes mellitus, CHF, and dyslipidemia who presented to ED on 03/14/25 with complaints of shortness of breath and generalized weakness. P atient was eating dinner when the daughter noticed he was weak, and slid off the wheelchair. EMS noted.his blood sugar was 65 on scene. Patient was given D10 water and it went up to 261. He is on 4 L home oxygen. He denied any fever, chest pain or urinary symptoms. Pt had recent admission in the hospital 2 weeks back, continuing physiotherapy at home after discharge due to difficulty ambulating. Patient was admitted for further care. Pulmonary consultation is requested for evaluation and management of acute on chronic hypoxic respiratory failure. Review of Systems: 14-point review of systems negative unless otherwise noted above. Past Medical History: Pulmonary fibrosis, pulmonary hypertension, COPD, diabetes mellitus, CHF, dyslipidemia Past Surgical History: None Medications: Reviewed. Allergies: Penicillin Family History: No family history of premature CAD. No family history of lung disorders. Social History: Former smoker; 36 pack year smoking history. No alcohol or illicit drug use. Family History: Diabetes mellitus G8 MOTHER G8 FATHER 19 CHILD Allergies: Coded Allergies: Penicillins (Verified Allergy, Unknown, 05/10/21) Home Meds Active Scripts Doxycycline Monohydrate (Doxycycline Monohydrate) 100 Mg Cap, 1 CAP PO BID for 7 Days, #14 CAP Prov:MICHEL MOSS MD 03/04/25 Prednisone (Prednisone) 20 Mg Tab, 20 MG PO DAILY for 14 Days, #14 MG Prov:MICHEL MOSS MD 03/04/25 Sildenafil Citrate (Revatio) 20 Mg Tab, 20 MG PO TID@08,14,20 for 90 Days, #360 TAB Prov:MICHEL MOSS MD 03/04/25 Sildenafil Citrate (Revatio) 20 Mg Tab, 20 MG PO TID for 30 Days, #90 TAB 2 Refills Prov:ASIF KWON [employer] COVERER 02/11/25 Furosemide (Lasix) 20 Mg Tb, 1 TAB PO DAILY for 30 Days, #30 TAB 5 Refills Prov:MANI CHISHOLM RESIDENT 01/15/24 Ipratropium-Albuterol (Ipratropium [place]/Albut) 1 Con Con, 1 CON IN Q4HPRN PRN for 90 Days, #180 ML Prov:DIAMOND DIAS MD 08/16/22 Reported Medications Docusate Sodium (Colace) 100 Mg Cap, 1 CAP PO BID, #30 CAP 03/16/25 Fluticasone Propionate (Nasal) (Flonase Allergy Relief) 50 Mcg/Act Spr, 50 MCG NA, SPRAY 03/16/25 Omeprazole ([facility] Omeprazole Odt) 20 Mg Tab, 20 MG PO DAILY 02/05/25 Tamsulosin Hcl (Tamsulosin Hcl) 0.4 Mg Cap, 0.4 MG PO HS 02/05/25 Nzoccybvyns-Pnccuqpggvyn-Bscbq (Trelegy Ellipta 200-62.5-25 Mcg/INH) 1 Aer Aer, 1 PUFF INH DAILY 02/05/25 Finasteride (Finasteride) 5 Mg Tab, 1 TAB PO DAILY 02/05/25 Dapagliflozin Propanediol (Farxiga) 10 Mg Tab, 10 MG PO, TAB 01/13/24 Multiple Vitamin (Multivitamins) Tab, 1 TAB PO DAILY, #90 TAB 3 Refills 05/15/21 Glimepiride (Glimepiride) 1 Mg Tab, 1 MG PO BID for 30 Days, MG 05/15/21 Atorvastatin Calcium (ATORVASTATIN CALCIUM) 40 Mg Tab, 1 TAB PO HS, #30 TAB 5 Refills 05/15/21 Amlodipine Besylate (Amlodipine Besylate) 10 Mg Tab, 1 TAB PO DAILY 05/15/21 Mirtazapine (Mirtazapine Oral Disintegrating Tablet) 15 Mg Tab, 1 TAB PO BID 05/15/21 Metformin Hydrochloride (Metformin Hcl) 1,000 Mg Tab, 1 TAB PO BID 05/15/21 Current Medications Current Medications Medications (Trade) Dose Ordered Sig/Nasim Route PRN Reason Start Time Stop Time Status Last Admin Furosemide (Lasix Injection) 40 mg DAILY IV 03/17/25 10:00 03/17/25 09:10 Docusate Sodium (Colace Capsule) 100 mg DAILY PO 03/17/25 10:00 03/17/25 09:10 Levofloxacin 50 ml @ 50 mls/hr DAILY IV 03/18/25 10:00 03/17/25 15:47 DC Vital Signs Vital Signs Date Time Temp Pulse Resp B/P (MAP) Pulse Ox O2 Delivery O2 Flow Rate FiO2 03/17/25 21:00 97.8 87 18 98/45 (62) 97 97.8 03/17/25 20:31 4.0 36 03/17/25 19:46 Nasal Cannula* Physical Exam Gen.: Patient lying in bed in no apparent distress. On supplemental oxygen. Head: Normocephalic, atraumatic. Eyes: EOMI/PERRLA. Ears: Normal hearing. Normal anatomy. Neck/trachea: Trachea midline, supple. Nose: Normal external anatomy. Mouth: Moist mucous membranes. Chest: Decreased air entry bilaterally. No wheezing or rhonchi. Cardiovascular: Positive S1, positive S2. Regular rate and rhythm. Abdomen: Positive bowel sounds in all 4 quadrants. Soft, non-tender, non- distended. : Deferred. Rectal: Deferred. Skin: Warm, dry. Intact. Extremities: 2+ radial pulses bilaterally. No lower extremity edema. Neuro: Awake, alert, oriented x3. No gross motor or sensory deficits. Cranial nerves II through XII intact. Gait not assessed. Labs/Diagnostic Data Labs Test 03/17/25 21:10 03/17/25 05:17 03/15/25 07:15 03/15/25 00:29 Range/Units POC Glucose 241 H 70-106 mg/dl White Blood Count 14.3 H 4.4-10.8 10^3/uL Red Blood Count 4.92 4.5-5.90 10^6/uL Hemoglobin 11.7 L 13.5-17.5 g/dL Hematocrit 37.0 L 41.0-53.0 % Mean Corpuscular Volume 75.2 L 80.0-100.0 fL Mean Corpuscular Hemoglobin 23.9 L 28.0-32.0 pg Mean Corpuscular Hemoglobin Concent 31.7 L 32.0-36.0 g/dL Red Cell Distribution Width 24.7 H 11.8-14.3 % Platelet Count 130 L 140-450 10^3/uL Mean Platelet Volume 8.7 6.9-10.8 fL Neutrophils (%) (Auto) 95.1 H 37.0-80.0 % Lymphocytes (%) (Auto) 1.3 L 10.0-50.0 % Monocytes (%) (Auto) 3.5 0.0-12.0 % Eosinophils (%) (Auto) 0.0 0.0-7.0 % Basophils (%) (Auto) 0.1 0.0-2.0 % Neutrophils # (Auto) 13.6 H 1.6-8.6 10 ^3/uL Lymphocytes # (Auto) 0.2 L 0.4-5.4 10 ^3/uL Monocytes # (Auto) 0.5 0-1.3 10 ^3/uL Eosinophils # (Auto) 0 0-0.8 10 ^3/uL Basophils # (Auto) 0 0-0.2 10 ^3/uL Nucleated Red Blood Cells 0.0 % Sodium Level 139 136-145 mmol/L Potassium Level 4.8 3.5-5.1 mmol/L Chloride Level 103 98-107 mmol/L Carbon Dioxide Level 29 20-31 mmol/L Anion Gap 7 5-15 Blood Urea Nitrogen 36 H 9-23 mg/dL Creatinine 1.15 0.700-1.30 mg/dL Glomerular Filtration Rate Calc 63 >90 mL/min BUN/Creatinine Ratio 31.3 H 10.0-20.0 Serum Glucose 331 #H 74-106 mg/dL Calcium Level 8.0 L 8.7-10.4 mg/dL Differential Total Cells Counted 100.0 100 Neutrophils % (Manual) 97 H 37.0-80.0 Band Neutrophils % (Manual) 0 Lymphocytes % (Manual) 2 L 10.0-50.0 Monocytes % (Manual) 1 0-12 Eosinophils % (Manual) 0 0-7 Basophils % (Manual) 0 0.0-2.0 Metamyelocytes % (manual) 0 Myelocytes % (Manual) 0 Promyelocytes % (Manual) 0 Blast Cells % (Manual) 0 Reactive Lymphocytes 0 Platelet Estimate Adequate Hypochromasia (manual) Slight Microcytosis Slight Total Bilirubin 0.6 0.2-1.0 mg/dL Aspartate Amino Transferase (AST) 32 13-40 U/L Alanine Aminotransferase (ALT) 45 H 7-40 U/L Alkaline Phosphatase 214 H 46-116 U/L Total Protein 5.2 L 5.7-8.2 g/dL Albumin 3.2 3.2-4.8 g/dL Blood Gas Specimen Type Arterial Blood Gas Sample Site Left radial Blood Gas Patient Temperature 37.0 Arterial Blood Date Drawn [id number] Arterial Blood pH 7.436 7.350-7.450 Arterial Blood Partial Pressure CO2 34.3 L 35.0-48.0 mmHg Arterial Blood Partial Pressure O2 78.8 L 83.0-108.0 mmHg Arterial Blood HCO3 22.6 21.0-28.0 mmol/L Arterial Blood Oxygen Saturation 95.3 94.0-98.0 % Arterial Blood Base Excess -1.0 -2.0-3.0 mmol/L Arterial Blood Oxyhemoglobin 93.6 L 94.0-98.0 % Arterial Blood Carboxyhemoglobin 1.3 0.5-1.5 % Arterial Blood Methemoglobin 0.5 0.0-1.5 % Arterial Blood Deoxyhemoglobin 4.6 0.0-5.0 % Morris Test Yes Blood Gas Total Hemoglobin 13.20 L 13.5-17.5 g/dL Blood Gas Modality Nasal cannula FiO2 % 36.0 Test 03/14/25 21:56 03/14/25 21:00 03/14/25 20:00 03/14/25 19:29 Range/Units Magnesium Level 1.7 1.6-2.6 mg/dL Troponin I High Sensitivity 65 *H </=54 ng/L Triglycerides Level 83 < 150 mg/dL Cholesterol Level 163 < 200 mg/dL LDL Cholesterol 52 < 100 mg/dL HDL Cholesterol 87 H 40-59 mg/dL Lactic Acid Level 1.4 0.4-2.0 mmol/L Urine Color Yellow Yellow Urine Clarity Clear Clear Urine pH 6.5 5.0-9.0 Urine Specific [place] 1.016 1.001-1.035 Urine Protein 2+ H Negative Urine Ketones Negative Negative Urine Blood Negative Negative /uL Urine Nitrite Negative Negative Urine Bilirubin Negative Negative Urine Urobilinogen Normal Negative mg/dL Urine Leukocyte Esterase Negative Negative /uL Urine RBC 3 0 - 3 /hpf Urine Microscopic WBC < 1 0-3 /HPF Urine Squamous Epithelial Cells None seen <5 /hpf Urine Bacteria None seen None Seen /hpf Urine Glucose Normal Normal mg/dL Influenza Type A Antigen Negative Negative Influenza Type B Antigen Negative Negative SARS-CoV-2 Antigen (Rapid) Negative NEGATIVE Test 03/14/25 19:00 Range/Units B-Type Natriuretic Peptide 806.40 0-100 pg/mL Microbiology Date/Time Source Procedure Growth Status 03/15/25 17:00 Nose MRSA Screen - Final Complete 03/14/25 19:14 Blood Blood Culture - Preliminary NO GROWTH AFTER 72 HOURS OF INCUBATION. Resulted Assessment Impression: Acute on chronic hypoxic respiratory failure Dependence on supplemental oxygen Pulmonary hypertension Pleural effusion Atelectasis Pneumonia Hx of nicotine dependence Plan: Supplemental oxygen Titrate to keep O2 sats above 92%. On 3-4 LPM NC Taper O2 as tolerated. On [place] for pulmonary HTN. Continue bronchodilators. Pulmicort BID Continue antibiotics Incentive spirometry for atelectasis Diurese to euvolemia Monitor renal function. Monitor electrolytes. Supplement as necessary. Monitor ins and outs. DVT prophylaxis. Prognosis: Poor given patient's multiple co-morbidities. Rest of plan per hospitalist and other consultants. Thank you, Dr. Mccain, for allowing me to participate in this patient's care. Further recommendations will depend on the patient's clinical course. Please do not hesitate to contact me if you have any questions or concerns. This medical document was created using an electronic medical record system with Patterns dictation system. Although these documentations are being carefully reviewed, there may still be some phonetic and typographical changes. The errors are purely typographical, due to imperfection on the software program, and do not reflect any compromise in the patient's medical care. Plan discussed with: Patient, Other (EVITA Hernández/) Visit Coding Pulmonary Billing Provider: ALBERTO BENTON MD Date of Service if different f: Mar 17, 2025 Common Visit Codes: [id number] INP/OBS CARE (HIGH) ALBERTO BENTON MD Mar 17, 2025 22:58
[2025-03-18] VITALS (15 sets, daily range): BP systolic 107–122; BP diastolic 71–85; PULSE 72–102; RESP 16–20; TEMP 97.4–98.2; O2SAT 88–100
[2025-03-18 06:26] LABS: Hematocrit 38.9 % (41.0-53.0); Hemoglobin 12.5 g/dL (13.5-17.5); Mean Corpuscular Hemoglobin 23.9 pg (28.0-32.0); Mean Corpuscular Volume 74.5 fL (80.0-100.0); Nucleated Red Blood Cells % 0.0 %
[2025-03-18 06:34] LABS: Chloride 102 mmol/L (98-107); Potassium 4.6 mmol/L (3.5-5.1); Sodium 140 mmol/L (136-145)
[2025-03-18 06:35] LABS: Anion Gap 7 (5-15); Carbon Dioxide 31 mmol/L (20-31)
[2025-03-18 06:37] LABS: Calcium 8.0 mg/dL (8.7-10.4)
[2025-03-18 06:40] LABS: BUN/Creatinine Ratio 27.4 (10.0-20.0)
[2025-03-18 06:47] LABS: Blood Urea Nitrogen 31 mg/dL (9-23); Glucose 211 mg/dL (74-106)
[2025-03-18] MEDS ORDERED: VANCOMYCIN PER PHARMACY 0 MG IV SCH (11:15)
--- NOTE | 2025-03-18 16:26 | DVHPNRES ---
Progress Note Date Seen: Mar 18, 2025 Resident Creating Document: MARY DAMON RESIDENT Medical Necessity Reason Pt with a Central, PICC or Fol: No Objective vital signs Vital Sign Date Time Temp Pulse Resp B/P (MAP) Pulse Ox O2 Delivery O2 Flow Rate FiO2 03/18/25 13:27 95 Nasal Cannula 3.0 03/18/25 13:27 93 18 03/18/25 13:27 32 03/18/25 13:00 98.1 114/78 (90) 98.1 Total Intake and Output 03/17/25 03/17/25 03/18/25 15:00 23:00 07:00 Intake Total 550 ml 300 ml Output Total 830 ml 600 ml Balance -280 ml -300 ml medications Current Medications Medications Dose Ordered Sig/Nasim Route Start Time Stop Time Status Last Admin Dose Admin Enoxaparin Sodium 40 mg DAILY SC 03/15/25 10:00 03/18/25 11:14 40 MG Ipratropium [place] 0.5 mg Q6HWA NEB 03/14/25 23:00 03/18/25 13:21 0.5 MG Albuterol 2.5 mg Q6HWA NEB 03/14/25 23:00 03/18/25 13:21 2.5 MG Prednisone 40 mg DAILY PO 03/15/25 14:00 03/18/25 11:13 40 MG Azithromycin 500 mg DAILY PO 03/15/25 10:00 03/18/25 11:12 500 MG Atorvastatin Calcium 80 mg HS PO 03/15/25 22:00 03/17/25 21:26 80 MG Insulin Human Lispro 3 units AC SC 03/15/25 07:00 03/18/25 12:18 3 UNITS Diagnostic Test (Pha) 1 strip ACHS 03/15/25 07:00 03/18/25 12:17 1 STRIP Insulin Human Regular ACHS SC 03/15/25 07:00 03/18/25 12:19 4 UNITS Dextrose 50 ml UD PRN IV 03/14/25 23:15 Amlodipine Besylate 10 mg DAILY PO 03/15/25 10:00 03/18/25 11:13 10 MG Pantoprazole Sodium 40 mg DAILY IV 03/15/25 10:00 03/18/25 11:12 40 MG Acetaminophen/ Hydrocodone Bitart 1 tab Q6HPRN PRN PO 03/16/25 15:15 Docusate Sodium 100 mg DAILY PO 03/17/25 10:00 03/18/25 11:13 100 MG Fluticasone Propionate 50 mcg Q12HR EACHNOSTRI 03/16/25 22:00 03/18/25 11:12 50 MCG Acetaminophen 325 mg Q4HP PRN PO 03/16/25 15:15 Vancomycin HCl 0 ml @ 0 mls/hr PER PHARMACY IV 03/18/25 11:15 Furosemide 20 mg DAILY IV 03/19/25 10:00 UNV Insulin Glargine 20 units QAM SC 03/19/25 07:00 UNV Examination General Appearance: Alert, Oriented X3, Cooperative, No acute distress HEENT: Atraumatic, PERRLA, EOMI, Mucous membr. moist/pink Neck: Supple Lungs: Clear to auscultation, Normal air movement Cardiovascular: Regular rate, Normal S1, Normal S2, No murmurs, Gallops, Rubs Abdomen: Normal bowel sounds, Soft, No tenderness Neuro: Cranial nerves 3-12 NL Psych/Mental Status: Mental status NL laboratory and microbiology Laboratory Tests 03/18/25 05:34 Test 03/18/25 05:34 Range/Units Serum Glucose 211 #H 74-106 mg/dL Microbiology Date/Time Source Procedure Growth Status 03/15/25 17:00 Nose MRSA Screen - Final Complete 03/14/25 19:14 Blood Blood Culture - Preliminary NO GROWTH AFTER 72 HOURS OF INCUBATION. Resulted Labs and/or images reviewed: Labs reviewed by me, Image(s) reviewed by me Problem List/Assessment/Plan Problem List/Assessment/Plan Yariel Mcmullenoc, 85-year-old male with a history of pulmonary fibrosis (on 4 L home oxygen), pulmonary hypertension, COPD, type 2 diabetes mellitus, CHF, and dyslipidemia presented with shortness of breath and generalized weakness. Yesterday, while eating dinner, he attempted to stand but was unable due to bilateral lower extremity numbness; his daughter noted weakness and sliding from the chair. Blood glucose was 65 mg/dL, and in the ER he received D10, increasing glucose to 261 mg/dL. He was hospitalized two weeks ago for pneumonia, completed antibiotics, and has been doing home physical therapy for ambulation difficulty. He denies fever, chest pain, urinary symptoms, or other new complaints. Currently, he remains on 4 L oxygen via nasal cannula, reports improved breathing, and ongoing management continues. Assessment: #Diffuse interstitial pulmonary fibrosis #Severe sepsis due to below #Community acquired Pneumonia due to Gram-positive/ Gram-negative #Acute on chronic hypoxic respiratory failure #Possible COPD exacerbation #Chronic Diffuse interstitial pulmonary fibrosis #trace bilateral pleural effusions #Type 2 NSTEMI demand mediated at presentation, hypotension #Ruled out pulmonary embolism #Chronic right heart failure, systolic/diastolic, hfpef 55%, not under acute exacerbation #Severe pulmonary hypertension, pasp >85 mmHg #Cor pulmonale with Right ventricular hypertrophy #Hypertensive heart disease, possibly due to systolic/diastolic dysfunction #CAD, 3-vessel calcified coronary artery disease. #Dyslipidemia #Type 2 diabetes mellitus, uncontrolled #Penicillin allergy #Former smoker with 36 pack year smoking history #Mild thrombocytopenia, avoid linezolid #microcytic anemia likely iron deficiency check ferritin, and iron panel. #sacral wound, enterococcus faecalis +ve #Hypocalcemia, 8.0 Plan: #Overall euvolemic to tobacco drier operator side, cut down Lasix 40 to 20 IV daily. #Cardiac CC diet. Check recent HbA1C, hyperglycemia likely due to steroids. Lantus 10>20 increased. continue ssi. target BG 140-180. #Wean oxygen as tolerated, keep spo2 ~ 92% #CBC with diff follow up, check ferritin + iron panel. replenish iron if low. #IV calcium replenishment, workup for low calcium follow up CMP. #Wound care, home health wound care needed, social service consulted. #PPI for GI and Lovenox for DVT prophylaxis. close follow up of for thrombocytopenia. Goals of care discussed with the patient for more than 35 minutes. Case discussed with the Dr. Urban. Plan discussed with: Patient My Orders My Orders Orders - MARY DAMON RESIDENT Procedure Category Date Status Time Vancomycin Per PHA 03/18/25 In Process Pharmacy 11:15 * Babysitter CONS 03/18/25 Transmitted Consult Creatinine LAB 03/19/25 Verified 04:00 Vancomycin,Random LAB 03/19/25 Verified 04:00 Complete Blood Count LAB 03/19/25 Verified 04:00 Comprehensive LAB 03/19/25 Verified Metabolic Panel 04:00 Furosemide Injection PHA 03/19/25 Logged (Lasix Injection) 10:00 Insulin Lantus PHA 03/19/25 Logged (Glargine) (Lantus) 07:00 Insulin Lantus PHA 03/18/25 Logged (Glargine) (Lantus) 16:15 Calcium Gluc PHA 03/18/25 Logged 1,000mg/50ml-Ns 16:15 Dietary Evaluation Review Comments: 1. Increase CCHO, diet order: CCHO-60 Cardiac Diet for added energy and protein consumption 2. Offer Glucerna PO 240ml BID 3. Offer Checo BID for wound healing 4. Monitor PO intake weight trend, wound status, updated lab values consulation reports and reassess PRN Expected Outcomes/Goals: controlled DM, healed wounds, gradual wt gain Date of Service: Mar 18, 2025 Billing Provider: MADI URBAN MD Common Visit Codes: [id number] INP/OBS CARE(HIGH) MARY DAMON RESIDENT Mar 18, 2025 16:26 MADI URBAN MD Mar 19, 2025 00:15
[2025-03-18] MEDS: CALCIUM GLUC 1,000mg/50ml-NS 50 ML IV SCH (16:39)
[2025-03-18] MEDS: INSULIN LANTUS (GLARGINE) 1 /0.01ml (100units/ml) SC ONE (16:56)
--- NOTE | 2025-03-18 23:10 | DVHPN2 ---
[facility] LUNG CENTER DOS: 03/18/2025 Patient seen and examined at bedside. Remains on supplemental oxygen Overnight events reviewed. Reviewed: Care Plan, H&P, Labs, Medications, Previous Orders, Radiology Changes from previous H/P or p: No Changes Objective Vitals Vital Signs Date Time Temp Pulse Resp B/P (MAP) Pulse Ox O2 Delivery O2 Flow Rate FiO2 03/18/25 21:00 98.1 94 19 108/75 (86) 96 98.1 03/18/25 20:00 Nasal Cannula* 3 32 Intake/Output Intake and Output 03/18/25 07:00 Intake Total 850 ml Output Total 1430 ml Balance -580 ml Intake Oral 850 ml Output Urine Total 1430 ml Exam Gen.: Patient lying in bed in no apparent distress. On supplemental oxygen. Head: Normocephalic, atraumatic. Eyes: EOMI/PERRLA. Ears: Normal hearing. Normal anatomy. Neck/trachea: Trachea midline, supple. Nose: Normal external anatomy. Mouth: Moist mucous membranes. Chest: Decreased air entry bilaterally. No wheezing or rhonchi. Cardiovascular: Positive S1, positive S2. Regular rate and rhythm. Abdomen: Positive bowel sounds in all 4 quadrants. Soft, non-tender, non- distended. : Deferred. Rectal: Deferred. Skin: Warm, dry. Intact. Extremities: 2+ radial pulses bilaterally. No lower extremity edema. Neuro: Awake, alert, oriented x3. No gross motor or sensory deficits. Cranial nerves II through XII intact. Gait not assessed. General Appearance: Alert, Oriented X3, Cooperative, No acute distress HEENT: Atraumatic, PERRLA, EOMI, Mucous membr. moist/pink Neck: Supple Lungs: Clear to auscultation, Normal air movement Cardiovascular: Regular rate, Normal S1, Normal S2, No murmurs, Gallops, Rubs Abdomen: Normal bowel sounds, Soft, No tenderness Neuro: Cranial nerves 3-12 NL Psych/Mental Status: Mental status NL Medications Current Medications Medications Dose Ordered Sig/Nasim Route Start Time Stop Time Status Last Admin Dose Admin Enoxaparin Sodium 40 mg DAILY SC 03/15/25 10:00 03/18/25 11:14 40 MG Ipratropium [place] 0.5 mg Q6HWA NEB 03/14/25 23:00 03/18/25 17:43 0.5 MG Albuterol 2.5 mg Q6HWA NEB 03/14/25 23:00 03/18/25 17:43 2.5 MG Prednisone 40 mg DAILY PO 03/15/25 14:00 03/18/25 11:13 40 MG Azithromycin 500 mg DAILY PO 03/15/25 10:00 03/18/25 11:12 500 MG Atorvastatin Calcium 80 mg HS PO 03/15/25 22:00 03/18/25 21:11 80 MG Insulin Human Lispro 3 units AC SC 03/15/25 07:00 03/18/25 12:18 3 UNITS Diagnostic Test (Pha) 1 strip ACHS 03/15/25 07:00 03/18/25 21:11 1 STRIP Insulin Human Regular ACHS SC 03/15/25 07:00 03/18/25 21:11 8 UNITS Dextrose 50 ml UD PRN IV 03/14/25 23:15 Amlodipine Besylate 10 mg DAILY PO 03/15/25 10:00 03/18/25 11:13 10 MG Pantoprazole Sodium 40 mg DAILY IV 03/15/25 10:00 03/18/25 11:12 40 MG Acetaminophen/ Hydrocodone Bitart 1 tab Q6HPRN PRN PO 03/16/25 15:15 Docusate Sodium 100 mg DAILY PO 03/17/25 10:00 03/18/25 11:13 100 MG Fluticasone Propionate 50 mcg Q12HR EACHNOSTRI 03/16/25 22:00 03/18/25 21:10 50 MCG Acetaminophen 325 mg Q4HP PRN PO 03/16/25 15:15 Vancomycin HCl 0 ml @ 0 mls/hr PER PHARMACY IV 03/18/25 11:15 Furosemide 20 mg DAILY IV 03/19/25 10:00 Insulin Glargine 20 units QAM SC 03/19/25 07:00 Laboratory Results Laboratory Tests 03/18/25 05:34 Chemistry Test 03/18/25 05:34 Calcium Level 8.0 mg/dL (8.7-10.4) L Urinalysis Test 03/14/25 20:00 Urine Color Yellow (Yellow) Urine Clarity Clear (Clear) Urine pH 6.5 (5.0-9.0) Urine Specific [place] 1.016 (1.001-1.035) Urine Protein 2+ (Negative) H Urine Ketones Negative (Negative) Urine Blood Negative /uL (Negative) Urine Nitrite Negative (Negative) Urine Bilirubin Negative (Negative) Urine Urobilinogen Normal mg/dL (Negative) Urine Leukocyte Esterase Negative /uL (Negative) Urine RBC 3 /hpf (0 - 3) Urine Microscopic WBC < 1 /HPF (0-3) Urine Squamous Epithelial Cells None seen /hpf (<5) Urine Bacteria None seen /hpf (None Seen) Urine Glucose Normal mg/dL (Normal) Microbiology Microbiology Date/Time Source Procedure Growth Status 03/15/25 17:00 Nose MRSA Screen - Final Complete 03/14/25 19:14 Blood Blood Culture - Preliminary NO GROWTH AFTER 72 HOURS OF INCUBATION. Resulted Assessment/Plan Assessment/Plan Impression: Acute on chronic hypoxic respiratory failure Dependence on supplemental oxygen Pulmonary hypertension Pleural effusion Atelectasis Pneumonia Hx of nicotine dependence Events: Remains on supplemental oxygen, 4 LPM NC Taper O2 as tolerated Continue bronchodilators Continue steroids - on prednisone Continue antibiotics Incentive spirometry Diurese with Lasix Monitor renal function. Monitor electrolytes. Supplement as necessary. Monitor ins and outs. Labs and imaging reviewed. Rest of plan as noted below. Plan: Supplemental oxygen Titrate to keep O2 sats above 92%. On Adempas for pulmonary HTN. Continue bronchodilators. Pulmicort BID Continue antibiotics Incentive spirometry for atelectasis Diurese to euvolemia Monitor renal function. Monitor electrolytes. Supplement as necessary. Monitor ins and outs. DVT prophylaxis. Prognosis: Poor given patient's multiple co-morbidities. Rest of plan per hospitalist and other consultants. Thank you, Dr. Mccain, for allowing me to participate in this patient's care. Further recommendations will depend on the patient's clinical course. Please do not hesitate to contact me if you have any questions or concerns. This medical document was created using an electronic medical record system with [employer] dictation system. Although these documentations are being carefully reviewed, there may still be some phonetic and typographical changes. The errors are purely typographical, due to imperfection on the software program, and do not reflect any compromise in the patient's medical care. Plan discussed with: Other (EVITA Giordano) Visit Coding Pulmonary Billing Provider: ALBERTO BENTON MD Date of Service if different f: Mar 18, 2025 Common Visit Codes: [id number] INP/OBS CARE(HIGH) ALBERTO BENTON MD Mar 18, 2025 23:10
[2025-03-19] VITALS (12 sets, daily range): BP systolic 109–122; BP diastolic 72–75; PULSE 74–99; RESP 18–20; TEMP 36.9; O2SAT 90–100
[2025-03-19] MEDS: INSULIN LANTUS (GLARGINE) 1 /0.01ml (100units/ml) SC SCH (06:12)
[2025-03-19 06:18] LABS: Hemoglobin 14.1 g/dL (13.5-17.5); Nucleated Red Blood Cells % 0.0 %
[2025-03-19 06:22] LABS: Hematocrit 44.7 % (41.0-53.0); Mean Corpuscular Hemoglobin 23.9 pg (28.0-32.0); Mean Corpuscular Volume 75.7 fL (80.0-100.0)
[2025-03-19 06:44] LABS: Albumin 3.5 g/dL (3.2-4.8); Anion Gap 9 (5-15); BUN/Creatinine Ratio 41.1 (10.0-20.0); Bilirubin, Total 0.8 mg/dL (0.2-1.0); Potassium 4.0 mmol/L (3.5-5.1); Sodium 137 mmol/L (136-145)
[2025-03-19 06:50] LABS: Alanine Aminotransferase 48 U/L (7-40); Alkaline Phosphatase 217 U/L (46-116); Blood Urea Nitrogen 44 mg/dL (9-23); Calcium 8.6 mg/dL (8.7-10.4); Carbon Dioxide 31 mmol/L (20-31); Chloride 97 mmol/L (98-107); Glucose 194 mg/dL (74-106); Total Protein 5.5 g/dL (5.7-8.2)
[2025-03-19] MEDS: FUROSEMIDE 40 MG/4 ML VIAL IV SCH (11:14)
[2025-03-19] MEDS ORDERED: BUDE0.253 IN (12:20)
[2025-03-19] MEDS ORDERED: RIOC1TAB12 PO (12:20)
[2025-03-19] MEDS: VANCOMYCIN 750MG KIT 100 ML IV SCH (12:34)
--- NOTE | 2025-03-19 19:12 | DVHDSRES ---
Discharge Summary Date of Admission Resident Creating Document: LARRY MONTIEL RESIDENT Mar 14, 2025 at 22:10 Date of Discharge: Mar 19, 2025 Admitting Diagnosis Severe sepsis Labs/Diagnostic Data: Laboratory Results Test 03/19/25 11:06 03/19/25 05:12 03/15/25 07:15 03/15/25 00:29 POC Glucose 151 mg/dl (70-106) White Blood Count 12.6 10^3/uL (4.4-10.8) Red Blood Count 5.90 10^6/uL (4.5-5.90) Hemoglobin 14.1 g/dL (13.5-17.5) Hematocrit 44.7 % (41.0-53.0) Mean Corpuscular Volume 75.7 fL (80.0-100.0) Mean Corpuscular Hemoglobin 23.9 pg (28.0-32.0) Mean Corpuscular Hemoglobin Concent 31.6 g/dL (32.0-36.0) Red Cell Distribution Width 26.9 % (11.8-14.3) Platelet Count 127 10^3/uL (140-450) Mean Platelet Volume 8.4 fL (6.9-10.8) Neutrophils (%) (Auto) 94.0 % (37.0-80.0) Lymphocytes (%) (Auto) 1.6 % (10.0-50.0) Monocytes (%) (Auto) 4.3 % (0.0-12.0) Eosinophils (%) (Auto) 0.0 % (0.0-7.0) Basophils (%) (Auto) 0.1 % (0.0-2.0) Neutrophils # (Auto) 11.8 10 ^3/uL (1.6-8.6) Lymphocytes # (Auto) 0.2 10 ^3/uL (0.4-5.4) Monocytes # (Auto) 0.5 10 ^3/uL (0-1.3) Eosinophils # (Auto) 0 10 ^3/uL (0-0.8) Basophils # (Auto) 0 10 ^3/uL (0-0.2) Nucleated Red Blood Cells 0.0 % Sodium Level 137 mmol/L (136-145) Potassium Level 4.0 mmol/L (3.5-5.1) Chloride Level 97 mmol/L (98-107) Carbon Dioxide Level 31 mmol/L (20-31) Anion Gap 9 (5-15) Blood Urea Nitrogen 44 mg/dL (9-23) Creatinine 1.07 mg/dL (0.700-1.30) Glomerular Filtration Rate Calc 69 mL/min (>90) BUN/Creatinine Ratio 41.1 (10.0-20.0) Serum Glucose 194 mg/dL (74-106) Calcium Level 8.6 mg/dL (8.7-10.4) Total Bilirubin 0.8 mg/dL (0.2-1.0) Aspartate Amino Transferase (AST) 35 U/L (13-40) Alanine Aminotransferase (ALT) 48 U/L (7-40) Alkaline Phosphatase 217 U/L (46-116) Total Protein 5.5 g/dL (5.7-8.2) Albumin 3.5 g/dL (3.2-4.8) Random Vancomycin Level 10.3 ug/mL (5-10) Differential Total Cells Counted 100.0 (100) Neutrophils % (Manual) 97 (37.0-80.0) Band Neutrophils % (Manual) 0 Lymphocytes % (Manual) 2 (10.0-50.0) Monocytes % (Manual) 1 (0-12) Eosinophils % (Manual) 0 (0-7) Basophils % (Manual) 0 (0.0-2.0) Metamyelocytes % (manual) 0 Myelocytes % (Manual) 0 Promyelocytes % (Manual) 0 Blast Cells % (Manual) 0 Reactive Lymphocytes 0 Platelet Estimate Adequate Hypochromasia (manual) Slight Microcytosis Slight Blood Gas Specimen Type Arterial Blood Gas Sample Site Left radial Blood Gas Patient Temperature 37.0 Arterial Blood Date Drawn [id number] Arterial Blood pH 7.436 (7.350-7.450) Arterial Blood Partial Pressure CO2 34.3 mmHg (35.0-48.0) Arterial Blood Partial Pressure O2 78.8 mmHg (83.0-108.0) Arterial Blood HCO3 22.6 mmol/L (21.0-28.0) Arterial Blood Oxygen Saturation 95.3 % (94.0-98.0) Arterial Blood Base Excess -1.0 mmol/L (-2.0-3.0) Arterial Blood Oxyhemoglobin 93.6 % (94.0-98.0) Arterial Blood Carboxyhemoglobin 1.3 % (0.5-1.5) Arterial Blood Methemoglobin 0.5 % (0.0-1.5) Arterial Blood Deoxyhemoglobin 4.6 % (0.0-5.0) Morris Test Yes Blood Gas Total Hemoglobin 13.20 g/dL (13.5-17.5) Blood Gas Modality Nasal cannula FiO2 % 36.0 Test 03/14/25 21:56 03/14/25 21:00 03/14/25 20:00 03/14/25 19:29 Magnesium Level 1.7 mg/dL (1.6-2.6) Troponin I High Sensitivity 65 ng/L (</=54) Triglycerides Level 83 mg/dL (< 150) Cholesterol Level 163 mg/dL (< 200) LDL Cholesterol 52 mg/dL (< 100) HDL Cholesterol 87 mg/dL (40-59) Lactic Acid Level 1.4 mmol/L (0.4-2.0) Urine Color Yellow (Yellow) Urine Clarity Clear (Clear) Urine pH 6.5 (5.0-9.0) Urine Specific [place] 1.016 (1.001-1.035) Urine Protein 2+ (Negative) Urine Ketones Negative (Negative) Urine Blood Negative /uL (Negative) Urine Nitrite Negative (Negative) Urine Bilirubin Negative (Negative) Urine Urobilinogen Normal mg/dL (Negative) Urine Leukocyte Esterase Negative /uL (Negative) Urine RBC 3 /hpf (0 - 3) Urine Microscopic WBC < 1 /HPF (0-3) Urine Squamous Epithelial Cells None seen /hpf (<5) Urine Bacteria None seen /hpf (None Seen) Urine Glucose Normal mg/dL (Normal) Influenza Type A Antigen Negative (Negative) Influenza Type B Antigen Negative (Negative) SARS-CoV-2 Antigen (Rapid) Negative (NEGATIVE) Test 03/14/25 19:00 B-Type Natriuretic Peptide 806.40 pg/mL (0-100) Other Laboratory Tests 03/19/25 05:12 Brief Hx & Hospital Course: Melvin Mcmullen, 85-year-old male with a history of pulmonary fibrosis (on 4 L home oxygen), pulmonary hypertension, COPD, type 2 diabetes mellitus, CHF, and dyslipidemia presented with shortness of breath and generalized weakness. Patient was septic on presentation likely due to community-acquired pneumonia due to Gram-positive / negative organism, and had acute on chronic hypoxic respiratory failure on 4 L of oxygen. Patient also had likely COPD exacerbation and chest x-ray showed chronic diffuse interstitial pulmonary fibrosis with trace bilateral pleural effusion IV furosemide was given. Since patient complained of chest pain, tropes were done which were slightly elevated and he had type 2 NSTEMI, demand mediated at presentation. We ruled out pulmonary embolism via CT angio. Oxygen was weaned as tolerated and labs were monitored. Since patient had wound on his sacrum, wound care was done and cultures were taken which was positive for Enterococcus. For his respiratory problems pulmonary consult was done as well and appreciated. Throughout the hospitalization, patient was given IV antibiotics, med nebulization respiratory treatment and steroids. Patient reported feeling much better and he is now stable for discharge. Patient is going home with home health for his wound care. He has been counseled to follow up with primary care physician and DC clinic within a week. Patient has been discharged with antibiotics linezolid, inhaler budesonide and adempas. Operations or Procedures XY CHEST XRAY 1 VIEW IMPRESSION: 1. No new acute cardiopulmonary abnormality. 2. Diffuse interstitial pulmonary fibrosis. 3. Interval clearing of right lower lung opacity since prior study. PROCEDURE(s): CTACH - CT ANGIO CHEST CONTRAST IMPRESSION: 1. No evidence of pulmonary embolism. 2. Upper limits Of Normal-sized heart, mild chest wall edema, and trace bilateral pleural effusions. 3. 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 There is also mild centrilobular emphysema. This could be combined pulmonary fibrosis and emphysema. 4. At least mild 3-vessel calcified coronary artery disease. Condition at Discharge: Stable Final Diagnosis/Problems List #Diffuse interstitial pulmonary fibrosis #Severe sepsis due to below #Community acquired Pneumonia due to Gram-positive/ Gram-negative #Acute on chronic hypoxic respiratory failure #Possible COPD exacerbation #Chronic Diffuse interstitial pulmonary fibrosis #trace bilateral pleural effusions #Type 2 NSTEMI demand mediated at presentation, hypotension #Ruled out pulmonary embolism #Chronic right heart failure, systolic/diastolic, hfpef 55%, not under acute exacerbation #Severe pulmonary hypertension, pasp >85 mmHg #Cor pulmonale with Right ventricular hypertrophy #Hypertensive heart disease, possibly due to systolic/diastolic dysfunction #CAD, 3-vessel calcified coronary artery disease. #Dyslipidemia #Type 2 diabetes mellitus, uncontrolled #Penicillin allergy #Former smoker with 36 pack year smoking history #Mild thrombocytopenia, avoid linezolid #microcytic anemia likely iron deficiency check ferritin, and iron panel. #sacral wound, enterococcus faecalis +ve #Hypocalcemia, 8.0 Discharge Disposition: Home with Health Services Discharge Instruct/Medications Diet: Consistent carbohydrate, Cardiac 2g Na,low cholest Activity: No Restrictions, As Tolerated Follow Up/Referral: f/u with pcp in 10 days f/u at [facility] clinic within 7 days Medications: as per emr please continue all home medications Scheduled Amlodipine Besylate (Amlodipine Besylate), 1 TAB PO DAILY, (Reported) Atorvastatin Calcium (Atorvastatin Calcium), 1 TAB PO HS, (Reported) Budesonide (Inhalation) (Budesonide), 0.25 MG IN BID Docusate Sodium (Colace), 1 CAP PO BID, (Reported) Finasteride (Finasteride), 1 TAB PO DAILY, (Reported) Fyutykioxvz-Iveyffvmfplc-Qscoi (Trelegy Ellipta 200-62.5-25 Mcg/INH), 1 PUFF INH DAILY, (Reported) Furosemide (Lasix), 1 TAB PO DAILY Glimepiride (Glimepiride), 1 MG PO BID, (Reported) Metformin Hydrochloride (Metformin Hcl), 1 TAB PO BID, (Reported) Mirtazapine (Mirtazapine Oral Disintegrating Tablet), 1 TAB PO BID, (Reported) Multiple Vitamin (Multivitamins), 1 TAB PO DAILY, (Reported) Omeprazole (Cvs Omeprazole Odt), 20 MG PO DAILY, (Reported) Prednisone (Prednisone), 20 MG PO DAILY [place] (Adempas), 1 MG PO DAILY Sildenafil Citrate (Revatio), 20 MG PO TID Sildenafil Citrate (Revatio), 20 MG PO TID@08,14,20 Tamsulosin Hcl (Tamsulosin Hcl), 0.4 MG PO HS, (Reported) Scheduled PRN Ipratropium-Albuterol (Ipratropium [place]/Albut), 1 CON IN Q4HPRN PRN Miscellaneous Medications Dapagliflozin Propanediol (Farxiga), 10 MG PO, (Reported) Fluticasone Propionate (Nasal) (Flonase Allergy Relief), 50 MCG NA, (Reported) Discontinued Medications Doxycycline Monohydrate (Doxycycline Monohydrate), 1 CAP PO BID Discharge Statement: "Patient was advised to return to the ER or call 911 if any headaches, dizziness, shortness of breath, chest pain, abdominal pain, bleeding, fevers, or worsening of medical condition. Patient was counseled about treatment plan, medications, possible side effects, patientverbalized understanding. All questions were answered to the best of my ability. This discharge took greater then 30 minutes in planning, reviewing documentation, counseling the patient, and discussing with other team members." ASSESSMENT ASSESSMENT Assessment #Diffuse interstitial pulmonary fibrosis #Severe sepsis due to below #Community acquired Pneumonia due to Gram-positive/ Gram-negative #Acute on chronic hypoxic respiratory failure #Possible COPD exacerbation Visit Coding STANDARD RES Billing Provider: MADI CLARKE MD Date of Service if different f: Mar 19, 2025 Common Visit Codes: [id number] DISCH DAY >30min LARRY MONTIEL RESIDENT Mar 19, 2025 19:12
[2025-03-19] MEDS ORDERED: LINE1TAB6 PO (19:20)
[2025-03-19] MEDS ORDERED: TAMSULOSIN HYDROCHLORIDE 0.4 MG CAP PO SCH (22:00)
--- NOTE | 2025-03-19 22:34 | DVHPN2 ---
[facility] DOS: 03/19/2025 Patient seen and examined at bedside. Remains on supplemental oxygen Overnight events reviewed. Reviewed: Care Plan, H&P, Labs, Medications, Previous Orders, Radiology Changes from previous H/P or p: No Changes Objective Vitals Vital Signs Date Time Temp Pulse Resp B/P (MAP) Pulse Ox O2 Delivery O2 Flow Rate FiO2 03/19/25 13:01 36.9 99 20 90 03/19/25 12:51 122/72 (89) 03/19/25 11:07 Nasal Cannula 2.0 03/19/25 11:07 28 Intake/Output Intake and Output 03/19/25 07:00 Intake Total 1625 ml Output Total 700 ml Balance 925 ml Intake Oral 1275 ml IV Total 350 ml Output Urine Total 700 ml # Voids 6 # Bowel Movements 1 Exam Gen.: Patient lying in bed in no apparent distress. On supplemental oxygen. Head: Normocephalic, atraumatic. Eyes: EOMI/PERRLA. Ears: Normal hearing. Normal anatomy. Neck/trachea: Trachea midline, supple. Nose: Normal external anatomy. Mouth: Moist mucous membranes. Chest: Decreased air entry bilaterally. No wheezing or rhonchi. Cardiovascular: Positive S1, positive S2. Regular rate and rhythm. Abdomen: Positive bowel sounds in all 4 quadrants. Soft, non-tender, non- distended. : Deferred. Rectal: Deferred. Skin: Warm, dry. Intact. Extremities: 2+ radial pulses bilaterally. No lower extremity edema. Neuro: Awake, alert, oriented x3. No gross motor or sensory deficits. Cranial nerves II through XII intact. Gait not assessed. General Appearance: Alert, Oriented X3, Cooperative, No acute distress HEENT: Atraumatic, PERRLA, EOMI, Mucous membr. moist/pink Neck: Supple Lungs: Clear to auscultation, Normal air movement Cardiovascular: Regular rate, Normal S1, Normal S2, No murmurs, Gallops, Rubs Abdomen: Normal bowel sounds, Soft, No tenderness Neuro: Cranial nerves 3-12 NL Psych/Mental Status: Mental status NL Laboratory Results Laboratory Tests 03/19/25 05:12 Chemistry Test 03/19/25 05:12 Albumin 3.5 g/dL (3.2-4.8) Calcium Level 8.6 mg/dL (8.7-10.4) L Total Protein 5.5 g/dL (5.7-8.2) L LFT Test 03/19/25 05:12 Alanine Aminotransferase (ALT) 48 U/L (7-40) H Alkaline Phosphatase 217 U/L (46-116) H Aspartate Amino Transferase (AST) 35 U/L (13-40) Total Bilirubin 0.8 mg/dL (0.2-1.0) Urinalysis Test 03/14/25 20:00 Urine Color Yellow (Yellow) Urine Clarity Clear (Clear) Urine pH 6.5 (5.0-9.0) Urine Specific [place] 1.016 (1.001-1.035) Urine Protein 2+ (Negative) H Urine Ketones Negative (Negative) Urine Blood Negative /uL (Negative) Urine Nitrite Negative (Negative) Urine Bilirubin Negative (Negative) Urine Urobilinogen Normal mg/dL (Negative) Urine Leukocyte Esterase Negative /uL (Negative) Urine RBC 3 /hpf (0 - 3) Urine Microscopic WBC < 1 /HPF (0-3) Urine Squamous Epithelial Cells None seen /hpf (<5) Urine Bacteria None seen /hpf (None Seen) Urine Glucose Normal mg/dL (Normal) Microbiology Microbiology Date/Time Source Procedure Growth Status 03/15/25 17:00 Nose MRSA Screen - Final Complete 03/14/25 19:14 Blood Blood Culture - Final NO GROWTH AFTER 5 DAYS OF INCUBATION. Complete Assessment/Plan Assessment/Plan Impression: Acute on chronic hypoxic respiratory failure Dependence on supplemental oxygen Pulmonary hypertension Pleural effusion Atelectasis Pneumonia Hx of nicotine dependence Events: Remains on supplemental oxygen, 3 LPM NC Taper O2 as tolerated Continue bronchodilators Continue steroids - on prednisone Continue antibiotics Incentive spirometry Diurese with Lasix Monitor renal function. Monitor electrolytes. Supplement as necessary. Monitor ins and outs. Patient is stable for discharge from the pulmonary standpoint. Labs and imaging reviewed. Rest of plan as noted below. Plan: Supplemental oxygen Titrate to keep O2 sats above 92%. On [place] for pulmonary HTN. Continue bronchodilators. Pulmicort BID Continue antibiotics Incentive spirometry for atelectasis Diurese to euvolemia Monitor renal function. Monitor electrolytes. Supplement as necessary. Monitor ins and outs. DVT prophylaxis. Prognosis: Poor given patient's multiple co-morbidities. Rest of plan per hospitalist and other consultants. Thank you, Dr. Mccain, for allowing me to participate in this patient's care. Further recommendations will depend on the patient's clinical course. Please do not hesitate to contact me if you have any questions or concerns. This medical document was created using an electronic medical record system with [employer] dictation system. Although these documentations are being carefully reviewed, there may still be some phonetic and typographical changes. The errors are purely typographical, due to imperfection on the software program, and do not reflect any compromise in the patient's medical care. Plan discussed with: Patient, Other (RN Don) Visit Coding Pulmonary Billing Provider: ALBERTO BENTON MD Date of Service if different f: Mar 19, 2025 Common Visit Codes: [id number] INP/OBS CARE(HIGH) ALBERTO BENTON MD Mar 19, 2025 22:34
[2025-03-20] MEDS ORDERED: FINASTERIDE 5 MG TAB PO SCH (10:00)
== END 2025-03-19 14:40 | disposition home health service (06) | DRG 871 ==
LOC: EDUNIT# 18:16 → EDBD 18:16 → ER 18:16 → OVERFLOW 22:10 → TELE-WESTW 23:51
PROVIDERS: ADMIT Internal Medicine; ATTEND Internal Medicine
DX: A41.59 Other Gram-negative sepsis (principal); I21.A1 Myocardial infarction type 2; J15.69 Pneumonia due to other Gram-negative bacteria; J96.21 Acute and chronic respiratory failure with hypoxia; J15.9 Unspecified bacterial pneumonia; E87.20 Acidosis, unspecified; I27.29 Other secondary pulmonary hypertension; D69.6 Thrombocytopenia, unspecified; E83.51 Hypocalcemia; J44.0 Chronic obstructive pulmonary disease with (acute) lower respiratory infection; R65.20 Severe sepsis without septic shock; I50.42 Chronic combined systolic (congestive) and diastolic (congestive) heart failure; I11.0 Hypertensive heart disease with heart failure; D50.9 Iron deficiency anemia, unspecified; J44.1 Chronic obstructive pulmonary disease with (acute) exacerbation; I27.81 Cor pulmonale (chronic); J84.10 Pulmonary fibrosis, unspecified; Z20.822 Contact with and (suspected) exposure to COVID-19; E78.5 Hyperlipidemia, unspecified; I25.10 Atherosclerotic heart disease of native coronary artery without angina pectoris; J43.2 Centrilobular emphysema; Z79.84 Long term (current) use of oral hypoglycemic drugs; Z87.891 Personal history of nicotine dependence; Z79.899 Other long term (current) drug therapy; Z88.0 Allergy status to penicillin; Z99.81 Dependence on supplemental oxygen; Z83.3 Family history of diabetes mellitus
CPT/HCPCS: 36415; 71045; 71275; 80048; 80053; 80061; 80202; 81001; 82962; 83605; 83735; 83880; 84484; 85007; 85025; 85027; 87040; 87077; 87081; 87186; 87205; 87426; 87804; 93005; 94640; 97163; G0378; J1815; J1956; J2470